=== PATIENT | female | born 1980 | race Caucasian/White ===

== ENCOUNTER 2021-08-01 12:09 | Emergency (ER) | payer BC, OTHER ==
--- OUTSIDE RECORDS SUMMARY | 2021-08-01 12:12 | XMS REPORT | Continuity of Care Document ---
:[address] [facility] t Address [address] [place] [address] Care Team Providers Name Role Phone Cipriano FOY Primary Care Physician Gerard Kaur Attending Clinician Gerard URIOSTEGUI Attending Clinician Unavailable Aline ABRAMS Attending Clinician ALINE Attending Clinician Unavailable Doctor Unassigned, Name Attending Clinician Unavailable Payers Payer Name Policy Type Policy Number Effective Date Expiration Date S ource Problems Condition Condition Condition Status Onset Resolution Last Treating Co mments Source Name Details Category Date Date Treatment Clinician Date 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 - [place] asthma [place] without 00 Medical complicati complicati Br anch on on Acute Acute Disease Active Univers seasonal seasonal - ity of allergic allergic 00:00: [place] rhinitis rhinitis 00 Medica l due to due to Branch pollen pollen Allergies, Adverse Reactions, Alerts Allergy Allergy Status Severity Reaction(s) Onset Inactive Treating Comm ents Source Name Type Date Date Clinician SUMATRIP DRUG Active Unknown-Cmnt 2014-03 Un patel WILD INGREDI 03-20 ity of SUCCINAT 00:00: [place] E 00 Medical Branch LANSOPRA DRUG Active Unknown-Cmnt 2014-03 Un patel ZOLE INGREDI 03-20 ity of 00:00: [place] 00 Medical Branch Sumatrip Propensi Active Unknown - 2014-03 Uni vers wild ty to See comments 03-20 ity of Succinat adverse 00:00: [place] e reaction 00 Medical s Branch Lansopra Propensi Active Unknown - 2014-03 Uni vers zole ty to See comments 03-20 ity of adverse 00:00: [place] reaction 00 Medical s Branch Social History Social Habit Start Date Stop Date Quantity Comments Source Exposure to 2021-06-30 2021-07-10 Not sure [facility] SARS-CoV-2 (event) 00:00:00 17:20:00 Medica l Branch Alcohol intake 2021-07-10 2021-07-10 0 /d [facility] 00:00:00 00:00:00 Medical Branch Sex [birth year] At [birth year] [facility] 00:00:00 00:00:00 Medical Branch Smoking Status Start Date Stop Date Source Never smoker [facility] Medical Branch Medications Ordered Filled Start Stop Current Ordering Indication Dosage Frequency Signature Comments Components Source Medication Medication Date Date Medication? Clinician (SIG) Name Name predniSONE Yes [id number] Take 4 Univers 10 mg 07-10 tabs by ity of tablet 00:00: mouth for [place] 00 3 days, 3 Medical tabs for 2 Branch days azelastine Yes [id number] 1{spray Use 1 Univers 137 mcg 07-10 } [place] in ity of (0.1 %) 00:00: each [place] nasal spray 00 nostril 2 Med ical (two) Branch times daily. Use in each nostril as directed amoxicillin 2021- Yes [id number] 875mg Take 1 Univers 875 mg 07-10 tablet by ity of tablet 00:00: 04:59 mouth 2 [place] 00 :00 (two) Medical times Branch daily for 7 days. levocetiriz Yes Take by Un patel ine 3-31 mouth. ity of dihydrochlo 10:31: [place] ride (XYZAL 41 Medical ORAL) Branch levocetiriz Yes Take by Un patel ine 3-31 mouth. ity of dihydrochlo 10:31: [place] ride (XYZAL 41 Medical ORAL) Branch levocetiriz Yes Take by Un patel ine 3-31 mouth. ity of dihydrochlo 10:31: [place] ride (XYZAL 41 Medical ORAL) Branch levocetiriz Yes Take by Un patel ine 3-31 mouth. ity of dihydrochlo 10:31: [place] ride (XYZAL 41 Medical ORAL) Branch norgestrel- Yes [id number] 1{tbl} Take 1 Univers ethinyl 3-31 tablet by ity of estradioL 00:00: mouth (SELLE) 00 daily. Medical 0.3-30 Branch mg-mcg per tablet norgestrel- Yes [id number] 1{tbl} Take 1 Univers ethinyl 3-31 tablet by ity of estradioL 00:00: mouth (SELL) 00 daily. Medical 0.3-30 Branch mg-mcg per tablet norgestrel- Yes [id number] 1{tbl} Take 1 Univers ethinyl 3-31 tablet by ity of estradioL 00:00: mouth (SELL) 00 daily. Medical 0.3-30 Branch mg-mcg per tablet norgestrel- Yes [id number] 1{tbl} Take 1 Univers ethinyl 3-31 tablet by ity of estradioL 00:00: mouth (SELL) 00 daily. Medical 0.3-30 Branch mg-mcg per tablet CRYSELLE 2021- No [id number] TAKE 1 U nivers 0.3-30 2-14 03-31 TABLET BY ity of mg-mcg per 00:00: 00:00 MOUTH [place] tablet 00 :00 EVERY DAY Medical Branch CRYSELLE 2021- No [id number] TAKE 1 U nivers 0.3-30 2-14 03-31 TABLET BY ity of mg-mcg per 00:00: 00:00 MOUTH [place] tablet 00 :00 EVERY DAY Medical Branch metoclopram 2020-03 Yes Univer s thalia HCl 10 0-26 ity of mg tablet 00:00: [place] 00 Medical Branch SUTAB 2020-03 Yes Univers 1.479-0.188 0-26 ity of - 0.225 00:00: [place] gram Tab 00 Medical Branch metoclopram 2020-03 Yes Univer s thalia HCl 10 0-26 ity of mg tablet 00:00: [place] 00 Medical Branch SUTAB 2020-03 Yes Univers 1.479-0.188 0-26 ity of - 0.225 00:00: [place] gram Tab 00 Medical Branch metoclopram 2020-03 Yes Univer s thalia HCl 10 0-26 ity of mg tablet 00:00: [place] Medical [facility] SUTAB 2020-03 Yes Univers 1.479-0.188 0-26 ity of - 0.225 00:00: [place] gram Tab 00 Medical Branch metoclopram 2020-03 Yes Univer s thalia HCl 10 0-26 ity of mg tablet 00:00: [place] 00 Medical Branch SUTAB 2020-03 Yes Univers 1.479-0.188 0-26 ity of - 0.225 00:00: [place] gram Tab 00 Medical Branch montelukast Yes [id number] 10mg Take 1 Univers 10 mg 8-23 tablet by ity of tablet 00:00: mouth [place] 00 daily. Medical Branch montelukast 0 Yes [id number] 10mg Take 1 Univers 10 mg 8-23 tablet by ity of tablet 00:00: mouth [place] 00 daily. Medical Branch montelukast Yes [id number] 10mg Take 1 Univers 10 mg 8-23 tablet by ity of tablet 00:00: mouth [place] 00 daily. Medical Branch montelukast Yes [id number] 10mg Take 1 Univers 10 mg 8-23 tablet by ity of tablet 00:00: mouth [place] 00 daily. Medical Branch albuterol Yes [id number] 2{puff} Inhale 2 Univers 90 5-18 Puffs ity of mcg/actuati 00:00: every 6 [place] on inhaler 00 (six) Medical hours as Branch needed for Wheezing. fluticasone Yes [id number] [place] 1 Univers propion-quinton 5-18 PUFF BY ity o f meteroL 00:00: MOUTH [place] (ADVAIR 00 EVERY 12 Medical DISKUS) HOURS Branch 250-50 mcg/dose inhalation disk albuterol Yes [id number] 2{puff} Inhale 2 Univers 90 5-18 Puffs ity of mcg/actuati 00:00: every 6 [place] as on inhaler 00 (six) Medical hours as Branch needed for Wheezing. fluticasone Yes [id number] [place] 1 Univers propion-[place] 5-18 PUFF BY ity o f meteroL 00:00: MOUTH [place] (ADVAIR 00 EVERY 12 Medical DISKUS) HOURS Branch 250-50 mcg/dose inhalation disk albuterol Yes [id number] 2{puff} Inhale 2 Univers 90 5-18 Puffs ity of mcg/actuati 00:00: every 6 [place] as on inhaler 00 (six) Medical hours as Branch needed for Wheezing. fluticasone Yes [id number] [place] 1 Univers propion-[place] 5-18 PUFF BY ity o f meteroL 00:00: MOUTH [place] (ADVAIR 00 EVERY 12 Medical DISKUS) HOURS Branch 250-50 mcg/dose inhalation disk albuterol Yes [id number] 2{puff} Inhale 2 Univers 90 5-18 Puffs ity of mcg/actuati 00:00: every 6 [place] as on inhaler 00 (six) Medical hours as Branch needed for Wheezing. fluticasone Yes [id number] [place] 1 Univers propion-[place] 5-18 PUFF BY ity o f meteroL 00:00: MOUTH [place] (ADVAIR 00 EVERY 12 Medical DISKUS) HOURS Branch 250-50 mcg/dose inhalation disk Immunizations Ordered Filled Immunization Date Status Comments [facility] e Immunization Name Name [facility] 2021-06-09 Completed University of 00:00:00 [facility] TDAP 2021-06-09 Completed University of 00:00:00 [facility] TDAP 2021-06-09 Completed University of 00:00:00 [facility] TDAP 2021-06-09 Completed University of 00:00:00 [facility] Influenza Virus 2020-12-09 Completed Universit y of Vaccine 00:00:00 [facility] Influenza Virus 2020-12-09 Completed Universit y of Vaccine 00:00:00 [facility] Influenza Virus 2020-12-09 Completed Universit y of Vaccine 00:00:00 [facility] Influenza Virus 2020-12-09 Completed Universit y of Vaccine 00:00:00 [facility] SARS-COV-2 COVID-19 2020-05-22 Completed Unive rsity of MODERNA VACCINE 00:00:00 [facility] SARS-COV-2 COVID-19 2020-05-22 Completed Unive rsity of MODERNA VACCINE 00:00:00 [facility] SARS-COV-2 COVID-19 2020-05-22 Completed Unive rsity of MODERNA VACCINE 00:00:00 [facility] SARS-COV-2 COVID-19 2020-05-22 Completed Unive rsity of MODERNA VACCINE 00:00:00 [facility] SARS-COV-2 COVID-19 2020-04-10 Completed Unive rsity of MODERNA VACCINE 00:00:00 [facility] SARS-COV-2 COVID-19 2020-04-10 Completed Unive rsity of MODERNA VACCINE 00:00:00 [facility] SARS-COV-2 COVID-19 2020-04-10 Completed Unive rsity of MODERNA VACCINE 00:00:00 [facility] SARS-COV-2 COVID-19 2020-04-10 Completed Unive rsity of MODERNA VACCINE 00:00:00 [facility] Influenza Virus 2019-11-27 Completed Universit y of Vaccine Quad .5 mL 00:00:00 [facility] 6+ MO Branch Influenza Virus 2019-11-27 Completed Universit y of Vaccine Quad .5 mL 00:00:00 [facility] 6+ MO Branch Influenza Virus 2019-11-27 Completed Universit y of Vaccine Quad .5 mL 00:00:00 [facility] 6+ MO Branch Influenza Virus 2019-11-27 Completed Universit y of Vaccine Quad .5 mL 00:00:00 [facility] IM 6+ MO Branch Influenza Virus 2019-01-07 Completed Universit y of Vaccine Quad .5 mL 00:00:00 [facility] 6+ MO Branch Pneumococcal 2019-01-07 Completed University o f Polysaccharide, 00:00:00 [facility] PPSV23 (PNEUMOVAX) Branch Influenza Virus 2019-01-07 Completed Universit y of Vaccine Quad .5 mL 00:00:00 [facility] 6+ MO Branch Pneumococcal 2019-01-07 Completed University o f Polysaccharide, 00:00:00 [facility] PPSV23 (PNEUMOVAX) Branch Influenza Virus 2019-01-07 Completed Universit y of Vaccine Quad .5 mL 00:00:00 [facility] IM 6+ MO Branch Pneumococcal 2019-01-07 Completed University o f Polysaccharide, 00:00:00 [facility] ical PPSV23 (PNEUMOVAX) Branch Influenza Virus 2019-01-07 Completed Universit y of Vaccine Quad .5 mL 00:00:00 [facility] 6+ MO Branch Pneumococcal 2019-01-07 Completed University o f Polysaccharide, 00:00:00 [place] Med ical PPSV23 (PNEUMOVAX) Branch Influenza Virus 2017-11-21 Completed Universit y of Vaccine 00:00:00 [facility] Influenza Virus 2017-11-21 Completed Universit y of Vaccine 00:00:00 [facility] Influenza Virus 2017-11-21 Completed Universit y of Vaccine 00:00:00 [facility] Influenza Virus 2017-11-21 Completed Universit y of Vaccine 00:00:00 [facility] TDAP 2011-01-02 Completed University of 00:00:00 [facility] TDAP 2011-01-02 Completed University of 00:00:00 [facility] TDAP 2011-01-02 Completed University of 00:00:00 [facility] TDAP 2011-01-02 Completed University of 00:00:00 [facility] Vital Signs Vital Name Observation Time Observation Value Comments Source Systolic blood 2021-07-10 22:27:00 137 mm[Hg] Univer sity of pressure [facility] Diastolic blood 2021-07-10 22:27:00 82 mm[Hg] Unive rsity of pressure [facility] Heart rate 2021-07-10 22:25:00 91 /min [facility] Body temperature 2021-07-10 22:25:00 36.89 Lakshmi [facility] Respiratory rate 2021-07-10 22:25:00 16 /min [facility] Body height 2021-07-10 22:25:00 170.2 cm [facility] Body weight 2021-07-10 22:25:00 106.323 kg [facility] BMI 2021-07-10 22:25:00 36.71 kg/m2 [facility] Oxygen saturation in 2021-07-10 22:25:00 98 /min [facility] Arterial blood by [facility] Pulse oximetry Branch Systolic blood 2021-06-09 15:34:00 133 mm[Hg] Univer sity of pressure [facility] Diastolic blood 2021-06-09 15:34:00 82 [facility]Hg[facility] 2021-06-09 15:34:00 84 /min [facility] Body temperature 2021-06-09 15:34:00 37 Lakshmi [facility] Respiratory rate 2021-06-09 15:34:00 20 /min [facility] Body height 2021-06-09 15:34:00 170.2 cm [facility] Body weight 2021-06-09 15:34:00 106.777 kg [facility] BMI 2021-06-09 15:34:00 36.87 kg/m2 [facility] Oxygen saturation in 2021-06-09 15:34:00 96 /min [facility] Arterial blood by [facility] Pulse oximetry Branch Procedures Procedure Date / Time Performing Clinician Source Performed TDAP VACCINE, >11 YRS, 2021-06-09 15:56:45 Nathaly Zarate [facility] CONSENT FOR 2021-06-09 05:01:00 Doctor Unassigned, No [facility] Encounters Start End Encounter Admission Attending Care Care Encounter Source Date/Time Date/Time Type Type Clinicians Facility Department ID 2021-07-10 2021-07-10 Urgent [facility] [id number] Univers 17:20:00 [facility]:40:[id number] [id number] Álvar[place] as LUCAS?BLEA [phone] [address] MEDICAL OFFICE BUILDING 2021-07-10 2021-07-10 Outpatient R [facility] [id number] Univers 17:20:00 17:20:00 [id number] ity [facility] 2021-07-10 2021-07-10 [facility] [id number] Univers 17:20:00 17:20:00 ENRRIQUE wyatt o f [facility] 2021-06-09 2021-06-09 Office Aline WIKALEB [id number] Univers 10:00:00 11:00:06 Visit Nathaly ESPINAL [id number] i [facility] [id number] [place] PROFESS[place] [id number] Nm dical [address] 2021-06-09 2021-06-09 Outpatient R ALINE [facility] [id number] [facility] 10:00:00 11:00:06 NATHALY wyatt of [facility] 2021-06-09 2021-06-09 Orders Doctor JARET [id number] Univers 00:00:00 00:00:00 Only Unassigned, NICOLA [id number] ity of [place] [facility] [id number] Á[place] as [phone] [place] [address] Branch Results This patient has no known results.
[2021-08-01 14:13] LABS: Urine Blood Negative (Negative); Urine Glucose Negative (Negative); Urine Protein 1+ (Negative); Urine Specific Gravity >=1.030 (1.005-1.030)
[2021-08-01 14:19] LABS: Absolute Lymphocytes (CBC) 1.4 K/uL (0.7-4.9); Hematocrit 45.8 % (36.0-45.0); Lymphocytes % 20.6 % (15.3-44.8); MPV 7.7 fL (7.6-11.3)
[2021-08-01 14:31] LABS: Urine Bacteria 20-50 /HPF (<20); Urine Mucus HEAVY /HPF (NONE SEEN); Urine RBC NONE SEEN /HPF (NONE SEEN)
[2021-08-01] MEDS ORDERED: ONDANSETRON 4 MG/2 ML VIAL ONE (15:03)
[2021-08-01 15:53] LABS: Albumin 3.6 g/dL (3.4-5.0); Bilirubin Total 0.3 mg/dL (0.2-1.0); Potassium 3.4 mmol/L (3.5-5.1); Protein, Total 7.5 g/dL (6.4-8.2)
--- NOTE | 2021-08-01 16:47 | RAD REPORT ---
EXAM DESCRIPTION: CT - Abdomen Pelvis W Contrast - 08/01/2021 4:13 pm CLINICAL HISTORY: Abdominal pain, acute, nonlocalized COMPARISON: CT study 04/26/2016 TECHNIQUE: Biphasic, helical CT imaging of the abdomen and pelvis was performed following 100 ml non -ionic IV contrast. No oral contrast administered. All CT scans are performed using dose optimization technique as appropriate and may include automated exposure control or mA/KV adjustment according to patient size. FINDINGS: No suspicious findings in the lung bases. The liver, spleen, and pancreas show no suspicious findings. No portal vein thrombus. Gallbladder is absent. Biliary tree within normal limits. Symmetric renal function is seen with no hydronephrosis or suspicious renal mass. No pyelonephritis o r acute parenchymal process. No bladder abnormalities. No adrenal abnormalities. Uterus and ovaries s how no suspicious findings. No dilated bowel loops or bowel wall thickening. No appendicitis findings. Fluid filled large and sma ll bowel loops are seen, are nonspecific but could reflect enteritis. No free air, free fluid or infl ammatory stranding. No hernia, mass or bulky lymphadenopathy. No suspicious bony findings. IMPRESSION: Contrast enhanced CT abdomen and pelvis showing no emergent finding. Fluid filled large and small bowel loops are nonspecific but could indicate enteritis.
--- NOTE | 2021-08-01 16:56 | EDPHYS ---
Physician Documentation [facility] Name: Elke Benton Age: 40 yrs Sex: Female : 1980 Arrival Date: 08/01/2021 Time: 12:16 Bed 9 Private MD: Marv Cota S ED Physician Jayden Quintana HPI: 08/01 16:29 This 40 yrs old Female presents to ER via Ambulatory with complaints of Abdominal Pain, ms3 GI flare up. 16:29 The patient presents with abdominal pain that is diffuse. Onset: The symptoms/episode ms3 began/occurred last night. The symptoms do not radiate. Associated signs and symptoms: Pertinent positives: nausea, vomiting, and diarrhea. The symptoms are described as crampy. Modifying factors: The symptoms are alleviated by heating pad. the symptoms are aggravated by drinking, food. Severity of pain: At its worst the pain was severe a 10 / 10. 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 - Social history:: Smoking status: Patient denies any tobacco usage or history of. ROS: 16:29 Constitutional: Negative for fever, and chills. Neck: Negative for injury, pain, and ms3 swelling, Cardiovascular: Negative for chest pain, and palpitations. Respiratory: Negative for shortness of breath, cough, wheezing, and pleuritic chest pain. 16:29 MS/Extremity: Negative for injury and deformity, Skin: Negative for injury, rash, and discoloration. 16:29 Abdomen/GI: Positive for abdominal pain, nausea, vomiting, and diarrhea. 16:29 All other systems are negative. Exam: 16:29 Constitutional: This is a well developed, well nourished patient who is awake, alert, ms3 and in no acute distress. Neck: Trachea midline, no cervical lymphadenopathy. Supple, full range of motion without nuchal rigidity, or vertebral point tenderness. No Meningismus. Chest/axilla: Normal chest wall appearance and motion. Nontender with no deformity. Cardiovascular: Regular rate and rhythm with a normal S1 and S2. No gallops, murmurs, or rubs. Normal PMI, no JVD. No pulse deficits. Respiratory: Lungs have equal breath sounds bilaterally, clear to auscultation and percussion. No rales, rhonchi or wheezes noted. No increased work of breathing, no retractions or nasal flaring. Back: No spinal tenderness. No costovertebral tenderness. Full range of motion. Skin: Warm, dry with normal turgor. Normal color with no rashes, no lesions, and no evidence of cellulitis. MS/ Extremity: Pulses equal, no cyanosis. Neurovascular intact. Full, normal range of motion. Psych: Awake, alert, with orientation to person, place and time. Behavior, mood, and affect are within normal limits. 16:29 Abdomen/GI: Inspection: abdomen appears normal, Bowel sounds: normal, Palpation: moderate abdominal tenderness, in all quadrants. Vital Signs: 12:38 BP 135 / 89; Pulse 105; Resp 18; Temp 98.1; Pulse Ox 99% ; Weight 104.33 kg; Height 5 jd3 ft. 7 in. (170.18 cm); Pain 8/10; 12:38 Body Mass Index 36.02 (104.33 kg, 170.18 cm) jd3 MDM: 13:52 Patient medically screened. ms3 16:29 Differential diagnosis: bowel obstruction, diverticulitis, gastritis, non-specific abd ms3 pain. 22:06 Data reviewed: vital signs, nurses notes, lab test result(s), radiologic studies. ED ms3 course: Discussed labs, CT results, and PE findings with patient. Patient to follow up with her PMD in 2-3 days. Patient understands/ agrees with plan. All questions answered. Return precautions given to include worsening symptoms, or any other concerns. Patient is improved, in NAD, non-toxic appearing, ambulatory in ED, speaking full sentences.. 08/01 12:39 Order name: CBC with Diff; Complete Time: 16:27 ms3 08/01 12:39 Order name: CMP; Complete Time: 16:27 ms3 08/01 12:39 Order name: Lipase; Complete Time: 16:27 ms3 05/23 12:39 Order name: Urine Microscopic Only; Complete Time: 16:27 ms3 08/01 14:13 Order name: Urine Dipstick-Ancillary; Complete Time: 16:27 EDMS 08/01 12:39 Order name: CT Abd/Pelvis - IV Contrast Only; Complete Time: 16:52 ms3 08/01 12:39 Order name: IV Saline Lock; Complete Time: 14:13 ms3 08/01 12:39 Order name: Labs collected and sent; Complete Time: 14:13 ms3 08/01 12:39 Order name: Urine Dipstick-Ancillary (obtain specimen); Complete Time: 14:13 ms3 08/01 12:39 Order name: Urine Test (obtain specimen); Complete Time: 14:13 ms3 08/01 14:34 Order name: Urine Culture EDWY 08/01 14:20 Order name: Labs - recollect needed: recollect green top; Complete Time: 15:06 bd 08/01 15:18 Order name: Labs - recollect needed: recollect green top again, lab will come collect.; bd Complete Time: 16:00 Administered Medications: 15:18 Drug: Zofran (Ondansetron) 4 mg Route: IVP; Site: left antecubital; ww Disposition Summary: 08/01/21 16:56 Discharge Ordered Location: Home ms3 Problem: new ms3 Symptoms: are unchanged ms3 Condition: Stable ms3 Diagnosis - UTI/ Urinary tract infection, site not specified ms3 - Abdominal pain, Generalized ms3 Followup: ms3 - With: Marv Cota MD - When: 2 - 3 days - Reason: Recheck today's complaints Discharge Instructions: - Discharge Summary Sheet ms3 - Urinary Tract Infection, Adult ms3 Forms: - Medication Reconciliation Form ms3 - Thank You Letter ms3 - Antibiotic Education ms3 - Prescription Opioid Use ms3 - Work release form ww Prescriptions: - cefpodoxime 200 mg Oral Tablet - take 2 tablets by ORAL route every 12 hours with food; 14 tablet; Refills: 0, ms3 Product Selection Permitted - dicyclomine 10 mg Oral Capsule - take 1 capsule by ORAL route 3 times per day; 15 capsule; Refills: 0, Product ms3 Selection Permitted Signatures: Dispatcher [employer] Trini Loza Jonathon, RN RN jd3 Jayden Quintana, DO ms3 Bharti Banuelos, RN RN ww
--- NOTE | 2021-08-01 16:56 | ER ---
Nurse's Notes [facility] Name: Elke Benton Age: 40 yrs Sex: Female : 1980 Arrival Date: 08/01/2021 Time: 12:16 Bed 9 Private MD: Marv Cota S Diagnosis: UTI/ Urinary tract infection, site not specified;Abdominal pain, Generalized Presentation: 08/01 12:38 Chief complaint: Patient states: Abdominal pain that started yesterday with nausea and jd3 diarrhea. Has a history of diverticulitis and colitis. Started yesterday with a mirgraine. Coronavirus screen: Vaccine status: Patient reports receiving the 2nd dose of the covid vaccine. Client denies travel out of the [place] in the last 14 days. Ebola Screen: Patient denies travel to an Ebola-affected area in the 21 days before illness onset. Initial Sepsis Screen: Does the patient meet any 2 criteria? No. Patient's initial sepsis screen is negative. Does the patient have a suspected source of infection? No. Patient's initial sepsis screen is negative. Risk Assessment: Do you want to hurt yourself or someone else? Patient reports no desire to harm self or others. Onset of symptoms was July 31, 2021. 12:38 Method Of Arrival: Ambulatory jd3 12:38 Acuity: MARK 3 jd3 Triage Assessment: 12:41 General: Appears uncomfortable, Behavior is calm, cooperative. Pain: Complains of pain jd3 in diaphragm. Neuro: Level of Consciousness is awake, alert, obeys commands, Oriented to person, place, time, situation, Moves all extremities. Speech is normal. Cardiovascular: Patient's skin is warm and dry. Respiratory: Airway is patent Respiratory effort is even, unlabored, Respiratory pattern is regular, symmetrical. 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 - Social history:: Smoking status: Patient denies any tobacco usage or history of. Screenin:43 Abuse screen: Denies threats or abuse. Denies injuries from another. Nutritional jd3 screening: No deficits noted. Tuberculosis screening: No symptoms or risk factors identified. 17:22 Fall Risk None identified. ww Assessment: 17:22 General: Appears in no apparent distress. Behavior is calm, cooperative. Pain: ww Complains of pain in abdomen. Neuro: Level of Consciousness is awake, alert, obeys commands, Oriented to person, place, time, situation, Moves all extremities. Gait is steady, Speech is normal. Cardiovascular: Patient's skin is warm and dry. Respiratory: Airway is patent Respiratory effort is even, unlabored, Respiratory pattern is regular, symmetrical. GI: Abdomen is non-distended, Abd is soft and non tender. Derm: Skin is intact, is healthy with good turgor. Vital Signs: 12:38 BP 135 / 89; Pulse 105; Resp 18; Temp 98.1; Pulse Ox 99% ; Weight 104.33 kg; Height 5 jd3 ft. 7 in. (170.18 cm); Pain 8/10; 12:38 Body Mass Index 36.02 (104.33 kg, 170.18 cm) jd3 ED Course: 12:16 Patient arrived in ED. am2 12:16 Marv Cota MD is Private Physician. am2 12:32 Jayden Quintana DO is Attending Physician. ms3 12:41 Triage completed. jd3 12:41 Arm band placed on right wrist. jd3 14:13 Patient has correct armband on for positive identification. Placed in gown. Bed in low mh5 position. Call light in reach. Side rails up X 1. Warm blanket given. Pulse ox on. NIBP on. 14:13 CBC with Diff Sent. mh5 14:13 CMP Sent. mh5 14:13 Lipase Sent. mh5 14:13 Urine Microscopic Only Sent. mh5 14:14 Initial lab(s) drawn, by de, sent to lab. Urine collected: clean catch specimen, mh5 cloudy. Inserted saline lock: 20 gauge in right antecubital area, using aseptic technique. Blood collected. 14:15 Lipase Sent. 5 14:15 CMP Sent. 5 14:15 CBC with Diff Sent. mh5 14:41 Cayla Fraire, RN is Primary Nurse. 16:17 CT Abd/Pelvis - IV Contrast Only In Process Unspecified. EDMS 16:54 Marv Cota MD is Referral Physician. ms3 17:22 No provider procedures requiring assistance completed. IV discontinued, intact, ww bleeding controlled, No redness/swelling at site. Pressure dressing applied. Administered Medications: 15:18 Drug: Zofran (Ondansetron) 4 mg Route: IVP; Site: left antecubital; ww Medication: 17:22 VIS not applicable for this client. ww Outcome: 16:56 Discharge ordered by . ms3 17:22 Discharged to home ambulatory, with family. ww 17:22 Condition: stable 17:22 Discharge instructions given to patient, Instructed on discharge instructions, follow up and referral plans. medication usage, safety practices, Demonstrated understanding of instructions, follow-up care, medications, Prescriptions given X 1. 17:24 Patient left the ED. ww Signatures: Dispatcher [employer] EDNC Cayla Fraire, RN RN Lucina Roebrt 5 Jennifer Redd amСергей Bridges RN RN jd3 Jayden Quintana DO DO ms3 Bharti Banuelos, DANYEL RN ww Corrections: (The following items were deleted from the chart) 17:24 17:22 Discharge instructions given to patient, Instructed on discharge instructions, ww follow up and referral plans. medication usage, safety practices, Demonstrated understanding of instructions, follow-up care, medications, Prescriptions given X 3, ww
[2021-08-01 17:36] VITALS: BP 135/89; TEMP 98.1; O2SAT 99
== END 2021-08-01 17:24 | disposition home or self-care (01) ==
LOC: ER 12:09
DX: N39.0 Urinary tract infection, site not specified (principal); R11.2 Nausea with vomiting, unspecified; Z88.8 Allergy status to other drugs, medicaments and biological substances
CPT/HCPCS: 87088; 85025; 87086; 36415; 83690; 80053; 74177; 96374; 99284; Q9967; J2405; 81003; 81015

== ENCOUNTER 2022-09-17 01:18 | Emergency (ER) | payer BC ==
--- OUTSIDE RECORDS SUMMARY | 2022-09-17 01:23 | XMS REPORT | Continuity of Care Document ---
:1980 Author Organization [facility] t Address [address] [facility] [address] [place] [id number] Care Team Providers Name Role Phone MARV SCHWARZ Primary Care Physician Unavailable KLARISSA LAKE Attending Clinician Unavailable KLARISSA LAKE Attending Clinician Unavailable Malika Kaur Attending Clinician Unknown, Attending Attending Clinician Unavailable UNKNOWN, ATTENDING Attending Clinician Unavailable MALIKA GAY Attending Clinician Unavailable Doctor Unassigned, [place] Attending Clinician Unavailable ANJUM MIRELES Attending Clinician Unavailable Dominique Moe Attending Clinician DOMINIQUE TRIMBLE Attending Clinician Unavailable JUAN DE LEON Attending Clinician Unavailable Juan Sarmiento Attending Clinician Richard Soto Attending Clinician RICHARD MALDONADO Attending Clinician Unavailable Marv Schwarz MD Attending Clinician Anjum Mireles PA-C Attending Clinician TAMARA YIN III Attending Clinician Unavailable ROSE MARY PICKERING Attending Clinician Unavailable RAJNI RIOS Attending Clinician Unavailable RAJNI RIOS Attending Clinician Unavailable Rose Mary Pickering MD Attending Clinician Merissa Reich RN Attending Clinician Unavailable JENNIFER DUARTE Attending Clinician Unavailable Only, Ang Db Test Attending Clinician Unavailable Jennifer Duarte MD Attending Clinician [place] [employer]CENT [employer] MIXERJoo Attending Clinician JOO PAULINO Attending Clinician Unavailable MARV SCHWARZ Attending Clinician Unavailable Lab, Adc Fam Pob I Attending Clinician Unavailable Charles MONTAÑO, Myah Nolan Attending Clinician Unavailable Miguel Gallagher DO Attending Clinician Pito FOY, Tamara Ware Attending Clinician TAMARA SHELDON Attending Clinician Unavailable ANUJA ADAN Attending Clinician Unavailable [facility] Attending Clinician Unavailable JOO PAULINO Admitting Clinician Unavailable Payers Payer Name Policy Type Policy Number Effective Date Expiration Date Marissa WORLEY II [id number] 2017 00:00:00 Problems Condition Condition Condition Status Onset Resolution Last Treating Co mments Source Name Details Category Date Date Treatment Clinician Date Subacute Subacute Disease Active 2021-03 Unive rs cough cough 1- ity of 00:00: [place] 00 Medical Branch 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 3- [place] of nt asthma [place] asthma [place] without 00 Medical complicati complicati Br anch on on Acute Acute Disease Active Univers seasonal seasonal 3- ity of allergic allergic 00:00: [place] rhinitis rhinitis 00 Medica l due to due to Branch pollen pollen Allergies, Adverse Reactions, Alerts Allergy Allergy Status Severity Reaction(s) Onset Inactive Treating Comm ents Source Name Type Date Date Clinician Sumatrip Propensi Active Unknown - 2014-03 Uni vers wild ty to See comments 03-20 ity of Succinat adverse 00:00: [place] e reaction 00 Medical s Branch Lansopra Propensi Active Unknown - 2014-03 Uni vers zole ty to See comments 03-20 ity of adverse 00:00: [place] reaction 00 Medical s Branch SUMATRIP DRUG Active Unknown-Cmnt 2014-03 Un patel WILD INGREDI 03-20 ity of SUCCINAT 00:00: [place] E 00 Medical Branch LANSOPRA DRUG Active Unknown-Cmnt 2014-03 Un patel ZOLE INGREDI 03-20 ity of 00:00: [place] 00 Medical Branch Social History Social Habit Start Date Stop Date Quantity Comments Source Exposure to 2022-07-12 2022-07-22 Not sure [facility] SARS-CoV-2 00:00:00 20:43:00 [facility] [place] (event) [place] Alcohol intake 2022-07-22 2022-07-22 0 /d [facility] 00:00:00 00:00:00 [facility] Tobacco use and 2022-06-16 2022-06-16 Smokeless tobacco Un iversity of exposure 00:00:00 00:00:00 non-user [facility] Sex [birth year] At [birth year] Universit y of 00:00:00 00:00:00 [facility] Smoking Status Start Date Stop Date Source Never smoked tobacco [facility] Medications Ordered Filled Start Stop Current Ordering Indication Dosage Frequency Signature Comments Components Source Medication Medication Date Date Medication? Clinician (SIG) Name Name azelastine Yes [id number] 1{spray Use 1 Univers 137 mcg 5-13 } [place] in ity of (0.1 %) 00:00: each [place] nasal spray 00 nostril in Wy dicnm the [place] morning and 1 [place] in the evening. Use in each nostril as directed methylPREDN Yes [id number] Take by Univers ISolone 5-13 mouth ity of (MEDROL, 00:00: SEE-INSTRU [place] RON,) 4 mg 00 CTIONS. Medica l tablets follow [place] package directions amoxicillin 2022- Yes [id number] 1{tbl} Take 1 Univers -clavulanat 5-13 05-21 tablet by it y of e 00:00: 04:59 mouth in [place] (AUGMENTIN) 00 :00 the Medical 875-125 mg morning Branch per tablet and 1 tablet in the evening. Do all this for 7 days. levocetiriz Yes Take by Uni vers ine 4-07 mouth. ity of dihydrochlo 10:24: [place] ride (XYZAL 16 Medical ORAL) Branch levocetiriz 0 Yes Take by Uni vers ine 4-07 mouth. ity of dihydrochlo 10:24: [place] ride (XYZAL 16 Medical ORAL) Branch levocetiriz 0 Yes Take by Uni vers ine 4-07 mouth. ity of dihydrochlo 10:24: [place] ride (XYZAL 16 Medical ORAL) Branch norgestrel- Yes [id number] 1{tbl} Take 1 Univers ethinyl 4-07 tablet by ity of estradioL 00:00: mouth in [facility] ([facility]) 00 the Medical 0.3-30 morning. Branch mg-mcg per tablet norgestrel- Yes [id number] 1{tbl} Take 1 Univers ethinyl 4-07 tablet by ity of estradioL 00:00: mouth in [facility] ([facility]) 00 the Medical 0.3-30 morning. Branch mg-mcg per tablet norgestrel- Yes [id number] 1{tbl} Take 1 Univers ethinyl 4-07 tablet by ity of estradioL 00:00: mouth in [facility] ([facility]) the Medical 0.3-30 morning. Branch mg-mcg per tablet albuterol 2021-03 Yes [id number] 2{puff} Inhale 2 Univers 90 1-21 Puffs ity of mcg/actuati 00:00: every 6 Á[place] as on inhaler 00 (six) Medical hours as Branch needed for Wheezing. predniSONE 2021-03 Yes [id number] 20mg Take 1 Univers 20 mg 1-21 tablet by ity of tablet 00:00: mouth in [place] the Medical morning. Branch albuterol 2021-03 Yes [id number] 2{puff} Inhale 2 Univers 90 1-21 Puffs ity of mcg/actuati 00:00: every 6 [place] as on inhaler 00 (six) Medical hours as Branch needed for Wheezing. predniSONE 2021-03 Yes [id number] 20mg Take 1 Univers 20 mg 1-21 tablet by ity of tablet 00:00: mouth in [place] 00 the Medical morning. Branch albuterol 2021-03 Yes [id number] 2{puff} Inhale 2 Univers 90 1-21 Puffs ity of mcg/actuati 00:00: every 6 [place] as on inhaler 00 (six) Medical hours as Branch needed for Wheezing. predniSONE 2021-03 Yes [id number] 20mg Take 1 Univers 20 mg 1-21 tablet by ity of tablet 00:00: mouth in [place] 00 the Medical morning. Branch albuterol 2021-03 Yes [id number] 2{puff} Inhale 2 Univers 90 1-21 Puffs ity of mcg/actuati 00:00: every 6 Á[place] as on inhaler 00 (six) Medical hours as Branch needed for Wheezing. predniSONE 2021-03 Yes [id number] 20mg Take 1 Univers 20 mg 1-21 tablet by ity of tablet 00:00: mouth in [place] 00 the Medical morning. Branch albuterol 2021-03 Yes [id number] 2{puff} Inhale 2 Univers 90 1-21 Puffs ity of mcg/actuati 00:00: every 6 [place] as on inhaler 00 (six) Medical hours as Branch needed for Wheezing. predniSONE 2021-03 Yes [id number] 20mg Take 1 Univers 20 mg 1-21 tablet by ity of tablet 00:00: mouth in [place] 00 the Medical morning. Branch albuterol 2021-03 Yes [id number] 2{puff} Inhale 2 Univers 90 1-21 Puffs ity of mcg/actuati 00:00: every 6 Á[place] as on inhaler 00 (six) Medical hours as Branch needed for Wheezing. predniSONE 2021-03- No [id number] 20mg Take 1 Univers 20 mg 1-21 05-13 tablet by ity of tablet 00:00: 00:00 mouth in [place] 00 :00 the Medical morning. Branch benzonatate 2021-03- No [id number] 200mg Take 1 Univers 200 mg 1-21 11-29 capsule by ity of capsule 00:00: 05:59 mouth 3 [place] 00 :00 (three) Medical times Branch daily as needed for Cough for up to 7 days. benzonatate 2021-03- No [id number] 200mg Take 1 Univers 200 mg 1-21 11-29 capsule by ity of capsule 00:00: 05:59 mouth 3 [place] 00 :00 (three) Medical times Branch daily as needed for Cough for up to 7 days. methylPREDN 2021-03 Yes [id number] Take by Univers ISolone 0-26 mouth ity of (MEDROL, 00:00: SEE-INSTRU [place] RON,) 4 mg 00 CTIONS. Medica l tablets follow Branch package directions methylPREDN 2021-03- No [id number] Take by Univers ISolone 0-26 11-21 mouth ity of (MEDROL, 00:00: 00:00 [place]INSTRU [place] RON,) 4 mg 00 :00 CTIONS. Medica l tablets follow Branch package directions methylPREDN 2021-03- No [id number] Take by [facility] ISolone 01-30 mouth ity of (MEDROL, 00:00: 00:00 [place]INSTRU [place] RON,) 4 mg 00 :00 CTIONS. Medica l tablets follow Branch package directions amoxicillin 2021-03- No [id number] 1{tbl} Take 1 Univers -clavulanat 01-15 tablet by it y of e 00:00: 04:59 mouth in [place] (AUGMENTIN) 00 :00 the Medical 875-125 mg morning Branch per tablet and 1 tablet in the evening. Do all this for 10 days. methylPREDN Yes [id number] Take by [facility] ISolone 12-03 mouth ity of (MEDROL, 00:00: SEE-INSTRU [place] RON,) 4 mg 00 CTIONS. Medica l tablets follow Branch package directions methylPREDN Yes [id number] Take by [facility] ISolone 12-03 mouth ity of (MEDROL, 00:00: SEE-INSTRU [place] RON,) 4 mg 00 CTIONS. Medica l tablets follow Branch package directions methylPREDN 2021- No [id number] Take by [facility] ISolone 12-03 mouth ity of (MEDROL, 00:00: 00:00 [place]IN[place] RON,) 4 mg 00 :00 CTIONS. Medica l tablets follow Branch package directions methylPREDN 2021- No [id number] Take by [facility] ISolone 12-03 mouth ity of (MEDROL, 00:00: 00:00 [place]INSTRU [place] RON,) 4 mg 00 :00 CTIONS. Medica l tablets follow Branch package directions fluticasone Yes [id number] UNHALE 1 Univers propion-[place] 11-18 PUFF BY ity o f meteroL 00:00: MOUTH [place] (ADVAIR 00 EVERY 12 Medical DISKUS) HOURS Branch 250-50 mcg/dose inhalation disk fluticasone Yes [id number] UN[place]ALE 1 Univers propion-[place] 9-09 PUFF BY ity o f meteroL 00:00: MOUTH [place] (ADVAIR 00 EVERY 12 Medical DISKUS) HOURS Branch 250-50 mcg/dose inhalation disk fluticasone 2-0 Yes [id number] UN[place]ALE 1 Univers propion-[place] 9-09 PUFF BY ity o f meteroL 00:00: MOUTH [place] (ADVAIR 00 EVERY 12 Medical DISKUS) HOURS Branch 250-50 mcg/dose inhalation disk fluticasone 2021-0 Yes [id number] UN[place]ALE 1 Univers propion-[place] 9-09 PUFF BY ity o f meteroL 00:00: MOUTH [place] (ADVAIR 00 EVERY 12 Medical DISKUS) HOURS Branch 250-50 mcg/dose inhalation disk fluticasone 2021-0 Yes [id number] UN[place]ALE 1 Univers propion-[place] 9-09 PUFF BY ity o f meteroL 00:00: MOUTH [place] (ADVAIR 00 EVERY 12 Medical DISKUS) HOURS Branch 250-50 mcg/dose inhalation disk fluticasone 2021-0 Yes [id number] UN[place]ALE 1 Univers propion-[place] 9-09 PUFF BY ity o f meteroL 00:00: MOUTH [place] (ADVAIR 00 EVERY 12 Medical DISKUS) HOURS Branch 250-50 mcg/dose inhalation disk fluticasone 2021-0 Yes [id number] UN[place]ALE 1 Univers propion-[place] 9-09 PUFF BY ity o f meteroL 00:00: MOUTH [place] (ADVAIR 00 EVERY 12 Medical DISKUS) HOURS Branch 250-50 mcg/dose inhalation disk fluticasone 2021-0 Yes [id number] UN[place]ALE 1 Univers propion-[place] 9-09 PUFF BY ity o f meteroL 00:00: MOUTH [place] (ADVAIR 00 EVERY 12 Medical DISKUS) HOURS Branch 250-50 mcg/dose inhalation disk fluticasone 2-0 Yes [id number] UN[place]ALE 1 Univers propion-[place] 9-09 PUFF BY ity o f meteroL 00:00: MOUTH [place] (ADVAIR 00 EVERY 12 Medical DISKUS) HOURS Branch 250-50 mcg/dose inhalation disk MONTELUKAST 2021-0 Yes [id number] TAKE ONE Univers 10 mg 8-29 (1) ity of tablet 00:00: TABLET(S) [place] 00 BY MOUTH Medical DAILY. Branch MONTELUKAST 0 Yes [id number] TAKE ONE Univers 10 mg 8-29 (1) ity of tablet 00:00: TABLET(S) [place] 00 BY MOUTH Medical DAILY. [place] MONTELUKAST Yes [id number] TAKE ONE Univers 10 mg 8-29 (1) ity of tablet 00:00: TABLET(S) [place] 00 BY MOUTH Medical DAILY. [place] MONTELUKAST 0 Yes [id number] TAKE ONE Univers 10 mg 8-29 (1) ity of tablet 00:00: TABLET(S) [place] 00 BY MOUTH Medical DAILY. [place] MONTELUKAST Yes [id number] TAKE ONE Univers 10 mg 8-29 (1) ity of tablet 00:00: TABLET(S) [place] 00 BY MOUTH Medical DAILY. [place] MONTELUKAST Yes [id number] TAKE ONE Univers 10 mg 8-29 (1) ity of tablet 00:00: TABLET(S) [place] 00 BY MOUTH Medical DAILY. [place] MONTELUKAST Yes [id number] TAKE ONE Univers 10 mg 8-29 (1) ity of tablet 00:00: TABLET(S) [place] 00 BY MOUTH Medical DAILY. [place] MONTELUKAST Yes [id number] TAKE ONE Univers 10 mg 8-29 (1) ity of tablet 00:00: TABLET(S) [place] 00 BY MOUTH Medical DAILY. [place] MONTELUKAST Yes [id number] TAKE ONE Univers 10 mg 8-29 (1) ity of tablet 00:00: TABLET(S) [place] 00 BY MOUTH Medical DAILY. [place] MONTELUKAST Yes [id number] TAKE ONE Univers 10 mg 8-29 (1) ity of tablet 00:00: TABLET(S) [place] 00 BY MOUTH Medical DAILY. [place] predniSONE 0 Yes [id number] Take 4 Univers 10 mg 07-10 tabs by ity of tablet 00:00: mouth for 00 3 days, 3 Medical tabs for 2 Branch days azelastine 0 Yes [id number] 1{spray Use 1 Univers 137 mcg 07-10 } [place] in ity of (0.1 %) 00:00: each [place] nasal spray 00 nostril 2 Med ical (two) Branch times daily. Use in each nostril as directed predniSONE 2022-0 Yes [id number] Take 4 Univers 10 mg 5-00 tabs by ity of tablet 00:00: mouth for 3 days, 3 Medical tabs for 2 Branch days azelastine 2021-0 Yes [id number] 1{spray Use 1 Univers 137 mcg 5- } [place] in ity of (0.1 %) 00:00: each [place] nasal spray 00 nostril 2 Med ical (two) Branch times daily. Use in each nostril as directed predniSONE 2021-0 Yes [id number] Take 4 Univers 10 mg 5- tabs by ity of tablet 00:00: mouth for 3 days, 3 Medical tabs for 2 Branch days azelastine 0 Yes [id number] 1{spray Use 1 Univers 137 mcg 5- } [place] in ity of (0.1 %) 00:00: each nasal spray 00 nostril 2 Med ical (two) Branch times daily. Use in each nostril as directed predniSONE 2021-0 Yes [id number] Take 4 Univers 10 mg 5- tabs by ity of tablet 00:00: mouth for 3 days, 3 Medical tabs for 2 Branch days azelastine 2021-0 Yes [id number] 1{spray Use 1 Univers 137 mcg 5- } [place] in ity of (0.1 %) 00:00: each nasal spray 00 nostril 2 Med ical (two) Branch times daily. Use in each nostril as directed predniSONE 2021-0 Yes [id number] Take 4 Univers 10 mg 5- tabs by ity of tablet 00:00: mouth for 3 days, 3 Medical tabs for 2 Branch days azelastine 2021-0 Yes [id number] 1{spray Use 1 Univers 137 mcg 5- } [place] in ity of (0.1 %) 00:00: each [place] nasal spray 00 nostril 2 Med ical (two) Branch times daily. Use in each nostril as directed predniSONE 2021-0 Yes [id number] Take 4 Univers 10 mg 5- tabs by ity of tablet 00:00: mouth for 3 days, 3 Medical tabs for 2 Branch days azelastine 2021-0 Yes [id number] 1{spray Use 1 Univers 137 mcg 5-00 } [place] in ity of (0.1 %) 00:00: each [place] nasal spray 00 nostril 2 Med ical (two) Branch times daily. Use in each nostril as directed predniSONE 2021-0 Yes [id number] Take 4 Univers 10 mg 07-10 tabs by ity of tablet 00:00: mouth for 00 3 days, 3 Medical tabs for 2 Branch days azelastine 2021-0 Yes [id number] 1{spray Use 1 Univers 137 mcg 5- } [place] in ity of (0.1 %) 00:00: each [place] nasal spray 00 nostril 2 Med ical (two) Branch times daily. Use in each nostril as directed azelastine 2021-0 Yes [id number] 1{spray Use 1 Univers 137 mcg 5-00 } [place] in ity of (0.1 %) 00:00: each [place] nasal spray 00 nostril 2 Med ical (two) Branch times daily. Use in each nostril as directed azelastine 2021-0 Yes [id number] 1{spray Use 1 Univers 137 mcg 5-00 } [place] in ity of (0.1 %) 00:00: each [place] nasal spray 00 nostril 2 Med ical (two) Branch times daily. Use in each nostril as directed azelastine 2021-0 Yes [id number] 1{spray Use 1 Univers 137 mcg 5-00 } [place] in ity of (0.1 %) 00:00: each [place] nasal spray 00 nostril 2 Med ical (two) Branch times daily. Use in each nostril as directed azelastine 2021-0 Yes [id number] 1{spray Use 1 Univers 137 mcg 5-00 } [place] in ity of (0.1 %) 00:00: each [place] nasal spray 00 nostril 2 Med ical (two) Branch times daily. Use in each nostril as directed azelastine 2021-0 Yes [id number] 1{spray Use 1 Univers 137 mcg 07-10 } [place] in ity of (0.1 %) 00:00: each [place] nasal spray 00 nostril 2 Med ical (two) Branch times daily. Use in each nostril as directed azelastine 0 3- No [id number] 1{spray Use 1 Univers 137 mcg 5-03 16- } [place] in ity of (0.1 %) 00:00: 00:00 each [place] nasal spray 00 :00 nostril 2 Med ical (two) Branch times daily. Use in each nostril as directed predniSONE 2021-0 2021- No [id number] Take 4 Univers 10 mg 07-10 tabs by ity of tablet 00:00: 00:00 mouth for [place] 00 :00 3 days, 3 Medical tabs for 2 Branch days predniSONE 2021-0 2021- No [id number] Take 4 Univers 10 mg 07-10 tabs by ity of tablet 00:00: 00:00 mouth for [place] 00 :00 3 days, 3 Medical tabs for 2 Branch days amoxicillin 2021-0 2021- No [id number] 875mg Take 1 Univers 875 mg 07-10 tablet by ity of tablet 00:00: 04:59 mouth 2 [place] 00 :00 (two) Medical times Branch daily for 7 days. levocetiriz Yes Take by Uni vers ine 3-31 mouth. ity of dihydrochlo 10:31: [place] ride (XYZAL 41 Medical ORAL) Branch levocetiriz 2021-0 Yes Take by Uni vers ine 3-31 mouth. ity of dihydrochlo 10:31: [place] ride (XYZAL 41 Medical ORAL) Branch levocetiriz 2021-0 Yes Take by Uni vers ine 3-31 mouth. ity of dihydrochlo 10:31: [place] ride (XYZAL 41 Medical ORAL) Branch levocetiriz 2021-0 Yes Take by Uni vers ine 3-31 mouth. ity of dihydrochlo 10:31: [place] ride (XYZAL 41 Medical ORAL) Branch levocetiriz 2021-0 Yes Take by Uni vers ine 3-31 mouth. ity of dihydrochlo 10:31: [place] ride (XYZAL 41 Medical ORAL) Branch levocetiriz 2021-0 Yes Take by Uni vers ine 3-31 mouth. ity of dihydrochlo 10:31: [place] ride (XYZAL 41 Medical ORAL) Branch levocetiriz 2021-0 Yes Take by Uni vers ine 3-31 mouth. ity of dihydrochlo 10:31: [place] ride (XYZAL 41 Medical ORAL) Branch levocetiriz 0 Yes Take by Uni vers ine 3-31 mouth. ity of dihydrochlo 10:31: [place] ride (XYZAL 41 Medical ORAL) Branch levocetiriz 0 Yes Take by Uni vers ine 3-31 mouth. ity of dihydrochlo 10:31: [place] ride (XYZAL 41 Medical ORAL) Branch levocetiriz 0 Yes Take by Uni vers ine 3-31 mouth. ity of dihydrochlo 10:31: [place] ride (XYZAL 41 Medical ORAL) Branch levocetiriz Yes Take by Uni vers ine 3-31 mouth. ity of dihydrochlo 10:31: [place] ride (XYZAL 41 Medical ORAL) Branch levocetiriz Yes Take by Uni vers ine 3-31 mouth. ity of dihydrochlo 10:31: [place] ride (XYZAL 41 Medical ORAL) Branch levocetiriz 0 Yes Take by Uni vers ine 3-31 mouth. ity of dihydrochlo 10:31: [place] ride (XYZAL 41 Medical ORAL) Branch norgestrel- 2021-0 Yes [id number] 1{tbl} Take 1 Univers ethinyl 3-31 tablet by ity of estradioL 00:00: mouth [place] [facility] daily. Medical 0.3-30 Branch mg-mcg per tablet norgestrel- 2021-0 Yes [id number] 1{tbl} Take 1 Univers ethinyl 3-31 tablet by ity of estradioL 00:00: mouth [place] ([place]) 00 daily. Medical 0.3-30 Branch mg-mcg per tablet norgestrel- 2021-0 Yes [id number] 1{tbl} Take 1 Univers ethinyl 3-31 tablet by ity of estradioL 00:00: mouth [place] ([facility] daily. Medical 0.3-30 Branch mg-mcg per tablet norgestrel- 2022-0 Yes [id number] 1{tbl} Take 1 Univers ethinyl 3-31 tablet by ity of estradioL 00:00: mouth [place] ([facility] 00 daily. Medical 0.3-30 Branch mg-mcg per tablet norgestrel- 2022-0 Yes [id number] 1{tbl} Take 1 Univers ethinyl 3-31 tablet by ity of estradioL 00:00: mouth [place] (SELL) 00 daily. Medical 0.3-30 Branch mg-mcg per tablet norgestrel- 2022-0 Yes [id number] 1{tbl} Take 1 Univers ethinyl 3-31 tablet by ity of estradioL 00:00: mouth [place] ([facility]) 00 daily. Medical 0.3-30 Branch mg-mcg per tablet norgestrel- 2022-0 Yes [id number] 1{tbl} Take 1 Univers ethinyl 3-31 tablet by ity of estradioL 00:00: mouth [place] ([facility]) 00 daily. Medical 0.3-30 Branch mg-mcg per tablet norgestrel- 2022-0 Yes [id number] 1{tbl} Take 1 Univers ethinyl 3-31 tablet by ity of estradioL 00:00: mouth [place] [facility] 00 daily. Medical 0.3-30 Branch mg-mcg per tablet norgestrel- 2022-0 Yes [id number] 1{tbl} Take 1 Univers ethinyl 3-31 tablet by ity of estradioL 00:00: mouth [place] ([facility]) 00 daily. Medical 0.3-30 Branch mg-mcg per tablet norgestrel- 2022-0 Yes [id number] 1{tbl} Take 1 Univers ethinyl 3-31 tablet by ity of estradioL 00:00: mouth [place] ([facility] 00 daily. Medical 0.3-30 Branch mg-mcg per tablet norgestrel- 2022-0 Yes [id number] 1{tbl} Take 1 Univers ethinyl 3-31 tablet by ity of estradioL 00:00: mouth [place] (SELL) 00 daily. Medical 0.3-30 Branch mg-mcg per tablet norgestrel- 2022-0 Yes [id number] 1{tbl} Take 1 Univers ethinyl 3-31 tablet by ity of estradioL 00:00: mouth [place] ([facility] 00 daily. Medical 0.3-30 Branch mg-mcg per tablet norgestrel- Yes [id number] 1{tbl} Take 1 Univers ethinyl 3-31 tablet by ity of estradioL 00:00: mouth [place] ([facility]) 00 daily. Medical 0.3-30 Branch mg-mcg per tablet norgestrel- 2022- No [id number] 1{tbl} Take 1 Univers ethinyl 3-31 04-07 tablet by ity of estradioL 00:00: 00:00 mouth [place] ([facility]) 00 :00 daily. Medical 0.3-30 Branch mg-mcg per tablet norgestrel- 2022- No [id number] 1{tbl} Take 1 Univers ethinyl 3-31 04-07 tablet by ity of estradioL 00:00: 00:00 mouth [place] ([facility]) 00 :00 daily. Medical 0.3-30 Branch mg-mcg per tablet CRYSELLE 2021- No [id number] TAKE 1 U nivers 0.3-30 2-14 03-31 TABLET BY ity of mg-mcg per 00:00: 00:00 MOUTH [place] tablet 00 :00 EVERY DAY Medical Branch CRYSELLE 2021- No [id number] TAKE 1 U nivers 0.3-30 2-14 03-31 [...] of - 0.225 00:00: [place] gram Tab Medical Branch metoclopram 2020-03 Yes Univer s thalia HCl 10 0-26 ity of mg tablet 00:00: Medical Branch SUTAB 2020-03 Yes Univers 1.479-0.188 0-26 ity of - 0.225 00:00: [place] gram Tab Medical Branch metoclopram 2020-03 Yes Univer s thalia HCl 10 0-26 ity of mg tablet 00:00: Medical Branch SUTAB 2020-03 Yes Univers 1.479-0.188 0-26 ity of - 0.225 00:00: [place] gram Tab Medical Branch metoclopram 2020-03 Yes Univer s thalia HCl 10 0-26 ity of mg tablet 00:00: Medical Branch SUTAB 2020-03 Yes Univers 1.479-0.188 0-26 ity of - 0.225 00:00: [place] gram Tab Medical Branch metoclopram 2020-03 Yes Univer s thalia HCl 10 0-26 ity of mg tablet 00:00: Medical Branch SUTAB 2020-03 Yes Univers 1.479-0.188 0-26 ity of - 0.225 00:00: [place] gram Tab Medical Branch metoclopram 2020-03 Yes Univer s thalia HCl 10 0-26 ity of mg tablet 00:00: Medical Branch SUTAB 2020-03 Yes Univers 1.479-0.188 0-26 ity of - 0.225 00:00: [place] gram Tab Medical Branch metoclopram 2020-03 Yes Univer s thalia HCl 10 0-26 ity of mg tablet 00:00: Medical Branch SUTAB 2020-03 Yes Univers 1.479-0.188 0-26 ity of - 0.225 00:00: [place] gram Tab Medical Branch metoclopram 2020-03 Yes Univer s thalia HCl 10 0-26 ity of mg tablet 00:00: Medical Branch SUTAB 2020-03 Yes Univers 1.479-0.188 0-26 ity of - 0.225 00:00: [place] gram Tab Medical Branch metoclopram 2020-03 Yes Univer s thalia HCl 10 0-26 ity of mg tablet 00:00: Medical Branch SUTAB 2020-03 Yes Univers 1.479-0.188 0-26 ity of - 0.225 00:00: [place] gram Tab Medical Branch metoclopram 2020-03 Yes Univer s thalia HCl 10 0-26 ity of mg tablet 00:00: Medical Branch SUTAB 2020-03 Yes Univers 1.479-0.188 0-26 ity of - 0.225 00:00: [place] gram Tab Medical Branch metoclopram 2020-03 Yes Univer s thalia HCl 10 0-26 ity of mg tablet 00:00: [place] Medical Branch SUTAB 2020-03 Yes Univers 1.479-0.188 0-26 ity of - 0.225 00:00: [place] gram Tab Medical Branch metoclopram 2020-03 Yes Univer s thalia HCl 10 0-26 ity of mg tablet 00:00: Medical Branch SUTAB 2020-03 Yes Univers 1.479-0.188 0-26 ity of - 0.225 00:00: [place] [facility] metoclopram 2020-03 Yes Univer s thalia HCl 10 0-26 ity of mg tablet 00:00: [place] [facility] SUTAB 2020-03 Yes Univers 1.479-0.188 0-26 ity of - 0.225 00:00: [place] [facility] metoclopram 2020-03 Yes Univer s thalia HCl 10 0-26 ity of mg tablet 00:00: Medical Branch SUTAB 2020-03 Yes Univers 1.479-0.188 0-26 ity of - 0.225 00:00: [place] [facility] Tab [facility] metoclopram 2020-03 Yes Univer s thalia HCl 10 0-26 ity of mg tablet 00:00: Medical Branch SUTAB 2020-03 Yes Univers 1.479-0.188 0-26 ity of - 0.225 00:00: [place] gram Tab 00 Medical Branch montelukast Yes [id number] 10mg Take 1 Univers 10 mg 8-23 tablet by ity of tablet 00:00: mouth [place] 00 daily. Medical Branch montelukast 0 Yes [id number] 10mg Take 1 Univers 10 mg 8-23 tablet by ity of tablet 00:00: mouth [place] 00 daily. [facility] montelukast 0 Yes [id number] 10mg Take 1 Univers 10 mg 8-23 tablet by ity of tablet 00:00: mouth [place] 00 daily. [facility] montelukast 0 Yes [id number] 10mg Take 1 Univers 10 mg 8-23 tablet by ity of tablet 00:00: mouth [place] 00 daily. [facility] montelukast 2020-0 Yes [id number] 10mg Take 1 Univers 10 mg 8-23 tablet by ity of tablet 00:00: mouth [place] 00 daily. Medical [facility] montelukast 0 Yes [id number] 10mg Take 1 Univers 10 mg 8-23 tablet by ity of tablet 00:00: mouth [place] 00 daily. Medical [facility] montelukast 0 2021- No [id number] 10mg Take 1 Univers 10 mg 8-23 08-29 tablet by ity of tablet 00:00: 00:00 mouth [place] 00 :00 daily. Medical Branch albuterol Yes [id number] 2{puff} Inhale 2 Univers 90 5-18 Puffs ity of mcg/actuati 00:00: every 6 [place] on inhaler 00 (six) Medical hours as Branch needed for Wheezing. fluticasone Yes [id number] UNHALE 1 Univers propion-[place] 5-18 PUFF BY ity o f meteroL 00:00: MOUTH [place] (ADVAIR 00 EVERY 12 Medical DISKUS) HOURS Branch 250-50 mcg/dose inhalation disk albuterol Yes [id number] 2{puff} Inhale 2 Univers 90 5-18 Puffs ity of mcg/actuati 00:00: every 6 [place] on inhaler 00 (six) Medical hours as Branch needed for Wheezing. fluticasone Yes [id number] UNHALE 1 [facility] [place] 5-18 PUFF BY ity o f meteroL 00:00: MOUTH [place] (ADVAIR 00 EVERY 12 Medical DISKUS) HOURS Branch 250-50 mcg/dose inhalation disk albuterol 0 Yes [id number] 2{puff} Inhale 2 Univers 90 5-18 Puffs ity of mcg/actuati 00:00: every 6 [place] on inhaler 00 (six) Medical hours as Branch needed for Wheezing. fluticasone Yes [id number] UNHALE 1 [facility] [place] 5-18 PUFF BY ity o f meteroL 00:00: MOUTH [place] (ADVAIR 00 EVERY 12 Medical DISKUS) HOURS Branch 250-50 mcg/dose inhalation disk albuterol Yes [id number] 2{puff} Inhale 2 Univers 90 5-18 Puffs ity of mcg/actuati 00:00: every 6 [place] on inhaler 00 (six) Medical hours as Branch needed for Wheezing. fluticasone Yes [id number] UNHALE 1 [facility] [place] 5-18 PUFF BY ity o f meteroL 00:00: MOUTH [place] (ADVAIR 00 EVERY 12 Medical DISKUS) HOURS Branch 250-50 mcg/dose inhalation disk albuterol Yes [id number] 2{puff} Inhale 2 Univers 90 5-18 Puffs ity of mcg/actuati 00:00: every 6 [place] on inhaler 00 (six) Medical hours as Branch needed for Wheezing. fluticasone Yes [id number] UNHALE 1 [facility] [place] 5-18 PUFF BY ity o f meteroL 00:00: MOUTH [place] (ADVAIR 00 EVERY 12 Medical DISKUS) HOURS Branch 250-50 mcg/dose inhalation disk albuterol Yes [id number] 2{puff} Inhale 2 Univers 90 5-18 Puffs ity of mcg/actuati 00:00: every 6 [place] on inhaler 00 (six) Medical hours as Branch needed for Wheezing. albuterol Yes [id number] 2{puff} Inhale 2 Univers 90 5-18 Puffs ity of mcg/actuati 00:00: every 6 [place] on inhaler 00 (six) Medical hours as Branch needed for Wheezing. albuterol Yes [id number] 2{puff} Inhale 2 Univers 90 5-18 Puffs ity of mcg/actuati 00:00: every 6 [place] on inhaler 00 (six) Medical hours as Branch needed for Wheezing. albuterol Yes [id number] 2{puff} Inhale 2 Univers 90 5-18 Puffs ity of mcg/actuati 00:00: every 6 [place] on inhaler 00 (six) Medical hours as Branch needed for Wheezing. fluticasone Yes [id number] UN[place]ALE 1 [facility] [place] 5-18 PUFF BY ity o f meteroL 00:00: MOUTH [place] (ADVAIR 00 EVERY 12 Medical DISKUS) HOURS Branch 250-50 mcg/dose inhalation disk albuterol Yes [id number] 2{puff} Inhale 2 Univers 90 5-18 Puffs ity of mcg/actuati 00:00: every 6 [place] on inhaler 00 (six) Medical hours as Branch needed for Wheezing. fluticasone Yes [id number] UNHALE 1 [facility] [place] 5-18 PUFF BY ity o f meteroL 00:00: MOUTH [place] (ADVAIR 00 EVERY 12 Medical DISKUS) HOURS Branch 250-50 mcg/dose inhalation disk albuterol 2021- No [id number] 2{puff} Inhale 2 Univers 90 5-18 11-21 Puffs ity of mcg/actuati 00:00: 00:00 [place] 6 [place] inhaler 00 :00 (six) Medical hours as Branch needed for Wheezing. albuterol 2021- No [id number] 2{puff} Inhale 2 Univers 90 5-18 11-21 Puffs ity of mcg/actuati 00:00: 00:00 [place] 6 [place] inhaler 00 :00 (six) Medical hours as Branch needed for Wheezing. fluticasone 2021- No [id number] UNHALE 1 [facility] 5-18 09-09 PUFF BY ity of meteroL 00:00: 00:00 MOUTH [place] (ADVAIR 00 :00 EVERY 12 Medical DISKUS) HOURS Branch 250-50 mcg/dose inhalation disk Immunizations Ordered Filled Immunization Date Status Comments [facility] e Immunization Name Name Influenza Virus 2021-12-27 Completed Universit y of Vaccine [facility], 00:00:00 [place] Me dical Preserv and ABX Branch Free 6 MO-64 YRS Influenza Virus 2021-12-27 Completed Universit y of Vaccine [facility], 00:00:00 [place] [facility] Preserv and ABX Branch Free 6 MO-64 YRS Influenza Virus 2021-12-27 Completed Universit y of Vaccine [facility], 00:00:00 [place] Me dical Preserv and ABX Branch Free 6 MO-64 YRS Influenza Virus 2021-12-27 Completed Universit y of Vaccine [facility], 00:00:00 [place] Me dical Preserv and ABX Branch Free 6 MO-64 YRS Influenza Virus 2021-12-27 Completed Universit y of Vaccine [facility], 00:00:00 [place] [facility]ical Preserv and ABX Branch Free 6 MO-64 YRS Influenza Virus 2021-12-27 Completed Universit y of Vaccine [facility] IM, 00:00:00 [place] [facility] Preserv and ABX Branch Free 6 MO-64 YRS TDAP 2021-06-09 Completed University of 00:00:00 [facility] TDAP 2021-06-09 Completed University of 00:00:00 [facility] TDAP 2021-06-09 Completed University of 00:00:00 [facility] TDAP 2021-06-09 Completed University of 00:00:00 [facility] TDAP 2021-06-09 Completed University of 00:00:00 [facility] TDAP 2021-06-09 Completed University of 00:00:00 [facility] TDAP 2021-06-09 Completed University of 00:00:00 [facility] TDAP 2021-06-09 Completed University of 00:00:00 [facility] TDAP 2021-06-09 Completed University of 00:00:00 [facility] TDAP 2021-06-09 Completed University of 00:00:00 [facility] TDAP 2021-06-09 Completed University of 00:00:00 [facility] TDAP 2021-06-09 Completed University of 00:00:00 [facility] TDAP 2021-06-09 Completed University of 00:00:00 [facility] TDAP 2021-06-09 Completed University of 00:00:00 [facility] TDAP 2021-06-09 Completed University of 00:00:00 [facility] TDAP 2021-06-09 Completed University of 00:00:00 [facility] Influenza Virus 2020-12-09 Completed Universit y of Vaccine 00:00:00 [facility] Influenza Virus 2020-12-09 Completed Universit y of Vaccine 00:00:00 [facility] Influenza Virus 2020-12-09 Completed Universit y of Vaccine 00:00:00 [facility] Influenza Virus 2020-12-09 Completed Universit y of Vaccine 00:00:00 [facility] Influenza Virus 2020-12-09 Completed Universit y of Vaccine 00:00:00 [facility] Influenza Virus 2020-12-09 Completed Universit y of Vaccine 00:00:00 [facility] Influenza Virus 2020-12-09 Completed Universit y of Vaccine 00:00:00 [facility] Influenza Virus 2020-12-09 Completed Universit y of Vaccine 00:00:00 [facility] Influenza Virus 2020-12-09 Completed Universit y of Vaccine 00:00:00 [facility] Influenza Virus 2020-12-09 Completed Universit y of Vaccine 00:00:00 [facility] Influenza Virus 2020-12-09 Completed Universit y of Vaccine 00:00:00 [facility] Influenza Virus 2020-12-09 Completed Universit y of Vaccine 00:00:00 [facility] Influenza Virus 2020-12-09 Completed Universit y of Vaccine 00:00:00 [facility] Influenza Virus 2020-12-09 Completed Universit y of Vaccine 00:00:00 [facility] Influenza Virus 2020-12-09 Completed Universit y of Vaccine 00:00:00 [facility] Influenza Virus 2020-12-09 Completed Universit y of Vaccine 00:00:00 [facility] SARS-COV-2 COVID-19 2020-05-22 Completed Unive rsity of MODERNA VACCINE 00:00:00 [facility] SARS-COV-2 COVID-19 2020-05-22 Completed Unive rsity of MODERNA VACCINE 00:00:00 [facility] SARS-COV-2 COVID-19 2020-05-22 Completed Unive rsity of MODERNA VACCINE 00:00:00 [facility] SARS-COV-2 COVID-19 2020-05-22 Completed Unive rsity of MODERNA VACCINE 00:00:00 [facility] SARS-COV-2 COVID-19 2020-05-22 Completed Unive rsity of MODERNA VACCINE 00:00:00 [facility] SARS-COV-2 COVID-19 2020-05-22 Completed Unive rsity of MODERNA 12+ YRS 00:00:00 [place] [facility] ical VACCINE Branch SARS-COV-2 COVID-19 2020-05-22 Completed Unive rsity of MODERNA 12+ YRS 00:00:00 [place] [facility] ical VACCINE Branch SARS-COV-2 COVID-19 2020-05-22 Completed Unive rsity of MODERNA 12+ YRS 00:00:00 [place] [facility] ical VACCINE Branch SARS-COV-2 COVID-19 2020-05-22 Completed Unive rsity of MODERNA 12+ YRS 00:00:00 [place] [facility] ical VACCINE Branch SARS-COV-2 COVID-19 2020-05-22 Completed Unive rsity of MODERNA 12+ YRS 00:00:00 [place] [facility] ical VACCINE Branch SARS-COV-2 COVID-19 2020-05-22 Completed Unive rsity of MODERNA 12+ YRS 00:00:00 [place] [facility] ical VACCINE Branch SARS-COV-2 COVID-19 2020-05-22 Completed Unive rsity of MODERNA 12+ YRS 00:00:00 [place] [facility] ical VACCINE Branch SARS-COV-2 COVID-19 2020-05-22 Completed Unive rsity of MODERNA 12+ YRS 00:00:00 [place] [facility] ical VACCINE Branch SARS-COV-2 COVID-19 2020-05-22 Completed Unive rsity of MODERNA 12+ YRS 00:00:00 [place] [facility] ical VACCINE Branch SARS-COV-2 COVID-19 2020-05-22 Completed Unive rsity of MODERNA VACCINE 00:00:00 [place] [facility] ical Branch SARS-COV-2 COVID-19 2020-05-22 Completed Unive rsity of MODERNA VACCINE 00:00:00 [place] [facility] ical Branch SARS-COV-2 COVID-19 2020-04-10 Completed Unive rsity of MODERNA VACCINE 00:00:00 [place] [facility] ical Branch SARS-COV-2 COVID-19 2020-04-10 Completed Unive rsity of MODERNA VACCINE 00:00:00 [place] [facility] ical Branch SARS-COV-2 COVID-19 2020-04-10 Completed Unive rsity of MODERNA VACCINE 00:00:00 [place] [facility] ical Branch SARS-COV-2 COVID-19 2020-04-10 Completed Unive rsity of MODERNA VACCINE 00:00:00 [place] [facility] ical Branch SARS-COV-2 COVID-19 2020-04-10 Completed Unive rsity of MODERNA VACCINE 00:00:00 [place] [facility] ical Branch SARS-COV-2 COVID-19 2020-04-10 Completed Unive rsity of MODERNA 12+ YRS 00:00:00 [place] [facility] ical VACCINE Branch SARS-COV-2 COVID-19 2020-04-10 Completed Unive rsity of MODERNA 12+ YRS 00:00:00 [place] [facility] ical VACCINE Branch SARS-COV-2 COVID-19 2020-04-10 Completed Unive rsity of MODERNA 12+ YRS 00:00:00 [place] [facility] ical VACCINE Branch SARS-COV-2 COVID-19 2020-04-10 Completed Unive rsity of MODERNA 12+ YRS 00:00:00 [place] [facility] ical VACCINE Branch SARS-COV-2 COVID-19 2020-04-10 Completed Unive rsity of MODERNA 12+ YRS 00:00:00 [place] [facility] ical VACCINE Branch SARS-COV-2 COVID-19 2020-04-10 Completed Unive rsity of MODERNA 12+ YRS 00:00:00 [place] [facility] ical VACCINE Branch SARS-COV-2 COVID-19 2020-04-10 Completed Unive rsity of MODERNA 12+ YRS 00:00:00 [place] [facility] ical VACCINE Branch SARS-COV-2 COVID-19 2020-04-10 Completed Unive rsity of MODERNA 12+ YRS 00:00:00 [place] [facility] ical VACCINE Branch SARS-COV-2 COVID-19 2020-04-10 Completed Unive rsity of MODERNA 12+ YRS 00:00:00 [place] [facility] ical VACCINE Branch SARS-COV-2 COVID-19 2020-04-10 Completed Unive rsity of MODERNA VACCINE 00:00:00 [facility] ical Branch SARS-COV-2 COVID-19 2020-04-10 Completed Unive rsity of MODERNA VACCINE 00:00:00 [facility] ical Branch Influenza Virus 2019-11-27 Completed Universit y of Vaccine Quad .5 mL 00:00:00 [facility] [place] IM 6+ MO Branch Influenza Virus 2019-11-27 Completed Universit y of Vaccine [facility] .5 mL 00:00:00 [place] [facility] IM 6+ MO Branch Influenza Virus 2019-11-27 Completed Universit y of Vaccine Quad .5 mL 00:00:00 [place] [facility] IM 6+ MO Branch Influenza Virus 2019-11-27 Completed Universit y of Vaccine Quad .5 mL 00:00:00 [place] [facility] IM 6+ MO Branch Influenza Virus 2019-11-27 Completed Universit y of Vaccine Quad .5 mL 00:00:00 [place] [facility] IM 6+ MO Branch Influenza Virus 2019-11-27 Completed Universit y of Vaccine Quad .5 mL 00:00:00 [place] [facility] IM 6+ MO Branch Influenza Virus 2019-11-27 Completed Universit y of Vaccine Quad .5 mL 00:00:00 [place] [facility] IM 6+ MO Branch Influenza Virus 2019-11-27 Completed Universit y of Vaccine Quad .5 mL 00:00:00 [place] [facility] IM 6+ MO Branch Influenza Virus 2019-11-27 Completed Universit y of Vaccine Quad .5 mL 00:00:00 [place] [facility] IM 6+ MO Branch Influenza Virus 2019-11-27 Completed Universit y of Vaccine [facility] .5 mL 00:00:00 [place] [facility] IM 6+ MO Branch Influenza Virus 2019-11-27 Completed Universit y of Vaccine Quad .5 mL 00:00:00 [place] [facility] IM 6+ MO Branch Influenza Virus 2019-11-27 Completed Universit y of Vaccine Quad .5 mL 00:00:00 [facility] [place] IM 6+ MO Branch Influenza Virus 2019-11-27 Completed Universit y of Vaccine Quad .5 mL 00:00:00 [facility] [place] IM 6+ MO Branch Influenza Virus 2019-11-27 Completed Universit y of Vaccine Quad .5 mL 00:00:00 [place] [facility] IM 6+ MO Branch Influenza Virus 2019-11-27 Completed Universit y of Vaccine Quad .5 mL 00:00:00 [place] [facility] IM 6+ MO Branch Influenza Virus 2019-11-27 Completed Universit y of Vaccine Quad .5 mL 00:00:00 [place] [facility] IM 6+ MO Branch Influenza Virus 2019-01-07 Completed Universit y of Vaccine Quad .5 mL 00:00:00 [facility] [place] IM 6+ MO Branch Pneumococcal 2019-01-07 Completed University o f Polysaccharide, 00:00:00 [facility] ica PPSV23 (PNEUMOVAX) Branch Influenza Virus 2019-01-07 Completed Universit y of Vaccine Quad .5 mL 00:00:00 [place] [facility] IM 6+ MO Branch Pneumococcal 2019-01-07 Completed University o f Polysaccharide, 00:00:00 [place] [facility] ical PPSV23 (PNEUMOVAX) Branch Influenza Virus 2019-01-07 Completed Universit y of Vaccine Quad .5 mL 00:00:00 [place] [facility] IM 6+ MO Branch Pneumococcal 2019-01-07 Completed University o f Polysaccharide, 00:00:00 [place] [facility] ical PPSV23 (PNEUMOVAX) Branch Influenza Virus 2019-01-07 Completed Universit y of Vaccine Quad .5 mL 00:00:00 [place] [facility] IM 6+ MO Branch Pneumococcal 2019-01-07 Completed University o f Polysaccharide, 00:00:00 [place] [facility] ical PPSV23 (PNEUMOVAX) Branch Influenza Virus 2019-01-07 Completed Universit y of Vaccine Quad .5 mL 00:00:00 [place] [facility] IM 6+ MO Branch Pneumococcal 2019-01-07 Completed University o f Polysaccharide, 00:00:00 [place] [facility] ical PPSV23 (PNEUMOVAX) Branch Influenza Virus 2019-01-07 Completed Universit y of Vaccine Quad .5 mL 00:00:00 [place] [facility] IM 6+ MO Branch Pneumococcal 2019-01-07 Completed University o f Polysaccharide, 00:00:00 [place] [facility] ical PPSV23 (PNEUMOVAX) Branch Influenza Virus 2019-01-07 Completed Universit y of Vaccine Quad .5 mL 00:00:00 [place] [facility] IM 6+ MO Branch Pneumococcal 2019-01-07 Completed University o f Polysaccharide, 00:00:00 [place] [facility] ical PPSV23 (PNEUMOVAX) Branch Influenza Virus 2019-01-07 Completed Universit y of Vaccine Quad .5 mL 00:00:00 [place] [facility] IM 6+ MO Branch Pneumococcal 2019-01-07 Completed University o f Polysaccharide, 00:00:00 [place] [facility] ical PPSV23 (PNEUMOVAX) Branch Influenza Virus 2019-01-07 Completed Universit y of Vaccine Quad .5 mL 00:00:00 [place] [facility] IM 6+ MO Branch Pneumococcal 2019-01-07 Completed University o f Polysaccharide, 00:00:00 [place] [facility] ical PPSV23 (PNEUMOVAX) Branch Influenza Virus 2019-01-07 Completed Universit y of Vaccine Quad .5 mL 00:00:00 [place] [facility] IM 6+ MO Branch Pneumococcal 2019-01-07 Completed University o f Polysaccharide, 00:00:00 [place] [facility] ical PPSV23 (PNEUMOVAX) Branch Influenza Virus 2019-01-07 Completed Universit y of Vaccine Quad .5 mL 00:00:00 [place] [facility] IM 6+ MO Branch Pneumococcal 2019-01-07 Completed University o f Polysaccharide, 00:00:00 [place] [facility] ical PPSV23 (PNEUMOVAX) Branch Influenza Virus 2019-01-07 Completed Universit y of Vaccine [facility] .5 mL 00:00:00 [place] [facility] IM 6+ MO Branch Pneumococcal 2019-01-07 Completed University o f Polysaccharide, 00:00:00 [place] [facility] ical PPSV23 (PNEUMOVAX) Branch Influenza Virus 2019-01-07 Completed Universit y of Vaccine Quad .5 mL 00:00:00 [place] [facility] IM 6+ MO Branch Pneumococcal 2019-01-07 Completed University o f Polysaccharide, 00:00:00 [place] [facility] ical PPSV23 (PNEUMOVAX) Branch Influenza Virus 2019-01-07 Completed Universit y of Vaccine Quad .5 mL 00:00:00 [place] [facility] IM 6+ MO Branch Pneumococcal 2019-01-07 Completed University o f Polysaccharide, 00:00:00 [facility] ical PPSV23 (PNEUMOVAX) Branch Influenza Virus 2019-01-07 Completed Universit y of Vaccine Quad .5 mL 00:00:00 [place] [facility] IM 6+ MO Branch Pneumococcal 2019-01-07 Completed University o f Polysaccharide, 00:00:00 [place] [facility] ical PPSV23 (PNEUMOVAX) Branch Influenza Virus 2019-01-07 Completed Universit y of Vaccine Quad .5 mL 00:00:00 [place] [facility] IM 6+ MO Branch Pneumococcal 2019-01-07 Completed University o f Polysaccharide, 00:00:00 [facility] ical PPSV23 (PNEUMOVAX) Branch Influenza Virus 2017-11-21 Completed Universit y of Vaccine 00:00:00 [facility] Influenza Virus 2017-11-21 Completed Universit y of Vaccine 00:00:00 [facility] Influenza Virus 2017-11-21 Completed Universit y of Vaccine 00:00:00 [facility] Influenza Virus 2017-11-21 Completed Universit y of Vaccine 00:00:00 [facility] Influenza Virus 2017-11-21 Completed Universit y of Vaccine 00:00:00 [facility] Influenza Virus 2017-11-21 Completed Universit y of Vaccine 00:00:00 [facility] Influenza Virus 2017-11-21 Completed Universit y of Vaccine 00:00:00 [facility] Influenza Virus 2017-11-21 Completed Universit y of Vaccine 00:00:00 [facility] Influenza Virus 2017-11-21 Completed Universit y of Vaccine 00:00:00 [facility] Influenza Virus 2017-11-21 Completed Universit y of Vaccine 00:00:00 [facility] Influenza Virus 2017-11-21 Completed Universit y of Vaccine 00:00:00 [facility] Influenza Virus 2017-11-21 Completed Universit y of Vaccine 00:00:00 [facility] Influenza Virus 2017-11-21 Completed Universit y of Vaccine 00:00:00 [facility] Influenza Virus 2017-11-21 Completed Universit y of Vaccine 00:00:00 [facility] Influenza Virus 2017-11-21 Completed Universit y of Vaccine 00:00:00 [facility] Influenza Virus 2017-11-21 Completed Universit y of Vaccine 00:00:00 [facility] TDAP 2011-01-02 Completed University of 00:00:00 [facility] TDAP 2011-01-02 Completed University of 00:00:00 [facility] TDAP 2011-01-02 Completed University of 00:00:00 [facility] TDAP 2011-01-02 Completed University of 00:00:00 [facility] TDAP 2011-01-02 Completed University of 00:00:00 [facility] TDAP 2011-01-02 Completed University of 00:00:00 [facility] TDAP 2011-01-02 Completed University of 00:00:00 [facility] TDAP 2011-01-02 Completed University of 00:00:00 [facility] TDAP 2011-01-02 Completed University of 00:00:00 [facility] TDAP 2011-01-02 Completed University of 00:00:00 [facility] TDAP 2011-01-02 Completed University of 00:00:00 [facility] TDAP 2011-01-02 Completed University of 00:00:00 [facility] TDAP 2011-01-02 Completed University of 00:00:00 [facility] TDAP 2011-01-02 Completed University of 00:00:00 [facility] TDAP 2011-01-02 Completed University of 00:00:00 [facility] TDAP 2011-01-02 Completed University of 00:00:00 [facility] Vital Signs Vital Name Observation Time Observation Value Comments Source Systolic blood 2022-07-23 01:52:00 147 mm[Hg] Univer sity of pressure [place] [facility] Diastolic blood 2022-07-23 01:52:00 94 mm[Hg] Unive rsity of pressure [place] [facility] Heart rate 2022-07-23 01:52:00 74 /min [facility] [place] [facility] Body temperature 2022-07-23 01:52:00 36.72 Lakshmi [facility] ers[facility] [place] [facility] Respiratory rate 2022-07-23 01:52:00 20 /min Univ ers[facility] [place] [facility] Body height 2022-07-23 01:52:00 170.2 cm [facility] [place] [facility] Body weight 2022-07-23 01:52:00 104.327 kg [facility] [place] [facility] BMI 2022-07-23 01:52:00 36.02 kg/m2 [facility] [place] [facility] Oxygen saturation in 2022-07-23 01:52:00 96 /min University of Arterial blood by [place] [employer] kei Pulse oximetry Branch Systolic blood 2022-06-16 15:22:00 118 mm[Hg] Univer sity of pressure [place] [facility] Diastolic blood 2022-06-16 15:22:00 73 mm[Hg] Unive rsity of pressure [place] [facility] Heart rate 2022-06-16 15:22:00 97 /min [facility] [place] [facility] Respiratory rate 2022-06-16 15:22:00 16 /min Univ ers[facility] [place] [facility] Body height 2022-06-16 15:22:00 170.2 cm [facility] [place] [facility] Body weight 2022-06-16 15:22:00 103.375 kg [facility] [place] [facility] BMI 2022-06-16 15:22:00 35.69 kg/m2 [facility] [place] [facility] Oxygen saturation in 2022-06-16 15:22:00 97 /min University of Arterial blood by [employer] kei Pulse oximetry Branch Systolic blood 2022-01-30 16:35:00 135 mm[Hg] Univer sity of pressure [place] [facility] Diastolic blood 2022-01-30 16:35:00 82 mm[Hg] [facility] Heart rate 2022-01-30 16:34:00 80 /min [facility] Body temperature 2022-01-30 16:34:00 37.28 Lakshmi [facility] Body height 2022-01-30 16:34:00 170.2 cm [facility] Body weight 2022-01-30 16:34:00 103.42 kg [facility] BMI 2022-01-30 16:34:00 35.71 kg/m2 [facility] Oxygen saturation in 2022-01-30 16:34:00 98 /min University of Arterial blood by [facility] Pulse oximetry Branch Systolic blood 2022-01-04 22:43:00 136 mm[Hg] [facility] Diastolic blood 2022-01-04 22:43:00 89 mm[Hg] [facility] Heart rate 2022-01-04 22:43:00 73 /min [facility] Body temperature 2022-01-04 22:43:00 36.56 Lakshmi [facility] Respiratory rate 2022-01-04 22:43:00 16 /min [facility] Body height 2022-01-04 22:43:00 170.2 cm [facility] Body weight 2022-01-04 22:43:00 102.513 kg [facility] BMI 2022-01-04 22:43:00 35.40 kg/m2 [facility] Oxygen saturation in 2022-01-04 22:43:00 98 /min University of Arterial blood by [facility] Pulse oximetry Branch Systolic blood 2021-12-03 21:10:00 128 mm[Hg] [facility] Diastolic blood 2021-12-03 21:10:00 77 mm[Hg] [facility] Heart rate 2021-12-03 21:00:00 84 /min [facility] Body temperature 2021-12-03 21:00:00 36.78 Lakshmi [facility] Respiratory rate 2021-12-03 21:00:00 18 /min [facility] Body height 2021-12-03 21:00:00 170.2 cm [facility] Body weight 2021-12-03 21:00:00 102.967 kg [facility] BMI 2021-12-03 21:00:00 35.55 kg/m2 [facility] Oxygen saturation in 2021-12-03 21:00:00 97 /min University of Arterial blood by [facility] Pulse oximetry Branch Systolic blood 2021-07-10 22:27:00 137 mm[Hg] [facility] Diastolic blood 2021-07-10 22:27:00 82 mm[Hg] [facility] Heart rate 2021-07-10 22:25:00 91 /min [facility] Body temperature 2021-07-10 22:25:00 36.89 Lakhsmi [facility] Respiratory rate 2021-07-10 22:25:00 16 /min [facility] Body height 2021-07-10 22:25:00 170.2 cm [facility] Body weight 2021-07-10 22:25:00 106.323 kg [facility] BMI 2021-07-10 22:25:00 36.71 kg/m2 [facility] Oxygen saturation in 2021-07-10 22:25:00 98 /min University of Arterial blood by [facility] Pulse oximetry Branch Systolic blood 2021-06-09 15:34:00 133 mm[Hg] [facility] Diastolic blood 2021-06-09 15:34:00 82 mm[Hg] [facility] Heart rate 2021-06-09 15:34:00 84 /min [facility] Body temperature 2021-06-09 15:34:00 37 Lakshmi [facility] Respiratory rate 2021-06-09 15:34:00 20 /min [facility] Body height 2021-06-09 15:34:00 170.2 cm [facility] Body weight 2021-06-09 15:34:00 106.777 kg [facility] BMI 2021-06-09 15:34:00 36.87 kg/m2 [facility] Oxygen saturation in 2021-06-09 15:34:00 96 /min University Arterial blood by [facility] Pulse oximetry Branch Procedures Procedure Date / Time Performing Clinician Source Performed ASSIGNMENT OF BENEFITS 2022-06-16 14:55:50 Doctor Unassigned, No [facility] [place] EXTERNAL PROVIDER 2021-08-15 05:01:00 Doctor Unassigned, No Univ [facility] RECORDS [facility] TDAP VACCINE, >11 YRS, 2021-06-09 15:56:45 Anjum Mireles [facility] CONSENT FOR 2021-06-09 05:01:00 Doctor Unassigned, No [facility] CONTRACEPTION [facility] Encounters Start End Encounter Admission Attending Care Care Encounter Source Date/Time Date/Time Type Type Clinicians Facility Department ID 2022-07-22 2022-07-22 Urgent Malika Gay [facility] 1.2.840 .114 [id number] Univers 20:40:00 21:00:00 Care Unknown, Attending HEALTH 350.1.13.10 ity of [place] 4.2.7.2.686 Álvaro as JOHN?BLEA [phone] [address] MEDICAL OFFICE BUILDING 2022-07-22 2022-07-22 Outpatient R GILA [facility] [id number] Univers 20:40:00 20:40:00 MALIKA wyatt o f [facility] 2022-06-16 2022-06-16 Outpatient R KLARISSA LAKE [facility] U [facility] [id number] Univers 10:00:00 10:47:00 KLARISSA LAKE ity of [facility] 2022-06-16 2022-06-16 Office Aziza [facility] 1.2.840.114 [id number] Univers 10:00:00 10:47:00 Visit Klarissa nolan 350.1.13.[address] [facility] 4.2.7.2.686 [facility] [id number] [facility] 134 Branch 2022-06-16 2022-06-16 Orders Doctor RAYGOZA 1.2.840.114 [id number] Univers 00:00:00 00:00:00 Only Unassigned, NICOLA 350.1.13.10 ity of [place] [facility] 4.2.7.2.686 Álvaro as [phone] [address] 2022-06-12 2022-06-12 Outpatient R CARTERFUNMINATHALIA [facility] [id number] Univers 08:30:00 08:30:00 ANJUM tri [facility] 2022-06-12 2022-06-12 Out[facility] [id number] Univers 08:30:00 08:30:00 ANJUM [facility] 2022-01-30 2022-01-30 [facility] 1.2.840.114 [id number] Univers 10:30:00 11:00:00 Visit Dominique [facility] 350.1.13.10 it y of [place] 4.2.7.2.686 Álvaro as JOHN?BLEA [phone] [facility] 044 [facility] OFFICE [facility] 2022-01-30 2022-01-30 Outpatient R ANNA [facility] [id number] Univers 10:30:00 10:30:00 DOMINIQUE tri [facility] 2022-01-04 2022-01-04 Outpatient R MOISES [facility] [id number] Univers 17:40:00 18:09:43 CHRISTY [facility] 2022-01-04 2022-01-04 Urgent Avril De Leonken [facility] 1.2.840. 114 [id number] Univers 17:40:00 18:09:43 Care Unknown, Attending HEALTH 350.1.13.10 ity of [place] 4.2.7.2.686 Álvaro as JOHN?BLEA [phone] Wy dicberonica JOSEPH 370 [facility] OFFICE [facility] 2021-12-03 2021-12-03 Urgent Richard Maldonado [facility] 1.2.840.114 [id number] Univers 16:20:00 16:40:00 Care Unknown, Attending HEALTH 350.1.13.10 [facility] 4.2.7.2.686 Álvaro as JOHN?BLEA [phone] Wy dical [address] OFFICE [facility] 2021-12-03 2021-12-03 Outpatient R ERICA [facility] [id number] Univers 16:20:00 16:20:00 RICHARD ity of [facility] 2021-11-17 2021-11-17 Refady [facility] 1.2.840.114 [id number] Univers 00:00:00 00:00:00 [place] HEALTH 350.1.13.10 it y of [place] 4.2.7.2.686 Álvaro as JOHN?BLEA [id number] [address] OFFICE [facility] 2021-11-04 2021-11-04 [facility] 1.2.840.114 [id number] Univers 00:00:00 00:00:00 Marv HEALTH 350.1.13.10 it y [facility] 4.2.7.2.686 Álvaro as JOHN?BLEA [phone] [address] OFFICE [facility] 2021-08-15 2021-08-15 Orders Doctor JARET 1.2.840.114 [id number] Univers 00:00:00 00:00:00 Only Unassigned, NICOLA 350.1.13.10 ity of [place] [facility] 4.2.7.2.686 Álvaro as [phone] [address] 2021-08-02 2021-08-02 Telephone [facility] 1.2.956.453 [id number] Univers 00:00:00 00:00:00 Marv HEALTH 350.1.13.10 it y of [place] 4.2.7.2.686 Álvaro as JOHN?BLEA [phone] [address] OFFICE [facility] 2021-07-10 2021-07-10 Urgent [facility] 1.2.840.114 [id number] Univers 17:20:00 17:40:00 Care [facility] 350.1.13.10 ity [facility] 4.2.7.2.686 Álvaro as JOHN?BLEA [phone] [address] OFFICE [facility] 2021-07-10 2021-07-10 Outpatient [facility] [id number] Univers 17:20:00 17:20:00 MALIKA wyatt o f [facility] 2021-06-09 2021-06-09 Office [facility] 1.2.508.291 [id number] Univers 10:00:00 11:00:06 Visit Anjum LAWANNA 350.1.13.10 i ty of [place] [phone] Wy dical [address] 2021-06-09 2021-06-09 Outpatient R ALINE [facility] [id number] Univers 10:00:00 11:00:06 ANJUM tri [facility] 2021-06-09 2021-06-09 Outpatient R ALINE [facility] [id number] Univers 10:00:00 10:00:00 ANJUM tri [facility] 2021-06-09 2021-06-09 Orders Doctor RAYGOZA 1.2.840.114 [id number] Univers 00:00:00 00:00:00 Only UnassignedNICOLA 350.1.13.10 ity [place] [facility] 4.2.7.2.686 Álvaro as [phone] [address] 2021-05-19 2021-05-19 Outpatient R ANNAMARIA III, [facility] [id number] Univers 11:00:00 11:38:14 TAMARA [facility] 2021-05-19 2021-05-19 Orders Doctor RAYGOZA 1.2.840.114 [id number] Univers 00:00:00 00:00:00 Only UnassignedNICOLA 350.1.13.10 ity [place] [facility] 4.2.7.2.686 Álvaro as [id number] [address] 2021-05-17 2021-05-17 Outpatient R ROSE MARY PICKERING [facility] [id number] Univers 14:00:00 14:00:00 ity [facility] 2021-05-17 2021-05-17 Outpatient R ROSE MARY PICKERING [facility] [id number] Univers 14:00:00 14:00:00 [facility] 2021-05-17 2021-05-17 Outpatient R TRIRAJNI KUMAR [facility] B [id number] Univers 10:00:00 10:00:00 RAJNI RIOS [facility] 2021-04-22 2021-04-22 Rose Mary Garcia [facility] ALFREDO 1.2.840.114 [id number] Univers 00:00:00 00:00:00 LIZZ 350.1.13.10 it y of [place] [id number] [facility] 134 Branch 2021-04-02 2021-04-02 Telephone JARET Reich 1.2.090.543 [id number] Univers 00:00:00 00:00:00 Merissa PETERSEN 350.1.13.10 it y of HOSPITAL 4.2.7.2.686 Álvaro as [phone] [facility] 019 [place] 2021-04-01 2021-04-01 Outpatient R GERALD [facility] [id number] Univers 12:15:00 12:37:51 JENNIFER [facility] 2021-04-01 2021-04-01 Laboratory Only, Ang Db Test [facility] 1.2.8 40.114 [id number] Univers 12:15:00 12:30:00 Only Gerald Jennifer [facility] 350.1.13.10 ity of [place] 4.2.7.2.686 Álvaro as JOHN?BLEA [phone] [facility] 370 [place] MEDICAL OFFICE BUILDING 2021-02-08 2021-02-08 Orders Doctor RAYGOZA 1.2.840.114 [id number] Univers 00:00:00 00:00:00 Only Unassigned, NICOLA 350.1.13.10 ity of [place] [facility] 4.2.7.2.686 Álvaro as [phone] [facility] 009 [place] 2021-01-31 2021-01-31 Office Jefferson [facility] 1.2.840.114 [id number] Univers 14:24:05 15:00:34 Visit Joo HEALTH 350.1.13.10 it y of [place] 4.2.7.2.686 Álvaro as JOHN?BLEA [phone] Me [address] OFFICE [facility] 2021-01-31 2021-01-31 Outpatient R JEFFERSON [facility] [id number] Univers 14:00:00 15:00:34 JOO wyatt [facility] 2021-01-31 2021-01-31 Outpatient R CIPRIANO [facility] [id number] Univers 12:45:00 12:45:00 MARV wyatt [facility] 2021-01-31 2021-01-31 Telephone [facility] 1.2.830.571 [id number] Univers 00:00:00 00:00:00 Joo HEALTH 350.1.13.10 it y of [place] 4.2.7.2.686 Álvaro as JOHN?BLEA [phone] [address] 2021-01-20 2021-01-20 Telephone Cipriano [facility] 1.2.780.624 [id number] Univers 00:00:00 00:00:00 Marv HEALTH 350.1.13.10 it y of [place] 4.2.7.2.686 Álvaro as JOHN?BLEA [phone] [address] 2020-11-03 2020-11-03 Refill Schwarz [facility] 1.2.840.114 [id number] Univers 00:00:00 00:00:00 Marv Health 350.1.13.10 it y of [place] 4.2.7.2.686 Álvaro as John?Blea [phone] [address] 2020-10-30 2020-10-30 Refill Doctor [facility] 1.2.840.114 [id number] Univers 00:00:00 00:00:00 Unassigned, Health 350.1.13.10 ity of [place] 4.2.7.2.686 Álvaro as Professio [phone] [address] One 2020-08-11 2020-08-11 Dynamite Reclaimer Lab, Adc Fam Pob I [facility] 1.2. 840.114 [id number] Univers 13:53:21 15:26:35 Visit [facility] 350.1.13.10 ity of [place] 4.2.7.2.686 Álvaro as Professio [phone] Wy dical nal [address] [place] [address] Office Building One 2020-08-11 2020-08-11 Office Cipriano [facility] 1.2.840.114 [id number] Univers 13:30:30 13:52:02 Visit [facility] 350.1.13.10 it y of [place] 4.2.7.2.686 Álvaro as Professio [phone] Wy dical nal [address] [place] [address] Office Building One 2020-08-11 2020-08-11 Outpatient R SCHWARZ [facility] [id number] Univers 13:30:00 13:30:00 [facility] 2020-07-27 2020-07-27 [facility] Rose Mary Pickering [facility] 1.2.840.114 [id number] Univers 08:00:00 23:59:00 Encounter [place] 350.1.13.10 ity of [place] 4.2.7.2.686 [place] [facility] [phone] [address] 2020-07-27 2020-07-27 Dynamite Reclaimer Lab, Adc Fam Pob I [facility] 1.2. 840.114 [id number] Univers 09:23:09 09:43:09 Visit Rose Mary [facility] 350.1.13.10 ity of Marv Schwarz 4.2.7.2.686 [place] Professio [phone] Wy dical nal [address] [place] [address] Office [facility] One 2020-07-27 2020-07-27 Office Cipriano [facility] 1.2.840.114 [id number] Univers 08:38:32 08:53:32 Visit [facility] 350.1.13.10 it y of [place] 4.2.7.2.686 Álvaro as Professio [phone] Wy dical nal [address] [place] [address] Office [facility] One 2020-07-27 2020-07-27 Outpatient R ROSE MARY PICKERING [facility] [id number] Univers 00:00:00 00:00:00 ity of [facility] 2020-07-17 2020-07-17 Refill Schwarz, [facility] 1.2.840.114 [id number] Univers 00:00:00 00:00:00 Marv Health 350.1.13.10 it y of [place] 4.2.7.2.686 Álvaro as Professio [phone] Wy dical nal [address] [place] [address] One 2020-07-04 2020-07-04 Refill [facility] 1.2.840.114 [id number] Univers 00:00:00 00:00:00 Marv Health 350.1.13.10 it y of [place] 4.2.7.2.686 Álvaro as Professio [phone] [facility] nal [address] [place] [address] One 2020-07-02 2020-07-02 Urgent Malika Gay [facility] 1.2.840 .114 [id number] Univers 16:05:59 16:25:59 Care [facility] 350.1.13.10 ity of [place] 4.2.7.2.686 Álvaro as Professio [phone] [address] One 2020-07-02 2020-07-02 Outpatient R [facility] [id number] Univers 16:00:00 16:00:00 ity of [facility] 2020-06-25 2020-06-25 Telephone [facility] 1.2.982.902 [id number] Univers 00:00:00 00:00:00 [facility] 350.1.13.10 it y of [place] 4.2.7.2.686 Álvaro as Professio [phone] [address] 2020-06-25 2020-06-25 Nurse JARET Soto 1.2.840.114 [id number] Univers 00:00:00 00:00:00 Triage Myah Nolan NICOLA 350.1.13.10 ity of [facility] 4.2.7.2.686 Álvaro as [phone] [address] 2020-06-25 2020-06-25 [facility] 1.2.840.114 [id number] Univers 00:00:00 00:00:00 Marv Health 350.1.13.10 it y of [place] 4.2.7.2.686 Álvaro as Professio [phone] Wy dicnm nal 0[address] [place] Office Building One 2020-06-25 2020-06-25 Telephone Cipriano [facility] 1.2.334.412 [id number] Univers 00:00:00 00:00:00 Marv Health 350.1.13.10 it y of [place] 4.2.7.2.686 Álvaro as Professio [phone] [address] Office Building One 2020-06-25 2020-06-25 Refill Doctor [facility] 1.2.840.114 [id number] Univers 00:00:00 00:00:00 Unassigned, Health 350.1.13.10 ity of [place] 4.2.7.2.686 Álvaro as Professio [phone] [address] Office [facility] One 2020-05-27 2020-05-27 Patient Elliott [facility] 1.2.840.114 [id number] Univers 00:00:00 00:00:00 [facility] 350.1.13.10 i ty of [facility] 4.2.7.2.686 [place] [facility] [phone] [address] 2020-05-17 2020-05-17 Outpatient R ROSE MARY PICKERING [facility] [id number] Univers 14:30:00 14:30:00 ity of [facility] 2020-05-05 2020-05-05 Refday [facility] 1.2.840.114 [id number] Univers 00:00:00 00:00:00 Marv Bishop 350.1.13.10 i ty of [place] 4.2.7.2.686 [place] [phone] Wy dical nal [address] [place] [address] 2020-04-12 2020-04-12 Refill [facility] 1.2.840.114 [id number] Univers 00:00:00 00:00:00 Marv Bishop 350.1.13.10 i ty of [place] 4.2.7.2.686 [place] [phone] Wy dic[address] 2020-04-02 2020-04-02 Refill [facility] 1.2.840.114 [id number] Univers 00:00:00 00:00:00 Marv Health 350.1.13.10 it y of [place] 4.2.7.2.686 Álvaro as Professio [phone] [address] One 2020-01-16 2020-01-16 Office [facility] 1.2.840.114 [id number] Univers 16:34:55 16:49:55 Visit [facility] 350.1.13.10 it y of [place] 4.2.7.2.686 Álvaro as Professio [phone] [address] One 2020-01-16 2020-01-16 Outpatient R PITO [facility] [id number] Univers 16:30:00 16:30:00 TAMARA ity [facility] 2020-01-07 2020-01-07 Refill [facility] 1.2.840.114 [id number] Univers 00:00:00 00:00:00 Marv Health 350.1.13.10 it y of [place] 4.2.7.2.686 Álvaro as Professio [phone] [address] One 2020-01-07 2020-01-07 Telephone [facility] 1.2.316.050 [id number] Univers 00:00:00 00:00:00 Marv Health 350.1.13.10 it y of [place] 4.2.7.2.686 Álvaro as Professio [phone] [address] One 2019-12-04 2019-12-04 Laboratory Lab, Adc Fam Pob I [facility] 1.2. 840.114 [id number] Univers 17:06:19 17:26:19 Only Marv [facility] 350.1.13.10 ity of [place] 4.2.7.2.686 Álvaro as Professio [phone] [address] One 2019-12-04 2019-12-04 [facility] [id number] Univers 17:00:00 17:00:00 MARV ittri [facility] 2019-12-04 2019-12-04 Outpatient R ANAHIKORY, [facility] [id number] Univers 10:45:00 10:45:00 ANUJA ity [facility] 2019-11-26 2019-11-26 Refday [facility] 1.2.840.114 [id number] Univers 00:00:00 00:00:00 Marv Bishop 350.1.13.10 i ty of [place] 4.2.7.2.686 [place] [phone] [address] 2019-10-20 2019-10-20 Patient Cipriano [facility] 1.2.840.114 [id number] Univers 00:00:00 00:00:00 Secure Msg Marv Bishop 350.1.13.10 ity of [place] 4.2.7.2.686 [place] [phone] [address] 2019-10-17 2019-10-17 Urgent Pob1, Acute Care Clinic [facility] 1. 2.840.114 [id number] Univers 08:55:43 09:15:43 Care Joo Pal[facility] 350.1.13.10 ity of [place] 4.2.7.2.686 Álvaro as Professio [phone] [address] Office [facility] One 2019-10-17 2019-10-17 Outpatient R [facility] [id number] Univers 09:00:00 09:00:00 ity of [facility] 2019-07-04 2019-07-04 Refday [facility] 1.2.840.114 [id number] Univers 00:00:00 00:00:00 Marv Health 350.1.13.10 it y of [place] 4.2.7.2.686 Álvaro as Professio [phone] [address] Office Building One 2019-05-22 2019-05-22 Refday [facility] 1.2.840.114 [id number] Univers 00:00:00 00:00:00 Marv Health 350.1.13.10 it y of [place] 4.2.7.2.686 Álvaro as Professio [phone] Wy dic[address] Office [facility] 2019-04-30 2019-04-30 Office [facility] 1.2.840.114 [id number] Univers 08:21:44 08:36:44 Visit Marv Health 350.1.13.10 it y of [place] 4.2.7.2.686 Álvaro as Professio [phone] [address] One 2019-04-21 2019-04-21 Telephone [facility] 1.2.151.783 [id number] Univers 00:00:00 00:00:00 Marv Health 350.1.13.10 it y of [place] 4.2.7.2.686 Álvaro as Professio [phone] [address] Office [facility] 2019-04-18 2019-04-18 Outpatient [facility] [id number] Univers 09:28:47 23:59:00 JOO ity of [facility] 2019-04-18 2019-04-18 [facility] 1.2.840.114 [id number] Univers 09:28:00 23:59:00 Encounter Joo Bishop 350.1.13.10 ity of [place] 4.2.7.2.686 [place] [phone] [facility] [address] [place] [address] 2019-04-18 2019-04-18 Office [facility] 1.2.840.114 [id number] Univers 08:17:07 12:02:19 Visit Joo Health 350.1.13.10 it y of [place] 4.2.7.2.686 Álvaro as Professio [phone] [address] Office [facility] 2019-04-18 2019-04-18 Telephone [facility] 1.2.211.888 [id number] Univers 00:00:00 00:00:00 Joo Health 350.1.13.10 it y of [place] 4.2.7.2.686 Ál[place]o as Professio [phone] [address] Office [facility] One 2019-04-18 2019-04-18 Orders Doctor JARET 1.2.840.114 [id number] Univers 00:00:00 00:00:00 Only Unassigned, NICOLA 350.1.13.10 ity of [place] [facility] 4.2.7.2.686 Álvaro as [phone] [place] [address] Branch 2018-10-28 2018-10-28 Orders Doctor JARET 1.2.840.114 [id number] Univers 00:00:00 00:00:00 Only Unassigned, NICOLA 350.1.13.10 ity of [place] [facility] 4.2.7.2.686 Álvaro as [phone] [place] [address] Branch Results This patient has no known results.
[2022-09-17] MEDS ORDERED: MORPHINE 4 MG/ML SYR ONE ×2 (01:56→05:37)
[2022-09-17] MEDS ORDERED: NA CHLORIDE 0.9% 1,000 ML ONE (01:57)
[2022-09-17] MEDS ORDERED: ONDANSETRON 4 MG/2 ML VIAL ONE ×2 (01:57→05:37)
[2022-09-17] MEDS ORDERED: FAMOTIDINE 20 MG/2 ML VIAL IV ONE (01:57)
[2022-09-17 02:01] LABS: Absolute Lymphocytes (CBC) 2.9 K/uL (0.7-4.9); Hematocrit 38.8 % (36.0-45.0); Lymphocytes % 22.9 % (15.3-44.8); MCV 88.2 fL (80-100); MPV 7.5 fL (7.6-11.3)
[2022-09-17 02:16] LABS: Albumin 3.5 g/dL (3.4-5.0); Bilirubin Total 0.2 mg/dL (0.2-1.0); Potassium 4.1 mEq/L (3.5-5.1); Protein, Total 7.6 g/dL (6.4-8.2)
--- NOTE | 2022-09-17 05:28 | EDPHYS ---
Physician Documentation [facility] Name: Elke Benton Age: 41 yrs Sex: Female : 1980 Arrival Date: 09/17/2022 Time: 01:18 Bed 16 Private MD: ED Physician Adriano Tao HPI: 09/17 02:32 This 41 yrs old Female presents to ER via Ambulatory with complaints of kdr Nausea/Vomiting, Abdominal Pain. 02:32 The patient presents to the emergency department with nausea, vomiting, that is kdr intermittent, abdominal pain, of the right upper quadrant and left upper quadrant. Onset: The symptoms/episode began/occurred suddenly, 3 hour(s) ago. Possible causes: unknown. 02:35 Patient presents to the ED complain planing of abdominal pain and nausea with kdr occasional vomiting. Started about 3 hours prior to arrival. Patient took 1 dicyclomine at midnight but has had no relief. Patient has not had symptoms like this before. She has had her gallbladder out previously. She still has her appendix. Patient appears to be nontoxic at this time vital signs are stable and she does not require emergent intervention at the time of presentation. 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 - Social history:: Smoking status: Patient denies any tobacco usage or history of. Patient uses alcohol, occasionally. ROS: 02:35 Constitutional: Negative for fever, chills, and weight loss, Eyes: Negative for injury, kdr pain, redness, and discharge, ENT: Negative for injury, pain, and discharge, Neck: Negative for injury, pain, and swelling, Cardiovascular: Negative for chest pain, palpitations, and edema, Respiratory: Negative for shortness of breath, cough, wheezing, and pleuritic chest pain, Back: Negative for injury and pain, : Negative for injury, bleeding, discharge, and swelling, MS/Extremity: Negative for injury and deformity, Skin: Negative for injury, rash, and discoloration, Neuro: Negative for headache, weakness, numbness, tingling, and seizure activity. Psych: Negative for depression, anxiety, suicide ideation, homicidal ideation, and hallucinations, Allergy/Immunology: Negative for hives, rash, and allergies, Endocrine: Negative for neck swelling, polydipsia, polyuria, polyphagia, and marked weight changes, Hematologic/Lymphatic: Negative for swollen nodes, abnormal bleeding, and unusual bruising. 02:35 Abdomen/GI: Positive for abdominal pain, nausea and vomiting, constipation, Negative for diarrhea, abdominal cramps, abdominal distension. Exam: 02:35 Constitutional: This is a well developed, well nourished patient who is awake, alert, kdr and in no acute distress. Head/Face: Normocephalic, atraumatic. Eyes: Pupils equal round and reactive to light, extra-ocular motions intact. Lids and lashes normal. Conjunctiva and sclera are non-icteric and not injected. Cornea within normal limits. Periorbital areas with no swelling, redness, or edema. Neck: Trachea midline, no thyromegaly or masses palpated, and no cervical lymphadenopathy. Supple, full range of motion without nuchal rigidity, or vertebral point tenderness. No Meningismus. Chest/axilla: Normal chest wall appearance and motion. Nontender with no deformity. No lesions are appreciated. Cardiovascular: Regular rate and rhythm with a normal S1 and S2. No gallops, murmurs, or rubs. Normal PMI, no JVD. No pulse deficits. Respiratory: Lungs have equal breath sounds bilaterally, clear to auscultation and percussion. No rales, rhonchi or wheezes noted. No increased work of breathing, no retractions or nasal flaring. Back: No spinal tenderness. No costovertebral tenderness. Full range of motion. Skin: Warm, dry with normal turgor. Normal color with no rashes, no lesions, and no evidence of cellulitis. MS/ Extremity: Pulses equal, no cyanosis. Neurovascular intact. Full, normal range of motion. Neuro: Awake and alert, GCS 15, oriented to person, place, time, and situation. Cranial nerves II-XII grossly intact. Motor strength 5/5 in all extremities. Sensory grossly intact. Cerebellar exam normal. Normal gait. Psych: Awake, alert, with orientation to person, place and time. Behavior, mood, and affect are within normal limits. 02:35 Abdomen/GI: Inspection: abdomen appears normal, Bowel sounds: active, Palpation: soft, mild abdominal tenderness, in the right upper quadrant and left upper quadrant, Indicators: McBurney's point is not tender, Madrigal's sign is negative. Vital Signs: 01:36 BP 154 / 94; Pulse 83; Resp 17 S; Temp 99(O); Pulse Ox 100% on R/A; Weight 104.33 kg lg3 (R); Height 5 ft. 7 in. (R); Pain 6/10; 02:39 BP 136 / 86; Pulse 84; Resp 16 S; Pulse Ox 98% on R/A; lg3 03:57 BP 126 / 79; Pulse 87; Resp 16 S; Pulse Ox 98% on R/A; lg3 05:39 BP 132 / 86; Pulse 90; Resp 18 S; Pulse Ox 99% on R/A; lg3 01:36 Body Mass Index 36.02 (104.33 kg, 170.18 cm) lg3 01:36 Pain Scale: Adult lg3 MDM: 02:35 Data reviewed: vital signs, nurses notes, lab test result(s), radiologic studies. kdr 05:28 Patient medically screened. kdr 09/17 01:36 Order name: CBC with Diff; Complete Time: 02:31 kdr 09/17 01:36 Order name: CMP; Complete Time: 02:31 kdr 09/17 01:36 Order name: Lipase; Complete Time: 02:31 kdr 09/17 02:02 Order name: CT Abd/Pelvis - IV Contrast Only kdr 09/17 01:37 Order name: IV Saline Lock; Complete Time: 01:46 kdr 09/17 01:37 Order name: Labs collected and sent; Complete Time: 01:46 kdr Administered Medications: 01:56 Drug: Famotidine IVP 20 mg Route: IVP; Site: right antecubital; lg3 05:32 Follow up: Response: No adverse reaction lg3 01:56 Drug: Ondansetron IVP 4 mg Route: IVP; Site: right antecubital; lg3 05:32 Follow up: Response: No adverse reaction lg3 01:56 Drug: morphine IVP or IV 4 mg Route: IVP; Infused Over: 4 mins; Site: right antecubital;lg3 05:32 Follow up: Response: No adverse reaction lg3 01:56 Drug: NS 0.9% IV 1000 ml Route: IV; Rate: 1 bolus; Site: right antecubital; lg3 06:07 Follow up: IV Status: Completed infusion; IV Intake: 1000ml lg3 05:26 Drug: Ciprofloxacin PO 500 mg Route: PO; lg3 05:32 Follow up: Response: No adverse reaction lg3 05:26 Drug: metroNIDAZOLE PO 500 mg Route: PO; lg3 05:32 Follow up: Response: No adverse reaction lg3 05:32 Drug: morphine IVP or IV 4 mg Route: IVP; Infused Over: 4 mins; Site: right antecubital;lg3 06:03 Follow up: Response: No adverse reaction; Marked relief of symptoms lg3 05:32 Drug: Ondansetron IVP 4 mg Route: IVP; Site: right antecubital; lg3 06:03 Follow up: Response: No adverse reaction; Marked relief of symptoms lg3 Disposition Summary: 09/17/22 05:28 Discharge Ordered Location: Home kdr Problem: new kdr Symptoms: have improved kdr Condition: Stable kdr Diagnosis - Abdominal pain, Generalized kdr - Upper abdominal pain, unspecified kdr - Ileitis kdr Followup: kdr - With: Private Physician - When: 2 - 3 days - Reason: If symptoms return, Further diagnostic work-up, Recheck today's complaints, Continuance of care, Re-evaluation by your physician Discharge Instructions: - Discharge Summary Sheet kdr - Abdominal Pain, Adult, [id number] kdr - Probiotics kdr Forms: - Medication Reconciliation Form kdr - Thank You Letter kdr - Antibiotic Education kdr - Prescription Opioid Use kdr - [email or web address] kdr Prescriptions: - Flagyl 500 mg Oral Tablet - take 1 tablet by ORAL route every 6 hours for 10 days; 40 tablet; Refills: 0, kdr Product Selection Permitted - Zofran 4 mg Oral Tablet - take 1 tablet by ORAL route every 4-6 hours As needed; 12 tablet; Refills: 0, kdr Product Selection Permitted - Cipro 500 mg Oral Tablet - take 1 tablet by ORAL route every 12 hours for 10 days; 20 tablet; Refills: 0, kdr Product Selection Permitted - Tramadol 50 mg Oral Tablet - take 1 tablet by ORAL route every 8 hours as needed; 12 tablet; Refills: 0, kdr Product Selection Permitted - Pepcid 20 mg Oral Tablet - take 1 tablet by ORAL route once daily; 20 tablet; Refills: 0, Product kdr Selection Permitted Signatures: Dispatcher [employer] EDAdriano Ortiz MD MD kdr Gibson, Lacie RN RN lg3 Corrections: (The following items were deleted from the chart) 02:35 02:32 Onset: The symptoms/episode began/occurred suddenly, 2 hour(s) ago, kdr kdr
--- NOTE | 2022-09-17 05:28 | ER ---
Nurse's Notes [facility] Name: Elke Benton Age: 41 yrs Sex: Female : 1980 Arrival Date: 09/17/2022 Time: 01:18 Bed 16 Private MD: Diagnosis: Abdominal pain, Generalized;Upper abdominal pain, unspecified;Ileitis Presentation: 09/17 01:36 Chief complaint: Patient states: abdominal pain, nausea and vomiting X3 hours. took a lg3 dicyclomine at 0000 with no relief. Coronavirus screen: Client denies travel out of the [place] in the last 14 days. At this time, the client does not indicate any symptoms associated with coronavirus-19. Ebola Screen: No symptoms or risks identified at this time. Initial Sepsis Screen: Does the patient meet any 2 criteria? No. Patient's initial sepsis screen is negative. Does the patient have a suspected source of infection? No. Patient's initial sepsis screen is negative. Risk Assessment: Do you want to hurt yourself or someone else? Patient reports no desire to harm self or others. Onset of symptoms was September 16, 2022. 01:36 Method Of Arrival: Ambulatory lg3 01:36 Acuity: MARK 3 lg3 Triage Assessment: 01:39 General: Appears in no apparent distress. uncomfortable, Behavior is calm, cooperative. lg3 Pain: Complains of pain in right upper quadrant and left upper quadrant Noted to be grimacing, guarding, moaning, resistant to movement, Also complains of nausea. EENT: No deficits noted. No signs and/or symptoms were reported regarding the EENT system. Neuro: No deficits noted. Aguilar Agitation-Sedation Scale (RASS): 0 - Alert and Calm Level of Consciousness is awake, alert, obeys commands, Oriented to person, place, time, situation. Cardiovascular: No deficits noted. Denies chest pain, shortness of breath, Capillary refill < 3 seconds Clubbing of nail beds is absent JVD is absent Patient's skin is warm and dry. Respiratory: No deficits noted. Airway is patent Respiratory effort is even, unlabored, Respiratory pattern is regular, symmetrical. GI: Abdomen is round non-distended, obese, Bowel sounds present X 4 quads. Abd is soft X 4 quads Abdomen is tender to palpation in right upper quadrant and left upper quadrant Reports upper abdominal pain, cramping, epigastric pain, intolerance of fluids, intolerance of food, nausea, vomiting. : No deficits noted. No signs and/or symptoms were reported regarding the genitourinary system. Derm: No deficits noted. No signs and/or symptoms reported regarding the dermatologic system. Skin is intact, is healthy with good turgor, Skin is dry, Skin is normal, Skin temperature is warm. Musculoskeletal: No deficits noted. No signs and/or symptoms reported regarding the musculoskeletal system. Circulation, motion, and sensation intact. Range of motion: intact in all extremities. 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 - Social history:: Smoking status: Patient denies any tobacco usage or history of. Patient uses alcohol, occasionally. Screenin:43 [facility] ED Fall Risk Assessment (Adult) History of falling in the last 3 months, lg3 including since admission No falls in past 3 months (0 pts). Abuse screen: Denies threats or abuse. Denies injuries from another. Nutritional screening: No deficits noted. Tuberculosis screening: No symptoms or risk factors identified. Assessment: 01:43 General: see triage assessment . lg3 01:43 GI: Abdomen is round non-distended, Bowel sounds present X 4 quads. Abd is soft X 4 lg3 quads Abdomen is tender to palpation in right upper quadrant and left upper quadrant Guarding noted Reports upper abdominal pain, cramping, epigastric pain, intolerance of fluids, intolerance of food, nausea, vomiting. 02:39 Reassessment: Patient appears in no apparent distress at this time. No changes from lg3 previously documented assessment. Patient and/or family updated on plan of care and expected duration. Pain level reassessed. Patient is alert, oriented x 3, equal unlabored respirations, skin warm/dry/pink. Patient states symptoms have improved. 05:31 Pain: Complains of pain in abdomen Pain currently is 8 out of 10 on a pain scale. Noted lg3 to be confused, grimacing, guarding, Also complains of nausea. 06:03 Reassessment: Patient appears in no apparent distress at this time. Patient and/or lg3 family updated on plan of care and expected duration. Pain level reassessed. Patient is alert, oriented x 3, equal unlabored respirations, skin warm/dry/pink. Patient states feeling better. Patient states symptoms have improved. Vital Signs: 01:36 BP 154 / 94; Pulse 83; Resp 17 S; Temp 99(O); Pulse Ox 100% on R/A; Weight 104.33 kg lg3 (R); Height 5 ft. 7 in. (R); Pain 6/10; 02:39 BP 136 / 86; Pulse 84; Resp 16 S; Pulse Ox 98% on R/A; lg3 03:57 BP 126 / 79; Pulse 87; Resp 16 S; Pulse Ox 98% on R/A; lg3 05:39 BP 132 / 86; Pulse 90; Resp 18 S; Pulse Ox 99% on R/A; lg3 01:36 Body Mass Index 36.02 (104.33 kg, 170.18 cm) lg3 01:36 Pain Scale: Adult lg3 ED Course: 01:22 Patient arrived in ED. [id number] 01:36 Elvira Bajwa, DANYEL is Primary Nurse. lg3 01:36 Adriano Tao MD is Attending Physician. kdr 01:39 Triage completed. lg3 01:39 Arm band placed on right wrist. lg3 01:43 Patient has correct armband on for positive identification. Placed in gown. Bed in low lg3 position. Call light in reach. Side rails up X 1. Client placed on continuous cardiac and pulse oximetry monitoring. NIBP monitoring applied. Door closed. Noise minimized. Warm blanket given. 01:43 Inserted saline lock: 20 gauge in right antecubital area, using aseptic technique. lg3 Blood collected. 01:46 CBC with Diff Sent. lg3 01:46 CMP Sent. lg3 01:46 Lipase Sent. lg3 03:29 CT Abd/Pelvis - IV Contrast Only In Process Unspecified. EDMS 06:03 No provider procedures requiring assistance completed. IV discontinued, intact, lg3 bleeding controlled, No redness/swelling at site. Pressure dressing applied. 06:10 Primary Nurse role handed off by Elvira Bajwa, RN [id number] Administered Medications: 01:56 Drug: Famotidine IVP 20 mg Route: IVP; Site: right antecubital; lg3 05:32 Follow up: Response: No adverse reaction lg3 01:56 Drug: Ondansetron IVP 4 mg Route: IVP; Site: right antecubital; lg3 05:32 Follow up: Response: No adverse reaction lg3 01:56 Drug: morphine IVP or IV 4 mg Route: IVP; Infused Over: 4 mins; Site: right antecubital;lg3 05:32 Follow up: Response: No adverse reaction lg3 01:56 Drug: NS 0.9% IV 1000 ml Route: IV; Rate: 1 bolus; Site: right antecubital; lg3 06:07 Follow up: IV Status: Completed infusion; IV Intake: 1000ml lg3 05:26 Drug: Ciprofloxacin PO 500 mg Route: PO; lg3 05:32 Follow up: Response: No adverse reaction lg3 05:26 Drug: metroNIDAZOLE PO 500 mg Route: PO; lg3 05:32 Follow up: Response: No adverse reaction lg3 05:32 Drug: morphine IVP or IV 4 mg Route: IVP; Infused Over: 4 mins; Site: right antecubital;lg3 06:03 Follow up: Response: No adverse reaction; Marked relief of symptoms lg3 05:32 Drug: Ondansetron IVP 4 mg Route: IVP; Site: right antecubital; lg3 06:03 Follow up: Response: No adverse reaction; Marked relief of symptoms lg3 Medication: 06:03 VIS not applicable for this client. lg3 Intake: 06:07 IV: 1000ml; Total: 1000ml. lg3 Outcome: 05:28 Discharge ordered by . kdr 06:03 Discharged to home ambulatory. lg3 06:03 Condition: stable 06:03 Discharge instructions given to patient, Instructed on discharge instructions, follow up and referral plans. medication usage, Demonstrated understanding of instructions, follow-up care, medications, Prescriptions given X 4. 06:07 Patient left the ED. lg3 06:12 Patient left the ED. lg3 Signatures: Dispatcher [employer] EDMS Adriano Tao MD MD kdr Gibson, Lacie, RN RN lg3 Amanda Vazquez [facility]
[2022-09-17] MEDS ORDERED: metroNIDAZOLE 500 MG TABLET ONE (05:33)
[2022-09-17] MEDS ORDERED: CIPROFLOXACIN HCL 500 MG TAB ONE (05:33)
[2022-09-17 06:13] VITALS: TEMP 99
[2022-09-17 06:43] VITALS: BP 132/86; O2SAT 99
--- NOTE | 2022-09-19 10:26 | RAD REPORT ---
EXAM DESCRIPTION: CT - Abdomen Pelvis W Contrast - 09/17/2022 6:28 am CLINICAL HISTORY: ABD PAIN TECHNIQUE: Contiguous axial images obtained through the abdomen and pelvis following the uneventful administration of IV contrast. Coronal and sagittal reformatted images were provided. This exam was performed according to our departmental dose-optimization program, which includes autom ated exposure control, adjustment of the mA and/or kV according to patient size and/or use of iterati ve reconstruction technique. COMPARISON: July 2021 FINDINGS: Lung bases: Clear Liver: Unremarkable Gallbladder and biliary system: Status post cholecystectomy. Pancreas: Unremarkable Spleen: Unremarkable Adrenals: Unremarkable Kidneys: Normal renal cortical enhancement. No calculi. No hydronephrosis. GI: Mucosal thickening involving the ileum and terminal ileum, consistent with ileitis. Mild adjacent mesenteric edema, and interloop fluid, likely reactive No bowel obstruction. No colitis or diverticulitis. Appendix: No findings to suggest acute appendicitis. Urinary bladder: Unremarkable Reproductive: Unremarkable as visualized Lymph nodes: No pathologically enlarged lymph nodes. Peritoneum: Trace nonspecific fluid in the pelvis. No free air. Vessels: No abdominal aortic aneurysm. Abdominal wall: Unremarkable Bones: Unremarkable IMPRESSION: Mucosal thickening involving the ileum and terminal ileum, consistent with ileitis. Mild adjacent mesenteric edema, and interloop fluid, likely reactive. Trace nonspecific fluid in the pelv is. Electronically signed by: Florentino Erickson MD 09/17/2022 4:29 AM CDT Due to temporary technical issues with the PACS/Fluency reporting system, reports are being signed by the in house radiologists without review as a courtesy to insure prompt reporting. The interpreting radiologist is fully responsible for the content of the report.
== END 2022-09-17 06:12 | disposition home or self-care (01) ==
LOC: ER 01:18
DX: K52.9 Noninfective gastroenteritis and colitis, unspecified (principal); R10.10 Upper abdominal pain, unspecified; R11.2 Nausea with vomiting, unspecified; Z88.8 Allergy status to other drugs, medicaments and biological substances
CPT/HCPCS: 96361; 85025; 36415; 83690; 80053; 74177; 96375; 96374; 99285; Q9967; J2405 ×2; J7030

== ENCOUNTER → 2023-05-24 | Emergency (ER) | payer BC ==
[~2023-05-24] MED LIST: DICYCLOMINE HCL 20 MG/2 ML AMP IM ONE; FAMOTIDINE 20 MG/2 ML VIAL IV ONE; KETOROLAC 30 MG/ML INJ ONE; MORPHINE 4 MG/ML SYR ONE; NA CHLORIDE 0.9% 2,000 ML ONE; ONDANSETRON 4 MG/2 ML VIAL ONE; PANTOPRAZOLE 40 MG INJ ONE
--- OUTSIDE RECORDS SUMMARY | 2023-05-24 06:05 | XMS REPORT | Continuity of Care Document ---
Author Name Unknown Address [address] [facility] [address] [place] [address] [facility] [address] [facility] [place] [address] Care Team Providers Care Document Control Coordinator Name Role Phone Shanna Schwarz MD Primary Care Physician [phone] D[place] Attending Clinician DEEPA Lew Attending Clinician Shanna Cooper MD Attending Clinician [phone] NATHALY MIRELES Attending Clinician Unavailable Nathaly Mireles PA-C Attending Clinician [phone] Unknown, Attending Attending Clinician Unavailab SHANNA Villegas Attending Clinician Unavailable Doctor Unassigned, [place] Attending Clinician Enrrique Vázquez Attending Clinician [phone] UNKNOWN, ATTENDING Attending Clinician Unavailab ENRRIQUE Sabillon Attending Clinician UnavailDominique Gleason Attending Clinician [phone] DOMINIQUE TRIMBLE Attending Clinician Unavailable JUAN DE LEON Attending Clinician UnavailJuan Mosqueda Attending Clinician [phone] Lisa Soto Attending Clinician [phone] LISA MALDONADO Attending Clinician Unavailable TAMARA YIN III Attending Clinician UnavailROSE MARY Yu Attending Clinician Unavailable RAJNI RIOS Attending Clinician UnavailRAJNI Weinberg Attending Clinician Unavailshy Pickering MD, Rose Mary Attending Clinician [phone] Rachana MONTAÑO, Merissa Attending Clinician Unavailable DELORES DUARTE Attending Clinician Unavailable Only, Ang Db Test Attending Clinician John Duarte MD, Delores Attending Clinician [phone] Vianey Raymundo Attending Clinician [phone] VIANEY PAULINO Attending Clinician Unavailable Lab, Adc Fam Pob I Attending Clinician Unavailab elizabeth Soto RN, Myah Ann Attending Clinician Unavailshy Gallagher DO, Miguel Steiner Attending Clinician [phone] Tameka FOY, Tamara Ware Attending Clinician + [phone] TAMARA SHELDON Attending Clinician ANUJA Singleton Attending Clinician Unavailbernardo Castrob1, [facility] Attending Clinician Unajulieta ailable VIANEY PAULINO Admitting Clinician Unavailable Payers Payer Name Policy Type Policy Number Effective Date Expirati on Date Source [facility] OUT [facility] STATE [id number] 2021 00:00:00 [employer] II [id number] 2017 00:00:00 Problems Condition Name Condition Details Condition Category Status Onset Date Resolution Date Last Treatment Date Treating Clinician Comments Source Subacute cough Subacute cough Disease Active 2021-03 00:00: 00 [facility] Mild intermitte nt asthma without complicati on Mild intermitte nt asthma without complicati on Disease Active 06-04 00:00: 00 [facility] Acute seasonal allergic rhinitis due to pollen Acute seasonal allergic rhinitis due to pollen Disease Active 06-04 00:00: 00 [facility] Allergies, Adverse Reactions, Alerts Allergy Name Allergy Type Status Severity Reaction(s) Onset Date Inactive Date Treating Clinician Comments Source Sumatrip wild Succinat e Propensi ty to adverse reaction s Active Unknown - See comments 2014-03 00:00: 00 [facility] Lansopra zole Propensi ty to adverse reaction s Active Unknown - See comments 2014-03 00:00: 00 [facility] SUMATRIP WILD SUCCINAT E DRUG INGREDI Active Unknown-Cmnt 2014-03 00:00: 00 [facility] LANSOPRA ZOLE DRUG INGREDI Active Unknown-Cmnt 2014-03 00:00: 00 [facility] Social History Social Habit Start Date Stop Date Quantity Comments Source Gender identity [facility] function 2023-01-03 00:00:00 2023-01-03 00:00:00 [facility] Alcohol intake 2023-01-03 00:00:00 2023-01-03 00:00:00 0 /d [facility] Exposure to SARS-CoV-2 (event) 2022-07-12 00:00:00 2022-07-22 20:43:00 Not sure [facility] Tobacco use and exposure 2022-06-16 00:00:00 2022-06-16 00:00:00 Smokeless tobacco non-user [facility] Sex Assigned At 1980 00:00:00 1980 00:00:00 [facility] Smoking Status Start Date Stop Date Source Never smoked tobacco [facility] Medications Ordered Medication Name Filled Medication Name Start Date Stop Date Current Medication? Ordering Clinician Indication Dosage Frequency Signature (SIG) Comments Components Source MONTELUKAST 10 mg tablet 04-09 00:00: 00 Yes [id number] TAKE ONE (1) TABLET(S) BY MOUTH DAILY. [facility] dexamethaso ne sod phos PF injection 10 mg 03-29 01:45: 00 03-29 01:04 :00 No [id number] 10mg [facility] dexamethaso ne sod phos PF injection 10 mg 03-29 01:45: 00 03-29 01:04 :00 No [id number] 10mg 10 mg, Intramuscu lar, ONCE, 1 dose, On Sun03/28/23 at 1945, 1 mL [facility] fluticasone propionate 50 mcg/actuati on nasal spray 03-28 00:00: 00 Yes [id number] 2{spray } Use 2 Sprays in each nostril in the morning. [facility] azelastine 137 mcg (0.1 %) nasal spray 03-28 00:00: 00 Yes [id number] 1{spray } Use 1 [place] in each nostril in the morning and 1 [place] in the evening. Use in each nostril as directed [facility] benzonatate (TESSALON PERLES) 100 mg capsule 03-28 00:00: 00 Yes [id number] 100mg Take 1 capsule by mouth every 8 (eight) hours as needed for Cough. [facility] fluticasone propionate 50 mcg/actuati on nasal spray 03-28 00:00: 00 Yes [id number] 2{spray } Use 2 Sprays in each nostril in the morning. [facility] azelastine 137 mcg (0.1 %) nasal spray 03-28 00:00: 00 Yes [id number] 1{spray } Use 1 [place] in each nostril in the morning and 1 [place] in the evening. Use in each nostril as directed [facility] benzonatate (TESSALON PERLES) 100 mg capsule 03-28 00:00: 00 Yes [id number] 100mg Take 1 capsule by mouth every 8 (eight) hours as needed for Cough. [facility] predniSONE 10 mg tablet 03-28 00:00: 00 04-03 05:59 :00 Yes [id number] 10mg Take 1 tablet by mouth in the morning and 1 tablet in the evening. Do all this for 5 days. [facility] ADVAIR DISKUS 250-50 mcg/dose inhalation disk 2022-03 00:00: 00 Yes [id number] UNHALE 1 PUFF BY MOUTH EVERY 12 HOURS [facility] albuterol 90 mcg/actuati on inhaler 2022-03 00:00: 00 Yes [id number] 2{puff} Inhale 2 Puffs every 6 (six) hours as needed for Wheezing. [facility] predniSONE 10 mg tablet 2022-03 00:00: 00 Yes [id number] 10mg Take 1 tablet by mouth in the morning and 1 tablet in the evening. [facility] benzonatate (TESSALON PERLES) 100 mg capsule 2022-03 0-25 00:00: 00 Yes [id number] 100mg Take 1 capsule by mouth every 8 (eight) hours as needed for Cough. [facility] ADVAIR DISKUS 250-50 mcg/dose inhalation disk 2022-03 0- 00:00: 00 Yes [id number] UNHALE 1 PUFF BY MOUTH EVERY 12 HOURS [facility] albuterol 90 mcg/actuati on inhaler 2022-03 0 00:00: 00 Yes [id number] 2{puff} Inhale 2 Puffs every 6 (six) hours as needed for Wheezing. [facility] predniSONE 10 mg tablet 2022-03 0 00:00: 00 Yes [id number] 10mg Take 1 tablet by mouth in the morning and 1 tablet in the evening. [facility] benzonatate (TESSALON PERLES) 100 mg capsule 2022-03 0 00:00: 00 Yes [id number] 100mg Take 1 capsule by mouth every 8 (eight) hours as needed for Cough. [facility] ADVAIR DISKUS 250-50 mcg/dose inhalation disk 2022-03 025 00:00: 00 Yes [id number] UNHALE 1 PUFF BY MOUTH EVERY 12 HOURS [facility] albuterol 90 mcg/actuati on inhaler 2022-03 0 00:00: 00 Yes [id number] 2{puff} Inhale 2 Puffs every 6 (six) hours as needed for Wheezing. [facility] predniSONE 10 mg tablet 2022-03 0-25 00:00: 00 Yes [id number] 10mg Take 1 tablet by mouth in the morning and 1 tablet in the evening. [facility] benzonatate (TESSALON PERLES) 100 mg capsule 2022-03 0-25 00:00: 00 Yes [id number] 100mg Take 1 capsule by mouth every 8 (eight) hours as needed for Cough. [facility] ADVAIR DISKUS 250-50 mcg/dose inhalation disk 2022-03 0 00:00: 00 Yes [id number] UNHALE 1 PUFF BY MOUTH EVERY 12 HOURS [facility] albuterol 90 mcg/actuati on inhaler 2022-03 0 00:00: 00 Yes [id number] 2{puff} Inhale 2 Puffs every 6 (six) hours as needed for Wheezing. [facility] predniSONE 10 mg tablet 2022-03 0 00:00: 00 Yes [id number] 10mg Take 1 tablet by mouth in the morning and 1 tablet in the evening. [facility] benzonatate (TESSALON PERLES) 100 mg capsule 2022-03 0 00:00: 00 Yes [id number] 100mg Take 1 capsule by mouth every 8 (eight) hours as needed for Cough. [facility] ADVAIR DISKUS 250-50 mcg/dose inhalation disk 2022-03 0 00:00: 00 Yes [id number] UNHALE 1 PUFF BY MOUTH EVERY 12 HOURS [facility] albuterol 90 mcg/actuati on inhaler 2022-03 0 00:00: 00 Yes [id number] 2{puff} Inhale 2 Puffs every 6 (six) hours as needed for Wheezing. [facility] predniSONE 10 mg tablet 2022-03 0 00:00: 00 Yes [id number] 10mg Take 1 tablet by mouth in the morning and 1 tablet in the evening. [facility] benzonatate (TESSALON PERLES) 100 mg capsule 2022-03 0 00:00: 00 Yes [id number] 100mg Take 1 capsule by mouth every 8 (eight) hours as needed for Cough. [facility] MONTELUKAST 10 mg tablet 2022-03 0-24 00:00: 00 Yes [id number] TAKE ONE (1) TABLET(S) BY MOUTH DAILY. [facility] MONTELUKAST 10 mg tablet 2022-03 0-24 00:00: 00 Yes [id number] TAKE ONE (1) TABLET(S) BY MOUTH DAILY. [facility] MONTELUKAST 10 mg tablet 2023-1 0-24 00:00: 00 Yes [id number] TAKE ONE (1) TABLET(S) BY MOUTH DAILY. [facility] MONTELUKAST 10 mg tablet 2022-1 0-24 00:00: 00 Yes [id number] TAKE ONE (1) TABLET(S) BY MOUTH DAILY. [facility] MONTELUKAST 10 mg tablet 2022-1 0-24 00:00: 00 Yes [id number] TAKE ONE (1) TABLET(S) BY MOUTH DAILY. [facility] MONTELUKAST 10 mg tablet 2022-1 0-24 00:00: 00 04-09 00:00 :00 No [id number] TAKE ONE (1) TABLET(S) BY MOUTH DAILY. [facility] montelukast 10 mg tablet 2022-0 9 00:00: 00 Yes [id number] TAKE ONE (1) TABLET(S) BY MOUTH DAILY. [facility] montelukast 10 mg tablet 2022-0 9 00:00: 00 01-02 00:00 :00 No [id number] TAKE ONE (1) TABLET(S) BY MOUTH DAILY. [facility] azelastine 137 mcg (0.1 %) nasal spray 2022-07-22 00:00: 00 Yes [id number] 1{spray } Use 1 [place] in each nostril in the morning and 1 [place] in the evening. Use in each nostril as directed [facility] methylPREDN ISolone (MEDROL, RON,) 4 mg tablets 2022-0 07-22 00:00: 00 Yes [id number] Take by mouth SEE-INSTRU CTIONS. follow package directions [facility] azelastine 137 mcg (0.1 %) nasal spray 2022-0 13 00:00: 00 Yes [id number] 1{spray } Use 1 [place] in each nostril in the morning and 1 [place] in the evening. Use in each nostril as directed [facility] methylPREDN ISolone (MEDROL, RON,) 4 mg tablets 2022-0 -13 00:00: 00 Yes [id number] Take by mouth SEE-INSTRU CTIONS. follow package directions [facility] azelastine 137 mcg (0.1 %) nasal spray 07-22 00:00: 00 Yes [id number] 1{spray } Use 1 [place] in each nostril in the morning and 1 [place] in the evening. Use in each nostril as directed [facility] methylPREDN ISolone (MEDROL, RON,) 4 mg tablets 07-22 00:00: 00 Yes [id number] Take by mouth SEE-INSTRU CTIONS. follow package directions [facility] azelastine 137 mcg (0.1 %) nasal spray 07-22 00:00: 00 Yes [id number] 1{spray } Use 1 [place] in each nostril in the morning and 1 [place] in the evening. Use in each nostril as directed [facility] methylPREDN ISolone (MEDROL, RON,) 4 mg tablets 07-22 00:00: 00 Yes [id number] Take by mouth SEE-INSTRU CTIONS. follow package directions [facility] azelastine 137 mcg (0.1 %) nasal spray 07-22 00:00: 00 Yes [id number] 1{spray } Use 1 [place] in each nostril in the morning and 1 [place] in the evening. Use in each nostril as directed [facility] methylPREDN ISolone (MEDROL, RON,) 4 mg tablets 07-22 00:00: 00 Yes [id number] Take by mouth SEE-INSTRU CTIONS. follow package directions [facility] azelastine 137 mcg (0.1 %) nasal spray 07-22 00:00: 00 Yes [id number] 1{spray } Use 1 [place] in each nostril in the morning and 1 [place] in the evening. Use in each nostril as directed [facility] azelastine 137 mcg (0.1 %) nasal spray 07-22 00:00: 00 Yes [id number] 1{spray } Use 1 [place] in each nostril in the morning and 1 [place] in the evening. Use in each nostril as directed [facility] azelastine 137 mcg (0.1 %) nasal spray 07-22 00:00: 00 Yes [id number] 1{spray } Use 1 [place] in each nostril in the morning and 1 [place] in the evening. Use in each nostril as directed [facility] azelastine 137 mcg (0.1 %) nasal spray 07-22 00:00: 00 Yes [id number] 1{spray } Use 1 [place] in each nostril in the morning and 1 [place] in the evening. Use in each nostril as directed [facility] azelastine 137 mcg (0.1 %) nasal spray 07-22 00:00: 00 Yes [id number] 1{spray } Use 1 [place] in each nostril in the morning and 1 [place] in the evening. Use in each nostril as directed [facility] methylPREDN ISolone (MEDROL, RON,) 4 mg tablets 07-22 00:00: 00 01-03 00:00 :00 No [id number] Take by mouth SEE-INSTRU CTIONS. follow package directions [facility] methylPREDN ISolone (MEDROL, RON,) 4 mg tablets 07-22 00:00: 00 01-03 00:00 :00 No [id number] Take by mouth SEE-INSTRU CTIONS. follow package directions [facility] methylPREDN ISolone (MEDROL, RON,) 4 mg tablets 07-22 00:00: 00 01-03 00:00 :00 No [id number] Take by mouth SEE-INSTRU CTIONS. follow package directions [facility] amoxicillin -clavulanat e (AUGMENTIN) 875-125 mg per tablet 07-22 00:00: 00 07-30 04:59 :00 No [id number] 1{tbl} Take 1 tablet by mouth in the morning and 1 tablet in the evening. Do all this for 7 days. [facility] levocetiriz ine dihydrochlo ride (XYZAL ORAL) 06-16 10:24: 16 Yes Take by mouth. [facility] levocetiriz ine dihydrochlo ride (XYZAL ORAL) 06-16 10:24: 16 Yes Take by mouth. [facility] levocetiriz ine dihydrochlo ride (XYZAL ORAL) 06-16 10:24: 16 Yes Take by mouth. [facility] levocetiriz ine dihydrochlo ride (XYZAL ORAL) 06-16 10:24: 16 Yes Take by mouth. [facility] levocetiriz ine dihydrochlo ride (XYZAL ORAL) 06-16 10:24: 16 Yes Take by mouth. [facility] levocetiriz ine dihydrochlo ride (XYZAL ORAL) 06-16 10:24: 16 Yes Take by mouth. [facility] levocetiriz ine dihydrochlo ride (XYZAL ORAL) 06-16 10:24: 16 Yes Take by mouth. [facility] levocetiriz ine dihydrochlo ride (XYZAL ORAL) 06-16 10:24: 16 Yes Take by mouth. [facility] levocetiriz ine dihydrochlo ride (XYZAL ORAL) 06-16 10:24: 16 Yes Take by mouth. [facility] levocetiriz ine dihydrochlo ride (XYZAL ORAL) 06-16 10:24: 16 Yes Take by mouth. [facility] levocetiriz ine dihydrochlo ride (XYZAL ORAL) 06-16 10:24: 16 Yes Take by mouth. [facility] levocetiriz ine dihydrochlo ride (XYZAL ORAL) 06-16 10:24: 16 Yes Take by mouth. [facility] norgestrel- ethinyl estradioL (CRYSELLE) 0.3-30 mg-mcg per tablet 06-16 00:00: 00 Yes [id number] 1{tbl} Take 1 tablet by mouth in the morning. [facility] norgestrel- ethinyl estradioL (CRYSELLE) 0.3-30 mg-mcg per tablet 06-16 00:00: 00 Yes [id number] 1{tbl} Take 1 tablet by mouth in the morning. [facility] norgestrel- ethinyl estradioL (CRYSELLE) 0.3-30 mg-mcg per tablet 06-16 00:00: 00 Yes [id number] 1{tbl} Take 1 tablet by mouth in the morning. [facility] norgestrel- ethinyl estradioL (CRYSELLE) 0.3-30 mg-mcg per tablet 06-16 00:00: 00 Yes [id number] 1{tbl} Take 1 tablet by mouth in the morning. [facility] norgestrel- ethinyl estradioL (CRYSELLE) 0.3-30 mg-mcg per tablet 06-16 00:00: 00 Yes [id number] 1{tbl} Take 1 tablet by mouth in the morning. [facility] norgestrel- ethinyl estradioL (CRYSELLE) 0.3-30 mg-mcg per tablet 06-16 00:00: 00 Yes [id number] 1{tbl} Take 1 tablet by mouth in the morning. [facility] norgestrel- ethinyl estradioL (CRYSELLE) 0.3-30 mg-mcg per tablet 06-16 00:00: 00 Yes [id number] 1{tbl} Take 1 tablet by mouth in the morning. [facility] norgestrel- ethinyl estradioL (CRYSELLE) 0.3-30 mg-mcg per tablet 06-16 00:00: 00 Yes [id number] 1{tbl} Take 1 tablet by mouth in the morning. [facility] norgestrel- ethinyl estradioL (CRYSELLE) 0.3-30 mg-mcg per tablet 06-16 00:00: 00 Yes [id number] 1{tbl} Take 1 tablet by mouth in the morning. [facility] norgestrel- ethinyl estradioL (CRYSELLE) 0.3-30 mg-mcg per tablet 06-16 00:00: 00 Yes [id number] 1{tbl} Take 1 tablet by mouth in the morning. [facility] norgestrel- ethinyl estradioL (CRYSELLE) 0.3-30 mg-mcg per tablet 06-16 00:00: 00 Yes [id number] 1{tbl} Take 1 tablet by mouth in the morning. [facility] norgestrel- ethinyl estradioL (CRYSELLE) 0.3-30 mg-mcg per tablet 06-16 00:00: 00 Yes [id number] 1{tbl} Take 1 tablet by mouth in the morning. [facility] albuterol 90 mcg/actuati on inhaler 2021-03 00:00: 00 Yes [id number] 2{puff} Inhale 2 Puffs every 6 (six) hours as needed for Wheezing. [facility] predniSONE 20 mg tablet 2021-03 00:00: 00 Yes [id number] 20mg Take 1 tablet by mouth in the morning. [facility] albuterol 90 mcg/actuati on inhaler 2021-03 00:00: 00 Yes [id number] 2{puff} Inhale 2 Puffs every 6 (six) hours as needed for Wheezing. [facility] predniSONE 20 mg tablet 2021-03 00:00: 00 Yes [id number] 20mg Take 1 tablet by mouth in the morning. [facility] albuterol 90 mcg/actuati on inhaler 2021-03 00:00: 00 Yes [id number] 2{puff} Inhale 2 Puffs every 6 (six) hours as needed for Wheezing. [facility] predniSONE 20 mg tablet 2021-03 00:00: 00 Yes [id number] 20mg Take 1 tablet by mouth in the morning. [facility] albuterol 90 mcg/actuati on inhaler 2021-03 00:00: 00 Yes [id number] 2{puff} Inhale 2 Puffs every 6 (six) hours as needed for Wheezing. [facility] predniSONE 20 mg tablet 2021-03 00:00: 00 Yes [id number] 20mg Take 1 tablet by mouth in the morning. [facility] albuterol 90 mcg/actuati on inhaler 2021-03 00:00: 00 Yes [id number] 2{puff} Inhale 2 Puffs every 6 (six) hours as needed for Wheezing. [facility] predniSONE 20 mg tablet 2021-03 00:00: 00 Yes [id number] 20mg Take 1 tablet by mouth in the morning. [facility] albuterol 90 mcg/actuati on inhaler 2021-03 00:00: 00 Yes [id number] 2{puff} Inhale 2 Puffs every 6 (six) hours as needed for Wheezing. [facility] albuterol 90 mcg/actuati on inhaler 2021-03 00:00: 00 Yes [id number] 2{puff} Inhale 2 Puffs every 6 (six) hours as needed for Wheezing. [facility] albuterol 90 mcg/actuati on inhaler 2021-03 00:00: 00 Yes [id number] 2{puff} Inhale 2 Puffs every 6 (six) hours as needed for Wheezing. [facility] albuterol 90 mcg/actuati on inhaler 2021-03 00:00: 00 Yes [id number] 2{puff} Inhale 2 Puffs every 6 (six) hours as needed for Wheezing. [facility] albuterol 90 mcg/actuati on inhaler 2021-03 00:00: 00 Yes [id number] 2{puff} Inhale 2 Puffs every 6 (six) hours as needed for Wheezing. [facility] albuterol 90 mcg/actuati on inhaler 2021-03 00:00: 00 01-03 00:00 :00 No [id number] 2{puff} Inhale 2 Puffs every 6 (six) hours as needed for Wheezing. [facility] albuterol 90 mcg/actuati on inhaler 2021-03 00:00: 00 01-03 00:00 :00 No [id number] 2{puff} Inhale 2 Puffs every 6 (six) hours as needed for Wheezing. [facility] albuterol 90 mcg/actuati on inhaler 2021-03 00:00: 00 01-03 00:00 :00 No [id number] 2{puff} Inhale 2 Puffs every 6 (six) hours as needed for Wheezing. [facility] predniSONE 20 mg tablet 2021-03 00:00: 00 07-22 00:00 :00 No [id number] 20mg Take 1 tablet by mouth in the morning. [facility] benzonatate 200 mg capsule 2021-03 00:00: 00 02-07 05:59 :00 No [id number] 200mg Take 1 capsule by mouth 3 (three) times daily as needed for Cough for up to 7 days. [facility] benzonatate 200 mg capsule 2021-03 00:00: 00 02-07 05:59 :00 No [id number] 200mg Take 1 capsule by mouth 3 (three) times daily as needed for Cough for up to 7 days. [facility] methylPREDN ISolone (MEDROL, RON,) 4 mg tablets 2021-03 00:00: 00 Yes [id number] Take by mouth SEE-INSTRU CTIONS. follow package directions [facility] methylPREDN ISolone (MEDROL, RON,) 4 mg tablets 2021-03 00:00: 00 01-30 00:00 :00 No [id number] Take by mouth SEE-INSTRU CTIONS. follow package directions [facility] methylPREDN ISolone (MEDROL, RON,) 4 mg tablets 2021-03 0 00:00: 00 01-30 00:00 :00 No [id number] Take by mouth SEE-INSTRU CTIONS. follow package directions [facility] amoxicillin -clavulanat e (AUGMENTIN) 875-125 mg per tablet 2021-03 0- 00:00: 00 01-15 04:59 :00 No [id number] 1{tbl} Take 1 tablet by mouth in the morning and 1 tablet in the evening. Do all this for 10 days. [facility] methylPREDN ISolone (MEDROL, RON,) 4 mg tablets 12-03 00:00: 00 Yes [id number] Take by mouth SEE-INSTRU CTIONS. follow package directions [facility] methylPREDN ISolone (MEDROL, RON,) 4 mg tablets 12-03 00:00: 00 Yes [id number] Take by mouth SEE-INSTRU CTIONS. follow package directions [facility] methylPREDN ISolone (MEDROL, RON,) 4 mg tablets 12-03 00:00: 00 01-30 00:00 :00 No [id number] Take by mouth SEE-INSTRU CTIONS. follow package directions [facility] methylPREDN ISolone (MEDROL, RON,) 4 mg tablets 12-03 00:00: 00 01-30 00:00 :00 No [id number] Take by mouth SEE-INSTRU CTIONS. follow package directions [facility] fluticasone propion-quinton meteroL (ADVAIR DISKUS) 250-50 mcg/dose inhalation disk 11-18 00:00: 00 Yes [id number] [place] 1 PUFF BY MOUTH EVERY 12 HOURS [facility] fluticasone propion-[place] meteroL (ADVAIR DISKUS) 250-50 mcg/dose inhalation disk 11-18 00:00: 00 Yes [id number] [place] 1 PUFF BY MOUTH EVERY 12 HOURS [facility] fluticasone propion-quinton meteroL (ADVAIR DISKUS) 250-50 mcg/dose inhalation disk 11-18 00:00: 00 Yes [id number] [place] 1 PUFF BY MOUTH EVERY 12 HOURS [facility] fluticasone propion-quinton meteroL (ADVAIR DISKUS) 250-50 mcg/dose inhalation disk 2-0 11-18 00:00: 00 Yes [id number] UNHALE 1 PUFF BY MOUTH EVERY 12 HOURS [facility] fluticasone propion-[place] meteroL (ADVAIR DISKUS) 250-50 mcg/dose inhalation disk 2-0 11-18 00:00: 00 Yes [id number] [place] 1 PUFF BY MOUTH EVERY 12 HOURS [facility] fluticasone propion-[place] meteroL (ADVAIR DISKUS) 250-50 mcg/dose inhalation disk 0 11-18 00:00: 00 Yes [id number] [place]ALE 1 PUFF BY MOUTH EVERY 12 HOURS [facility] fluticasone propion-[place] meteroL (ADVAIR DISKUS) 250-50 mcg/dose inhalation disk 0 11-18 00:00: 00 Yes [id number] [place] 1 PUFF BY MOUTH EVERY 12 HOURS [facility] fluticasone propion-[place] meteroL (ADVAIR DISKUS) 250-50 mcg/dose inhalation disk 0 11-18 00:00: 00 Yes [id number] [place] 1 PUFF BY MOUTH EVERY 12 HOURS [facility] fluticasone propion-[place] meteroL (ADVAIR DISKUS) 250-50 mcg/dose inhalation disk 0 11-18 00:00: 00 Yes [id number] [place] 1 PUFF BY MOUTH EVERY 12 HOURS [facility] fluticasone propion-[place] meteroL (ADVAIR DISKUS) 250-50 mcg/dose inhalation disk 0 11-18 00:00: 00 Yes [id number] [place] 1 PUFF BY MOUTH EVERY 12 HOURS [facility] fluticasone propion-qu[place] meteroL (ADVAIR DISKUS) 250-50 mcg/dose inhalation disk 0 11-18 00:00: 00 Yes [id number] [place] 1 PUFF BY MOUTH EVERY 12 HOURS [facility] fluticasone propion-[place] meteroL (ADVAIR DISKUS) 250-50 mcg/dose inhalation disk 2-0 11-18 00:00: 00 Yes [id number] [place] 1 PUFF BY MOUTH EVERY 12 HOURS [facility] fluticasone propion-[place] meteroL (ADVAIR DISKUS) 250-50 mcg/dose inhalation disk 2021-0 11-18 00:00: 00 Yes [id number] [place] 1 PUFF BY MOUTH EVERY 12 HOURS [facility] fluticasone propion-[place] meteroL (ADVAIR DISKUS) 250-50 mcg/dose inhalation disk 2021-0 11-18 00:00: 00 01-03 00:00 :00 No [id number] [place] 1 PUFF BY MOUTH EVERY 12 HOURS [facility] fluticasone propion-quinton meteroL (ADVAIR DISKUS) 250-50 mcg/dose inhalation disk 2021-0 11-18 00:00: 00 01-03 00:00 :00 No [id number] [place] 1 PUFF BY MOUTH EVERY 12 HOURS [facility] [facility] fluticasone propion-quinton meteroL (ADVAIR DISKUS) 250-50 mcg/dose inhalation disk 0 11-18 00:00: 00 01-03 00:00 :00 No [id number] [place] 1 PUFF BY MOUTH EVERY 12 HOURS [facility] MONTELUKAST 10 mg tablet 2021-0 8 00:00: 00 Yes [id number] TAKE ONE (1) TABLET(S) BY MOUTH DAILY. [facility] MONTELUKAST 10 mg tablet 2021-0 8- 00:00: 00 Yes [id number] TAKE ONE (1) TABLET(S) BY MOUTH DAILY. [facility] MONTELUKAST 10 mg tablet 2-0 8-29 00:00: 00 Yes [id number] TAKE ONE (1) TABLET(S) BY MOUTH DAILY. [facility] MONTELUKAST 10 mg tablet 2021-0 8-29 00:00: 00 Yes [id number] TAKE ONE (1) TABLET(S) BY MOUTH DAILY. [facility] MONTELUKAST 10 mg tablet 2-0 8-29 00:00: 00 Yes [id number] TAKE ONE (1) TABLET(S) BY MOUTH DAILY. [facility] MONTELUKAST 10 mg tablet 2021-0 8 00:00: 00 Yes [id number] TAKE ONE (1) TABLET(S) BY MOUTH DAILY. [facility] MONTELUKAST 10 mg tablet 2021-0 8 00:00: 00 Yes [id number] TAKE ONE (1) TABLET(S) BY MOUTH DAILY. [facility] MONTELUKAST 10 mg tablet 2021-0 8 00:00: 00 Yes [id number] TAKE ONE (1) TABLET(S) BY MOUTH DAILY. [facility] MONTELUKAST 10 mg tablet 2021-0 8 00:00: 00 Yes [id number] TAKE ONE (1) TABLET(S) BY MOUTH DAILY. [facility] MONTELUKAST 10 mg tablet 2021-0 8 00:00: 00 Yes [id number] TAKE ONE (1) TABLET(S) BY MOUTH DAILY. [facility] MONTELUKAST 10 mg tablet 2021-0 8 00:00: 00 Yes [id number] TAKE ONE (1) TABLET(S) BY MOUTH DAILY. [facility] MONTELUKAST 10 mg tablet 2021-0 8 00:00: 00 Yes [id number] TAKE ONE (1) TABLET(S) BY MOUTH DAILY. [facility] MONTELUKAST 10 mg tablet 2021-0 11-07 00:00: 00 12-01 00:00 :00 No [id number] TAKE ONE (1) TABLET(S) BY MOUTH DAILY. [facility] predniSONE 10 mg tablet 2021-0 07-10 00:00: 00 Yes [id number] Take 4 tabs by mouth for 3 days, 3 tabs for 2 days [facility] azelastine 137 mcg (0.1 %) nasal spray 07-10 00:00: 00 Yes [id number] 1{spray } Use 1 [place] in each nostril 2 (two) times daily. Use in each nostril as directed [facility] predniSONE 10 mg tablet 2021-0 07-10 00:00: 00 Yes [id number] Take 4 tabs by mouth for 3 days, 3 tabs for 2 days [facility] azelastine 137 mcg (0.1 %) nasal spray 07-10 00:00: 00 Yes [id number] 1{spray } Use 1 [place] in each nostril 2 (two) times daily. Use in each nostril as directed [facility] predniSONE 10 mg tablet 07-10 00:00: 00 Yes [id number] Take 4 tabs by mouth for 3 days, 3 tabs for 2 days [facility] azelastine 137 mcg (0.1 %) nasal spray 07-10 00:00: 00 Yes [id number] 1{spray } Use 1 [place] in each nostril 2 (two) times daily. Use in each nostril as directed [facility] predniSONE 10 mg tablet 07-10 00:00: 00 Yes [id number] Take 4 tabs by mouth for 3 days, 3 tabs for 2 days [facility] azelastine 137 mcg (0.1 %) nasal spray 07-10 00:00: 00 Yes [id number] 1{spray } Use 1 [place] in each nostril 2 (two) times daily. Use in each nostril as directed [facility] predniSONE 10 mg tablet 07-10 00:00: 00 Yes [id number] Take 4 tabs by mouth for 3 days, 3 tabs for 2 days [facility] azelastine 137 mcg (0.1 %) nasal spray 07-10 00:00: 00 Yes [id number] 1{spray } Use 1 [place] in each nostril 2 (two) times daily. Use in each nostril as directed [facility] predniSONE 10 mg tablet 07-10 00:00: 00 Yes [id number] Take 4 tabs by mouth for 3 days, 3 tabs for 2 days [facility] azelastine 137 mcg (0.1 %) nasal spray 07-10 00:00: 00 Yes [id number] 1{spray } Use 1 [place] in each nostril 2 (two) times daily. Use in each nostril as directed [facility] predniSONE 10 mg tablet 07-10 00:00: 00 Yes [id number] Take 4 tabs by mouth for 3 days, 3 tabs for 2 days [facility] azelastine 137 mcg (0.1 %) nasal spray 07-10 00:00: 00 Yes [id number] 1{spray } Use 1 [place] in each nostril 2 (two) times daily. Use in each nostril as directed [facility] azelastine 137 mcg (0.1 %) nasal spray 07-10 00:00: 00 Yes [id number] 1{spray } Use 1 [place] in each nostril 2 (two) times daily. Use in each nostril as directed [facility] azelastine 137 mcg (0.1 %) nasal spray 07-10 00:00: 00 Yes [id number] 1{spray } Use 1 [place] in each nostril 2 (two) times daily. Use in each nostril as directed [facility] azelastine 137 mcg (0.1 %) nasal spray 07-10 00:00: 00 Yes [id number] 1{spray } Use 1 [place] in each nostril 2 (two) times daily. Use in each nostril as directed [facility] azelastine 137 mcg (0.1 %) nasal spray 07-10 00:00: 00 Yes [id number] 1{spray } Use 1 [place] in each nostril 2 (two) times daily. Use in each nostril as directed [facility] azelastine 137 mcg (0.1 %) nasal spray 07-10 00:00: 00 Yes [id number] 1{spray } Use 1 [place] in each nostril 2 (two) times daily. Use in each nostril as directed [facility] azelastine 137 mcg (0.1 %) nasal spray 07-10 00:00: 00 07-22 00:00 :00 No [id number] 1{spray } Use 1 [place] in each nostril 2 (two) times daily. Use in each nostril as directed [facility] predniSONE 10 mg tablet 07-10 00:00: 00 01-30 00:00 :00 No [id number] Take 4 tabs by mouth for 3 days, 3 tabs for 2 days [facility] predniSONE 10 mg tablet 07-10 00:00: 00 01-30 00:00 :00 No [id number] Take 4 tabs by mouth for 3 days, 3 tabs for 2 days [facility] amoxicillin 875 mg tablet 07-10 00:00: 00 07-18 04:59 :00 No [id number] 875mg Take 1 tablet by mouth 2 (two) times daily for 7 days. [facility] levocetiriz ine dihydrochlo ride (XYZAL ORAL) 06-09 10:31: 41 Yes Take by mouth. [facility] levocetiriz ine dihydrochlo ride (XYZAL ORAL) 06-09 10:31: 41 Yes Take by mouth. [facility] levocetiriz ine dihydrochlo ride (XYZAL ORAL) 06-09 10:31: 41 Yes Take by mouth. [facility] levocetiriz ine dihydrochlo ride (XYZAL ORAL) 06-09 10:31: 41 Yes Take by mouth. [facility] levocetiriz ine dihydrochlo ride (XYZAL ORAL) 06-09 10:31: 41 Yes Take by mouth. [facility] levocetiriz ine dihydrochlo ride (XYZAL ORAL) 06-09 10:31: 41 Yes Take by mouth. [facility] levocetiriz ine dihydrochlo ride (XYZAL ORAL) 06-09 10:31: 41 Yes Take by mouth. [facility] levocetiriz ine dihydrochlo ride (XYZAL ORAL) 06-09 10:31: 41 Yes Take by mouth. [facility] levocetiriz ine dihydrochlo ride (XYZAL ORAL) 06-09 10:31: 41 Yes Take by mouth. [facility] levocetiriz ine dihydrochlo ride (XYZAL ORAL) 06-09 10:31: 41 Yes Take by mouth. [facility] levocetiriz ine dihydrochlo ride (XYZAL ORAL) 06-09 10:31: 41 Yes Take by mouth. [facility] levocetiriz ine dihydrochlo ride (XYZAL ORAL) 06-09 10:31: 41 Yes Take by mouth. [facility] levocetiriz ine dihydrochlo ride (XYZAL ORAL) 06-09 10:31: 41 Yes Take by mouth. [facility] norgestrel- ethinyl estradioL (CRYSELLE) 0.3-30 mg-mcg per tablet 06-09 00:00: 00 Yes [id number] 1{tbl} Take 1 tablet by mouth daily. [facility] norgestrel- ethinyl estradioL (CRYSELLE) 0.3-30 mg-mcg per tablet 06-09 00:00: 00 Yes [id number] 1{tbl} Take 1 tablet by mouth daily. [facility] norgestrel- ethinyl estradioL (CRYSELLE) 0.3-30 mg-mcg per tablet 06-09 00:00: 00 Yes [id number] 1{tbl} Take 1 tablet by mouth daily. [facility] norgestrel- ethinyl estradioL (CRYSELLE) 0.3-30 mg-mcg per tablet 06-09 00:00: 00 Yes [id number] 1{tbl} Take 1 tablet by mouth daily. [facility] norgestrel- ethinyl estradioL (CRYSELLE) 0.3-30 mg-mcg per tablet 06-09 00:00: 00 Yes [id number] 1{tbl} Take 1 tablet by mouth daily. [facility] norgestrel- ethinyl estradioL (CRYSELLE) 0.3-30 mg-mcg per tablet 06-09 00:00: 00 Yes [id number] 1{tbl} Take 1 tablet by mouth daily. [facility] norgestrel- ethinyl estradioL (CRYSELLE) 0.3-30 mg-mcg per tablet 06-09 00:00: 00 Yes [id number] 1{tbl} Take 1 tablet by mouth daily. [facility] norgestrel- ethinyl estradioL (CRYSELLE) 0.3-30 mg-mcg per tablet 06-09 00:00: 00 Yes [id number] 1{tbl} Take 1 tablet by mouth daily. [facility] norgestrel- ethinyl estradioL (CRYSELLE) 0.3-30 mg-mcg per tablet 06-09 00:00: 00 Yes [id number] 1{tbl} Take 1 tablet by mouth daily. [facility] norgestrel- ethinyl estradioL (CRYSELLE) 0.3-30 mg-mcg per tablet 06-09 00:00: 00 Yes [id number] 1{tbl} Take 1 tablet by mouth daily. [facility] norgestrel- ethinyl estradioL (CRYSELLE) 0.3-30 mg-mcg per tablet 06-09 00:00: 00 Yes [id number] 1{tbl} Take 1 tablet by mouth daily. [facility] norgestrel- ethinyl estradioL (CRYSELLE) 0.3-30 mg-mcg per tablet 06-09 00:00: 00 Yes [id number] 1{tbl} Take 1 tablet by mouth daily. [facility] norgestrel- ethinyl estradioL (CRYSELLE) 0.3-30 mg-mcg per tablet 06-09 00:00: 00 Yes [id number] 1{tbl} Take 1 tablet by mouth daily. [facility] norgestrel- ethinyl estradioL (CRYSELLE) 0.3-30 mg-mcg per tablet 3 00:00: 00 06-16 00:00 :00 No [id number] 1{tbl} Take 1 tablet by mouth daily. [facility] norgestrel- ethinyl estradioL (CRYSELLE) 0.3-30 mg-mcg per tablet 06-09 00:00: 00 06-16 00:00 :00 No [id number] 1{tbl} Take 1 tablet by mouth daily. [facility] CRYSELLE 0.3-30 mg-mcg per tablet 2-14 00:00: 00 06-09 00:00 :00 No [id number] TAKE 1 TABLET BY MOUTH EVERY DAY [facility] CRYSELLE 0.3-30 mg-mcg per tablet 2-14 00:00: 00 06-09 00:00 :00 No [id number] TAKE 1 TABLET BY MOUTH EVERY DAY [facility] metoclopram thalia HCl 10 mg tablet 2020-03 00:00: 00 Yes [facility] ity [facility] SUTAB 1.479-0.188 - 0.225 gram Tab 2020-03 0 00:00: 00 Yes [facility] metoclopram thalia HCl 10 mg tablet 2020-03 0 00:00: 00 Yes [facility] SUTAB 1.479-0.188 - 0.225 gram Tab 2020-03 0 00:00: 00 Yes [facility] metoclopram thalia HCl 10 mg tablet 2020-03 0 00:00: 00 Yes [facility] SUTAB 1.479-0.188 - 0.225 gram Tab 2020-03 0 00:00: 00 Yes [facility] metoclopram thalia HCl 10 mg tablet 2020-03 00:00: 00 Yes [facility] SUTAB 1.479-0.188 - 0.225 gram Tab 2020-03 00:00: 00 Yes [facility] metoclopram thalia HCl 10 mg tablet 2020-03 00:00: 00 Yes [facility] SUTAB 1.479-0.188 - 0.225 gram Tab 2020-03 00:00: 00 Yes [facility] ity of [facility] metoclopram thalia HCl 10 mg tablet 2020-03 00:00: 00 Yes [facility] SUTAB 1.479-0.188 - 0.225 gram Tab 2020-03 00:00: 00 Yes [facility] metoclopram thalia HCl 10 mg tablet 2020-03 00:00: 00 Yes [facility] SUTAB 1.479-0.188 - 0.225 gram Tab 2020-03 00:00: 00 Yes [facility] metoclopram thalia HCl 10 mg tablet 2020-03 00:00: 00 Yes [facility] SUTAB 1.479-0.188 - 0.225 gram Tab 2020-03 00:00: 00 Yes [facility] metoclopram thalia HCl 10 mg tablet 2020-03 00:00: 00 Yes [facility] SUTAB 1.479-0.188 - 0.225 gram Tab 2020-03 00:00: 00 Yes [facility] metoclopram thalia HCl 10 mg tablet 2020-03 00:00: 00 Yes [facility] SUTAB 1.479-0.188 - 0.225 gram Tab 2020-03 00:00: 00 Yes [facility] metoclopram thalia HCl 10 mg tablet 2020-03 00:00: 00 Yes [facility] SUTAB 1.479-0.188 - 0.225 gram Tab 2020-03 00:00: 00 Yes [facility] metoclopram thalia HCl 10 mg tablet 2020-03 00:00: 00 Yes [facility] SUTAB 1.479-0.188 - 0.225 gram Tab 2020-03 00:00: 00 Yes [facility] metoclopram thalia HCl 10 mg tablet 2020-03 00:00: 00 Yes [facility] SUTAB 1.479-0.188 - 0.225 gram Tab 2020-03 00:00: 00 Yes [facility] metoclopram thalia HCl 10 mg tablet 2020-03 00:00: 00 Yes [facility] SUTAB 1.479-0.188 - 0.225 gram Tab 2020-03 00:00: 00 Yes [facility] metoclopram thalia HCl 10 mg tablet 2020-03 00:00: 00 Yes [facility] SUTAB 1.479-0.188 - 0.225 gram Tab 2020-03 00:00: 00 Yes [facility] metoclopram thalia HCl 10 mg tablet 2020-03 00:00: 00 Yes [facility] SUTAB 1.479-0.188 - 0.225 gram Tab 2020-03 00:00: 00 Yes [facility] metoclopram thalia HCl 10 mg tablet 2020-03 00:00: 00 Yes [facility] SUTAB 1.479-0.188 - 0.225 gram Tab 2020-03 00:00: 00 Yes [facility] metoclopram thalia HCl 10 mg tablet 2020-03 00:00: 00 Yes [facility] SUTAB 1.479-0.188 - 0.225 gram Tab 2020-03 00:00: 00 Yes [facility] metoclopram thalia HCl 10 mg tablet 2020-03 00:00: 00 Yes [facility] SUTAB 1.479-0.188 - 0.225 gram Tab 2020-03 00:00: 00 Yes [facility] metoclopram thalia HCl 10 mg tablet 2020-03 00:00: 00 Yes [facility] SUTAB 1.479-0.188 - 0.225 gram Tab 2020-03 00:00: 00 Yes [facility] metoclopram thalia HCl 10 mg tablet 2020-03 00:00: 00 Yes [facility] SUTAB 1.479-0.188 - 0.225 gram Tab 2020-03 00:00: 00 Yes [facility] metoclopram thalia HCl 10 mg tablet 2020-03 00:00: 00 Yes [facility] SUTAB 1.479-0.188 - 0.225 gram Tab 2020-03 00:00: 00 Yes [facility] metoclopram thalia HCl 10 mg tablet 2020-03 00:00: 00 Yes [facility] SUTAB 1.479-0.188 - 0.225 gram Tab 2020-03 00:00: 00 Yes [facility] metoclopram thalia HCl 10 mg tablet 2020-03 00:00: 00 Yes [facility] SUTAB 1.479-0.188 - 0.225 gram Tab 2020-03 00:00: 00 Yes [facility] metoclopram thalia HCl 10 mg tablet 2020-03 00:00: 00 Yes [facility] SUTAB 1.479-0.188 - 0.225 gram Tab 2020-03 00:00: 00 Yes [facility] metoclopram thalia HCl 10 mg tablet 2020-03 00:00: 00 Yes [facility] SUTAB 1.479-0.188 - 0.225 gram Tab 2020-03 00:00: 00 Yes [facility] montelukast 10 mg tablet 11-01 00:00: 00 Yes [id number] 10mg Take 1 tablet by mouth daily. [facility] montelukast 10 mg tablet 0 8 00:00: 00 Yes [id number] 10mg Take 1 tablet by mouth daily. [facility] montelukast 10 mg tablet 0 11-01 00:00: 00 Yes [id number] 10mg Take 1 tablet by mouth daily. [facility] montelukast 10 mg tablet 0 11-01 00:00: 00 Yes [id number] 10mg Take 1 tablet by mouth daily. [facility] montelukast 10 mg tablet 2020-0 11-01 00:00: 00 Yes [id number] 10mg Take 1 tablet by mouth daily. [facility] montelukast 10 mg tablet 0 11-01 00:00: 00 Yes [id number] 10mg Take 1 tablet by mouth daily. [facility] montelukast 10 mg tablet 0 11-01 00:00: 00 11-07 00:00 :00 No [id number] 10mg Take 1 tablet by mouth daily. [facility] albuterol 90 mcg/actuati on inhaler 0 18 00:00: 00 Yes [id number] 2{puff} Inhale 2 Puffs every 6 (six) hours as needed for Wheezing. [facility] fluticasone propion-[place] meteroL (ADVAIR DISKUS) 250-50 mcg/dose inhalation disk 2020-0 18 00:00: 00 Yes [id number] [place] 1 PUFF BY MOUTH EVERY 12 HOURS [facility] albuterol 90 mcg/actuati on inhaler 0 18 00:00: 00 Yes [id number] 2{puff} Inhale 2 Puffs every 6 (six) hours as needed for Wheezing. [facility] fluticasone propion-[place] meteroL (ADVAIR DISKUS) 250-50 mcg/dose inhalation disk 2020-0 18 00:00: 00 Yes [id number] [place] 1 PUFF BY MOUTH EVERY 12 HOURS [facility] albuterol 90 mcg/actuati on inhaler 18 00:00: 00 Yes [id number] 2{puff} Inhale 2 Puffs every 6 (six) hours as needed for Wheezing. [facility] fluticasone propion-[place] meteroL (ADVAIR DISKUS) 250-50 mcg/dose inhalation disk 18 00:00: 00 Yes [id number] [place] 1 PUFF BY MOUTH EVERY 12 HOURS [facility] albuterol 90 mcg/actuati on inhaler 07-27 00:00: 00 Yes [id number] 2{puff} Inhale 2 Puffs every 6 (six) hours as needed for Wheezing. [facility] fluticasone propion-[place] meteroL (ADVAIR DISKUS) 250-50 mcg/dose inhalation disk 07-27 00:00: 00 Yes [id number] [place] 1 PUFF BY MOUTH EVERY 12 HOURS [facility] albuterol 90 mcg/actuati on inhaler 07-27 00:00: 00 Yes [id number] 2{puff} Inhale 2 Puffs every 6 (six) hours as needed for Wheezing. [facility] fluticasone propion-[place] meteroL (ADVAIR DISKUS) 250-50 mcg/dose inhalation disk 07-27 00:00: 00 Yes [id number] [place] 1 PUFF BY MOUTH EVERY 12 HOURS [facility] albuterol 90 mcg/actuati on inhaler 07-27 00:00: 00 Yes [id number] 2{puff} Inhale 2 Puffs every 6 (six) hours as needed for Wheezing. [facility] albuterol 90 mcg/actuati on inhaler 18 00:00: 00 Yes [id number] 2{puff} Inhale 2 Puffs every 6 (six) hours as needed for Wheezing. [facility] albuterol 90 mcg/actuati on inhaler 18 00:00: 00 Yes [id number] 2{puff} Inhale 2 Puffs every 6 (six) hours as needed for Wheezing. [facility] albuterol 90 mcg/actuati on inhaler 07-27 00:00: 00 Yes [id number] 2{puff} Inhale 2 Puffs every 6 (six) hours as needed for Wheezing. [facility] fluticasone propion-[place] meteroL (ADVAIR DISKUS) 250-50 mcg/dose inhalation disk 07-27 00:00: 00 Yes [id number] [place] 1 PUFF BY MOUTH EVERY 12 HOURS [facility] albuterol 90 mcg/actuati on inhaler 07-27 00:00: 00 Yes [id number] 2{puff} Inhale 2 Puffs every 6 (six) hours as needed for Wheezing. [facility] fluticasone propion-[place] meteroL (ADVAIR DISKUS) 250-50 mcg/dose inhalation disk 07-27 00:00: 00 Yes [id number] [place] 1 PUFF BY MOUTH EVERY 12 HOURS [facility] albuterol 90 mcg/actuati on inhaler 07-27 00:00: 00 01-30 00:00 :00 No [id number] 2{puff} Inhale 2 Puffs every 6 (six) hours as needed for Wheezing. [facility] albuterol 90 mcg/actuati on inhaler 07-27 00:00: 00 01-30 00:00 :00 No [id number] 2{puff} Inhale 2 Puffs every 6 (six) hours as needed for Wheezing. [facility] fluticasone propion-[place] meteroL (ADVAIR DISKUS) 250-50 mcg/dose inhalation disk 07-27 00:00: 00 11-18 00:00 :00 No [id number] [place] 1 PUFF BY MOUTH EVERY 12 HOURS [facility] Immunizations Ordered Immunization Name Filled Immunization Name Date Status Comments Source Influenza Virus Vaccine Quad IM, Preserv and ABX Free 6 MO-64 YRS 2021-12-27 00:00:00 Completed [facility] Influenza Virus Vaccine Quad IM, Preserv and ABX Free 6 MO-64 YRS 2021-12-27 00:00:00 Completed [facility] Influenza Virus Vaccine Quad IM, Preserv and ABX Free 6 MO-64 YRS 2021-12-27 00:00:00 Completed [facility] Influenza Virus Vaccine Quad IM, Preserv and ABX Free 6 MO-64 YRS 2021-12-27 00:00:00 Completed [facility] Influenza Virus Vaccine Quad IM, Preserv and ABX Free 6 MO-64 YRS 2021-12-27 00:00:00 Completed [facility] Influenza Virus Vaccine Quad IM, Preserv and ABX Free 6 MO-64 YRS 2021-12-27 00:00:00 Completed [facility] Influenza Virus Vaccine Quad IM, Preserv and ABX Free 6 MO-64 YRS 2021-12-27 00:00:00 Completed [facility] Influenza Virus Vaccine Quad IM, Preserv and ABX Free 6 MO-64 YRS 2021-12-27 00:00:00 Completed [facility] TDAP 2021-06-09 00:00:00 Completed [facility] TDAP 2021-06-09 00:00:00 Completed [facility] TDAP 2021-06-09 00:00:00 Completed [facility] TDAP 2021-06-09 00:00:00 Completed [facility] TDAP 2021-06-09 00:00:00 Completed [facility] TDAP 2021-06-09 00:00:00 Completed [facility] TDAP 2021-06-09 00:00:00 Completed [facility] TDAP 2021-06-09 00:00:00 Completed [facility] TDAP 2021-06-09 00:00:00 Completed [facility] TDAP 2021-06-09 00:00:00 Completed [facility] TDAP 2021-06-09 00:00:00 Completed [facility] TDAP 2021-06-09 00:00:00 Completed [facility] TDAP 2021-06-09 00:00:00 Completed [facility] TDAP 2021-06-09 00:00:00 Completed [facility] TDAP 2021-06-09 00:00:00 Completed [facility] TDAP 2021-06-09 00:00:00 Completed [facility] TDAP 2021-06-09 00:00:00 Completed [facility] TDAP 2021-06-09 00:00:00 Completed [facility] Influenza Virus Vaccine 2020-12-09 00:00:00 Completed [facility] Influenza Virus Vaccine 2020-12-09 00:00:00 Completed [facility] Influenza Virus Vaccine 2020-12-09 00:00:00 Completed [facility] Influenza Virus Vaccine 2020-12-09 00:00:00 Completed [facility] Influenza Virus Vaccine 2020-12-09 00:00:00 Completed [facility] Influenza Virus Vaccine 2020-12-09 00:00:00 Completed [facility] Influenza Virus Vaccine 2020-12-09 00:00:00 Completed [facility] Influenza Virus Vaccine 2020-12-09 00:00:00 Completed [facility] Influenza Virus Vaccine 2020-12-09 00:00:00 Completed [facility] Influenza Virus Vaccine 2020-12-09 00:00:00 Completed [facility] Influenza Virus Vaccine 2020-12-09 00:00:00 Completed [facility] Influenza Virus Vaccine 2020-12-09 00:00:00 Completed [facility] Influenza Virus Vaccine 2020-12-09 00:00:00 Completed [facility] Influenza Virus Vaccine 2020-12-09 00:00:00 Completed [facility] Influenza Virus Vaccine 2020-12-09 00:00:00 Completed [facility] Influenza Virus Vaccine 2020-12-09 00:00:00 Completed [facility] Influenza Virus Vaccine 2020-12-09 00:00:00 Completed [facility] Influenza Virus Vaccine 2020-12-09 00:00:00 Completed [facility] SARS-COV-2 COVID-19 MODERNA VACCINE 2020-05-22 00:00:00 Completed [facility] SARS-COV-2 COVID-19 MODERNA VACCINE 2020-05-22 00:00:00 Completed [facility] SARS-COV-2 COVID-19 MODERNA VACCINE 2020-05-22 00:00:00 Completed [facility] SARS-COV-2 COVID-19 MODERNA VACCINE 2020-05-22 00:00:00 Completed [facility] SARS-COV-2 COVID-19 MODERNA VACCINE 2020-05-22 00:00:00 Completed [facility] SARS-COV-2 COVID-19 MODERNA 12+ YRS VACCINE 2020-05-22 00:00:00 Completed [facility] SARS-COV-2 COVID-19 MODERNA 12+ YRS VACCINE 2020-05-22 00:00:00 Completed [facility] SARS-COV-2 COVID-19 MODERNA 12+ YRS VACCINE 2020-05-22 00:00:00 Completed [facility] SARS-COV-2 COVID-19 MODERNA 12+ YRS VACCINE 2020-05-22 00:00:00 Completed [facility] SARS-COV-2 COVID-19 MODERNA 12+ YRS VACCINE 2020-05-22 00:00:00 Completed [facility] SARS-COV-2 COVID-19 MODERNA 12+ YRS VACCINE 2020-05-22 00:00:00 Completed [facility] SARS-COV-2 COVID-19 MODERNA 12+ YRS VACCINE 2020-05-22 00:00:00 Completed [facility] SARS-COV-2 COVID-19 MODERNA 12+ YRS VACCINE 2020-05-22 00:00:00 Completed [facility] SARS-COV-2 COVID-19 MODERNA 12+ YRS VACCINE 2020-05-22 00:00:00 Completed [facility] SARS-COV-2 COVID-19 MODERNA 12+ YRS VACCINE 2020-05-22 00:00:00 Completed [facility] SARS-COV-2 COVID-19 MODERNA 12+ YRS VACCINE 2020-05-22 00:00:00 Completed [facility] SARS-COV-2 COVID-19 MODERNA VACCINE 2020-05-22 00:00:00 Completed [facility] SARS-COV-2 COVID-19 MODERNA VACCINE 2020-05-22 00:00:00 Completed [facility] SARS-COV-2 COVID-19 MODERNA VACCINE 2020-04-10 00:00:00 Completed [facility] SARS-COV-2 COVID-19 MODERNA VACCINE 2020-04-10 00:00:00 Completed [facility] SARS-COV-2 COVID-19 MODERNA VACCINE 2020-04-10 00:00:00 Completed [facility] SARS-COV-2 COVID-19 MODERNA VACCINE 2020-04-10 00:00:00 Completed [facility] SARS-COV-2 COVID-19 MODERNA VACCINE 2020-04-10 00:00:00 Completed [facility] SARS-COV-2 COVID-19 MODERNA 12+ YRS VACCINE 2020-04-10 00:00:00 Completed [facility] SARS-COV-2 COVID-19 MODERNA 12+ YRS VACCINE 2020-04-10 00:00:00 Completed [facility] SARS-COV-2 COVID-19 MODERNA 12+ YRS VACCINE 2020-04-10 00:00:00 Completed [facility] SARS-COV-2 COVID-19 MODERNA 12+ YRS VACCINE 2020-04-10 00:00:00 Completed [facility] SARS-COV-2 COVID-19 MODERNA 12+ YRS VACCINE 2020-04-10 00:00:00 Completed [facility] SARS-COV-2 COVID-19 MODERNA 12+ YRS VACCINE 2020-04-10 00:00:00 Completed [facility] SARS-COV-2 COVID-19 MODERNA 12+ YRS VACCINE 2020-04-10 00:00:00 Completed [facility] SARS-COV-2 COVID-19 MODERNA 12+ YRS VACCINE 2020-04-10 00:00:00 Completed [facility] SARS-COV-2 COVID-19 MODERNA 12+ YRS VACCINE 2020-04-10 00:00:00 Completed [facility] SARS-COV-2 COVID-19 MODERNA 12+ YRS VACCINE 2020-04-10 00:00:00 Completed [facility] SARS-COV-2 COVID-19 MODERNA 12+ YRS VACCINE 2020-04-10 00:00:00 Completed [facility] SARS-COV-2 COVID-19 MODERNA VACCINE 2020-04-10 00:00:00 Completed [facility] SARS-COV-2 COVID-19 MODERNA VACCINE 2020-04-10 00:00:00 Completed [facility] Influenza Virus Vaccine Quad .5 mL IM 6+ MO 2019-11-27 00:00:00 Completed [facility] Influenza Virus Vaccine Quad .5 mL IM 6+ MO 2019-11-27 00:00:00 Completed [facility] Influenza Virus Vaccine Quad .5 mL IM 6+ MO 2019-11-27 00:00:00 Completed [facility] Influenza Virus Vaccine Quad .5 mL IM 6+ MO 2019-11-27 00:00:00 Completed [facility] Influenza Virus Vaccine Quad .5 mL IM 6+ MO 2019-11-27 00:00:00 Completed [facility] Influenza Virus Vaccine Quad .5 mL IM 6+ MO 2019-11-27 00:00:00 Completed [facility] Influenza Virus Vaccine Quad .5 mL IM 6+ MO 2019-11-27 00:00:00 Completed [facility] Influenza Virus Vaccine Quad .5 mL IM 6+ MO 2019-11-27 00:00:00 Completed [facility] Influenza Virus Vaccine Quad .5 mL IM 6+ MO 2019-11-27 00:00:00 Completed [facility] Influenza Virus Vaccine Quad .5 mL IM 6+ MO 2019-11-27 00:00:00 Completed [facility] Influenza Virus Vaccine Quad .5 mL IM 6+ MO 2019-11-27 00:00:00 Completed [facility] Influenza Virus Vaccine Quad .5 mL IM 6+ MO 2019-11-27 00:00:00 Completed [facility] Influenza Virus Vaccine Quad .5 mL IM 6+ MO 2019-11-27 00:00:00 Completed [facility] Influenza Virus Vaccine Quad .5 mL IM 6+ MO 2019-11-27 00:00:00 Completed [facility] Influenza Virus Vaccine Quad .5 mL IM 6+ MO 2019-11-27 00:00:00 Completed [facility] Influenza Virus Vaccine Quad .5 mL IM 6+ MO 2019-11-27 00:00:00 Completed [facility] Influenza Virus Vaccine Quad .5 mL IM 6+ MO 2019-11-27 00:00:00 Completed [facility] Influenza Virus Vaccine Quad .5 mL IM 6+ MO 2019-11-27 00:00:00 Completed [facility] Influenza Virus Vaccine Quad .5 mL IM 6+ MO 2019-01-07 00:00:00 Completed [facility] Pneumococcal Polysaccharide, PPSV23 (PNEUMOVAX) 2019-01-07 00:00:00 Completed [facility] Influenza Virus Vaccine Quad .5 mL IM 6+ MO 2019-01-07 00:00:00 Completed [facility] Pneumococcal Polysaccharide, PPSV23 (PNEUMOVAX) 2019-01-07 00:00:00 Completed [facility] Influenza Virus Vaccine Quad .5 mL IM 6+ MO 2019-01-07 00:00:00 Completed [facility] Pneumococcal Polysaccharide, PPSV23 (PNEUMOVAX) 2019-01-07 00:00:00 Completed [facility] Influenza Virus Vaccine Quad .5 mL IM 6+ MO 2019-01-07 00:00:00 Completed [facility] Pneumococcal Polysaccharide, PPSV23 (PNEUMOVAX) 2019-01-07 00:00:00 Completed [facility] Influenza Virus Vaccine Quad .5 mL IM 6+ MO 2019-01-07 00:00:00 Completed [facility] Pneumococcal Polysaccharide, PPSV23 (PNEUMOVAX) 2019-01-07 00:00:00 Completed [facility] Influenza Virus Vaccine Quad .5 mL IM 6+ MO 2019-01-07 00:00:00 Completed [facility] Pneumococcal Polysaccharide, PPSV23 (PNEUMOVAX) 2019-01-07 00:00:00 Completed [facility] Influenza Virus Vaccine Quad .5 mL IM 6+ MO 2019-01-07 00:00:00 Completed [facility] Pneumococcal Polysaccharide, PPSV23 (PNEUMOVAX) 2019-01-07 00:00:00 Completed [facility] Influenza Virus Vaccine Quad .5 mL IM 6+ MO 2019-01-07 00:00:00 Completed [facility] Pneumococcal Polysaccharide, PPSV23 (PNEUMOVAX) 2019-01-07 00:00:00 Completed [facility] Influenza Virus Vaccine Quad .5 mL IM 6+ MO 2019-01-07 00:00:00 Completed [facility] Pneumococcal Polysaccharide, PPSV23 (PNEUMOVAX) 2019-01-07 00:00:00 Completed [facility] Influenza Virus Vaccine Quad .5 mL IM 6+ MO 2019-01-07 00:00:00 Completed [facility] Pneumococcal Polysaccharide, PPSV23 (PNEUMOVAX) 2019-01-07 00:00:00 Completed [facility] Influenza Virus Vaccine Quad .5 mL IM 6+ MO 2019-01-07 00:00:00 Completed [facility] Pneumococcal Polysaccharide, PPSV23 (PNEUMOVAX) 2019-01-07 00:00:00 Completed [facility] Influenza Virus Vaccine Quad .5 mL IM 6+ MO 2019-01-07 00:00:00 Completed [facility] Pneumococcal Polysaccharide, PPSV23 (PNEUMOVAX) 2019-01-07 00:00:00 Completed [facility] Influenza Virus Vaccine Quad .5 mL IM 6+ MO 2019-01-07 00:00:00 Completed [facility] Pneumococcal Polysaccharide, PPSV23 (PNEUMOVAX) 2019-01-07 00:00:00 Completed [facility] Influenza Virus Vaccine Quad .5 mL IM 6+ MO 2019-01-07 00:00:00 Completed [facility] Pneumococcal Polysaccharide, PPSV23 (PNEUMOVAX) 2019-01-07 00:00:00 Completed [facility] Influenza Virus Vaccine Quad .5 mL IM 6+ MO 2019-01-07 00:00:00 Completed [facility] Pneumococcal Polysaccharide, PPSV23 (PNEUMOVAX) 2019-01-07 00:00:00 Completed [facility] Influenza Virus Vaccine Quad .5 mL IM 6+ MO 2019-01-07 00:00:00 Completed [facility] Pneumococcal Polysaccharide, PPSV23 (PNEUMOVAX) 2019-01-07 00:00:00 Completed [facility] Influenza Virus Vaccine Quad .5 mL IM 6+ MO 2019-01-07 00:00:00 Completed [facility] Pneumococcal Polysaccharide, PPSV23 (PNEUMOVAX) 2019-01-07 00:00:00 Completed [facility] Influenza Virus Vaccine Quad .5 mL IM 6+ MO 2019-01-07 00:00:00 Completed [facility] Pneumococcal Polysaccharide, PPSV23 (PNEUMOVAX) 2019-01-07 00:00:00 Completed [facility] Influenza Virus Vaccine 2017-11-21 00:00:00 Completed [facility] Influenza Virus Vaccine 2017-11-21 00:00:00 Completed [facility] Influenza Virus Vaccine 2017-11-21 00:00:00 Completed [facility] Influenza Virus Vaccine 2017-11-21 00:00:00 Completed [facility] Influenza Virus Vaccine 2017-11-21 00:00:00 Completed [facility] Influenza Virus Vaccine 2017-11-21 00:00:00 Completed [facility] Influenza Virus Vaccine 2017-11-21 00:00:00 Completed [facility] Influenza Virus Vaccine 2017-11-21 00:00:00 Completed [facility] Influenza Virus Vaccine 2017-11-21 00:00:00 Completed [facility] Influenza Virus Vaccine 2017-11-21 00:00:00 Completed [facility] Influenza Virus Vaccine 2017-11-21 00:00:00 Completed [facility] Influenza Virus Vaccine 2017-11-21 00:00:00 Completed [facility] Influenza Virus Vaccine 2017-11-21 00:00:00 Completed [facility] Influenza Virus Vaccine 2017-11-21 00:00:00 Completed [facility] Influenza Virus Vaccine 2017-11-21 00:00:00 Completed [facility] Influenza Virus Vaccine 2017-11-21 00:00:00 Completed [facility] Influenza Virus Vaccine 2017-11-21 00:00:00 Completed [facility] Influenza Virus Vaccine 2017-11-21 00:00:00 Completed [facility] TDAP 2011-01-02 00:00:00 Completed [facility] TDAP 2011-01-02 00:00:00 Completed [facility] TDAP 2011-01-02 00:00:00 Completed [facility] TDAP 2011-01-02 00:00:00 Completed [facility] TDAP 2011-01-02 00:00:00 Completed [facility] TDAP 2011-01-02 00:00:00 Completed [facility] TDAP 2011-01-02 00:00:00 Completed [facility] TDAP 2011-01-02 00:00:00 Completed [facility] TDAP 2011-01-02 00:00:00 Completed [facility] TDAP 2011-01-02 00:00:00 Completed [facility] TDAP 2011-01-02 00:00:00 Completed [facility] TDAP 2011-01-02 00:00:00 Completed [facility] TDAP 2011-01-02 00:00:00 Completed [facility] TDAP 2011-01-02 00:00:00 Completed [facility] TDAP 2011-01-02 00:00:00 Completed [facility] TDAP 2011-01-02 00:00:00 Completed [facility] TDAP 2011-01-02 00:00:00 Completed [facility] TDAP 2011-01-02 00:00:00 Completed [facility] Influenza Virus Vaccine Unknown Completed [facility] TDAP Unknown Completed [facility] Influenza Virus Vaccine Quad .5 mL IM 6+ MO (FLUZONE/FLULAVAL/F LUARIX) Unknown Completed [facility] Pneumococcal Polysaccharide, PPSV23 (PNEUMOVAX) Unknown Completed [facility] Influenza Virus Vaccine Quad .5 mL IM 6+ MO (FLUZONE/FLULAVAL/F LUARIX) Unknown Completed [facility] Influenza Virus Vaccine Unknown Completed [facility] SARS-COV-2 COVID-19 MODERNA 12+ YRS VACCINE Unknown Completed [facility] SARS-COV-2 COVID-19 MODERNA 12+ YRS VACCINE Unknown Completed [facility] TDAP Unknown Completed [facility] Influenza Virus Vaccine Quad IM, Preserv and ABX Free 6 MO-64 YRS (FLUCELVAX) Unknown Completed [facility] Influenza Virus Vaccine Unknown Completed [facility] TDAP Unknown Completed [facility] Influenza Virus Vaccine Quad .5 mL IM 6+ MO (FLUZONE/FLULAVAL/F LUARIX) Unknown Completed [facility] Pneumococcal Polysaccharide, PPSV23 (PNEUMOVAX) Unknown Completed [facility] Influenza Virus Vaccine Quad .5 mL IM 6+ MO (FLUZONE/FLULAVAL/F LUARIX) Unknown Completed [facility] Influenza Virus Vaccine Unknown Completed [facility] SARS-COV-2 COVID-19 MODERNA 12+ YRS VACCINE Unknown Completed [facility] SARS-COV-2 COVID-19 MODERNA 12+ YRS VACCINE Unknown Completed [facility] Influenza Virus Vaccine Unknown Completed [facility] TDAP Unknown Completed [facility] Influenza Virus Vaccine Quad .5 mL IM 6+ MO (FLUZONE/FLULAVAL/F LUARIX) Unknown Completed [facility] Pneumococcal Polysaccharide, PPSV23 (PNEUMOVAX) Unknown Completed [facility] Influenza Virus Vaccine Quad .5 mL IM 6+ MO (FLUZONE/FLULAVAL/F LUARIX) Unknown Completed [facility] SARS-COV-2 COVID-19 MODERNA 12+ YRS VACCINE Unknown Completed [facility] SARS-COV-2 COVID-19 MODERNA 12+ YRS VACCINE Unknown Completed [facility] Influenza Virus Vaccine Unknown Completed [facility] TDAP Unknown Completed [facility] Influenza Virus Vaccine Quad .5 mL IM 6+ MO (FLUZONE/FLULAVAL/F LUARIX) Unknown Completed [facility] Pneumococcal Polysaccharide, PPSV23 (PNEUMOVAX) Unknown Completed [facility] Influenza Virus Vaccine Quad .5 mL IM 6+ MO (FLUZONE/FLULAVAL/F LUARIX) Unknown Completed [facility] Influenza Virus Vaccine Unknown Completed [facility] SARS-COV-2 COVID-19 MODERNA 12+ YRS VACCINE Unknown Completed [facility] SARS-COV-2 COVID-19 MODERNA 12+ YRS VACCINE Unknown Completed [facility] TDAP Unknown Completed [facility] Influenza Virus Vaccine Quad IM, Preserv and ABX Free 6 MO-64 YRS (FLUCELVAX) Unknown Completed [facility] Influenza Virus Vaccine Unknown Completed [facility] TDAP Unknown Completed [facility] Influenza Virus Vaccine Quad .5 mL IM 6+ MO (FLUZONE/FLULAVAL/F LUARIX) Unknown Completed [facility] Pneumococcal Polysaccharide, PPSV23 (PNEUMOVAX) Unknown Completed [facility] Influenza Virus Vaccine Quad .5 mL IM 6+ MO (FLUZONE/FLULAVAL/F LUARIX) Unknown Completed [facility] Influenza Virus Vaccine Unknown Completed [facility] SARS-COV-2 COVID-19 MODERNA 12+ YRS VACCINE Unknown Completed [facility] SARS-COV-2 COVID-19 MODERNA 12+ YRS VACCINE Unknown Completed [facility] TDAP Unknown Completed [facility] Influenza Virus Vaccine Quad IM, Preserv and ABX Free 6 MO-64 YRS (FLUCELVAX) Unknown Completed [facility] Influenza Virus Vaccine Unknown Completed [facility] TDAP Unknown Completed [facility] Influenza Virus Vaccine Quad .5 mL IM 6+ MO (FLUZONE/FLULAVAL/F LUARIX) Unknown Completed [facility] Pneumococcal Polysaccharide, PPSV23 (PNEUMOVAX) Unknown Completed [facility] Influenza Virus Vaccine Quad .5 mL IM 6+ MO (FLUZONE/FLULAVAL/F LUARIX) Unknown Completed [facility] Influenza Virus Vaccine Unknown Completed [facility] SARS-COV-2 COVID-19 MODERNA 12+ YRS VACCINE Unknown Completed [facility] SARS-COV-2 COVID-19 MODERNA 12+ YRS VACCINE Unknown Completed [facility] TDAP Unknown Completed [facility] Influenza Virus Vaccine Quad IM, Preserv and ABX Free 6 MO-64 YRS (FLUCELVAX) Unknown Completed [facility] Influenza Virus Vaccine Unknown Completed [facility] TDAP Unknown Completed [facility] Influenza Virus Vaccine Quad .5 mL IM 6+ MO (FLUZONE/FLULAVAL/F LUARIX) Unknown Completed [facility] Pneumococcal Polysaccharide, PPSV23 (PNEUMOVAX) Unknown Completed [facility] Influenza Virus Vaccine Quad .5 mL IM 6+ MO (FLUZONE/FLULAVAL/F LUARIX) Unknown Completed [facility] Influenza Virus Vaccine Unknown Completed [facility] SARS-COV-2 COVID-19 MODERNA 12+ YRS VACCINE Unknown Completed [facility] SARS-COV-2 COVID-19 MODERNA 12+ YRS VACCINE Unknown Completed [facility] TDAP Unknown Completed [facility] Influenza Virus Vaccine Quad IM, Preserv and ABX Free 6 MO-64 YRS (FLUCELVAX) Unknown Completed [facility] Influenza Virus Vaccine Unknown Completed [facility] TDAP Unknown Completed [facility] Influenza Virus Vaccine Quad .5 mL IM 6+ MO (FLUZONE/FLULAVAL/F LUARIX) Unknown Completed [facility] Pneumococcal Polysaccharide, PPSV23 (PNEUMOVAX) Unknown Completed [facility] Influenza Virus Vaccine Quad .5 mL IM 6+ MO (FLUZONE/FLULAVAL/F LUARIX) Unknown Completed [facility] Influenza Virus Vaccine Unknown Completed [facility] SARS-COV-2 COVID-19 MODERNA 12+ YRS VACCINE Unknown Completed [facility] SARS-COV-2 COVID-19 MODERNA 12+ YRS VACCINE Unknown Completed [facility] TDAP Unknown Completed [facility] Influenza Virus Vaccine Quad IM, Preserv and ABX Free 6 MO-64 YRS (FLUCELVAX) Unknown Completed [facility] Influenza Virus Vaccine Unknown Completed [facility] TDAP Unknown Completed [facility] Influenza Virus Vaccine Quad .5 mL IM 6+ MO (FLUZONE/FLULAVAL/F LUARIX) Unknown Completed [facility] Pneumococcal Polysaccharide, PPSV23 (PNEUMOVAX) Unknown Completed [facility] Influenza Virus Vaccine Quad .5 mL IM 6+ MO (FLUZONE/FLULAVAL/F LUARIX) Unknown Completed [facility] Influenza Virus Vaccine Unknown Completed [facility] SARS-COV-2 COVID-19 MODERNA 12+ YRS VACCINE Unknown Completed [facility] SARS-COV-2 COVID-19 MODERNA 12+ YRS VACCINE Unknown Completed [facility] TDAP Unknown Completed [facility] Influenza Virus Vaccine Quad IM, Preserv and ABX Free 6 MO-64 YRS (FLUCELVAX) Unknown Completed [facility] Vital Signs Vital Name Observation Time Observation Value Comments S ource Systolic blood pressure 2023-03-29 00:51:00 148 mm[Hg] [facility] Diastolic blood pressure 2023-03-29 00:51:00 84 mm[Hg] [facility] Heart rate 2023-03-29 00:51:00 96 /min [facility] Respiratory rate 2023-03-29 00:51:00 18 /min [facility] Body height 2023-03-29 00:51:00 170.2 cm [facility] Body weight 2023-03-29 00:51:00 108.682 kg [facility] BMI 2023-03-29 00:51:00 37.53 kg/m2 [facility] Oxygen saturation in Arterial blood by Pulse oximetry 2023-03-29 00:51:00 96 /min [facility] Systolic blood pressure 2023-01-03 17:37:00 138 mm[Hg] [facility] Diastolic blood pressure 2023-01-03 17:37:00 82 mm[Hg] [facility] Heart rate 2023-01-03 17:37:00 89 /min [facility] Body height 2023-01-03 17:37:00 170.2 cm [facility] Body weight 2023-01-03 17:37:00 108.138 kg [facility] BMI 2023-01-03 17:37:00 37.34 kg/m2 [facility] Oxygen saturation in Arterial blood by Pulse oximetry 2023-01-03 17:37:00 97 /min [facility] Systolic blood pressure 2022-07-23 01:52:00 147 mm[Hg] [facility] Diastolic blood pressure 2022-07-23 01:52:00 94 mm[Hg] [facility] Heart rate 2022-07-23 01:52:00 74 /min [facility] Body temperature 2022-07-23 01:52:00 36.72 Lakshmi [facility] Respiratory rate 2022-07-23 01:52:00 20 /min [facility] Body height 2022-07-23 01:52:00 170.2 cm [facility] Body weight 2022-07-23 01:52:00 104.327 kg [facility] BMI 2022-07-23 01:52:00 36.02 kg/m2 [facility] Oxygen saturation in Arterial blood by Pulse oximetry 2022-07-23 01:52:00 96 /min [facility] Systolic blood pressure 2022-06-16 15:22:00 118 mm[Hg] [facility] Diastolic blood pressure 2022-06-16 15:22:00 73 mm[Hg] [facility] Heart rate 2022-06-16 15:22:00 97 /min [facility] Respiratory rate 2022-06-16 15:22:00 16 /min [facility] Body height 2022-06-16 15:22:00 170.2 cm [facility] Body weight 2022-06-16 15:22:00 103.375 kg [facility] BMI 2022-06-16 15:22:00 35.69 kg/m2 [facility] Oxygen saturation in Arterial blood by Pulse oximetry 2022-06-16 15:22:00 97 /min [facility] Systolic blood pressure 2022-01-30 16:35:00 135 mm[Hg] [facility] Diastolic blood pressure 2022-01-30 16:35:00 82 mm[Hg] [facility] Heart rate 2022-01-30 16:34:00 80 /min [facility] Body temperature 2022-01-30 16:34:00 37.28 Lakshmi [facility] Body height 2022-01-30 16:34:00 170.2 cm [facility] Body weight 2022-01-30 16:34:00 103.42 kg [facility] BMI 2022-01-30 16:34:00 35.71 kg/m2 [facility] Oxygen saturation in Arterial blood by Pulse oximetry 2022-01-30 16:34:00 98 /min [facility] Systolic blood pressure 2022-01-04 22:43:00 136 mm[Hg] [facility] Diastolic blood pressure 2022-01-04 22:43:00 89 mm[Hg] [facility] Heart rate 2022-01-04 22:43:00 73 /min [facility] Body temperature 2022-01-04 22:43:00 36.56 Lakshmi [facility] Respiratory rate 2022-01-04 22:43:00 16 /min [facility] Body height 2022-01-04 22:43:00 170.2 cm [facility] Body weight 2022-01-04 22:43:00 102.513 kg [facility] BMI 2022-01-04 22:43:00 35.40 kg/m2 [facility] Oxygen saturation in Arterial blood by Pulse oximetry 2022-01-04 22:43:00 98 /min [facility] Systolic blood pressure 2021-12-03 21:10:00 128 mm[Hg] [facility] Diastolic blood pressure 2021-12-03 21:10:00 77 mm[Hg] [facility] Heart rate 2021-12-03 21:00:00 84 /min [facility] Body temperature 2021-12-03 21:00:00 36.78 Lakshmi [facility] Respiratory rate 2021-12-03 21:00:00 18 /min [facility] Body height 2021-12-03 21:00:00 170.2 cm [facility] Body weight 2021-12-03 21:00:00 102.967 kg [facility] BMI 2021-12-03 21:00:00 35.55 kg/m2 [facility] Oxygen saturation in Arterial blood by Pulse oximetry 2021-12-03 21:00:00 97 /min [facility] Systolic blood pressure 2021-07-10 22:27:00 137 mm[Hg] [facility] Diastolic blood pressure 2021-07-10 22:27:00 82 mm[Hg] [facility] Heart rate 2021-07-10 22:25:00 91 /min [facility] Body temperature 2021-07-10 22:25:00 36.89 Lakshmi [facility] Respiratory rate 2021-07-10 22:25:00 16 /min [facility] Body height 2021-07-10 22:25:00 170.2 cm [facility] Body weight 2021-07-10 22:25:00 106.323 kg [facility] BMI 2021-07-10 22:25:00 36.71 kg/m2 [facility] Oxygen saturation in Arterial blood by Pulse oximetry 2021-07-10 22:25:00 98 /min [facility] Systolic blood pressure 2021-06-09 15:34:00 133 mm[Hg] [facility] Diastolic blood pressure 2021-06-09 15:34:00 82 mm[Hg] [facility] Heart rate 2021-06-09 15:34:00 84 /min [facility] Body temperature 2021-06-09 15:34:00 37 Lakshmi [facility] Respiratory rate 2021-06-09 15:34:00 20 /min [facility] Body height 2021-06-09 15:34:00 170.2 cm [facility] Body weight 2021-06-09 15:34:00 106.777 kg [facility] BMI 2021-06-09 15:34:00 36.87 kg/m2 [facility] Oxygen saturation in Arterial blood by Pulse oximetry 2021-06-09 15:34:00 96 /min [facility] Procedures Procedure Date / Time Performed Performing Clinician Source EXTERNAL PROVIDER RECORDS 2022-10-09 05:01:00 Doctor Unassigned, Ballinger [facility] ASSIGNMENT OF BENEFITS 2022-06-16 14:55:50 Docto r Unassigned, Ballinger [facility] EXTERNAL PROVIDER RECORDS 2021-08-15 05:01:00 Doctor Unassigned, Ballinger [facility] TDAP VACCINE, >11 YRS, IM 2021-06-09 15:56:45 Nathaly Mireles [facility] CONSENT FOR CONTRACEPTION 2021-06-09 05:01:00 Doctor Unassigned, Ballinger [facility] Encounters Start Date/Time End Date/Time Encounter Type Admission Type Attending Clinicians Care Facility Care Department Encounter ID Source 2023-08-10 09:30:00 2023-08-10 09:30:00 Outpatient R DEEPA LEONARD MARISOL [facility] [id number] [facility] 2023-04-08 00:00:00 2023-04-08 00:00:00 Shanna Lucas [facility] KYLIE [facility]AV[facility] 1.2.840.114 350.1.13.10 4.2.7.2.686 [id number] [facility] 2023-03-28 19:00:00 2023-03-28 19:07:29 Outpatient R NATHALY MIRELES [facility] [id number] [facility] 2023-03-28 19:00:00 2023-03-28 19:07:29 Urgent Care Nathaly Mireles Unknown, Attending ON LICENSE OF [facility] 1.840.114 350.1.13.10 4.2.7.2.686 [id number] [facility] 2023-01-03 12:45:00 2023-01-03 12:51:19 Office Visit Schwarz [facility] JOHN?[facility] 1.840.114 350.1.13.10 4.2.7.2.686 [id number] [facility] 2023-01-03 12:45:00 2023-01-03 12:51:19 Outpatient R KARISHMA SHANNA [facility] [id number] [facility] 2023-01-02 00:00:00 2023-01-02 00:00:00 Refill Karishma [facility] 1..840.114 350.1.13.10 4.2.7.2.686 [id number] [facility] 2022-12-01 00:00:00 2022-12-01 00:00:00 Refill Karishma [facility] JOHN?[facility] 1..840.114 350.1.13.10 4.2.7.2.686 [id number] [facility] 2022-10-17 00:00:00 2022-10-17 00:00:00 Outpatient R DEEPA LEONARD MAR[facility] [id number] [facility] 2022-10-09 00:00:00 2022-10-09 00:00:00 Orders Only Doctor Unassigned, Ballinger [facility] 1.20.114 350.1.13.10 4.2.7.2.686 [id number] [facility] 2022-09-25 00:00:00 2022-09-25 00:00:00 Telephone Shanna Schwarz ON LICENSE OF [facility] 1.114 350.1.13.10 4.2.7.2.686 [id number] [facility] 2022-07-22 20:40:00 2022-07-22 21:00:00 Urgent Care Enrrique Gay, Attending ON LICENSE OF [facility] 1.114 350.1.13.10 4.2.7.2.686 [id number] [facility] 2022-07-22 20:40:00 2022-07-22 20:40:00 Outpatient R ENRRIQUE GAY [facility] [id number] [facility] 2022-06-16 10:00:00 2022-06-16 10:47:00 Outpatient R DEEPA LEONARD [facility] [id number] [facility] 2022-06-16 10:00:00 2022-06-16 10:47:00 Office Visit Deepa Leonard [facility] 1.114 350.1.13.10 4.2.7.2.686 [id number] [facility] 2022-06-16 00:00:00 2022-06-16 00:00:00 Orders Only Doctor Unassigned, Ballinger [facility] 1.2.114 350.1.13.10 4.2.7.2.686 [id number] [facility] 2022-06-12 08:30:00 2022-06-12 08:30:00 Outpatient R CARTERNATHALY NUNEZ [facility] [id number] [facility] 2022-06-12 08:30:00 2022-06-12 08:30:00 Outpatient R ALINE [facility] [id number] [facility] 2022-01-30 10:30:00 2022-01-30 11:00:00 [facility] 1..840.114 350.1.13.10 4.2.7.2.686 [id number] [facility] 2022-01-30 10:30:00 2022-01-30 10:30:00 Outpatient R NEDShy DOMINIQUE [facility] [id number] [facility] 2022-01-04 17:40:00 2022-01-04 18:09:43 Outpatient R JUAN DE LEON [facility] [id number] [facility] 2022-01-04 17:40:00 2022-01-04 18:09:43 Urgent Care Juan De Leon Unknown, Attending ON LICENSE OF [facility] 1..840.114 350.1.13.10 4.2.7.2.686 [id number] [facility] 2021-12-03 16:20:00 2021-12-03 16:40:00 Urgent Care Lisa Maldonado Unknown, [facility] 1.2.840.114 350.1.13.10 4.2.7.2.686 [id number] [facility] 2021-12-03 16:20:00 2021-12-03 16:20:00 Outpatient R LISA MALDONADO [facility] [id number] [facility] 2021-11-17 00:00:00 2021-11-17 00:00:00 Refill Karishma [facility] JOHN[facility] 1.2.840.114 350.1.13.10 4.2.7.2.686 [id number] [facility] 2021-11-04 00:00:00 2021-11-04 00:00:00 Refill Karishma [facility] JOHN?RALPH [facility] 1..840.114 350.1.13.10 4.2.7.2.686 [id number] [facility] 2021-08-15 00:00:00 2021-08-15 00:00:00 Orders Only Doctor Unassigned, Ballinger [facility] 1.2840.114 350.1.13.10 4.2.7.2.686 [id number] [facility] 2021-08-02 00:00:00 2021-08-02 00:00:00 Telephone Shanna Schwarz [facility] JOHN?RALPH [facility] 1.2.840.114 350.1.13.10 4.2.7.2.686 [id number] [facility] 2021-07-10 17:20:00 2021-07-10 17:40:00 Urgent Care Enrrique Gay ON LICENSE OF [facility] 1.2.840.114 350.1.13.10 4.2.7.2.686 [id number] [facility] 2021-07-10 17:20:00 2021-07-10 17:20:00 Outpatient R ENRRIQUE GAY [facility] [id number] [facility] 2021-06-09 10:00:00 2021-06-09 11:00:06 Office Visit Aline Nathaly [facility] 1..840.114 350.1.13.10 4.2.7.2.686 [id number] [facility] 2021-06-09 10:00:00 2021-06-09 11:00:06 Outpatient R NATHALY MIRELES [facility] [id number] [facility] 2021-06-09 10:00:00 2021-06-09 10:00:00 Outpatient R ALINE [facility] [id number] [facility] 2021-06-09 00:00:00 2021-06-09 00:00:00 Orders Only Doctor Unassigned, Ballinger [facility] 1..840.114 350.1.13.10 4.2.7.2.686 [id number] [facility] 2021-05-19 11:00:00 2021-05-19 11:38:14 Outpatient R TAMARA YIN III [facility] [id number] [facility] 2021-05-19 00:00:00 2021-05-19 00:00:00 Orders Only Doctor Unassigned, Ballinger [facility] 1..840.114 350.1.13.10 4.2.7.2.686 [id number] [facility] 2021-05-17 14:00:00 2021-05-17 14:00:00 Outpatient R ROSE MARY PICKERING [facility] [id number] [facility] 2021-05-17 14:00:00 2021-05-17 14:00:00 Outpatient R ROSE MARY PICKERING [facility] [id number] [facility] 2021-05-17 10:00:00 2021-05-17 10:00:00 Outpatient R RAJNI RIOS CHERYAL [facility] [id number] [facility] 2021-05-10 00:00:00 2021-05-10 00:00:00 Patient Secure Msg Doctor Unassigned, Ballinger [facility] 1.20.114 350.1.13.10 4.2.7.2.686 [id number] [facility] 2021-04-22 00:00:00 2021-04-22 00:00:00 Refill Rose Mary Pickering [facility] 1.2840.114 350.1.13.10 4.2.7.2.686 [id number] [facility] 2021-04-02 00:00:00 2021-04-02 00:00:00 Telephone Merissa Reich [facility] 1..114 350.1.13.10 4.2.7.2.686 [id number] [facility] 2021-04-01 12:15:00 2021-04-01 12:37:51 Outpatient R GERALD [facility] [id number] [facility] 2021-04-01 12:15:00 2021-04-01 12:30:00 Laboratory Only Only, Ang Db Test Gerald [facility] 1.114 350.1.13.10 4.2.7.2.686 [id number] [facility] 2021-02-08 00:00:00 2021-02-08 00:00:00 Orders Only Doctor Unassigned, Ballinger [facility] 1..114 350.1.13.10 4.2.7.2.686 [id number] [facility] 2021-01-31 14:24:05 2021-01-31 15:00:34 Office Visit Vianey Paulino ON LICENSE OF [facility] 1..114 350.1.13.10 4.2.7.2.686 [id number] [facility] 2021-01-31 14:00:00 2021-01-31 15:00:34 Outpatient R AMERICA PAULINOTHIA [facility] [id number] [facility] 2021-01-31 12:45:00 2021-01-31 12:45:00 Outpatient SHANNA ROA [facility] [id number] [facility] 2021-01-31 00:00:00 2021-01-31 00:00:00 Telephone Vianey Paulino [facility] JOHN?RALPH [facility] 1.840.114 350.1.13.10 4.2.7.2.686 [id number] [facility] 2021-01-20 00:00:00 2021-01-20 00:00:00 Telephone Shanna Schwarz [facility] JOHN?RALPH [facility] 1.840.114 350.1.13.10 4.2.7.2.686 [id number] [facility] 2020-11-03 00:00:00 2020-11-03 00:00:00 Refill Karishma Shanna [facility] John?Ralph preciado [facility] Office Building 1.840.114 350.1.13.10 4.2.7.2.686 [id number] [facility] 2020-10-30 00:00:00 2020-10-30 00:00:00 Refill Doctor Unassigned, Ballinger [facility] Office Building One .84.114 350.1.13.10 4.2.7.2.686 [id number] [id number] [facility] 2020-08-11 13:53:21 2020-08-11 15:26:35 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 Lab, Adc Fam Pob I Karishma [facility] Office Building One 1.0.114 350.1.13.10 4.2.7.2.686 [id number] [facility] 2020-08-11 13:30:30 2020-08-11 13:52:02 Office Visit Shanna Schwarz [facility] Office Building One 1.840.114 350.1.13.10 4.2.7.2.686 [id number] [facility] 2020-08-11 13:30:00 2020-08-11 13:30:00 Outpatient R SHANNA SCHWARZ [facility] [id number] [facility] 2020-07-27 08:00:00 2020-07-27 23:59:00 Hospital Encounter Raheel Rose [facility] 1.840.114 350.1.13.10 4.2.7.2.686 [id number] [facility] 2020-07-27 09:23:09 2020-07-27 09:43:09 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 Lab, Adc Fam Pob I Rose Mary Pickering [facility] Office [facility] One 1..114 350.1.13.10 4.2.7.2.686 [id number] [facility] 2020-07-27 08:38:32 2020-07-27 08:53:32 Office Visit Shanna Schwarz [facility] Office Building One 1.0.114 350.1.13.10 4.2.7.2.686 [id number] [facility] 2020-07-27 00:00:00 2020-07-27 00:00:00 Outpatient Evaristo ROSE MARY PICKERING [facility] [id number] [facility] 2020-07-17 00:00:00 2020-07-17 00:00:00 Refill Schwarz, [facility] Office [facility] One 1..114 350.1.13.10 4.2.7.2.686 [id number] [facility] 2020-07-04 00:00:00 2020-07-04 00:00:00 Refill Karishma [facility] One 1..114 350.1.13.10 4.2.7.2.686 [id number] [id number] [facility] 2020-07-02 16:05:59 2020-07-02 16:25:59 Urgent Care Enrrique Gay Cynthia [facility] Office Building One 1..114 350.1.13.10 4.2.7.2.686 [id number] [facility] 2020-07-02 16:00:00 2020-07-02 16:00:00 Outpatient R [facility] [id number] [facility] 2020-06-25 00:00:00 2020-06-25 00:00:00 Patient Secure Msg Doctor Unassigned, Ballinger [facility] 1.114 350.1.13.10 4.2.7.2.686 [id number] [facility] 2020-06-25 00:00:00 2020-06-25 00:00:00 Telephone Karishma [facility] Office [facility] One 1..114 350.1.13.10 4.2.7.2.686 [id number] [facility] 2020-06-25 00:00:00 2020-06-25 00:00:00 Nurse Myah Burnett [facility] 1.114 350.1.13.10 4.2.7.2.686 [id number] [facility] 2020-06-25 00:00:00 2020-06-25 00:00:00 Refill Karishma Shanna [facility] Office Building One 1.84.114 350.1.13.10 4.2.7.2.686 [id number] [facility] 2020-06-25 00:00:00 2020-06-25 00:00:00 Telephone Schwarz, Shanna [facility] Office Building One 1..114 350.1.13.10 4.2.7.2.686 [id number] [facility] 2020-06-25 00:00:00 2020-06-25 00:00:00 Refill Doctor Unassigned, Ballinger [facility] Building One 1..114 350.1.13.10 4.2.7.2.686 [id number] [facility] 2020-05-27 00:00:00 2020-05-27 00:00:00 Patient Outreach Miguel Gallagher [facility] 1..114 350.1.13.10 4.2.7.2.686 [id number] [facility] 2020-05-17 14:30:00 2020-05-17 14:30:00 Outpatient ROSE MARY NOVA [facility] [id number] [facility] 2020-05-05 00:00:00 2020-05-05 00:00:00 Refill Shanna Schwarz [facility] Building 1.84.114 350.1.13.10 4.2.7.2.686 [id number] [facility] 2020-04-12 00:00:00 2020-04-12 00:00:00 Refill Shanna Schwarz [facility] Building 1.2.840.114 350.1.13.10 4.2.7.2.686 [id number] [facility] 2020-04-02 00:00:00 2020-04-02 00:00:00 Refill Shanna Schwarz [facility] Office Building One 1.840.114 350.1.13.10 4.2.7.2.686 [id number] [facility] 2020-01-16 16:34:55 2020-01-16 16:49:55 Office Visit Tamara Sheldon [facility] Building One 1..114 350.1.13.10 4.2.7.2.686 [id number] [facility] 2020-01-16 16:30:00 2020-01-16 16:30:00 Outpatient R TAMARA SHELDON [facility] [id number] [facility] 2020-01-07 00:00:00 2020-01-07 00:00:00 Refill Karishma [facility] Office Building One 1..114 350.1.13.10 4.2.7.2.686 [id number] [facility] 2020-01-07 00:00:00 2020-01-07 00:00:00 Hoa Karishma [facility] Office Building One 1.0.114 350.1.13.10 4.2.7.2.686 [id number] [facility] 2019-12-04 17:06:19 2019-12-04 17:26:19 Laboratory Only Lab, Adc Fam Pob I Karishma [facility] Building One 1.840.114 350.1.13.10 4.2.7.2.686 [id number] [facility] 2019-12-04 17:00:00 2019-12-04 17:00:00 Outpatient R SHANNA SCHWARZ [facility] [id number] [facility] 2019-12-04 10:45:00 2019-12-04 10:45:00 Outpatient R ANUJA ADAN [facility] [id number] [facility] 2019-11-26 00:00:00 2019-11-26 00:00:00 Refill Shanna Schwarz [facility] nal Building 1.114 350.1.13.10 4.2.7.2.686 [id number] [facility] 2019-10-20 00:00:00 2019-10-20 00:00:00 Patient Secure Msg Schwarz [facility] nal Building 1.114 350.1.13.10 4.2.7.2.686 [id number] [facility] 2019-10-17 08:55:43 2019-10-17 09:15:43 Urgent Care Pob1, Acute Care Clinic Vianey Paulino [facility] Office Building One 1.114 350.1.13.10 4.2.7.2.686 [id number] [facility] 2019-10-17 09:00:00 2019-10-17 09:00:00 Outpatient R [facility] [id number] [facility] 2019-07-04 00:00:00 2019-07-04 00:00:00 Luciano Schwarz [facility] Office Building One 1.114 350.1.13.10 4.2.7.2.686 [id number] [facility] 2019-05-22 00:00:00 2019-05-22 00:00:00 Refill Karishma Shanna [facility] Office Building One 1.2.840.114 350.1.13.10 4.2.7.2.686 [id number] [facility] 2019-04-30 08:21:44 2019-04-30 08:36:44 Office Visit Shanna Schwarz [facility] Office Building One 1.2.840.114 350.1.13.10 4.2.7.2.686 [id number] [facility] 2019-04-21 00:00:00 2019-04-21 00:00:00 Telephone Shanna Schwarz [facility] Building One 1.2840.114 350.1.13.10 4.2.7.2.686 [id number] [facility] 2019-04-18 09:28:47 2019-04-18 23:59:00 Outpatient R VIANEY PAULINO [facility] [id number] [facility] 2019-04-18 09:28:00 2019-04-18 23:59:00 Hospital Encounter Vianey Paulino [facility] 1.2.840.114 350.1.13.10 4.2.7.2.686 [id number] [facility] 2019-04-18 08:17:07 2019-04-18 12:02:19 Office Visit Vianey Paulino [facility] Office Building One 1.2.840.114 350.1.13.10 4.2.7.2.686 [id number] [facility] 2019-04-18 00:00:00 2019-04-18 00:00:00 [facility] 1.2840.114 350.1.13.10 4.2.7.2.686 [id number] [facility] 2019-04-18 00:00:00 2019-04-18 00:00:00 Orders Only Doctor Unassigned, Ballinger [facility] 1.2.840.114 350.1.13.10 4.2.7.2.686 [id number] [facility] 2018-10-28 00:00:00 2018-10-28 00:00:00 Orders Only Doctor Unassigned, Ballinger [facility] 1.2.840.114 350.1.13.10 4.2.7.2.686 [id number] [facility]
[2023-05-24 06:47] LABS: Specific Gravity 1.022 (1.005-1.030)
[2023-05-24 06:53] LABS: Absolute Basophils 0.1 K/uL (0-0.5); Absolute Eosinophils 0.6 K/uL (0-0.5); Absolute Lymphocytes (CBC) 2.6 K/uL (0.7-4.9); Absolute Monocytes 0.7 K/uL (0.1-1.3); Absolute Neutrophil 7.6 K/uL (1.8-8.0); Basophils % 0.8 % (0-1.3); Eosinophils % 4.8 % (0-4.4); Hematocrit 40.5 % (36.0-45.0); Hemoglobin 13.6 g/dL (12.0-15.0); Lymphocytes % 22.2 % (15.3-44.8); MCH 29.5 pg (27.0-35.0); MCHC 33.7 g/dL (32.0-36.0); MCV 87.6 fL (80-100); MPV 7.5 fL (7.6-11.3); Monocytes % 6.3 % (3.3-12.3); Neutrophils % 65.9 % (41.7-73.7); Nucleated Red Blood Cells % 0.1 % (0-0); Platelets 403 thou/uL (152-406); RBC Red Blood Cell Count 4.62 M/uL (3.86-4.86); Red Cell Distribution Width 13.2 % (12.1-15.2)
[2023-05-24 07:00] LABS: Specific Gravity 1.022 (1.005-1.030); Urine Bacteria 20-50 /HPF (<20); Urine Bilirubin NEGATIVE (Negative); Urine Blood Trace (Negative); Urine Clarity Extremely Turbid (Clear); Urine Color Yellow (Yellow); Urine Culture Reflex Order NOT NEEDED; Urine Glucose NEGATIVE (Negative); Urine Ketones NEGATIVE (Negative); Urine Microscopic Reflex YN ORDER UMIC; Urine Mucus 1+ /HPF (None Seen); Urine Nitrite NEGATIVE (Negative); Urine Protein TRACE (Negative); Urine RBC <5 /HPF (None Seen); Urine Urobilinogen Normal (Normal); Urine pH 5.5 (5.0-7.0)
[2023-05-24 07:07] LABS: Albumin 3.5 g/dL (3.4-5.0); Albumin/Globulin Ratio 0.8 (1.1-1.8); Anion Gap 10.9 mEq/L (5.0-15.0); Bilirubin Total 0.3 mg/dL (0.2-1.0); Globulin 4.2 g/dL (2.3-3.5); Potassium 3.9 mEq/L (3.5-5.1); Protein, Total 7.7 g/dL (6.4-8.2)
--- NOTE | 2023-05-24 08:14 | RAD REPORT ---
EXAM DESCRIPTION: CT - Abdomen Pelvis W Contrast - 05/24/2023 7:35 am CLINICAL HISTORY: ABD PAIN COMPARISON: Abdomen Pelvis W Contrast dated 09/17/2022; Abdomen Pelvis W Contrast dated 08/01/2021; Abdomen Pelvis W Contrast dated 04/26/2016 TECHNIQUE: Thin cut axial CT imaging of the abdomen and pelvis was performed following intravenous a dministration of 100 mL Isovue 300. Multiplanar reformats were generated and reviewed. All CT scans are performed using dose optimization technique as appropriate and may include automated exposure control or mA/KV adjustment according to patient size. FINDINGS: No suspicious findings in the lung bases. Stable rounded central right lower lobe 7 mm nod ule, partially included. The liver demonstrates diffuse parenchymal hypoattenuation suggesting steatosis. Adrenal glands, sple en, and pancreas show no suspicious findings. Gallbladder and biliary tree are also without suspiciou s finding. Symmetric renal function is seen with no hydronephrosis or suspicious renal mass. No dilated bowel loops. Segmental mucosal hyperenhancement and mild wall thickening involving the dis ama ileum, relatively sparing the terminal ileum. Findings are less pronounced than on the preceding CT. No free air, free fluid or inflammatory stranding. No hernia, mass or bulky lymphadenopathy. The urinary bladder is without significant finding. No suspicious bony findings. IMPRESSION: Segmental distal ileal wall thickening and mucosal hyperenhancement, could be of infecti ous etiology or related to inflammatory bowel disease. Findings are less pronounced than on the prior exam, with sparing of the terminal ileum.
--- NOTE | 2023-05-24 08:29 | EDPHYS ---
Physician Documentation [facility] Name: Elke Benton Age: 42 yrs Sex: Female : 1980 Arrival Date: 05/24/2023 Time: 06:00 Bed 8 Private MD: ED Physician Vladislav Rizvi HPI: 05/23 06:04 This 42 yrs old Female presents to ER via Unassigned with complaints of sp4 Abdominal Pain. 06:18 Allergies: Imitrex; Prevacid; Home Meds: Advair Diskus Inhl; Singulair Oral; sp4 control; Dicyclomine Oral; PMHx: Asthma; Migraine; spastic colon; gastroenteritis PSHx: 01:39 section; Cholecystectomy; cyst of lip;. 06:24 42-year-old female presents with acute onsets periumbilical abdominal pain associated sp4 with nausea starting 3 hours prior to arrival. Denied vomiting or diarrhea. Historical: - Allergies: 06:19 Imitrex; jb4 06:19 Prevacid; jb4 - PMHx: 06:19 Asthma; Gastroenteritis; Migraine; spastic colon; jb4 - PSHx: 06:19 Cholecystectomy; cyst of lip; section; jb4 - Immunization history:: Adult Immunizations up to date. - Social history:: Smoking status: Patient denies any tobacco usage or history of. - Family history:: not pertinent. ROS: 06:29 Constitutional: Negative for fever, chills, and weight loss, positive periumbilical sp4 abdominal pain, positive nausea 06:29 All other systems are negative, Exam: 06:57 Constitutional: This is a well developed, well nourished patient who is awake, alert, sp4 and in no acute distress. Head/Face: Normocephalic, atraumatic. Eyes: Pupils equal round and reactive to light, extra-ocular motions intact. Lids and lashes normal. Conjunctiva and sclera are not injected. Cornea within normal limits. Periorbital areas with no swelling, redness, or edema. ENT: Nares patent. No nasal discharge, no septal abnormalities noted. Tympanic membranes are normal and external auditory canals are clear. Oropharynx with no redness, swelling, or masses, exudates, or evidence of obstruction, uvula midline. Mucous membranes moist. Neck: Trachea midline, no thyromegaly or masses palpated, and no cervical lymphadenopathy. Supple, full range of motion without nuchal rigidity, or vertebral point tenderness. Chest/axilla: Normal chest wall appearance and motion. Nontender with no deformity. No lesions are appreciated. Cardiovascular: Regular rate and rhythm with a normal S1 and S2. No gallops, murmurs, or rubs. Normal PMI, no JVD. No pulse deficits. Respiratory: Lungs have equal breath sounds bilaterally, clear to auscultation and percussion. No rales, rhonchi or wheezes noted. No increased work of breathing, no retractions or nasal flaring. Abdomen/GI: Soft, with normal bowel sounds. No distension or tympany. No guarding or rebound. Positive periumbilical and central abdominal tenderness Back: No spinal tenderness. No costovertebral tenderness. Skin: Warm, dry with normal turgor. Normal color with no rashes, no lesions, and no evidence of cellulitis. MS/ Extremity: Pulses equal, no cyanosis. Neurovascular intact. Full, normal range of motion. Neuro: Awake and alert, GCS 15, oriented to person, place, time, and situation. Cranial nerves II-XII grossly intact. Motor strength 5/5 in all extremities. Sensory grossly intact. Psych: Awake, alert, with orientation to person, place and time. Behavior, mood, and affect are within normal limits Vital Signs: 06:14 BP 163 / 99; Pulse 79; Resp 18; Temp 98.5(O); Pulse Ox 95% on R/A; Weight 106.59 kg jb4 (R); Height 5 ft. 7 in. ; Pain 6/10; 07:43 BP 139 / 82; Pulse 74; Resp 16 S; Pulse Ox 99% on R/A; kc6 08:43 BP 137 / 84; Pulse 63; Resp 15 S; Pulse Ox 98% on R/A; kc6 06:14 Body Mass Index 36.81 (106.59 kg, 170.18 cm) jb4 06:14 Pain Scale: Adult jb4 MDM: 06:08 Patient medically screened. sp4 06:57 Differential Diagnosis altered mental status, sepsis, flu. Data reviewed: vital signs, sp4 nurses notes, old medical records, lab test result(s), radiologic studies, CT scan. 07:01 Transition of care: After a detail discussion of the patient's case, care is sp4 transferred to Vladislav Rizvi MD. 07:04 Transition of care: Care assumed from Feroz Crow MD. ED course: Patient is out of ec2 ER. Physician, in brief patient arrives today for evaluation of abdominal pain, plan is to follow-up lab work and CT imaging.. 07:37 ED course: Metabolic profile with appropriate electrolytes and renal function. Lipase ec2 within normal ranges, CBC nonconcerning, urine is questionably infectious, will defer to culture. Urine negative. . 08:20 ED course: CT abdomen pelvis shows ileal thickening which is improved from previous ec2 examination. On reassessment patient is hemodynamically stable, has reassuring labs. Will discharge home. Return precautions given. . 05/23 06:06 Order name: CBC with Diff; Complete Time: 06:58 sp4 05/23 06:06 Order name: CMP; Complete Time: 07:37 sp4 05/23 06:06 Order name: Lipase; Complete Time: 07:37 sp4 05/23 06:06 Order name: Urinalysis w/ reflexes; Complete Time: 07:01 sp4 05/23 06:07 Order name: Test, Urine; Complete Time: 06:58 sp4 05/23 06:24 Order name: CT Abd/Pelvis - IV Contrast Only; Complete Time: 08:19 sp4 05/23 06:06 Order name: IV Saline Lock; Complete Time: 06:55 sp4 05/23 06:06 Order name: Labs collected and sent; Complete Time: 06:55 sp4 Administered Medications: 06:28 Not Given (Physician Discretion): [id number] mg PO once sp4 06:50 Drug: NS 0.9% IV 1000 ml IV at 1 bolus Per protocol; 1000 mL bolus Route: IV; Rate: 1 vc1 bolus; Site: right antecubital; 07:43 Follow up: Response: No adverse reaction; IV Status: Completed infusion; IV Intake: kc6 1000ml 06:50 Drug: Dicyclomine IM 20 mg IM once Route: IM; Site: right ventrogluteal; vc1 07:44 Follow up: Response: No adverse reaction; Pain is decreased kc6 06:50 Drug: morphine IVP or IV 4 mg IVP once over 4 mins Route: IVP; Infused Over: 4 mins; vc1 Site: right antecubital; 07:44 Follow up: Response: No adverse reaction; Pain is decreased; RASS: Alert and Calm (0) kc6 06:51 Drug: Ketorolac IVP 30 mg IVP once Route: IVP; Site: right antecubital; vc1 07:43 Follow up: Response: No adverse reaction; Pain is decreased kc6 06:51 Drug: Ondansetron IVP 4 mg IVP once; over 2 minutes Route: IVP; Site: right antecubital;vc1 07:43 Follow up: Response: No adverse reaction kc6 06:51 Drug: Famotidine IVP 20 mg IVP once; dilute with 10 mL 0.9% NaCl; give over 2 minutes vc1 Route: IVP; Site: right antecubital; 07:44 Follow up: Response: No adverse reaction kc6 06:53 Drug: Pantoprazole IVP 40 mg IVP once Route: IVP; Site: right antecubital; vc1 07:44 Follow up: Response: No adverse reaction kc6 07:42 Drug: NS 0.9% IV 1000 ml IV at 250 ml/hr continuous Route: IV; Rate: 250 ml/hr; Site: kc6 right antecubital; 08:43 Follow up: Response: No adverse reaction; IV Status: Completed infusion; IV Intake: kc6 500ml Disposition Summary: 05/24/23 08:29 Discharge Ordered Notes: Location: Home ec2 Condition: Stable ec2 Diagnosis - Abdominal pain, Generalized ec2 Followup: ec2 - With: Private Physician - When: - Reason: Re-evaluation by your physician Discharge Instructions: - Discharge Summary Sheet ec2 - Abdominal Pain, Adult ec2 Forms: - Medication Reconciliation Form ec2 - Thank You Letter ec2 - Antibiotic Education ec2 - Prescription Opioid Use ec2 - Patient Portal Instructions ec2 - Leadership Thank You Letter ec2 Prescriptions: - dicyclomine 20 mg Oral tablet - take 1 tablet ORAL route 4 times per day; 30 tablet; Refills: 0, Product ec2 Selection Permitted - Pepcid 20 mg Oral Tablet - take 1 tablet ORAL route once daily; 20 tablet; Refills: 0, Product Selection ec2 Permitted Signatures: Dispatcher [employer] Robson Boyd RN RN jb4 Beena Lomas RN RN vc1 Dawna Cabezas, RN RN kc6 Feroz Crow MD MD sp4 Vladislav Rizvi MD MD ec2
--- NOTE | 2023-05-24 08:29 | ER ---
Nurse's Notes [facility] Name: Elke Benton Age: 42 yrs Sex: Female : 1980 Arrival Date: 05/24/2023 Time: 06:00 Bed 8 Private MD: Diagnosis: Abdominal pain, Generalized Presentation: 05/23 06:14 Chief complaint: Patient states: I am having upper abdominal pain with nausea. Its a jb4 burning pain that radiates into my chest. Coronavirus screen: At this time, the client does not indicate any symptoms associated with coronavirus-19. Ebola Screen: No symptoms or risks identified at this time. Initial Sepsis Screen: Does the patient meet any 2 criteria? No. Patient's initial sepsis screen is negative. Does the patient have a suspected source of infection? No. Patient's initial sepsis screen is negative. Risk Assessment: Do you want to hurt yourself or someone else? Patient reports no desire to harm self or others. Onset of symptoms was May 24, 2023. Transition of care: patient was not received from another setting of care. 06:14 Method Of Arrival: Ambulatory jb4 06:14 Acuity: MARK 3 jb4 Triage Assessment: 06:19 General: Appears in no apparent distress. uncomfortable, Behavior is calm, cooperative, jb4 appropriate for age. Pain: Complains of pain in right upper quadrant and left upper quadrant Pain does not radiate. GI: Abdomen is non-distended, obese, Reports upper abdominal pain, nausea. Historical: - Allergies: 06:19 Imitrex; jb4 06:19 Prevacid; jb4 - PMHx: 06:19 Asthma; Gastroenteritis; Migraine; spastic colon; jb4 - PSHx: 06:19 Cholecystectomy; cyst of lip; section; jb4 - Immunization history:: Adult Immunizations up to date. - Social history:: Smoking status: Patient denies any tobacco usage or history of. - Family history:: not pertinent. Screenin:45 [facility] ED Fall Risk Assessment (Adult) History of falling in the last 3 months, vc1 including since admission No falls in past 3 months (0 pts) Confusion or Disorientation No (0 pts) Intoxicated or Sedated No (0 pts) Impaired Gait No (0 pts) Mobility Assist Device Used No (0 pt) Altered Elimination No (0 pt) Score/Fall Risk Level 0 - 2 = Low Risk Oriented to surroundings, Maintained a safe environment, Educated pt \T\ family on fall prevention, incl call for assistance when getting out of bed. Abuse screen: Denies threats or abuse. Nutritional screening: No deficits noted. Tuberculosis screening: No symptoms or risk factors identified. Assessment: 06:46 General: Appears in no apparent distress. uncomfortable, Behavior is cooperative, vc1 crying, restless. Pain: Complains of pain in epigastric area and umbilical area Pain currently is 10 out of 10 on a pain scale. Quality of pain is described as sharp, squeezing, piercing, Pain began suddenly, 3 hours ago. Is continuous, Aggravated by eating, drinking, increased activity, Noted to be crying, grimacing, guarding, restless, Also complains of nausea. Neuro: Level of Consciousness is awake, alert, obeys commands, Oriented to person, place, time, situation, Appropriate for age. Cardiovascular: Heart tones S1 S2 Capillary refill < 3 seconds Patient's skin is warm and dry. Respiratory: Airway is patent Respiratory effort is even, unlabored, Respiratory pattern is regular, symmetrical, Breath sounds are clear bilaterally. GI: Bowel sounds present X 4 quads. Abd is soft Abdomen is tender to palpation in umbilical area Reports epigastric pain, nausea, normal bowel habits. : No deficits noted. No signs and/or symptoms were reported regarding the genitourinary system. EENT: No deficits noted. No signs and/or symptoms were reported regarding the EENT system. Derm: No deficits noted. No signs and/or symptoms reported regarding the dermatologic system. Musculoskeletal: No deficits noted. No signs and/or symptoms reported regarding the musculoskeletal system. 07:43 Reassessment: Patient appears in no apparent distress at this time. No changes from kc6 previously documented assessment. Patient and/or family updated on plan of care and expected duration. Pain level reassessed. Patient is alert, oriented x 3, equal unlabored respirations, skin warm/dry/pink. Patient states feeling better. Patient states symptoms have improved. 08:43 Reassessment: Patient appears in no apparent distress at this time. No changes from kc6 previously documented assessment. Patient and/or family updated on plan of care and expected duration. Pain level reassessed. Patient is alert, oriented x 3, equal unlabored respirations, skin warm/dry/pink. Vital Signs: 06:14 BP 163 / 99; Pulse 79; Resp 18; Temp 98.5(O); Pulse Ox 95% on R/A; Weight 106.59 kg jb4 (R); Height 5 ft. 7 in. ; Pain 6/10; 07:43 BP 139 / 82; Pulse 74; Resp 16 S; Pulse Ox 99% on R/A; kc6 08:43 BP 137 / 84; Pulse 63; Resp 15 S; Pulse Ox 98% on R/A; kc6 06:14 Body Mass Index 36.81 (106.59 kg, 170.18 cm) jb4 06:14 Pain Scale: Adult jb4 ED Course: 06:02 Patient arrived in ED. jj6 06:03 Feroz Crow MD is Attending Physician. sp4 06:19 Triage completed. jb4 06:19 Arm band placed on right wrist. jb4 06:45 Beena Lomas RN is Primary Nurse. vc1 06:46 No provider procedures requiring assistance completed. Inserted saline lock: 20 gauge vc1 in right antecubital area, using aseptic technique. Blood collected. 06:46 Initial lab(s) drawn, by ga, sent to lab. vc1 06:49 Patient has correct armband on for positive identification. Bed in low position. Call vc1 light in reach. Pulse ox on. NIBP on. 07:00 Report received from DANYEL Hargrove. kc6 07:02 Attending Physician role handed off by Feroz Crow MD ec2 07:02 Vladislav Rizvi MD is Attending Physician. ec2 07:37 CT Abd/Pelvis - IV Contrast Only In Process Unspecified. EDMS 08:44 IV discontinued, intact, bleeding controlled, No redness/swelling at site. Pressure kc6 dressing applied. Administered Medications: 06:28 Not Given (Physician Discretion): [id number] mg PO once sp4 06:50 Drug: NS 0.9% IV 1000 ml IV at 1 bolus Per protocol; 1000 mL bolus Route: IV; Rate: 1 vc1 bolus; Site: right antecubital; 07:43 Follow up: Response: No adverse reaction; IV Status: Completed infusion; IV Intake: kc6 1000ml 06:50 Drug: Dicyclomine IM 20 mg IM once Route: IM; Site: right ventrogluteal; vc1 07:44 Follow up: Response: No adverse reaction; Pain is decreased kc6 06:50 Drug: morphine IVP or IV 4 mg IVP once over 4 mins Route: IVP; Infused Over: 4 mins; vc1 Site: right antecubital; 07:44 Follow up: Response: No adverse reaction; Pain is decreased; RASS: Alert and Calm (0) kc6 06:51 Drug: Ketorolac IVP 30 mg IVP once Route: IVP; Site: right antecubital; vc1 07:43 Follow up: Response: No adverse reaction; Pain is decreased kc6 06:51 Drug: Ondansetron IVP 4 mg IVP once; over 2 minutes Route: IVP; Site: right antecubital;vc1 07:43 Follow up: Response: No adverse reaction kc6 06:51 Drug: Famotidine IVP 20 mg IVP once; dilute with 10 mL 0.9% NaCl; give over 2 minutes vc1 Route: IVP; Site: right antecubital; 07:44 Follow up: Response: No adverse reaction kc6 06:53 Drug: Pantoprazole IVP 40 mg IVP once Route: IVP; Site: right antecubital; vc1 07:44 Follow up: Response: No adverse reaction kc6 07:42 Drug: NS 0.9% IV 1000 ml IV at 250 ml/hr continuous Route: IV; Rate: 250 ml/hr; Site: 6 right antecubital; 08:43 Follow up: Response: No adverse reaction; IV Status: Completed infusion; IV Intake: kc6 500ml Medication: 06:46 VIS not applicable for this client. vc1 Intake: 07:43 IV: 1000ml; Total: 1000ml. kc6 08:43 IV: 500ml; Total: 1500ml. kc6 Outcome: 08:29 Discharge ordered by . ec2 08:44 Discharged to home ambulatory, kc6 08:44 Condition: good 08:44 Discharge instructions given to patient, Instructed on discharge instructions, follow up and referral plans. medication usage, Demonstrated understanding of instructions, follow-up care, medications, Prescriptions given X 2, 08:44 Patient left the ED. kc6 Signatures: [facility] Robson Victoria RN RN jb4 Amanda Vazquez jj6 Beena Lomas, RN RN vc1 Dawna Cabezas, RN RN kc6 Feroz Crow MD MD sp4 Vladislav Rizvi MD MD ec2
[2023-05-24 08:50] VITALS: TEMP 98.5
[2023-05-24 09:15] VITALS: BP 137/84; O2SAT 98
== END ==
LOC: ER 06:00
DX: R10.84 Generalized abdominal pain (principal); R11.0 Nausea; Z88.8 Allergy status to other drugs, medicaments and biological substances
CPT/HCPCS: 96361; 85025; 81001; 36415; 81025; 83690; 80053; 74177; 96375; 96372; 96374; 99284; Q9967; J0500; C9113; J2405; J7030

== ENCOUNTER 2024-07-27 20:46 | Emergency (ER) | payer BC ==
--- OUTSIDE RECORDS SUMMARY | 2024-07-27 20:52 | XMS REPORT | Continuity of Care Document ---
Author Name Unknown Address [address] [place] [address] [facility] [address] [place] [address] Care Team Providers Care Child Care Development Specialist Name Role Phone Marv Cota MD Primary Care Physician [phone] KLARISSA WHITT Attending Clinician KLARISSA Lew Attending Clinician Marv Cooper MD Attending Clinician [phone] ANJUM MIRELES Attending Clinician Unavailable Shilpi Quiroga MA Attending Clinician UnavailScotty Jones MD Attending Clinician [phone] SCOTTY CAMPOS Attending Clinician Unavailable SCOTTY CAMPOS Attending Clinician Unavailable Lab, Ang - Db Attending Clinician Unavailable Tamara Sheldon MD Attending Clinician [phone] TAMARA SHELDON Attending Clinician CHEY Penn Attending Clinician Unavailable CHEY SNYDER Attending Clinician Unavailable Chey Snyder NP Attending Clinician [phone] Unknown, Attending Attending Clinician UnavailMelly Lee Attending Clinician [phone] MELLY CRAWFORD Attending Clinician Unavailable Doctor Unassigned, [place] Attending Clinician U Marv Melvin MD Attending Clinician [phone] Aline ABRAMS, Anjum Attending Clinician [phone] Unknown, Attending Attending Clinician UnavailMARV Flor Attending Clinician Unavailable Deidra ORGANIC CHEMIST, Malika Gee Attending Clinician [phone] UNKNOWN, ATTENDING Attending Clinician UnavailMALIKA Carcamo Attending Clinician Unavailab elizabeth MURILLO, Dominique Attending Clinician [phone] DOMINIQUE TRIMBLE Attending Clinician Unavailable JUAN DE LEON Attending Clinician Unavailbernardo ureña Omaglloyd ORGANIC CHEMIST, Juan Attending Clinician [phone] Richard Soto Attending Clinician [phone] RICHARD YA Attending Clinician Unavailable TAMARA YIN III Attending Clinician UnavailROSE MARY Yu Attending Clinician Unavailable RAJNI RIOS Attending Clinician UnavailRAJNI Weinberg Attending Clinician UnavailRose Mary Braun MD Attending Clinician [phone] Merissa Reich RN Attending Clinician Unavailable JENNIFER DUARTE Attending Clinician Unavailable Only, Ang Db Test Attending Clinician Unavailbernardo Duarte MD, Jennifer Attending Clinician [phone] Joo Raymundo Attending Clinician [phone] JOO PAULINO Attending Clinician Unavailable Lab, Adc Fam Pob I Attending Clinician Unavailab Carlton MONTAÑO, Myah Nolan Attending Clinician UnavailMiguel Jarrett DO Attending Clinician [phone] Tamara Sheldon MD Attending Clinician [phone] ANUJA ADAN Attending Clinician Unavailbernardo Castrob1, [facility] Attending Clinician KLARISSA Luz Admitting Clinician JOO Lou Admitting Clinician Unavailable Payers Payer Name Policy Type Policy Number Effective Date Expirati on Date Source Problems Condition Name Condition Details Condition Category Status Onset Date Resolution Date Last Treatment Date Treating Clinician Comments Source Obesity (BMI 30-39.9) Obesity (BMI 30-39.9) Disease Active 03-26 00:00: 00 [facility] Prediabete s Prediabete s Disease Active 03-26 00:00: 00 [facility] Elevated BP without diagnosis of hypertensi on Elevated BP without diagnosis of hypertensi on Disease Active 03-26 00:00: 00 [facility] Subacute cough Subacute cough Disease Active 2021-03 00:00: 00 [facility] Subacute cough Subacute cough Disease Active 2021-03 00:00: 00 [facility] Mild intermitte nt asthma without complicati on Mild intermitte nt asthma without complicati on Disease Active 06-04 00:00: 00 [facility] Acute seasonal allergic rhinitis due to pollen Acute seasonal allergic rhinitis due to pollen Disease Active 06-04 00:00: 00 [facility] Allergies, Adverse Reactions, Alerts Allergy Name Allergy Type Status Severity Reaction(s) Onset Date Inactive Date Treating Clinician Comments Source Sumatrip wild Succinat e Propensi ty to adverse reaction s Active Unknown - See comments 2014-03 00:00: 00 [facility] Lansopra zole Propensi ty to adverse reaction s Active Unknown - See comments 2014-03 00:00: 00 [facility] SUMATRIP WILD SUCCINAT E DRUG INGREDI Active Unknown-Cmnt 2014-03 00:00: 00 [facility] LANSOPRA ZOLE DRUG INGREDI Active Unknown-Cmnt 2014-03 00:00: 00 [facility] Social History Social Habit Start Date Stop Date Quantity Comments Source [facility] Not [facility] Alcoholic beverage intake 2024-03-26 00:00:00 2024-03-26 00:00:00 0 /d [facility] History of Social function 2024-03-20 00:00:00 2024-03-20 00:00:00 [facility] Alcohol intake 2023-01-03 00:00:00 2023-01-03 00:00:00 0 /d [facility] Exposure to SARS-CoV-2 (event) 2022-07-12 00:00:00 2022-07-22 20:43:[address] [facility] Tobacco use and exposure 2022-06-16 00:00:00 2022-06-16 00:00:00 Smokeless tobacco non-user [facility] Sex assigned at 1980 00:00:00 1980 00:00:00 [facility] Smoking Status Start Date Stop Date Source Never smoked tobacco [facility] Medications Ordered Medication Name Filled Medication Name Start Date Stop Date Current Medication? Ordering Clinician Indication Dosage Frequency Signature (SIG) Comments Components Source MONTELUKAST 10 mg tablet 07-14 00:00: 00 Yes [id number] 10mg TAKE ONE (1) TABLET(S) BY MOUTH ONCE A DAY. [facility] MONTELUKAST 10 mg tablet 06-16 00:00: 00 07-14 00:00 :00 No [id number] 10mg TAKE ONE (1) TABLET(S) BY MOUTH ONCE A DAY. [facility] amoxicillin -pot clavulanate 875-125 mg per tablet 05-28 00:00: 00 Yes [id number] 1{tbl} Take 1 tablet by mouth in the morning and 1 tablet in the evening. [facility] proMETHazin e 25 mg tablet 05-28 00:00: 00 Yes [id number] 25mg Take 1 tablet by mouth every 4 (four) hours as needed for Nausea and Vomiting (N/V). [facility] MONTELUKAST 10 mg tablet 04-22 00:00: 00 06-16 00:00 :00 No [id number] 10mg TAKE ONE (1) TABLET(S) BY MOUTH ONCE A DAY. [facility] semaglutide 0.25 mg or 0.5 mg (2 mg/3 mL) PnIj 04-09 00:00: 00 Yes [id number] .25mg inject 0.25 mg under the skin weekly. [facility] MONTELUKAST 10 mg tablet - 00:00: 00 04-22 00:00 :00 No [id number] 10mg TAKE ONE (1) TABLET(S) BY MOUTH ONCE A DAY. [facility] ADVAIR DISKUS 250-50 mcg/dose inhalation disk 03-20 00:00: 00 Yes [id number] UNHALE 1 PUFF BY MOUTH EVERY 12 HOURS [facility] montelukast 10 mg tablet 2023-03 2-10 00:00: 00 03-21 00:00 :00 No [id number] 10mg TAKE ONE (1) TABLET(S) BY MOUTH ONCE A DAY. [facility] albuterol 90 mcg/actuati on inhaler 2023-03 00:00: 00 Yes [id number] 2{puff} Inhale 2 Puffs every 6 (six) hours as needed for Wheezing, Shortness of Breath or Bronchospa sm. [facility] benzonatate (TESSALON PERLES) 100 mg capsule 2023-03 00:00: 00 02-16 05:59 :00 No [id number] 100mg Take 1 capsule by mouth every 8 (eight) hours as needed for Cough for up to 10 days. [facility] doxycycline hyclate 100 mg tablet 2023-03 00:00: 00 02-13 05:59 :00 No [id number] 100mg Take 1 tablet by mouth in the morning and 1 tablet in the evening. Do all this for 7 days. [facility] predniSONE 20 mg tablet 2023-03 00:00: 00 02-11 05:59 :00 No [id number] 40mg Take 2 tablets by mouth in the morning for 5 days. [facility] montelukast 10 mg tablet 2023-03 0 00:00: 00 02-18 00:00 :00 No [id number] 10mg TAKE ONE (1) TABLET(S) BY MOUTH ONCE A DAY. [facility] dexamethaso ne (DECADRON) injection 4 mg 8-20 00:21: 00 10-29 00:35 :00 No [id number] 4mg 4 mg, Intramuscu lar, ONCE, 1 dose, On Sun10/29/23 at 1930, Routine [facility] amoxicillin -clavulanat e (AUGMENTIN) 875-125 mg per tablet 10-28 00:00: 00 11-08 04:59 :00 No [id number] 1{tbl} Take 1 tablet by mouth in the morning and 1 tablet in the evening. Do all this for 10 days. [facility] predniSONE 20 mg tablet 10-28 00:00: 00 11-03 04:59 :00 No [id number] 20mg Take 1 tablet by mouth in the morning for 5 days. [facility] norgestrel- ethinyl estradioL (ELINEST) 0.3-30 mg-mcg per tablet 6-20 00:00: 00 Yes [id number] TAKE ONE (1) TABLET BY MOUTH IN THE MORNING. [facility] levocetiriz ine dihydrochlo ride (XYZAL ORAL) 30 14:33: 26 Yes Take by mouth. [facility] MONTELUKAST 10 mg tablet -17 00:00: 00 12-11 00:00 :00 No [id number] TAKE ONE (1) TABLET(S) BY MOUTH DAILY. [facility] norgestrel- ethinyl estradioL (ELINEST) 0.3-30 mg-mcg per tablet 5-15 00:00: 00 Yes [id number] TAKE ONE (1) TABLET BY MOUTH IN THE MORNING. [facility] norgestrel- ethinyl estradioL (ELINEST) 0.3-30 mg-mcg per tablet 0 4-10 00:00: 00 07-24 00:00 :00 No [id number] TAKE ONE (1) TABLET BY MOUTH IN THE MORNING. [facility] dicyclomine 20 mg tablet 0 3-14 00:00: 00 03-20 00:00 :00 No 20mg Take 1 tablet by mouth 4 (four) times daily. [facility] famotidine 20 mg tablet 3-14 00:00: 00 03-20 00:00 :00 No 20mg Take 1 tablet by mouth in the morning. [facility] MONTELUKAST 10 mg tablet 04-09 00:00: 00 Yes [id number] TAKE ONE (1) TABLET(S) BY MOUTH DAILY. [facility] dexamethaso ne sod phos PF injection 10 mg 03-29 01:45: 00 03-29 01:04 :00 No [id number] 10mg [facility] fluticasone propionate 50 mcg/actuati on nasal spray 03-28 00:00: 00 03-20 00:00 :00 No [id number] 2{spray } Use 2 Sprays in each nostril in the morning. [facility] azelastine 137 mcg (0.1 %) nasal spray 03-28 00:00: 00 03-20 00:00 :00 No [id number] 1{spray } Use 1 [place] in each nostril in the morning and 1 [place] in the evening. Use in each nostril as directed [facility] benzonatate (TESSALON PERLES) 100 mg capsule 03-28 00:00: 00 02-05 00:00 :00 No [id number] 100mg Take 1 capsule by mouth every 8 (eight) hours as needed for Cough. [facility] predniSONE 10 mg tablet 03-28 00:00: 00 04-03 05:59 :00 No [id number] 10mg Take 1 tablet by mouth in the morning and 1 tablet in the evening. Do all this for 5 days. [facility] ADVAIR DISKUS 250-50 mcg/dose inhalation disk 2022-03 0 00:00: 00 03-20 00:00 :00 No [id number] UNHALE 1 PUFF BY MOUTH EVERY 12 HOURS [facility] albuterol 90 mcg/actuati on inhaler 2022-03 0 00:00: 00 02-05 00:00 :00 No [id number] 2{puff} Inhale 2 Puffs every 6 (six) hours as needed for Wheezing. [facility] predniSONE 10 mg tablet 2022-03 0- 00:00: 00 02-05 00:00 :00 No [id number] 10mg Take 1 tablet by mouth in the morning and 1 tablet in the evening. [facility] benzonatate (TESSALON PERLES) 100 mg capsule 2022-03 0 00:00: 00 02-05 00:00 :00 No [id number] 100mg Take 1 capsule by mouth every 8 (eight) hours as needed for Cough. [facility] MONTELUKAST 10 mg tablet 2022-03 0 00:00: 00 04-09 00:00 :00 No [id number] TAKE ONE (1) TABLET(S) BY MOUTH DAILY. [facility] montelukast 10 mg tablet 12-01 00:00: 00 Yes [id number] TAKE ONE (1) TABLET(S) BY MOUTH DAILY. [facility] azelastine 137 mcg (0.1 %) nasal spray 07-22 00:00: 00 03-20 00:00 :00 No [id number] 1{spray } Use 1 [place] in each nostril in the morning and 1 [place] in the evening. Use in each nostril as directed [facility] methylPREDN ISolone (MEDROL, RON,) 4 mg tablets 07-22 00:00: 00 01-03 00:00 :00 No [id number] Take by mouth SEE-INSTRU CTIONS. follow package directions [facility] amoxicillin -clavulanat e (AUGMENTIN) 875-125 mg per tablet 5-13 00:00: 00 07-30 04:59 :00 No [id number] 1{tbl} Take 1 tablet by mouth in the morning and 1 tablet in the evening. Do all this for 7 days. [facility] levocetiriz ine dihydrochlo ride (XYZAL ORAL) 4-07 10:24: 16 Yes Take by mouth. [facility] norgestrel- ethinyl estradioL (CRYSELLE) 0.3-30 mg-mcg per tablet 4-07 00:00: 00 06-19 00:00 :00 No [id number] 1{tbl} Take 1 tablet by mouth in the morning. [facility] albuterol 90 mcg/actuati on inhaler 2021-03 00:00: 00 01-03 00:00 :00 No [id number] 2{puff} Inhale 2 Puffs every 6 (six) hours as needed for Wheezing. [facility] predniSONE 20 mg tablet 2021-03 00:00: 00 07-22 00:00 :00 No [id number] 20mg Take 1 tablet by mouth in the morning. [facility] benzonatate 200 mg capsule 2021-03 00:00: 00 02-07 05:59 :00 No [id number] 200mg Take 1 capsule by mouth 3 (three) times daily as needed for Cough for up to 7 days. [facility] methylPREDN ISolone (MEDROL, RON,) 4 mg tablets 2021-03 00:00: 00 01-30 00:00 :00 No [id number] Take by mouth SEE-INSTRU CTIONS. follow package directions [facility] amoxicillin -clavulanat e (AUGMENTIN) 875-125 mg per tablet 2021-03 0- 00:00: 00 01-15 04:59 :00 No [id number] 1{tbl} Take 1 tablet by mouth in the morning and 1 tablet in the evening. Do all this for 10 days. [facility] methylPREDN ISolone (MEDROL, RON,) 4 mg tablets - 00:00: 00 01-30 00:00 :00 No [id number] Take by mouth SEE-INSTRU CTIONS. follow package directions [facility] fluticasone propion-[place] meteroL (ADVAIR DISKUS) 250-50 mcg/dose inhalation disk 9-09 00:00: 00 01-03 00:00 :00 No [id number] UNHALE 1 PUFF BY MOUTH EVERY 12 HOURS [facility] MONTELUKAST 10 mg tablet 8- 00:00: 00 12-01 00:00 :00 No [id number] TAKE ONE (1) TABLET(S) BY MOUTH DAILY. [facility] azelastine 137 mcg (0.1 %) nasal spray 07-10 00:00: 00 07-22 00:00 :00 No [id number] 1{spray } Use 1 [place] in each nostril 2 (two) times daily. Use in each nostril as directed [facility] predniSONE 10 mg tablet 07-10 00:00: 00 01-30 00:00 :00 No [id number] Take 4 tabs by mouth for 3 days, 3 tabs for 2 days [facility] amoxicillin 875 mg tablet 07-10 00:00: 00 07-18 04:59 :00 No [id number] 875mg Take 1 tablet by mouth 2 (two) times daily for 7 days. [facility] levocetiriz ine dihydrochlo ride (XYZAL ORAL) 06-09 10:31: 41 Yes Take by mouth. [facility] norgestrel- ethinyl estradioL (CRYSELLE) 0.3-30 mg-mcg per tablet -31 00:00: 00 06-16 00:00 :00 No [id number] 1{tbl} Take 1 tablet by mouth daily. [facility] CRYSELLE 0.3-30 mg-mcg per tablet 2-14 00:00: 00 06-09 00:00 :00 No [id number] TAKE 1 TABLET BY MOUTH EVERY DAY [facility] metoclopram thalia HCl 10 mg tablet 2020-03 0-26 00:00: 00 03-20 00:00 :00 No [facility] SUTAB 1.479-0.188 - 0.225 gram Tab 2020-03 0-26 00:00: 00 03-20 00:00 :00 No [facility] montelukast 10 mg tablet 8-23 00:00: 00 11-07 00:00 :00 No [id number] 10mg Take 1 tablet by mouth daily. [facility] fluticasone propion-[place] meteroL (ADVAIR DISKUS) 250-50 mcg/dose inhalation disk 5-18 00:00: 00 Yes [id number] UN[place]ALE 1 PUFF BY MOUTH EVERY 12 HOURS [facility] albuterol 90 mcg/actuati on inhaler -18 00:00: 00 01-30 00:00 :00 No [id number] 2{puff} Inhale 2 Puffs every 6 (six) hours as needed for Wheezing. [facility] fluticasone propion-[place] meteroL (ADVAIR DISKUS) 250-50 mcg/dose inhalation disk -18 00:00: 00 11-18 00:00 :00 No [id number] [place] 1 PUFF BY MOUTH EVERY 12 HOURS [facility] norgestrel- ethinyl estradioL (CRYSELLE) 0.3-30 mg-mcg per tablet 3-08 00:00: 00 04-25 00:00 :00 No [id number] 1{tbl} Take 1 tablet by mouth daily. [facility] Immunizations Ordered Immunization Name Filled Immunization Name Date Status Comments Source Flu Injectable MDCK Pres-Free (FLUCELVAX) 2024-03-20 00:00:00 Completed Influenza Virus Vaccine 2023-10-29 18:20:[address] [facility] TDAP 2023-10-29 18:20:[address] [facility] Influenza Virus Vaccine Quad .5 mL IM 6+ MO (FLUZONE/FLULAVAL/F LUARIX) 2023-10-29 18:20:[address] [facility] Pneumococcal Polysaccharide, PPSV23 (PNEUMOVAX) 2023-10-29 18:20:[address] [facility] SARS-COV-2 COVID-19 MODERNA 12+ YRS VACCINE 2023-10-29 18:20:[address] [facility] Influenza Virus Vaccine Quad IM, Preserv and ABX Free 6 MO-64 YRS (FLUCELVAX) 2023-10-29 18:20:[address] [facility] Influenza Virus Vaccine 2023-08-27 11:00:[address] [facility] TDAP 2023-08-27 11:00:[address] [facility] Influenza Virus Vaccine Quad .5 mL IM 6+ MO (FLUZONE/FLULAVAL/F LUARIX) 2023-08-27 11:00:[address] [facility] Pneumococcal Polysaccharide, PPSV23 (PNEUMOVAX) 2023-08-27 11:00:[address] [facility] SARS-COV-2 COVID-19 MODERNA 12+ YRS VACCINE 2023-08-27 11:00:[address] [facility] Influenza Virus Vaccine Quad IM, Preserv and ABX Free 6 MO-64 YRS (FLUCELVAX) 2023-08-27 11:00:[address] [facility] Influenza Virus Vaccine 2023-08-20 14:20:[address] [facility] TDAP 2023-08-20 14:20:[address] [facility] Influenza Virus Vaccine Quad .5 mL IM 6+ MO (FLUZONE/FLULAVAL/F LUARIX) 2023-08-20 14:20:[address] [facility] Pneumococcal Polysaccharide, PPSV23 (PNEUMOVAX) 2023-08-20 14:20:[address] [facility] SARS-COV-2 COVID-19 MODERNA 12+ YRS VACCINE 2023-08-20 14:20:[address] [facility] Influenza Virus Vaccine Quad IM, Preserv and ABX Free 6 MO-64 YRS (FLUCELVAX) 2023-08-20 14:20:[address] [facility] Pneumococcal Polysaccharide, PPSV23 (PNEUMOVAX) 2023-08-09 14:30:[address] [facility] Influenza Virus Vaccine Quad IM, Preserv and ABX Free 6 MO-64 YRS (FLUCELVAX) 2023-08-09 14:30:[address] [facility] Influenza Virus Vaccine 2023-08-09 14:30:[address] [facility] TDAP 2023-08-09 14:30:[address] [facility] Influenza Virus Vaccine Quad .5 mL IM 6+ MO (FLUZONE/FLULAVAL/F LUARIX) 2023-08-09 14:30:[address] [facility] SARS-COV-2 COVID-19 MODERNA 12+ YRS VACCINE 2023-08-09 14:30:[address] [facility] Influenza Virus Vaccine 2023-07-25 00:00:[address] [facility] TDAP 2023-07-25 00:00:[address] [facility] Influenza Virus Vaccine Quad .5 mL IM 6+ MO (FLUZONE/FLULAVAL/F LUARIX) 2023-07-25 00:00:[address] [facility] Pneumococcal Polysaccharide, PPSV23 (PNEUMOVAX) 2023-07-25 00:00:[address] [facility] SARS-COV-2 COVID-19 MODERNA 12+ YRS VACCINE 2023-07-25 00:00:[address] [facility] Influenza Virus Vaccine Quad IM, Preserv and ABX Free 6 MO-64 YRS (FLUCELVAX) 2023-07-25 00:00:[address] [facility] Influenza Virus Vaccine 2023-07-25 00:00:[address] [facility] TDAP 2023-07-25 00:00:[address] [facility] Influenza Virus Vaccine Quad .5 mL IM 6+ MO (FLUZONE/FLULAVAL/F LUARIX) 2023-07-25 00:00:[address] [facility] Pneumococcal Polysaccharide, PPSV23 (PNEUMOVAX) 2023-07-25 00:00:[address] [facility] SARS-COV-2 COVID-19 MODERNA 12+ YRS VACCINE 2023-07-25 00:00:[address] [facility] Influenza Virus Vaccine Quad IM, Preserv and ABX Free 6 MO-64 YRS (FLUCELVAX) 2023-07-25 00:00:[address] [facility] Influenza Virus Vaccine 2023-06-20 00:00:[address] [facility] TDAP 2023-06-20 00:00:[address] [facility] Influenza Virus Vaccine Quad .5 mL IM 6+ MO (FLUZONE/FLULAVAL/F LUARIX) 2023-06-20 00:00:[address] [facility] Pneumococcal Polysaccharide, PPSV23 (PNEUMOVAX) 2023-06-20 00:00:[address] [facility] SARS-COV-2 COVID-19 MODERNA 12+ YRS VACCINE 2023-06-20 00:00:[address] [facility] Influenza Virus Vaccine Quad IM, Preserv and ABX Free 6 MO-64 YRS (FLUCELVAX) 2023-06-20 00:00:[address] [facility] Influenza Virus Vaccine 2023-04-08 00:00:[address] [facility] TDAP 2023-04-08 00:00:[address] [facility] Influenza Virus Vaccine Quad .5 mL IM 6+ MO (FLUZONE/FLULAVAL/F LUARIX) 2023-04-08 00:00:[address] [facility] Pneumococcal Polysaccharide, PPSV23 (PNEUMOVAX) 2023-04-08 00:00:[address] [facility] SARS-COV-2 COVID-19 MODERNA 12+ YRS VACCINE 2023-04-08 00:00:[address] [facility] Influenza Virus Vaccine Quad IM, Preserv and ABX Free 6 MO-64 YRS (FLUCELVAX) 2023-04-08 00:00:[address] [facility] Influenza Virus Vaccine 2023-03-28 19:00:[address] [facility] TDAP 2023-03-28 19:00:[address] [facility] Influenza Virus Vaccine Quad .5 mL IM 6+ MO (FLUZONE/FLULAVAL/F LUARIX) 2023-03-28 19:00:[address] [facility] Pneumococcal Polysaccharide, PPSV23 (PNEUMOVAX) 2023-03-28 19:00:[address] [facility] SARS-COV-2 COVID-19 MODERNA 12+ YRS VACCINE 2023-03-28 19:00:[address] [facility] Influenza Virus Vaccine Quad IM, Preserv and ABX Free 6 MO-64 YRS (FLUCELVAX) 2023-03-28 19:00:[address] [facility] Influenza Virus Vaccine 2023-01-03 12:45:[address] [facility] TDAP 2023-01-03 12:45:[address] [facility] Influenza Virus Vaccine Quad .5 mL IM 6+ MO (FLUZONE/FLULAVAL/F LUARIX) 2023-01-03 12:45:[address] [facility] Pneumococcal Polysaccharide, PPSV23 (PNEUMOVAX) 2023-01-03 12:45:[address] [facility] SARS-COV-2 COVID-19 MODERNA 12+ YRS VACCINE 2023-01-03 12:45:[address] [facility] Influenza Virus Vaccine Quad IM, Preserv and ABX Free 6 MO-64 YRS (FLUCELVAX) 2023-01-03 12:45:[address] [facility] Influenza Virus Vaccine 2023-01-02 00:00:[address] [facility] TDAP 2023-01-02 00:00:[address] [facility] Influenza Virus Vaccine Quad .5 mL IM 6+ MO (FLUZONE/FLULAVAL/F LUARIX) 2023-01-02 00:00:[address] [facility] Pneumococcal Polysaccharide, PPSV23 (PNEUMOVAX) 2023-01-02 00:00:[address] [facility] SARS-COV-2 COVID-19 MODERNA 12+ YRS VACCINE 2023-01-02 00:00:[address] [facility] Influenza Virus Vaccine Quad IM, Preserv and ABX Free 6 MO-64 YRS (FLUCELVAX) 2023-01-02 00:00:[address] [facility] Influenza Virus Vaccine 2022-12-01 00:00:[address] [facility] TDAP 2022-12-01 00:00:[address] [facility] Influenza Virus Vaccine Quad .5 mL IM 6+ MO (FLUZONE/FLULAVAL/F LUARIX) 2022-12-01 00:00:[address] [facility] Pneumococcal Polysaccharide, PPSV23 (PNEUMOVAX) 2022-12-01 00:00:[address] [facility] SARS-COV-2 COVID-19 MODERNA 12+ YRS VACCINE 2022-12-01 00:00:[address] [facility] Influenza Virus Vaccine Quad IM, Preserv and ABX Free 6 MO-64 YRS (FLUCELVAX) 2022-12-01 00:00:[address] [facility] Influenza Virus Vaccine Quad IM, Preserv and ABX Free 6 MO-64 YRS 2021-12-27 00:00:[address] [facility] Influenza Virus Vaccine Quad IM, Preserv and ABX Free 6 MO-64 YRS 2021-12-27 00:00:[address] [facility] Influenza Virus Vaccine Quad IM, Preserv and ABX Free 6 MO-64 YRS 2021-12-27 00:00:[address] [facility] Influenza Virus Vaccine Quad IM, Preserv and ABX Free 6 MO-64 YRS 2021-12-27 00:00:[address] [facility] Influenza Virus Vaccine Quad IM, Preserv and ABX Free 6 MO-64 YRS 2021-12-27 00:00:[address] [facility] Influenza Virus Vaccine Quad IM, Preserv and ABX Free 6 MO-64 YRS 2021-12-27 00:00:[address] [facility] TDAP 2021-06-09 00:00:[address] [facility] TDAP 2021-06-09 00:00:[address] [facility] TDAP 2021-06-09 00:00:[address] [facility] TDAP 2021-06-09 00:00:[address] [facility] TDAP 2021-06-09 00:00:[address] [facility] TDAP 2021-06-09 00:00:[address] [facility] TDAP 2021-06-09 00:00:[address] [facility] TDAP 2021-06-09 00:00:[address] [facility] TDAP 2021-06-09 00:00:[address] [facility] TDAP 2021-06-09 00:00:[address] [facility] TDAP 2021-06-09 00:00:[address] [facility] TDAP 2021-06-09 00:00:[address] [facility] TDAP 2021-06-09 00:00:[address] [facility] TDAP 2021-06-09 00:00:[address] [facility] TDAP 2021-06-09 00:00:00 Completed TDAP 2021-06-09 00:00:[address] [facility] Influenza Virus Vaccine 2021-05-10 00:00:[address] [facility] TDAP 2021-05-10 00:00:[address] [facility] Influenza Virus Vaccine Quad .5 mL IM 6+ MO (FLUZONE/FLULAVAL/F LUARIX) 2021-05-10 00:00:[address] [facility] Pneumococcal Polysaccharide, PPSV23 (PNEUMOVAX) 2021-05-10 00:00:[address] [facility] SARS-COV-2 COVID-19 MODERNA 12+ YRS VACCINE 2021-05-10 00:00:[address] [facility] Influenza Virus Vaccine 2020-12-09 00:00:[address] [facility] Influenza Virus Vaccine 2020-12-09 00:00:[address] [facility] Influenza Virus Vaccine 2020-12-09 00:00:[address] [facility] Influenza Virus Vaccine 2020-12-09 00:00:[address] [facility] Influenza Virus Vaccine 2020-12-09 00:00:[address] [facility] Influenza Virus Vaccine 2020-12-09 00:00:[address] [facility] Influenza Virus Vaccine 2020-12-09 00:00:[address] [facility] Influenza Virus Vaccine 2020-12-09 00:00:[address] [facility] Influenza Virus Vaccine 2020-12-09 00:00:[address] [facility] Influenza Virus Vaccine 2020-12-09 00:00:[address] [facility] Influenza Virus Vaccine 2020-12-09 00:00:[address] [facility] Influenza Virus Vaccine 2020-12-09 00:00:[address] [facility] Influenza Virus Vaccine 2020-12-09 00:00:[address] [facility] Influenza Virus Vaccine 2020-12-09 00:00:[address] [facility] Influenza Virus Vaccine 2020-12-09 00:00:[address] [facility] Influenza Virus Vaccine 2020-12-09 00:00:[address] [facility] Influenza Virus Vaccine 2020-06-25 00:00:[address] [facility] TDAP 2020-06-25 00:00:[address] [facility] Influenza Virus Vaccine Quad .5 mL IM 6+ MO (FLUZONE/FLULAVAL/F LUARIX) 2020-06-25 00:00:[address] [facility] Pneumococcal Polysaccharide, PPSV23 (PNEUMOVAX) 2020-06-25 00:00:[address] [facility] SARS-COV-2 COVID-19 MODERNA 12+ YRS VACCINE 2020-06-25 00:00:[address] [facility] SARS-COV-2 COVID-19 MODERNA VACCINE 2020-05-22 00:00:[address] [facility] SARS-COV-2 COVID-19 MODERNA VACCINE 2020-05-22 00:00:[address] [facility] SARS-COV-2 COVID-19 MODERNA VACCINE 2020-05-22 00:00:[address] [facility] SARS-COV-2 COVID-19 MODERNA VACCINE 2020-05-22 00:00:[address] [facility] SARS-COV-2 COVID-19 MODERNA VACCINE 2020-05-22 00:00:[address] [facility] SARS-COV-2 COVID-19 MODERNA 12+ YRS VACCINE 2020-05-22 00:00:[address] [facility] SARS-COV-2 COVID-19 MODERNA 12+ YRS VACCINE 2020-05-22 00:00:[address] [facility] SARS-COV-2 COVID-19 MODERNA 12+ YRS VACCINE 2020-05-22 00:00:[address] [facility] SARS-COV-2 COVID-19 MODERNA 12+ YRS VACCINE 2020-05-22 00:00:[address] [facility] SARS-COV-2 COVID-19 MODERNA 12+ YRS VACCINE 2020-05-22 00:00:[address] [facility] SARS-COV-2 COVID-19 MODERNA 12+ YRS VACCINE 2020-05-22 00:00:[address] [facility] SARS-COV-2 COVID-19 MODERNA 12+ YRS VACCINE 2020-05-22 00:00:[address] [facility] SARS-COV-2 COVID-19 MODERNA 12+ YRS VACCINE 2020-05-22 00:00:[address] [facility] SARS-COV-2 COVID-19 MODERNA 12+ YRS VACCINE 2020-05-22 00:00:[address] [facility] SARS-COV-2 COVID-19 MODERNA 12+ YRS VACCINE 2020-05-22 00:00:00 Completed SARS-COV-2 COVID-19 MODERNA VACCINE 2020-05-22 00:00:[address] [facility] SARS-COV-2 COVID-19 MODERNA VACCINE 2020-04-10 00:00:[address] [facility] SARS-COV-2 COVID-19 MODERNA VACCINE 2020-04-10 00:00:[address] [facility] SARS-COV-2 COVID-19 MODERNA VACCINE 2020-04-10 00:00:[address] [facility] SARS-COV-2 COVID-19 MODERNA VACCINE 2020-04-10 00:00:[address] [facility] SARS-COV-2 COVID-19 MODERNA VACCINE 2020-04-10 00:00:[address] [facility] SARS-COV-2 COVID-19 MODERNA 12+ YRS VACCINE 2020-04-10 00:00:[address] [facility] SARS-COV-2 COVID-19 MODERNA 12+ YRS VACCINE 2020-04-10 00:00:[address] [facility] SARS-COV-2 COVID-19 MODERNA 12+ YRS VACCINE 2020-04-10 00:00:[address] [facility] SARS-COV-2 COVID-19 MODERNA 12+ YRS VACCINE 2020-04-10 00:00:[address] [facility] SARS-COV-2 COVID-19 MODERNA 12+ YRS VACCINE 2020-04-10 00:00:[address] [facility] SARS-COV-2 COVID-19 MODERNA 12+ YRS VACCINE 2020-04-10 00:00:[address] [facility] SARS-COV-2 COVID-19 MODERNA 12+ YRS VACCINE 2020-04-10 00:00:[address] [facility] SARS-COV-2 COVID-19 MODERNA 12+ YRS VACCINE 2020-04-10 00:00:[address] [facility] SARS-COV-2 COVID-19 MODERNA 12+ YRS VACCINE 2020-04-10 00:00:[address] [facility] SARS-COV-2 COVID-19 MODERNA VACCINE 2020-04-10 00:00:[address] [facility] Influenza Virus Vaccine Quad .5 mL IM 6+ MO 2019-11-27 00:00:[address] [facility] Influenza Virus Vaccine Quad .5 mL IM 6+ MO 2019-11-27 00:00:[address] [facility] Influenza Virus Vaccine Quad .5 mL IM 6+ MO 2019-11-27 00:00:[address] [facility] Influenza Virus Vaccine Quad .5 mL IM 6+ MO 2019-11-27 00:00:[address] [facility] Influenza Virus Vaccine Quad .5 mL IM 6+ MO 2019-11-27 00:00:[address] [facility] Influenza Virus Vaccine Quad .5 mL IM 6+ MO 2019-11-27 00:00:[address] [facility] Influenza Virus Vaccine Quad .5 mL IM 6+ MO 2019-11-27 00:00:[address] [facility] Influenza Virus Vaccine Quad .5 mL IM 6+ MO 2019-11-27 00:00:[address] [facility] Influenza Virus Vaccine Quad .5 mL IM 6+ MO 2019-11-27 00:00:[address] [facility] Influenza Virus Vaccine Quad .5 mL IM 6+ MO 2019-11-27 00:00:[address] [facility] Influenza Virus Vaccine Quad .5 mL IM 6+ MO 2019-11-27 00:00:[address] [facility] Influenza Virus Vaccine Quad .5 mL IM 6+ MO 2019-11-27 00:00:[address] [facility] Influenza Virus Vaccine Quad .5 mL IM 6+ MO 2019-11-27 00:00:[address] [facility] Influenza Virus Vaccine Quad .5 mL IM 6+ MO 2019-11-27 00:00:[address] [facility] Influenza Virus Vaccine Quad .5 mL IM 6+ MO (FLUZONE/FLULAVAL/F LUARIX) 2019-11-27 00:00:[address] [facility] Influenza Virus Vaccine Quad .5 mL IM 6+ MO 2019-11-27 00:00:[address] [facility] Influenza Virus Vaccine Quad .5 mL IM 6+ MO 2019-01-07 00:00:[address] [facility] Pneumococcal Polysaccharide, PPSV23 (PNEUMOVAX) 2019-01-07 00:00:[address] [facility] Influenza Virus Vaccine Quad .5 mL IM 6+ MO 2019-01-07 00:00:[address] [facility] Pneumococcal Polysaccharide, PPSV23 (PNEUMOVAX) 2019-01-07 00:00:[address] [facility] Influenza Virus Vaccine Quad .5 mL IM 6+ MO 2019-01-07 00:00:[address] [facility] Pneumococcal Polysaccharide, PPSV23 (PNEUMOVAX) 2019-01-07 00:00:[address] [facility] Influenza Virus Vaccine Quad .5 mL IM 6+ MO 2019-01-07 00:00:[address] [facility] Pneumococcal Polysaccharide, PPSV23 (PNEUMOVAX) 2019-01-07 00:00:[address] [facility] Influenza Virus Vaccine Quad .5 mL IM 6+ MO 2019-01-07 00:00:[address] [facility] Pneumococcal Polysaccharide, PPSV23 (PNEUMOVAX) 2019-01-07 00:00:[address] [facility] Influenza Virus Vaccine Quad .5 mL IM 6+ MO 2019-01-07 00:00:[address] [facility] Pneumococcal Polysaccharide, PPSV23 (PNEUMOVAX) 2019-01-07 00:00:[address] [facility] Influenza Virus Vaccine Quad .5 mL IM 6+ MO 2019-01-07 00:00:[address] [facility] Pneumococcal Polysaccharide, PPSV23 (PNEUMOVAX) 2019-01-07 00:00:[address] [facility] Influenza Virus Vaccine Quad .5 mL IM 6+ MO 2019-01-07 00:00:[address] [facility] Pneumococcal Polysaccharide, PPSV23 (PNEUMOVAX) 2019-01-07 00:00:[address] [facility] Influenza Virus Vaccine Quad .5 mL IM 6+ MO 2019-01-07 00:00:[address] [facility] Pneumococcal Polysaccharide, PPSV23 (PNEUMOVAX) 2019-01-07 00:00:[address] [facility] Influenza Virus Vaccine Quad .5 mL IM 6+ MO 2019-01-07 00:00:[address] [facility] Pneumococcal Polysaccharide, PPSV23 (PNEUMOVAX) 2019-01-07 00:00:[address] [facility] Influenza Virus Vaccine Quad .5 mL IM 6+ MO 2019-01-07 00:00:[address] [facility] Pneumococcal Polysaccharide, PPSV23 (PNEUMOVAX) 2019-01-07 00:00:[address] [facility] Influenza Virus Vaccine Quad .5 mL IM 6+ MO 2019-01-07 00:00:[address] [facility] Pneumococcal Polysaccharide, PPSV23 (PNEUMOVAX) 2019-01-07 00:00:[address] [facility] Influenza Virus Vaccine Quad .5 mL IM 6+ MO 2019-01-07 00:00:[address] [facility] Pneumococcal Polysaccharide, PPSV23 (PNEUMOVAX) 2019-01-07 00:00:[address] [facility] Influenza Virus Vaccine Quad .5 mL IM 6+ MO 2019-01-07 00:00:[address] [facility] Pneumococcal Polysaccharide, PPSV23 (PNEUMOVAX) 2019-01-07 00:00:[address] [facility] Influenza Virus Vaccine Quad .5 mL IM 6+ MO 2019-01-07 00:00:[address] [facility] Pneumococcal Polysaccharide, PPSV23 (PNEUMOVAX) 2019-01-07 00:00:[address] [facility] Influenza Virus Vaccine 2017-11-21 00:00:[address] [facility] Influenza Virus Vaccine 2017-11-21 00:00:[address] [facility] Influenza Virus Vaccine 2017-11-21 00:00:[address] [facility] Influenza Virus Vaccine 2017-11-21 00:00:[address] [facility] Influenza Virus Vaccine 2017-11-21 00:00:[address] [facility] Influenza Virus Vaccine 2017-11-21 00:00:[address] [facility] Influenza Virus Vaccine 2017-11-21 00:00:[address] [facility] Influenza Virus Vaccine 2017-11-21 00:00:[address] [facility] Influenza Virus Vaccine 2017-11-21 00:00:[address] [facility] Influenza Virus Vaccine 2017-11-21 00:00:[address] [facility] Influenza Virus Vaccine 2017-11-21 00:00:[address] [facility] Influenza Virus Vaccine 2017-11-21 00:00:[address] [facility] Influenza Virus Vaccine 2017-11-21 00:00:[address] [facility] Influenza Virus Vaccine 2017-11-21 00:00:[address] [facility] Influenza Virus Vaccine 2017-11-21 00:00:[address] [facility] TDAP 2011-01-02 00:00:[address] [facility] TDAP 2011-01-02 00:00:[address] [facility] TDAP 2011-01-02 00:00:[address] [facility] TDAP 2011-01-02 00:00:[address] [facility] TDAP 2011-01-02 00:00:[address] [facility] TDAP 2011-01-02 00:00:[address] [facility] TDAP 2011-01-02 00:00:[address] [facility] TDAP 2011-01-02 00:00:[address] [facility] TDAP 2011-01-02 00:00:[address] [facility] TDAP 2011-01-02 00:00:[address] [facility] TDAP 2011-01-02 00:00:[address] [facility] TDAP 2011-01-02 00:00:[address] [facility] TDAP 2011-01-02 00:00:[address] [facility] TDAP 2011-01-02 00:00:[address] [facility] TDAP 2011-01-02 00:00:[address] [facility] Vital Signs Vital Name Observation Time Observation Value Comments S ource Systolic blood pressure 2024-03-26 22:15:00 132 mm[Hg] General acute hospital Diastolic blood pressure 2024-03-26 22:15:00 75 mm[Hg] General acute hospital Heart rate 2024-03-26 22:09:00 68 /min [facility] Body height 2024-03-26 22:09:00 170.2 cm [facility] Body weight 2024-03-26 22:09:00 110.859 kg [facility] BMI 2024-03-26 22:09:00 38.28 kg/m2 [facility] Oxygen saturation in Arterial blood by Pulse oximetry 2024-03-26 22:09:00 99 /min General acute hospital Systolic blood pressure 2024-03-20 22:20:00 157 mm[Hg] General acute hospital Diastolic blood pressure 2024-03-20 22:20:00 76 mm[Hg] General acute hospital Heart rate 2024-03-20 22:20:00 83 /min [facility] Body height 2024-03-20 22:20:00 170.2 cm [facility] Body weight 2024-03-20 22:20:00 110.224 kg [facility] BMI 2024-03-20 22:20:00 38.06 kg/m2 [facility] Systolic blood pressure 2024-02-06 20:08:00 134 mm[Hg] General acute hospital Diastolic blood pressure 2024-02-06 20:08:00 82 mm[Hg] General acute hospital Heart rate 2024-02-06 20:08:00 90 /min Unive [facility] Body temperature 2024-02-06 20:08:[address] [facility] Respiratory rate 2024-02-06 20:08:00 15 /min [facility] Body height 2024-02-06 20:08:00 170.2 cm [facility] Body weight 2024-02-06 20:08:00 108.909 kg [facility] BMI 2024-02-06 20:08:00 37.60 kg/m2 [facility] Oxygen saturation in Arterial blood by Pulse oximetry 2024-02-06 20:08:00 96 /min General acute hospital Systolic blood pressure 2023-10-29 23:36:00 152 mm[Hg] General acute hospital Diastolic blood pressure 2023-10-29 23:36:00 99 mm[Hg] General acute hospital Heart rate 2023-10-29 23:35:00 98 /min [facility] Body temperature 2023-10-29 23:35:[address] [facility] Respiratory rate 2023-10-29 23:35:00 22 /min [facility] Body weight 2023-10-29 23:35:00 110.678 kg [facility] BMI 2023-10-29 23:35:00 38.22 kg/m2 [facility] Oxygen saturation in Arterial blood by Pulse oximetry 2023-10-29 23:35:00 99 /min General acute hospital Systolic blood pressure 2023-08-09 19:22:00 132 mm[Hg] General acute hospital Diastolic blood pressure 2023-08-09 19:22:00 85 mm[Hg] General acute hospital Heart rate 2023-08-09 19:22:00 98 /min [facility] Respiratory rate 2023-08-09 19:22:00 18 /min [facility] Body height 2023-08-09 19:22:00 170.2 cm [facility] Body weight 2023-08-09 19:22:00 108.863 kg [facility] BMI 2023-08-09 19:22:00 37.59 kg/m2 [facility] Systolic blood pressure 2023-03-29 00:51:00 148 mm[Hg] General acute hospital Diastolic blood pressure 2023-03-29 00:51:00 84 mm[Hg] General acute hospital Heart rate 2023-03-29 00:51:00 96 /min [facility] Respiratory rate 2023-03-29 00:51:00 18 /min [facility] Body height 2023-03-29 00:51:00 170.2 cm [facility] Body weight 2023-03-29 00:51:00 108.682 kg [facility] BMI 2023-03-29 00:51:00 37.53 kg/m2 [facility] Oxygen saturation in Arterial blood by Pulse oximetry 2023-03-29 00:51:00 96 /min General acute hospital Systolic blood pressure 2023-01-03 17:37:00 138 mm[Hg] General acute hospital Diastolic blood pressure 2023-01-03 17:37:00 82 mm[Hg] General acute hospital Heart rate 2023-01-03 17:37:00 89 /min [facility] Body height 2023-01-03 17:37:00 170.2 cm [facility] Body weight 2023-01-03 17:37:00 108.138 kg [facility] BMI 2023-01-03 17:37:00 37.34 kg/m2 [facility] Oxygen saturation in Arterial blood by Pulse oximetry 2023-01-03 17:37:00 97 /min General acute hospital Systolic blood pressure 2022-07-23 01:52:00 147 mm[Hg] General acute hospital Diastolic blood pressure 2022-07-23 01:52:00 94 mm[Hg] General acute hospital Heart rate 2022-07-23 01:52:00 74 /min [facility] Body temperature 2022-07-23 01:52:[address] [facility] Respiratory rate 2022-07-23 01:52:00 20 /min [facility] Body height 2022-07-23 01:52:00 170.2 cm [facility] Body weight 2022-07-23 01:52:00 104.327 kg [facility] BMI 2022-07-23 01:52:00 36.02 kg/m2 [facility] Oxygen saturation in Arterial blood by Pulse oximetry 2022-07-23 01:52:00 96 /min General acute hospital Systolic blood pressure 2022-06-16 15:22:00 118 mm[Hg] General acute hospital Diastolic blood pressure 2022-06-16 15:22:00 73 mm[Hg] General acute hospital Heart rate 2022-06-16 15:22:00 97 /min [facility] Respiratory rate 2022-06-16 15:22:00 16 /min [facility] Body height 2022-06-16 15:22:00 170.2 cm [facility] Body weight 2022-06-16 15:22:00 103.375 kg [facility] BMI 2022-06-16 15:22:00 35.69 kg/m2 [facility] Oxygen saturation in Arterial blood by Pulse oximetry 2022-06-16 15:22:00 97 /min General acute hospital Systolic blood pressure 2022-01-30 16:35:00 135 mm[Hg] General acute hospital Diastolic blood pressure 2022-01-30 16:35:00 82 mm[Hg] General acute hospital Heart rate 2022-01-30 16:34:00 80 /min [facility] Body temperature 2022-01-30 16:34:[address] [facility] Body height 2022-01-30 16:34:00 170.2 cm [facility] Body weight 2022-01-30 16:34:00 103.42 kg [facility] BMI 2022-01-30 16:34:00 35.71 kg/m2 [facility] Oxygen saturation in Arterial blood by Pulse oximetry 2022-01-30 16:34:00 98 /min General acute hospital Systolic blood pressure 2022-01-04 22:43:00 136 mm[Hg] General acute hospital Diastolic blood pressure 2022-01-04 22:43:00 89 mm[Hg] General acute hospital Heart rate 2022-01-04 22:43:00 73 /min [facility] Body temperature 2022-01-04 22:43:[address] [facility] Respiratory rate 2022-01-04 22:43:00 16 /min [facility] Body height 2022-01-04 22:43:00 170.2 cm [facility] Body weight 2022-01-04 22:43:00 102.513 kg [facility] BMI 2022-01-04 22:43:00 35.40 kg/m2 [facility] Oxygen saturation in Arterial blood by Pulse oximetry 2022-01-04 22:43:00 98 /min General acute hospital Systolic blood pressure 2021-12-03 21:10:00 128 mm[Hg] General acute hospital Diastolic blood pressure 2021-12-03 21:10:00 77 mm[Hg] General acute hospital Heart rate 2021-12-03 21:00:00 84 /min [facility] Body temperature 2021-12-03 21:00:[address] [facility] Respiratory rate 2021-12-03 21:00:00 18 /min [facility] Body height 2021-12-03 21:00:00 170.2 cm [facility] Body weight 2021-12-03 21:00:00 102.967 kg [facility] BMI 2021-12-03 21:00:00 35.55 kg/m2 [facility] Oxygen saturation in Arterial blood by Pulse oximetry 2021-12-03 21:00:00 97 /min General acute hospital Systolic blood pressure 2021-07-10 22:27:00 137 mm[Hg] General acute hospital Diastolic blood pressure 2021-07-10 22:27:00 82 mm[Hg] General acute hospital Heart rate 2021-07-10 22:25:00 91 /min [facility] Body temperature 2021-07-10 22:25:[address] [facility] Respiratory rate 2021-07-10 22:25:00 16 /min [facility] Body height 2021-07-10 22:25:00 170.2 cm [facility] Body weight 2021-07-10 22:25:00 106.323 kg [facility] BMI 2021-07-10 22:25:00 36.71 kg/m2 [facility] Oxygen saturation in Arterial blood by Pulse oximetry 2021-07-10 22:25:00 98 /min General acute hospital Systolic blood pressure 2021-06-09 15:34:00 133 mm[Hg] General acute hospital Diastolic blood pressure 2021-06-09 15:34:00 82 mm[Hg] General acute hospital Heart rate 2021-06-09 15:34:00 84 /min [facility] Body temperature 2021-06-09 15:34:[address] [facility] Respiratory rate 2021-06-09 15:34:00 20 /min [facility] Body height 2021-06-09 15:34:00 170.2 cm [facility] Body weight 2021-06-09 15:34:00 106.777 kg [facility] BMI 2021-06-09 15:34:00 36.87 kg/m2 [facility] Oxygen saturation in Arterial blood by Pulse oximetry 2021-06-09 15:34:00 96 /min General acute hospital Procedures Procedure Date / Time Performed Performing Clinician Source FLU VACC ([id number]), 6 MO-64 YRS, .5ML, IM, TIV (FLUCELVAX) 2024-03-20 22:49:27 Tamara Sheldon [facility] POCT SARS-COV-2 ANTIGEN (BINAX NOW) 2023-10-30 00:38:[address] [facility] BI SCREENING TOMOSYNTHESIS BILATERAL 2023-08-20 19:53:[address] [facility] EXTERNAL PROVIDER RECORDS 2022-10-09 05:01:00 Doctor Unassigned, [place] [facility] ASSIGNMENT OF BENEFITS 2022-06-16 14:55:50 Docto r Unassigned, [place] [facility] EXTERNAL PROVIDER RECORDS 2021-08-15 05:01:00 Doctor Unassigned, [place] [facility] TDAP VACCINE, >11 YRS, IM 2021-06-09 15:56:[address] [facility] CONSENT FOR CONTRACEPTION 2021-06-09 05:01:00 Doctor Unassigned, [place] [facility] EXTERNAL PROVIDER RECORDS 2021-03-30 06:01:00 Doctor Unassigned, [place] [facility] Encounters Start Date/Time End Date/Time Encounter Type Admission Type Attending Clinicians Care Facility Care Department Encounter ID Source 2024-07-12 00:00:00 2024-07-14 13:33:58 [facility] 1.2.840.114 350.1.13.10 4.2.7.2.686 [id number] [facility] 2024-06-15 00:00:00 2024-06-16 09:09:50 Luciano C[facility] JOHN?[facility] 1.284.114 350.1.13.10 4.2.7.2.686 [id number] [facility] 2024-05-28 18:40:00 2024-05-28 18:40:00 Outpatient ANJUM JUARES [facility] [id number] [facility] 2021-03-24 00:00:00 2024-04-26 02:50:59 Orders Only Shilpi Quiroga Heather [facility] 1.84.114 350.1.13.10 4.2.7.2.686 [id number] [facility] 2024-04-21 00:00:00 2024-04-22 11:43:51 Luciano Cota [facility] JOHN?[facility] OFF[facility] 1.284.114 350.1.13.10 4.2.7.2.686 [id number] [id number] [facility] 2024-04-15 00:00:00 2024-04-16 14:52:10 Telephone Scotty Campos [facility] JOHN?[facility] OFF[facility] BU[facility] 1.2.84.114 350.1.13.10 4.2.7.2.686 [id number] [facility] 2024-04-15 00:00:00 2024-04-16 09:07:59 Telephone Scotty Campos [facility] JOHN?[facility] 1.2840.114 350.1.13.10 4.2.7.2.686 [id number] [facility] 2024-04-08 00:00:00 2024-04-09 16:35:15 Telephone Scotty Campos [facility] JOHN?[facility] MED[facility] OFF[facility] 1.840.114 350.1.13.10 4.2.7.2.686 [id number] [facility] 2024-03-26 00:00:00 2024-03-27 07:38:50 Telephone Marv Cota [facility] JOHN?[facility] MED[facility] OFFICE BUILD[facility] 1.840.114 350.1.13.10 4.2.7.2.686 [id number] [facility] 2024-03-26 16:20:00 2024-03-26 16:34:27 Outpatient R [facility] [id number] [facility] 2024-03-26 16:20:00 2024-03-26 16:34:27 [facility] 1.840.114 350.1.13.10 4.2.7.2.686 [id number] [facility] 2024-03-21 09:00:00 2024-03-21 09:15:00 Contract Loader Visit Lab, Tamara Edward Lab, Wyatt Winston [facility] JOHN?[facility] MED[facility] OFFICE BUILD[facility] 1.2840.114 350.1.13.10 4.2.7.2.686 [id number] [facility] 2024-03-21 09:00:00 2024-03-21 09:00:00 Outpatient R TAMARA SHELDON [facility] [id number] [facility] 2024-03-21 00:00:00 2024-03-21 07:32:01 [facility] 1.2840.114 350.1.13.10 4.2.7.2.686 [id number] [facility] 2024-03-20 16:00:00 2024-03-20 16:35:42 Outpatient R TAMARA SHELDON [facility] [id number] [facility] 2024-03-20 16:00:00 2024-03-20 16:35:42 Office Visit Tamara Sheldon [facility] JOHN?[facility] 1.2840.114 350.1.13.10 4.2.7.2.686 [id number] [facility] 2024-03-14 00:00:00 2024-03-14 15:42:05 Refday Cota [facility] JOHN?[facility] MED[facility] OFF[facility] BUILD[facility] 1.2840.114 350.1.13.10 4.2.7.2.686 [id number] [facility] 2024-03-04 00:00:00 2024-03-06 16:35:50 [facility]ill [facility]Yenny [facility] 1.20.114 350.1.13.10 4.2.7.2.686 [id number] [facility] 2024-02-18 00:00:00 2024-02-19 14:33:06 Refday [facility] 1.2840.114 350.1.13.10 4.2.7.2.686 [id number] [facility] 2024-02-06 13:40:00 2024-02-06 15:06:44 Outpatient R CHEY SNYDER SHAHNAZ [facility] [id number] [facility] 2024-02-06 13:40:00 2024-02-06 15:06:44 Urgent Care Chey Snyder Unknown, Attending [facility] MED[facility] OFF[facility] BUILD[facility] 1.840.114 350.1.13.10 4.2.7.2.686 [id number] [facility] 2023-12-12 00:00:00 2023-12-12 08:15:47 RefMarv Ceja [facility] MEDICAL OFFICE BUILDING 1.840.114 350.1.13.10 4.2.7.2.686 [id number] [facility] 2023-10-29 18:20:00 2023-10-29 18:40:00 Urgent Care Melly Crawford Unknown, Attending [facility] MED[facility] OFFICE BUILDING 1.840.114 350.1.13.10 4.2.7.2.686 [id number] [facility] 2023-10-29 18:20:00 2023-10-29 18:20:00 Outpatient R MELLY CRAWFORD [facility] [id number] [facility] 2023-08-29 00:00:00 2023-09-29 18:17:18 Patient Secure Msg Doctor Unassigned, [place] [facility] NAL BUILD[facility] 1.840.114 350.1.13.10 4.2.7.2.686 [id number] [facility] 2023-08-28 00:00:00 2023-08-30 09:37:01 Telephone Klarissa Crowell [facility] 1.2840.114 350.1.13.10 4.2.7.2.686 [id number] [facility] 2023-08-29 00:00:00 2023-08-30 09:09:25 Refill Cobian-Adams s, [facility] 1.2840.114 350.1.13.10 4.2.7.2.686 [id number] [facility] 2023-08-27 11:17:18 2023-08-27 23:59:00 Outpatient R COBIAN-ADAMS S, KLARISSA COBIAN-ADAMS S, KLARISSA [facility] [id number] [facility] 2023-08-27 11:00:00 2023-08-27 23:59:00 Hospital Encounter Cobian-Adams s, Klarissa [facility] 1.20.114 350.1.13.10 4.2.7.2.686 [id number] [facility] 2023-07-25 00:00:00 2023-08-25 18:17:25 Patient Secure Msg Doctor Unassigned, [place] [facility] 1.20.114 350.1.13.10 4.2.7.2.686 [id number] [facility] 2023-08-20 14:20:24 2023-08-20 23:59:00 Outpatient R COBIAN-ADAMS S, KLARISSA COBIAN-ADAMS S, KLARISSA [facility] [id number] [facility] 2023-08-20 14:20:00 2023-08-20 23:59:00 Hospital Encounter Cobian-Adams s, Klarissa [facility] 1.2840.114 350.1.13.10 4.2.7.2.686 [id number] [facility] 2023-08-10 09:30:00 2023-08-10 09:30:00 Outpatient R AZIZA Nolan, KLARISSA Nolan [facility] [id number] [facility] 2023-08-09 14:30:00 2023-08-09 14:47:28 Outpatient R AZIZA Nolan, KLARISSA Nolan [facility] [id number] [facility] 2023-08-09 14:30:00 2023-08-09 14:47:28 Office Visit Aziza nolan [facility] 1.2.840.114 350.1.13.10 4.2.7.2.686 [id number] 134 [id number] [facility] 2023-07-25 00:00:00 2023-07-25 08:54:21 Refill Aziza nolan [facility] 1.2.840.114 350.1.13.10 4.2.7.2.686 [id number] 134 [id number] [facility] 2023-06-20 00:00:00 2023-06-20 00:00:00 Refill Aziza nolan [facility] 1.2.840.114 350.1.13.10 4.2.7.2.686 [id number] [facility] 2023-04-08 00:00:00 2023-04-08 00:00:00 Refill Marv Cota [facility] JOHN?[facility] 1.2.840.114 350.1.13.10 4.2.7.2.686 [id number] [facility] 2023-03-28 19:00:00 2023-03-28 19:07:29 Outpatient ANJUM JUARES [facility] [id number] [facility] 2023-03-28 19:00:00 2023-03-28 19:07:29 Urgent Care Anjum Mireles Unknown, Attending [facility] MED[facility] OFFICE BUILDING 1.84.114 350.1.13.10 4.2.7.2.686 [id number] [facility] 2023-01-03 12:45:00 2023-01-03 12:51:19 Outpatient R CIPRIANO MARV [facility] [id number] [facility] 2023-01-03 12:45:00 2023-01-03 12:51:19 Office Visit Cipriano [facility] JOHN?[facility]Yenny [facility] 1.840.114 350.1.13.10 4.2.7.2.686 [id number] [facility] 2023-01-02 00:00:00 2023-01-02 00:00:00 Refill Cipriano [facility] JOHN?[facility] MED[facility] OFFICE BUILD[facility] 1.840.114 350.1.13.10 4.2.7.2.686 [id number] [facility] 2022-12-01 00:00:00 2022-12-01 00:00:00 Refill Cipriano [facility] JOHN?[facility] MED[facility] OFF[facility] BUILD[facility] 1.840.114 350.1.13.10 4.2.7.2.686 [id number] [facility] 2022-10-17 00:00:00 2022-10-17 00:00:00 Outpatient KLARISSA LAI MARISOL [facility] [id number] [facility] 2022-10-09 00:00:00 2022-10-09 00:00:00 Orders Only Doctor Unassigned, [place] [facility] 1.84.114 350.1.13.10 4.2.7.2.686 [id number] [facility] 2022-09-25 00:00:00 2022-09-25 00:00:00 Telephone [facility] 1.114 350.1.13.10 4.2.7.2.686 [id number] [facility] 2022-07-22 20:40:00 2022-07-22 21:00:00 Urgent Care Deidra Malikajovani Blackmon, Attending [facility] MED[facility] OFFICE BUILD[facility] 1.114 350.1.13.10 4.2.7.2.686 [id number] [facility] 2022-07-22 20:40:00 2022-07-22 20:40:00 Outpatient R MALIKA URIOSTEGUI [facility] [id number] [facility] 2022-06-16 10:00:00 2022-06-16 10:47:00 Outpatient KLARISSA LAI MARISOL [facility] [id number] [facility] 2022-06-16 10:00:00 2022-06-16 10:47:00 Office Visit Klarissa Crowell [facility] 1.114 350.1.13.10 4.2.7.2.686 [id number] [facility] 2022-06-16 00:00:00 2022-06-16 00:00:00 Orders Only Doctor Unassigned, [place] [facility] 1.114 350.1.13.10 4.2.7.2.686 [id number] [id number] [facility] 2022-06-12 08:30:00 2022-06-12 08:30:00 Outpatient ANJUM JUARES [facility] [id number] [facility] 2022-06-12 08:30:00 2022-06-12 08:30:00 Outpatient R ANJUM MIRELES [facility] [id number] [facility] 2022-01-30 10:30:00 2022-01-30 11:00:00 Office Visit Anna Dominique [facility] JOHN?[facility] 1.2.840.114 350.1.13.10 4.2.7.2.686 [id number] [facility] 2022-01-30 10:30:00 2022-01-30 10:30:00 Outpatient R DOMINIQUE TRIMBLE [facility] [id number] [facility] 2022-01-04 17:40:00 2022-01-04 18:09:43 Outpatient R JUAN DE LEON [facility] [id number] [facility] 2022-01-04 17:40:00 2022-01-04 18:09:43 Urgent Care Juan De Leon Unknown, Attending [facility]?FAUSTINOYenny JOSEPH MEDICAL OFF[facility] BUILDING 1.2.840.114 350.1.13.10 4.2.7.2.686 [id number] [facility] 2021-12-03 16:20:00 2021-12-03 16:40:00 Urgent Care Marce Yay Unknown, Attending [facility] JOHN?FAUSTINOYenny ALMAGUER [facility] OFF[facility] 1.2.840.114 350.1.13.10 4.2.7.2.686 [id number] [facility] 2021-12-03 16:20:00 2021-12-03 16:20:00 Outpatient R RICHARD YA [facility] [id number] [facility] 2021-11-17 00:00:00 2021-11-17 00:00:00 Marv Lucas [facility] JOHN?[facility] 1.2.840.114 350.1.13.10 4.2.7.2.686 [id number] [facility] 2021-11-04 00:00:00 2021-11-04 00:00:00 [facility] 1.840.114 350.1.13.10 4.2.7.2.686 [id number] [facility] 2021-08-15 00:00:00 2021-08-15 00:00:00 Orders Only Doctor Unassigned, [place] [facility] 1.0.114 350.1.13.10 4.2.7.2.686 [id number] [facility] 2021-08-02 00:00:00 2021-08-02 00:00:00 Telephone Cipriano [facility] 1.84.114 350.1.13.10 4.2.7.2.686 [id number] [facility] 2021-07-10 17:20:00 2021-07-10 17:40:00 Urgent Care Malika Uriostegui [facility] 1.840.114 350.1.13.10 4.2.7.2.686 [id number] [facility] 2021-07-10 17:20:00 2021-07-10 17:20:00 Outpatient R MALIKA URIOSTEGUI [facility] [id number] [facility] 2021-06-09 10:00:00 2021-06-09 11:00:06 [facility] 1.840.114 350.1.13.10 4.2.7.2.686 [id number] [facility] 2021-06-09 10:00:00 2021-06-09 11:00:06 Outpatient R ALINEANJUM [facility] [id number] [facility] 2021-06-09 10:00:00 2021-06-09 10:00:00 Outpatient R ALINEANJUM [facility] [id number] [facility] 2021-06-09 00:00:00 2021-06-09 00:00:00 Orders Only Doctor Unassigned, [place] [facility] 1.84.114 350.1.13.10 4.2.7.2.686 [id number] [facility] 2021-05-19 11:00:00 2021-05-19 11:38:14 Outpatient R TAMARA YIN III [facility] [id number] [facility] 2021-05-19 00:00:00 2021-05-19 00:00:00 Orders Only Doctor Unassigned, [place] [facility] 1.84.114 350.1.13.10 4.2.7.2.686 [id number] [facility] 2021-05-17 14:00:00 2021-05-17 14:00:00 Outpatient ROSE MARY NOVA [facility] [id number] [facility] 2021-05-17 14:00:00 2021-05-17 14:00:00 Outpatient ROSE MARY NOVA [facility] [id number] [facility] 2021-05-17 10:00:00 2021-05-17 10:00:00 Outpatient R RAJNI RIOS CHERYAL [facility] [id number] [facility] 2021-05-10 00:00:00 2021-05-10 00:00:00 Patient Secure Msg Doctor Unassigned, [place] [facility] 1.840.114 350.1.13.10 4.2.7.2.686 [id number] [facility] 2021-04-22 00:00:00 2021-04-22 00:00:00 Rose Mary Garcia [facility] 1.2840.114 350.1.13.10 4.2.7.2.686 [id number] [facility] 2021-04-02 00:00:00 2021-04-02 00:00:00 Telephone Merissa Reich [facility] 1..114 350.1.13.10 4.2.7.2.686 [id number] [facility] 2021-04-01 12:15:00 2021-04-01 12:37:51 Outpatient R JENNIFER DUARTE [facility] [id number] [facility] 2021-04-01 12:15:00 2021-04-01 12:30:00 Laboratory Only Only, Ang Db Test Gerald [facility] MED[facility] OFFICE BUILDING 1.114 350.1.13.10 4.2.7.2.686 [id number] [facility] 2021-02-08 00:00:00 2021-02-08 00:00:00 Orders Only Doctor Unassigned, [place] [facility] 1.0.114 350.1.13.10 4.2.7.2.686 [id number] [facility] 2021-01-31 14:24:05 2021-01-31 15:00:34 [facility] BUILD[facility] 1.2.114 350.1.13.10 4.2.7.2.686 [id number] [facility] 2021-01-31 14:00:00 2021-01-31 15:00:34 Outpatient R JOO PAULINO [facility] [id number] [facility] 2021-01-31 12:45:00 2021-01-31 12:45:00 Outpatient R COTAMARV SORIA [facility] [id number] [facility] 2021-01-31 00:00:00 2021-01-31 00:00:00 Telephone Joo Paulino [facility] JOHN?[facility] MEDICAL OFFICE BUILDING 1..114 350.1.13.10 4.2.7.2.686 [id number] [facility] 2021-01-20 00:00:00 2021-01-20 00:00:00 Telephone Marv Cota [facility] JOHN?[facility] MEDICAL OFFICE BUILDING 1..114 350.1.13.10 4.2.7.2.686 [id number] [facility] 2020-11-03 00:00:00 2020-11-03 00:00:00 Refill Marv Cota [facility] John[facility] Medical Office Building 1.114 350.1.13.10 4.2.7.2.686 [id number] [facility] 2020-10-30 00:00:00 2020-10-30 00:00:00 Refill Doctor Unassigned, [place] [facility] Office Building One .114 350.1.13.10 4.2.7.2.686 [id number] [facility] 2020-08-11 13:53:21 2020-08-11 15:26:35 Contract Loader Visit Lab, Adc Fam Pob Pee Marv Cota [facility] Office Building One ..114 350.1.13.10 4.2.7.2.686 [id number] [facility] 2020-08-11 13:30:30 2020-08-11 13:52:02 Office Visit Marv Cota [facility] Office Building One 1.114 350.1.13.10 4.2.7.2.686 [id number] [facility] 2020-08-11 13:30:00 2020-08-11 13:30:00 Outpatient R MARV COTA [facility] [id number] [facility] 2020-07-27 08:00:00 2020-07-27 23:59:00 Hospital Encounter Rose Mary Pickering [facility] 1..114 350.1.13.10 4.2.7.2.686 [id number] [facility] 2020-07-27 09:23:09 2020-07-27 09:43:09 Contract Loader Visit Lab, Adc [facility] Pob I Rose Mary Pickering [facility] Office Building One 1.114 350.1.13.10 4.2.7.2.686 [id number] [facility] 2020-07-27 08:38:32 2020-07-27 08:53:32 Office Visit Marv oCta [facility] Office Building One 1.114 350.1.13.10 4.2.7.2.686 [id number] [facility] 2020-07-27 00:00:00 2020-07-27 00:00:00 Outpatient ROSE MARY [facility] [id number] [facility] 2020-07-17 00:00:00 2020-07-17 00:00:00 Refill Cipriano [facility] Office Building One 1.114 350.1.13.10 4.2.7.2.686 [id number] [facility] 2020-07-04 00:00:00 2020-07-04 00:00:00 Refill Marv C[facility] [facility] Office [facility] One ..114 350.1.13.10 4.2.7.2.686 [id number] 044 [id number] [facility] 2020-07-02 16:05:59 2020-07-02 16:25:59 Urgent Care Malika Uriostegui Cynthia [facility] Office Building One 1..114 350.1.13.10 4.2.7.2.686 [id number] [facility] 2020-07-02 16:00:00 2020-07-02 16:00:00 Outpatient R [facility] [id number] [facility] 2020-06-25 00:00:00 2020-06-25 00:00:00 Patient Secure Msg Doctor Unassigned, [place] [facility] 1..114 350.1.13.10 4.2.7.2.686 [id number] [id number] [facility] 2020-06-25 00:00:00 2020-06-25 00:00:00 Telephone Marv Cota [facility] Office Building One 1..114 350.1.13.10 4.2.7.2.686 [id number] [facility] 2020-06-25 00:00:00 2020-06-25 00:00:00 Nurse Triage Myah Soto [facility] 1..114 350.1.13.10 4.2.7.2.686 [id number] [facility] 2020-06-25 00:00:00 2020-06-25 00:00:00 Refill Cipriano [facility] Office Building One 1..114 350.1.13.10 4.2.7.2.686 [id number] [facility] 2020-06-25 00:00:00 2020-06-25 00:00:00 Telephone Marv Cota [facility] Office Building One 1.84.114 350.1.13.10 4.2.7.2.686 [id number] [id number] [facility] 2020-06-25 00:00:00 2020-06-25 00:00:00 Refill Doctor Unassigned, [place] [facility] Office Building One 1.114 350.1.13.10 4.2.7.2.686 [id number] [id number] [facility] 2020-05-27 00:00:00 2020-05-27 00:00:00 Patient Outreach Miguel Gallagher [facility] 1..114 350.1.13.10 4.2.7.2.686 [id number] [facility] 2020-05-17 14:30:00 2020-05-17 14:30:00 Outpatient ROSE MARY NOVA [facility] [id number] [facility] 2020-05-05 00:00:00 2020-05-05 00:00:00 Refill Marv Cota [facility] 1.284.114 350.1.13.10 4.2.7.2.686 [id number] 044 [id number] [facility] 2020-04-12 00:00:00 2020-04-12 00:00:00 Refill Marv Cota [facility] 1.284.114 350.1.13.10 4.2.7.2.686 [id number] 044 [id number] [facility] 2020-04-02 00:00:00 2020-04-02 00:00:00 Refill Marv Cota [facility] Office Building One 1.2840.114 350.1.13.10 4.2.7.2.686 [id number] [id number] [facility] 2020-01-16 16:34:55 2020-01-16 16:49:55 Office Visit Tamara Sheldon [facility] Office Building One 1.2840.114 350.1.13.10 4.2.7.2.686 [id number] 044 [id number] [facility] 2020-01-16 16:30:00 2020-01-16 16:30:00 Outpatient R TAMARA SHELDON [facility] [id number] [facility] 2020-01-07 00:00:00 2020-01-07 00:00:00 Refill Cipriano [facility] Office Building One 1.840.114 350.1.13.10 4.2.7.2.686 [id number] [id number] [facility] 2020-01-07 00:00:00 2020-01-07 00:00:00 Telephone Marv Cota [facility] Office Building One 1.2840.114 350.1.13.10 4.2.7.2.686 [id number] [id number] [facility] 2019-12-04 17:06:19 2019-12-04 17:26:19 Laboratory Only Lab, Adc Fam Pob I Cipriano [facility] Office Building One 1.840.114 350.1.13.10 4.2.7.2.686 [id number] [facility] 2019-12-04 17:00:00 2019-12-04 17:00:00 Outpatient R MARV COTA [facility] [id number] [facility] 2019-12-04 10:45:00 2019-12-04 10:45:00 Outpatient R ANUJA ADAN [facility] [id number] [facility] 2019-11-26 00:00:00 2019-11-26 00:00:00 Refill Cipriano Marv [facility] 1.2840.114 350.1.13.10 4.2.7.2.686 [id number] 044 [id number] [facility] 2019-10-20 00:00:00 2019-10-20 00:00:00 Patient Secure Msg Cipriano Marv [facility] 1.20.114 350.1.13.10 4.2.7.2.686 [id number] 044 [id number] [facility] 2019-10-17 08:55:43 2019-10-17 09:15:43 Urgent Care Pob1, Acute Care Clinic Joo Paulino [facility] Office Building One 1.0.114 350.1.13.10 4.2.7.2.686 [id number] [facility] 2019-10-17 09:00:00 2019-10-17 09:00:00 Outpatient R [facility] [id number] [facility] 2019-07-04 00:00:00 2019-07-04 00:00:00 Refill Cipriano [facility] Office Building One 1..114 350.1.13.10 4.2.7.2.686 [id number] [id number] [facility] 2019-05-22 00:00:00 2019-05-22 00:00:00 Refill Cipriano [facility] Office Building One 1..114 350.1.13.10 4.2.7.2.686 [id number] 044 [id number] [facility] 2019-04-30 08:21:44 2019-04-30 08:36:44 Office Visit Cota, Marv [facility] Office Building One 1.2.840.114 350.1.13.10 4.2.7.2.686 [id number] [id number] [facility] 2019-04-21 00:00:00 2019-04-21 00:00:00 Telephone Marv Cota [facility] Office Building One 1.2.840.114 350.1.13.10 4.2.7.2.686 [id number] [facility] 2019-04-18 09:28:47 2019-04-18 23:59:00 Outpatient R JOO PAULINO [facility] [id number] [facility] 2019-04-18 09:28:00 2019-04-18 23:59:00 Hospital Encounter Joo Paulino [facility] 1.2.840.114 350.1.13.10 4.2.7.2.686 [id number] [facility] 2019-04-18 08:17:07 2019-04-18 12:02:19 Office Visit Joo Paulino [facility] Office Building One 1.2.840.114 350.1.13.10 4.2.7.2.686 [id number] [facility] 2019-04-18 00:00:00 2019-04-18 00:00:00 Telephone Joo Paulino [facility] Office Building One 1.2.840.114 350.1.13.10 4.2.7.2.686 [id number] 044 [id number] [facility] 2019-04-18 00:00:00 2019-04-18 00:00:00 Orders Only Doctor Unassigned, [place] [facility] 1.2.840.114 350.1.13.10 4.2.7.2.686 [id number] [facility] 2018-10-28 00:00:00 2018-10-28 00:00:00 Orders Only Doctor Unassigned, [place] [facility] 1.2.840.114 350.1.13.10 4.2.7.2.686 [id number] [id number] [facility] Results Test Description Test Time Test Comments Results Result Co mments Source [facility] Notes Date/Time Note Provider Source 2024-06-16 09:09:06 Last Refilled: MONTELUKAST 10 mg tablet 30 tablet 0 04/22/2024 -- No Sig: TAKE ONE (1) TABLET(S) BY MOUTH ONCE A DAY. Sent to pharmacy as: montelukast 10 mg tablet (SINGULAIR) Class: eRX Route: Oral Order: [id number] Date/Time Signed: 04/22/2024 11:43 E-Prescribing Status: Receipt confirmed by pharmacy (04/22/2024 11:43 AM CRANBERRY SORTER) Recent Visits Date Type Provider Dept 03/20/24 Office Visit Tamara Sheldon MD [facility] 01/03/23 Office Visit Marv Cota MD [facility] Showing recent visits within past 540 days with a meds authorizing provider and meeting all other requirements Future Appointments No visits were found meeting these conditions. Showing future appointments within next 150 days with a meds authorizing provider and meeting all other requirements Cathi Pace [facility] 2024-04-22 13:27:21 Ozempic not covered for weightloss. Please frances BERRY SORTER Vanessa Timmons MA [facility] 2024-04-22 11:43:29 Images from the original note were not included. Notes: Last Refilled: Name from pharmacy: Montelukast 10mg Tablet Will file in chart as: MONTELUKAST 10 mg tablet Sig: TAKE ONE (1) TABLET(S) BY MOUTH ONCE A DAY. Disp: 30 tablet (Pharmacy requested: 30 Each) Refills: 0 (Pharmacy requested: Not specified) Start: 04/21/2024 Class: eRX For: Acute seasonal allergic rhinitis due to pollen Last ordered: 1 month ago (03/21/2024) by Marv Cota MD Last refill: 03/21/2024 Rx #: [id number] Allergy Gbdikq8504/21/2024 06:38 AM Protocol Details Valid encounter within last 12 months To be filled at: [facility] [address] & [address] Recent Visits Date Type Provider Dept 03/20/24 Office Visit Tamara Sheldon MD [facility] 01/03/23 Office Visit Marv Cota MD [facility] Showing recent visits within past 540 days with a meds authorizing provider and meeting all other requirements Future Appointments No visits were found meeting these conditions. Showing future appointments within next 150 days with a meds authorizing provider and meeting all other requirements [facility] 2024-04-22 11:25:12 04/16/24 Your request was denied because we did not see what we need to approve the drug you asked for, (Ozempic). We may be able to approve this drug for this illness (type 2 diabetes mellitus). Patient notified via CoverMyMeds BA Saldana LVN [facility] 2024-04-16 09:05:51 PA for Ozempic initiated on 04/16/2024 (Lozano: [id number]) Rx #: [id number] Will provide updates as recd BA Saldana LVN [facility] 2024-04-15 19:24:51 PA Request for Ozempic 0.25 or 0.5 mg LOZANO [id number] Printed and placed in provider's box BERRY SORTER Alexandra French [facility] 2024-04-15 15:05:24 Pt is following up on phone encounter on 04/08/24 in regards to semaglutide 0.25 mg or 0.5 mg (2 mg/3 mL) PnIj PA. [facility] in [place] BA Webb [facility] 2024-04-09 16:38:22 Ozempic sent to pharmacy per Provider. Will wait for notification for PA if needed from pharmacy BA Saldana HEADER BOSS [facility] 2024-04-09 10:40:29 Erica Martinez is a 43 year old female states her insurance is unable to provide covered medications. she is requesting provider prescribe a medication with prior auth and her insurance will determine if covered Pledolores advise [phone] (home) [phone] (work) BA Garcia [facility] 2024-04-09 10:31:04 Please review and advise. RUTH 03/26/24 Obesity (BMI 30-39.9) (primary encounter diagnosis) Comment: Chronic, controlled Discussed lifestyle modification, DASH diet, low-salt intake, increase physical activity at least 150 minutes/week Patient is interested in trying GLP-1, she will reach out to her insurance to check if it is covered BA Saldana LVN [facility] 2024-04-08 16:01:00 Erica Martinez is a 43 year old female would like to speak with nurse in regards to GLP-1 rx that was discussed during 03/26 office visit. She states that her insurance will require prior auth for any prescribed regimen Please advise [phone] (home) [phone] (work) [facility] 2024-03-26 14:32:26 .Patient already Reviewed in My Chart Seen by patient Erica Martinez on 03/24/2024 7:37 AM [facility] 2024-03-21 09:00:00 Images from the original note were not included. Venipuncture collection performed by clean technique on the left anticubitus. Total of 1 attempts were made. Slight pressure and a bandage/dressing were applied to the site(s). The patient experienced no complications. The following specimens were processed according to instructions and sent to [facility] laboratories per lab order on 03/21/2024 : LT BLUE SST 1 RED LAV 2 PPT DK GREEN (LiHep) DK GREEN (SodH) GAMEZ DK BLUE (K2) DK BLUE (S) ACD Blood Culture NIPT/NTD [facility] 2024-03-21 07:31:20 Last Refilled: montelukast 10 mg tablet 30 tablet 0 02/19/2024 -- No Sig: TAKE ONE (1) TABLET(S) BY MOUTH ONCE A DAY. Sent to pharmacy as: montelukast 10 mg tablet (SINGULAIR) Class: eRX Notes to Pharmacy: Pt needs appt for further refills Route: Oral Order: [id number] Date/Time Signed: 02/19/2024 14:33 E-Prescribing Status: Receipt confirmed by pharmacy (02/19/2024 2:33 PM CRANBERRY SORTER) Recent Visits Date Type Provider Dept 03/20/24 Office Visit Tamara Sheldon MD [facility] 01/03/23 Office Visit Marv Cota MD [facility] Med Showing recent visits within past 540 days with a meds authorizing provider and meeting all other requirements Future Appointments No visits were found meeting these conditions. Showing future appointments within next 150 days with a meds authorizing provider and meeting all other requirements BA Pace [facility] 2024-03-20 16:00:00 Addended by: SHYAM SANDOVAL on: 03/20/2024 04:50 PM Modules accepted: Orders [facility] 2024-02-19 14:31:44 Last Refilled: Disp Refills Start End TUNDE montelukast 10 mg tablet 30 tablet 1 12/12/2023 -- No Sig: TAKE ONE (1) TABLET(S) BY MOUTH ONCE A DAY. Sent to pharmacy as: montelukast 10 mg tablet (SINGULAIR) Class: eRX Route: Oral Order: [id number] Date/Time Signed: 12/12/2023 08:15 E-Prescribing Status: Receipt confirmed by pharmacy (12/12/2023 8:15 AM CDT) Recent Visits Date Type Provider Dept 01/03/23 Office Visit Marv Cota MD [facility] Med Showing recent visits within past 540 days with a meds authorizing provider and meeting all other requirements Future Appointments No visits were found meeting these conditions. Showing future appointments within next 150 days with a meds authorizing provider and meeting all other requirements BERRY SORTER Cathi Pace [facility] 2023-12-12 08:14:46 Last Refilled: MONTELUKAST 10 mg tablet 30 tablet 2 07/27/2023 -- No Sig: TAKE ONE (1) TABLET(S) BY MOUTH DAILY. Sent to pharmacy as: montelukast 10 mg tablet (SINGULAIR) Class: eRX Order: [id number] Date/Time Signed: 07/27/2023 06:51 E-Prescribing Status: Receipt confirmed by pharmacy (07/27/2023 6:51 AM CDT Recent Visits Date Type Provider Dept 01/03/23 Office Visit Marv Cota MD [facility] Showing recent visits within past 540 days with a meds authorizing provider and meeting all other requirements Future Appointments No visits were found meeting these conditions. Showing future appointments within next 150 days with a meds authorizing provider and meeting all other requirements Cathi Pace [facility] 2023-08-30 09:36:52 Refill sent to pharm Krystle Coates MA [facility] 2023-08-28 13:12:17 Ok to refill BC for the next year. [facility] 2023-08-28 12:47:57 Pt had mammo done recently and would like to get refills for ocp. Mammo results in pt's chart. Please advise. [facility] 2023-08-28 11:30:04 Patient is requesting a refill on her control. She stated mammogram came back normal. Debra Juarez [facility] 2023-07-25 08:52:13 Pt is scheduled for a WWE with Dr. Whitt on 08/10/23. Will inform pt that only a 1 month supply will be sent in to get her by until appt. Krystle Coates MA [facility] 2023-06-20 08:07:14 WWE 08/10/23. ONADO Dugan RN [facility]
[2024-07-27] MEDS ORDERED: IPRATROPIUM BROM 0.5MG/2.5ML ONE (21:08)
[2024-07-27] MEDS ORDERED: ALBUTEROL 2.5 MG/3 ML NEB SOL ONE (21:08)
[2024-07-27] MEDS ORDERED: predniSONE 20 MG TAB ONE (21:08)
[2024-07-27] MEDS ORDERED: BENZONATATE 100 MG CAP PO ONE (21:09)
[2024-07-27 22:05] LABS: SARS-CoV-2 Antigen Rapid Res Negative (Negative)
--- NOTE | 2024-07-27 22:10 | RAD REPORT ---
EXAM: Chest Pa And Lat (2 Views) HISTORY: 43 years Female COUGH COMPARISON: 03/27/2013 FINDINGS: LUNGS/PLEURA: Mild opacities at the right lung base. Left lung is clear. No definite consolidation or edema. CARDIAC/MEDIASTINUM: The cardiac silhouette is within normal limits. UPPER ABDOMEN: No significant abnormality. BONES: No acute abnormality. LINES/TUBES/OTHER: N/A IMPRESSION: Question mild airspace disease at the right lung base which could reflect mild infection in the appro priate clinical setting. No definite acute process, however.
--- NOTE | 2024-07-27 22:27 | ER ---
Nurse's Notes [facility] Name: Elke Benton Age: 43 yrs Sex: Female : 1980 Arrival Date: 07/27/2024 Time: 20:46 Bed 4 Private MD: Diagnosis: Cough;Unspecified asthma with (acute) exacerbation Presentation: 07/27 20:54 Chief complaint: Patient states: Congestion onset Sunday, cough and fever onset Sunday. cm10 Pt's daughter recently diagnosed with the flu. Coronavirus screen: Client denies travel out of the [place] in the last 14 days. Ebola Screen: Patient denies travel to an Ebola-affected area in the 21 days before illness onset. Initial Sepsis Screen: Does the patient meet any 2 criteria? HR > 90 bpm. Does the patient have a suspected source of infection? No. Patient's initial sepsis screen is negative. Risk Assessment: Do you want to hurt yourself or someone else? Patient reports no desire to harm self or others. Onset of symptoms was July 27, 2024. 20:54 Method Of Arrival: Ambulatory cm10 20:54 Acuity: MARK 3 cm10 Triage Assessment: 20:56 General: Appears uncomfortable, Behavior is calm, cooperative. Neuro: No deficits cm10 noted. Level of Consciousness is awake, alert, obeys commands, Oriented to person, place, time, situation, Appropriate for age. Respiratory: No deficits noted. Reports cough that is persistent Airway is patent Respiratory effort is even, unlabored, Respiratory pattern is regular, symmetrical. Historical: - Allergies: 20:55 Imitrex; cm10 20:55 Prevacid; cm10 - PMHx: 20:55 Asthma; Gastroenteritis; Migraine; spastic colon; cm10 - PSHx: 20:55 section; Cholecystectomy; cyst of lip; cm10 - Immunization history:: Adult Immunizations up to date. - Infectious Disease History:: Denies. - Social history:: Smoking status: Patient denies any tobacco usage or history of. Screenin:[facility] ED Fall Risk Assessment (Adult) History of falling in the last 3 months, jb4 including since admission No falls in past 3 months (0 pts) Confusion or Disorientation No (0 pts) Intoxicated or Sedated No (0 pts) Impaired Gait No (0 pts) Mobility Assist Device Used No (0 pt) Altered Elimination No (0 pt) Score/Fall Risk Level 0 - 2 = Low Risk Oriented to surroundings, Maintained a safe environment. Abuse screen: Denies threats or abuse. Nutritional screening: No deficits noted. Tuberculosis screening: No symptoms or risk factors identified. Assessment: 21:02 General: Appears in no apparent distress. comfortable, Behavior is calm, cooperative, jb4 appropriate for age. Pain: Denies pain. Neuro: Level of Consciousness is awake, alert, obeys commands, Oriented to person, place, time, situation. Cardiovascular: Patient's skin is warm and dry. Respiratory: Airway is patent Respiratory effort is even, unlabored, Respiratory pattern is regular, symmetrical. Derm: Skin is intact, Skin is pink, warm \T\ dry. Musculoskeletal: Circulation, motion, and sensation intact. Range of motion: intact in all extremities. 21:46 Reassessment: Patient appears in no apparent distress at this time. Patient and/or jb4 family updated on plan of care and expected duration. Pain level reassessed. Patient is alert, oriented x 3, equal unlabored respirations, skin warm/dry/pink. 22:50 Reassessment: Patient appears in no apparent distress at this time. Patient and/or jb4 family updated on plan of care and expected duration. Pain level reassessed. Patient is alert, oriented x 3, equal unlabored respirations, skin warm/dry/pink. Vital Signs: 20:54 BP 179 / 94; Pulse 111; Resp 20; Temp 99.7(O); Pulse Ox 94% on R/A; Weight 108.86 kg; cm10 Height 5 ft. 7 in. ; Pain 7/10; 21:31 BP 140 / 88; Pulse 100; Resp 21; Pulse Ox 100% on R/A; hm5 22:47 BP 158 / 84; Pulse 102; Resp 16; Pulse Ox 97% on R/A; jb4 20:54 Body Mass Index 37.59 (108.86 kg, 170.18 cm) cm10 20:54 Pain Scale: Adult cm10 ED Course: 20:48 Patient arrived in ED. im 20:55 Triage completed. cm10 20:56 Dez Varghese PA is PHCP. cp 20:56 Steve Zamudio MD is Attending Physician. cp 20:56 Arm band placed on right wrist. Patient placed in an exam room, on a stretcher. cm10 21:01 Robson Victoria, RN is Primary Nurse. jb4 21:02 Patient has correct armband on for positive identification. Bed in low position. Call jb4 light in reach. Side rails up X 1. Provided Education on: plan of care. 21:17 Group A Streptococcus Rapid Sent. hm5 21:17 SARS RAPID Sent. 5 21:46 No provider procedures requiring assistance completed. Patient did not have IV access jb4 during this emergency room visit. 22:06 XRAY Chest Pa And Lat (2 Views) In Process Unspecified. EDMS Administered Medications: 21:16 Drug: DuoNeb Nebulize (2.5 mg - 0.5 mg) 3 ml Nebulizer once Route: Nebulizer; 5 22:47 Follow up: Response: No adverse reaction; Marked relief of symptoms jb4 21:16 Drug: predniSONE PO 60 mg PO once Route: PO; 5 22:46 Follow up: Response: No adverse reaction; Marked relief of symptoms jb4 21:16 Drug: Tessalon Perle PO 200 mg PO once Route: PO; 5 22:46 Follow up: Response: No adverse reaction; Marked relief of symptoms jb4 22:40 Drug: AZITHromycin PO 500 mg PO once Route: PO; jb4 22:46 Follow up: Response: Medication administered at discharge. jb4 Medication: 21:02 VIS not applicable for this client. jb4 Outcome: 22:26 Discharge ordered by . cp 22:50 Discharged to home ambulatory, jb4 22:50 Condition: stable 22:50 Discharge instructions given to patient, Instructed on discharge instructions, follow up and referral plans. medication usage, Demonstrated understanding of instructions, follow-up care, medications, Prescriptions given X 4, 22:50 Patient left the ED. jb4 Signatures: Dispatcher [employer] EDMS Dez Varghese PA PA cp Robson Victoria, RN RN jb4 Rubi Sandoval Clarissa, RN RN 10 Shilpi Torres, DANYEL RN 5
--- NOTE | 2024-07-27 22:27 | EDPHYS ---
Physician Documentation [facility] Name: Elke Benton Age: 43 yrs Sex: Female : 1980 Arrival Date: 07/27/2024 Time: 20:46 Bed 4 Private MD: ED Physician Steve Zamudio HPI: 07/27 21:10 This 43 yrs old Female presents to ER via Ambulatory with complaints of Flu Symptoms. cp 21:10 The patient or guardian reports cough, flu symptoms, fever, congestion. Onset: The cp symptoms/episode began/occurred this past Sunday with symptoms worsening Sunday. 21:10 Associated signs and symptoms: Pertinent positives: shortness of breath, Pertinent cp negatives: diarrhea, vomiting. Severity of symptoms: in the emergency department the symptoms are unchanged despite home interventions. Historical: - Allergies: 20:55 Imitrex; cm10 20:55 Prevacid; cm10 - PMHx: 20:55 Asthma; Gastroenteritis; Migraine; spastic colon; cm10 - PSHx: 20:55 section; Cholecystectomy; cyst of lip; cm10 - Immunization history:: Adult Immunizations up to date. - Infectious Disease History:: Denies. - Social history:: Smoking status: Patient denies any tobacco usage or history of. ROS: 21:15 Constitutional: Positive for body aches, fever, cp 21:15 Eyes: Negative for injury, pain, redness, and discharge, cp 21:15 Respiratory: Positive for cough, "sounds productive", shortness of breath, 21:15 Abdomen/GI: Negative for abdominal pain, vomiting, diarrhea, constipation, 21:15 Neuro: Negative for altered mental status, dizziness, headache, weakness, 21:15 All other systems are negative, Exam: 21:15 Head/Face: Normocephalic, atraumatic. cp 21:15 Constitutional: The patient appears in no acute distress, alert, awake, non-toxic, well developed, well nourished, overweight 21:15 Eyes: Periorbital structures: appear normal, Conjunctiva: normal, no exudate, no injection, Lids and lashes: appear normal, bilaterally, 21:15 ENT: External ear(s): are unremarkable, Ear canal(s): are normal, clear, TM's: dullness, bilaterally, Nose: is normal, Mouth: Lips: moist, Oral mucosa: moist, Posterior pharynx: Tonsils: no enlargement, no exudate, erythema, that is mild, exudate, is not appreciated, 21:15 Neck: Lymph nodes: no appreciated lymphadenopathy, 21:15 Chest/axilla: Inspection: normal, 21:15 Cardiovascular: Rate: tachycardic, Rhythm: regular, Edema: is not appreciated, JVD: is not appreciated, 21:15 Respiratory: the patient does not display signs of respiratory distress, Respirations: normal, no use of accessory muscles, no retractions, labored breathing, is not present, Breath sounds: bronchial sounds, that are mild, are heard diffusely, stridor, is not appreciated, + upper airway congestion. wheezing: is not appreciated, 21:15 Abdomen/GI: Inspection: abdomen appears normal, Palpation: abdomen is soft and non-tender, in all quadrants, 21:15 Back: pain, is absent, ROM is normal, 21:15 Neuro: Orientation: to person, place \\T\\ time. Mentation: is normal, Motor: moves all fours, strength is normal, Sensation: is normal, Vital Signs: 20:54 BP 179 / 94; Pulse 111; Resp 20; Temp 99.7(O); Pulse Ox 94% on R/A; Weight 108.86 kg; cm10 Height 5 ft. 7 in. ; Pain 7/10; 21:31 BP 140 / 88; Pulse 100; Resp 21; Pulse Ox 100% on R/A; hm5 22:47 BP 158 / 84; Pulse 102; Resp 16; Pulse Ox 97% on R/A; jb4 20:54 Body Mass Index 37.59 (108.86 kg, 170.18 cm) cm10 20:54 Pain Scale: Adult cm10 MDM: 22:25 Data reviewed: vital signs, nurses notes, lab test result(s), radiologic studies, plain cp films, and as a result, I will discharge patient. 22:25 Differential diagnosis: bronchitis, flu, URI, pneumonia. Antibiotic administration: The cp patient is discharged and will get outpatient antibiotics, Zithromax. I considered the following discharge prescriptions or medication management in the emergency department Medications were administered in the Emergency Department. See MAR. Counseling: I had a detailed discussion with the patient and/or guardian regarding the historical points, exam findings, and any diagnostic results supporting the discharge/admit diagnosis, lab results, radiology results, to return to the emergency department if symptoms worsen or persist or if there are any questions or concerns that arise at home. 22:26 Medical Screening Exam initiated 07/27 21:04 Order name: SARS RAPID; Complete Time: 22:23 07/27 21:04 Order name: Group A Streptococcus Rapid; Complete Time: 22:23 07/27 22:08 Order name: Throat Culture EDMS 07/27 21:04 Order name: XRAY Chest Pa And Lat (2 Views); Complete Time: 22:23 07/27 22:23 Interpretation: Report reviewed. cp Administered Medications: 21:16 Drug: DuoNeb Nebulize (2.5 mg - 0.5 mg) 3 ml Nebulizer once Route: Nebulizer; 5 22:47 Follow up: Response: No adverse reaction; Marked relief of symptoms jb4 21:16 Drug: predniSONE PO 60 mg PO once Route: PO; 5 22:46 Follow up: Response: No adverse reaction; Marked relief of symptoms jb4 21:16 Drug: Tessalon Perle PO 200 mg PO once Route: PO; 5 22:46 Follow up: Response: No adverse reaction; Marked relief of symptoms jb4 22:40 Drug: AZITHromycin PO 500 mg PO once Route: PO; 4 22:46 Follow up: Response: Medication administered at discharge. jb4 Disposition Summary: 07/27/24 22:26 Discharge Ordered Notes: Location: Home cp Problem: new cp Symptoms: have improved cp Condition: Stable cp Diagnosis - Cough cp - Unspecified asthma with (acute) exacerbation cp Followup: cp - With: Private Physician - When: 2 - 3 days - Reason: Worsening of condition Discharge Instructions: - Discharge Summary Sheet cp - Asthma, Adult cp - Cough, Adult cp - Form - Excuse from Work, School, or Physical Activity cp Forms: - Medication Reconciliation Form cp - Antibiotic Education cp - Prescription Opioid Use cp - Patient Portal Instructions cp - Leadership Thank You Letter cp - Work release form jb4 Prescriptions: - Bromfed DM 2-30-10 mg/5 mL Oral syrup - administer 10 milliliter ORAL route every 6-8 hours as needed for cold cp symptoms; 240 milliliter; Refills: 0, Product Selection Permitted - Albuterol Sulfate 2.5 mg /3 mL (0.083 %) Inhalation Solution for Nebulization - inhale 1 unit NEBULIZATION route every 8 hours As needed; 1 unit; Refills: 0, cp Product Selection Permitted - Zithromax Z-Maged 250 mg Oral Tablet - take 1 tablet ORAL route as directed for 5 days Day 1 - take two (2) tablets cp one time. Day 2, 3, 4 , 5 take one (1) tablet once daily.; 6 tablet; Refills: 0, Product Selection Permitted - Medrol (Maged) 4 mg Oral Tablets, Dose Pack - take 1 tablet ORAL route as directed - follow package instructions; 1 packet; cp Refills: 0, Product Selection Permitted Signatures: Dispatcher [employer] EDMS Dez Varghese PA PA cp Bryson, James, RN RN jb4 Tania Robert RN RN cm10 Shilpi Torres RN RN hm5
[2024-07-27] MEDS ORDERED: AZITHROMYCIN 250 MG TAB ONE (22:36)
[2024-07-28 00:33] VITALS: TEMP 99.7
[2024-07-28 00:36] VITALS: BP 158/84; O2SAT 97
== END 2024-07-27 22:50 | disposition home or self-care (01) ==
LOC: ER 20:46
DX: J45.901 Unspecified asthma with (acute) exacerbation (principal); Z11.52 Encounter for screening for COVID-19
CPT/HCPCS: 87070; 36415; 71046; 99284; 87426; J7512; J7613; J7644

== ENCOUNTER 2024-12-12 16:54 | Emergency (ER) | payer BC ==
--- OUTSIDE RECORDS SUMMARY | 2024-12-12 17:02 | XMS REPORT | Continuity of Care Document ---
Author Name Unknown Address [address] [facility], [place]. [address] [place] [address] [facility] Address [address] [facility] [address] [place] [address] Care Team Providers Care Card Cleaner Name Role Phone Pcp, Patient Does Not Have A Primary Care Physic christofer KLARISSA WHITT Attending Clinician KLARISSA Lew Attending Clinician Abdelrahman ruelas [id number] Attending Clinician Unavailable Klarissa Whitt MD Attending Clinician + [phone] MALIKA TINAJERO Attending Clinician U MIGUEL Rossi Attending Clinician Unavailable [facility] Attending Clinician Unavaila ble Doctor Unassigned, [place] Attending Clinician U Marv Melvin MD Attending Clinician [phone] CONNIE LEDBETTER Attending Clinician Unavailable Philly FOY, Scotty Attending Clinician [phone] Jorge Luis Zimmerman Attending Clinician [phone] Tamara Sheldon MD Attending Clinician + [phone] ANJUM MIRELES Attending Clinician Unavailable Shilpi Quiroga MA Attending Clinician UnavailSCOTTY Cee Attending Clinician Unavailable SCOTTY CAMPOS Attending Clinician Unavailable Lab, Ang - Db Attending Clinician Unavailable TAMARA SHELDON Attending Clinician UnaCHEY Dominguez Attending Clinician Unavailable CHEY SNYDER Attending Clinician Unavailable Chey Snyder NP Attending Clinician [phone] Unknown, Attending Attending Clinician Unavailab elizabeth MULTANIP, Melly Attending Clinician [phone] MELLY CRAWFORD Attending Clinician Unavailable Doctor Unassigned, [place] Attending Clinician U Marv Melvin MD Attending Clinician +[phone] Anjum Mireles PA-C Attending Clinician + [phone] Unknown, Attending Attending Clinician Unavailab MARV Villegas Attending Clinician Unavailable Malika Kaur Attending Clinician + [phone] UNKNOWN, ATTENDING Attending Clinician Unavailab MALIKA Sabillon Attending Clinician Unavailab Dominique Le Attending Clinician [phone] DOMINIQUE CASTILLO Attending Clinician Unavailable JUNA DE LEON Attending Clinician UnavailAshok MULTANIP, Juan Attending Clinician [phone] Richard Soto Attending Clinician [phone] RICHARD YA Attending Clinician Unavailable TAMARA YIN III Attending Clinician UnavailROSE MARY Yu Attending Clinician Unavailable RAJNI RIOS Attending Clinician UnavailRAJNI Weinberg Attending Clinician UnavailRose Mary Braun MD Attending Clinician [phone] Merissa Reich RN Attending Clinician Unavailable JENNIFER BRICENO Attending Clinician Unavailable Only, Wyatt Winston Test Attending Clinician UnavailJennifer Quinones MD Attending Clinician [phone] Joo Raymundo Attending Clinician [phone] JOO PAULINO Attending Clinician Unavailable Lab, Adc Fam Pob I Attending Clinician Unavailab Myah Vincent RN Attending Clinician Miguel Rodríguez DO Attending Clinician Tamara Sheldon MD Attending Clinician [phone] ANUJA ADAN Attending Clinician John Castrob1, [facility] Attending Clinician KLARISSA Luz Admitting Clinician JOO Lou Admitting Clinician Unavailable Payers Payer Name Policy Type Policy Number Effective Date Expirati on Date Source [facility] [id number] 2021 00:00:00 BCBS 2 [id number] 2024 00:00:00 Problems Condition Name Condition Details Condition Category Status Onset Date Resolution Date Last Treatment Date Treating Clinician Comments Source Cervical high risk human papillomav irus (HPV) DNA test positive Cervical high risk human papillomav irus (HPV) DNA test positive Disease Active 09-15 00:00: 00 [facility] Obesity (BMI 30-39.9) Obesity (BMI 30-39.9) Disease Active 03-26 00:00: 00 [facility] Prediabete s Prediabete s Disease Active 03-26 00:00: 00 [facility] Elevated BP without diagnosis of hypertensi on Elevated BP without diagnosis of hypertensi on Disease Active 03-26 00:00: 00 [facility] Subacute cough Subacute cough Disease Active 2021-03 00:00: 00 [facility] Subacute cough Subacute cough Disease Active 2021-03 00:00: 00 [facility] Mild intermitte nt asthma without complicati on Mild intermitte nt asthma without complicati on Disease Active 06-04 00:00: 00 [facility] Acute seasonal allergic rhinitis due to pollen Acute seasonal allergic rhinitis due to pollen Disease Active 06-04 00:00: 00 [facility] Hypertensi on Hypertensi on Disease Active Molly Seybold - Externa l Asthma (HHS-HCC) Asthma ([facility]-H[facility]) Disease Active Molly Seybold - Externa l Allergies, Adverse Reactions, Alerts Allergy Name Allergy Type Status Severity Reaction(s) Onset Date Inactive Date Treating Clinician Comments Source Sumatrip wild Propensi ty to adverse reaction s Active Anxiety, Combative, Other 09-18 00:00: 00 Molly Enriquea l Lansopra zole Propensi ty to adverse reaction s Active Itching 2014-03 00:00: 00 Other Reaction( s): Unknown - See comments Molly Enriquea l Sumatrip wild Succinat e Propensi ty to adverse reaction s Active 2014-03 00:00: 00 Other Reaction( s): Unknown - See comments Molly Palacio - Klausa l Sumatrip wild Succinat e Propensi ty to adverse reaction s Active Unknown - See comments 2014-03 00:00: 00 [facility] Lansopra zole Propensi ty to adverse reaction s Active Unknown - See comments 2014-03 00:00: 00 [facility] SUMATRIP WILD SUCCINAT E DRUG INGREDI Active Unknown-Cmnt 2014-03 00:00: 00 [facility] LANSOPRA ZOLE DRUG INGREDI Active Unknown-Cmnt 2014-03 00:00: 00 [facility] Social History Social Habit Start Date Stop Date Quantity Comments Source ASSERTION Not Molly Palacio - External Sexual orientation Len Palacio - External Gender identity Caroline Palacio - External History of Social function 2024-10-16 00:00:00 2024-10-16 00:00:00 Molly Palacio - External Alcoholic beverage intake 2024-10-16 00:00:00 2024-10-16 00:00:00 Current drinker of alcohol (finding) Molly Palacio - External Alcohol Comment 2024-09-18 00:00:00 2024-09-18 00:00:00 socially Molly Palacio - External Sex 2024-09-16 15:54:27 2024-09-16 15:54:27 Female (finding) Molly Palacio - External Alcohol intake 2023-01-03 00:00:00 2023-01-03 00:00:00 0 /d [facility] Exposure to SARS-CoV-2 (event) 2022-07-12 00:00:00 2022-07-22 20:43:00 Not sure [facility] Tobacco use and exposure 2022-06-16 00:00:00 2022-06-16 00:00:00 Smokeless tobacco non-user [facility] Sex assigned at 1980 00:00:00 1980 00:00:00 Molly Palacio - External Smoking Status Start Date Stop Date Source Never smoked tobacco Molly Guallpa External Medications Ordered Medication Name Filled Medication Name Start Date Stop Date Current Medication? Ordering Clinician Indication Dosage Frequency Signature (SIG) Comments Components Source Levocetiriz ine Dihydrochlo ride 5 MG oral Tablet Levocetiriz ine Dihydrochlo ride 5 MG oral Tablet 10-16 16:28: 26 Yes Take by mouth. Molly lamar Tirzepatide -Weight Management (Zepbound) 2.5 MG/0.5ML subcutaneou s Solution Tirzepatide -Weight Management (Zepbound) 2.5 MG/0.5ML subcutaneou s Solution 10-16 00:00: 00 Yes [id number] .5mL Q1W Inject 0.5 mL into the skin once a week. Molly lamar Lisinopril 10 MG oral Tablet Lisinopril 10 MG oral Tablet 10-16 00:00: 00 Yes [id number] 10mg QD Take 1 tablet (10 mg total) by mouth daily. Molly lamar Semaglutide -Weight Management (Wegovy) 0.25 MG/0.5ML subcutaneou s Solution Auto-inject or Semaglutide -Weight Management (Wegovy) 0.25 MG/0.5ML subcutaneou s Solution Auto-inject or 10-03 00:00: 00 10-16 00:00 :00 No [id number] .25mg Q1W Inject 0.25 mg into the skin once a week. Molly lamar MONTELUKAST 10 mg tablet 09-25 00:00: 00 Yes [id number] 10mg TAKE 1 TABLET BY MOUTH EVERY DAY [facility] Levocetiriz ine Dihydrochlo ride 5 MG oral Tablet 09-18 13:31: 20 Yes Take by mouth. Molly lamar Tirzepatide -Weight Management (Zepbound) 2.5 MG/0.5ML subcutaneou s Solution Auto-inject or 09-18 00:00: 00 Yes [id number] 2.5mg Q1W Inject 0.5 mL (2.5 mg total) into the skin once a week. Molly lamar Montelukast (SINGULAIR) 10 MG oral Tablet tablet Montelukast (SINGULAIR) 10 MG oral Tablet tablet 09-18 00:00: 00 Yes [id number] 10mg QD Take 1 tablet (10 mg total) by mouth daily. Molly lamar Lisinopril 10 MG oral Tablet Lisinopril 10 MG oral Tablet 09-18 00:00: 00 10-16 00:00 :00 No [id number] 10mg QD Take 1 tablet (10 mg total) by mouth daily. Molly lamar Fluticasone -Salmeterol 250-50 MCG/ACT inhalation AEROSOL POWDER, BREATH ACTIVATED Fluticasone -Salmeterol 250-50 MCG/ACT inhalation AEROSOL POWDER, BREATH ACTIVATED 09-01 00:00: 00 Yes INHALE 1 PUFF IN THE MORNING AND IN THE EVENING Molly lamar fluticasone propion-quinton meteroL (WIXELA INHUB) 250-50 mcg/dose inhalation disk 09-01 00:00: 00 Yes 1{puff} Inhale 1 Puff in the morning and 1 Puff in the evening. [facility] MONTELUKAST 10 mg tablet 08-25 00:00: 00 09-25 00:00 :00 No [id number] 10mg TAKE 1 TABLET BY MOUTH EVERY DAY [facility] Low-Ogestre l 0.3-30 MG-MCG oral Tablet Low-Ogestre l 0.3-30 MG-MCG oral Tablet 08-21 00:00: 00 Yes TAKE 1 TABLET BY MOUTH IN THE MORNING. PATIENT TAKES ACTIVE PILLS CONTINUOUS LY Molly lamar norgestrel- ethinyl estradioL (ELINEST) 0.3-30 mg-mcg per tablet 08-21 00:00: 00 Yes [id number] 1{tbl} Take 1 tablet by mouth in the morning. Patient takes active pills continuous ly [facility] dexamethaso ne sod phos PF injection 10 mg 07-30 22:30: 00 07-30 21:41 :00 No [id number] 10mg 10 mg, Intramuscu lar, ONCE, 1 dose, On Sun07/30/24 at 1730, 1 mL [facility] benzonatate 100 mg capsule 07-30 00:00: 00 Yes [id number] 100mg Take 1 capsule by mouth in the morning and 1 capsule at noon and 1 capsule before bedtime. [facility] Guaifenesin 1,200 mg tablet 07-30 00:00: 00 Yes [id number] 1200mg Take 1 tablet by mouth in the morning and 1 tablet in the evening. [facility] Albuterol (PROVENTIL) (2.5 MG/3ML) 0.083% inhalation Inhalant Solution Albuterol (PROVENTIL) (2.5 MG/3ML) 0.083% inhalation Inhalant Solution 07-28 00:00: 00 Yes INHALE ONE VIAL VIA NEBULIZER EVERY 8 HOURS NEEDED Molly lamar azithromyci n 250 mg tablet 07-28 00:00: 00 Yes [facility] methylPREDN ISolone 4 mg tablets 07-28 00:00: 00 Yes [facility] MONTELUKAST 10 mg tablet 07-14 00:00: 00 08-25 00:00 :00 No [id number] 10mg TAKE ONE (1) TABLET(S) BY MOUTH ONCE A DAY. [facility] MONTELUKAST 10 mg tablet 2025-0 4-07 00:00: 00 07-14 00:00 :00 No [id number] 10mg TAKE ONE (1) TABLET(S) BY MOUTH ONCE A DAY. [facility] amoxicillin -pot clavulanate 875-125 mg per tablet 05-28 00:00: 00 Yes [id number] 1{tbl} Take 1 tablet by mouth in the morning and 1 tablet in the evening. [facility] proMETHazin e 25 mg tablet 05-28 00:00: 00 Yes [id number] 25mg Take 1 tablet by mouth every 4 (four) hours as needed for Nausea and Vomiting (N/V). [facility] MONTELUKAST 10 mg tablet 04-22 00:00: 00 06-16 00:00 :00 No [id number] 10mg TAKE ONE (1) TABLET(S) BY MOUTH ONCE A DAY. [facility] semaglutide 0.25 mg or 0.5 mg (2 mg/3 mL) PnIj 04-09 00:00: 00 Yes [id number] .25mg inject 0.25 mg under the skin weekly. [facility] MONTELUKAST 10 mg tablet 03-21 00:00: 00 04-22 00:00 :00 No [id number] 10mg TAKE ONE (1) TABLET(S) BY MOUTH ONCE A DAY. [facility] ADVAIR DISKUS 250-50 mcg/dose inhalation disk 1-09 00:00: 00 Yes [id number] UNHALE 1 PUFF BY MOUTH EVERY 12 HOURS [facility] montelukast 10 mg tablet 2023-03 00:00: 00 03-21 00:00 :00 No [id number] 10mg TAKE ONE (1) TABLET(S) BY MOUTH ONCE A DAY. [facility] albuterol 90 mcg/actuati on inhaler 2023-03 00:00: 00 Yes [id number] 2{puff} Inhale 2 Puffs every 6 (six) hours as needed for Wheezing, Shortness of Breath or Bronchospa sm. [facility] benzonatate (TESSALON PERLES) 100 mg capsule 2023-03 00:00: 00 02-16 05:59 :00 No [id number] 100mg Take 1 capsule by mouth every 8 (eight) hours as needed for Cough for up to 10 days. [facility] doxycycline hyclate 100 mg tablet 2023-03 00:00: 00 02-13 05:59 :00 No [id number] 100mg Take 1 tablet by mouth in the morning and 1 tablet in the evening. Do all this for 7 days. [facility] predniSONE 20 mg tablet 2023-03 00:00: 00 02-11 05:59 :00 No [id number] 40mg Take 2 tablets by mouth in the morning for 5 days. [facility] montelukast 10 mg tablet 2023-03 00:00: 02-18 00:00 :00 No [id number] 10mg TAKE ONE (1) TABLET(S) BY MOUTH ONCE A DAY. [facility] dexamethaso ne (DECADRON) injection 4 mg 10-29 00:21: 00 10-29 00:35 :00 No [id number] 4mg 4 mg, Intramuscu lar, ONCE, 1 dose, On Sun10/29/23 at 1930, Routine [facility] amoxicillin -clavulanat e (AUGMENTIN) 875-125 mg per tablet 10-28 00:00: 00 11-08 04:59 :00 No [id number] 1{tbl} Take 1 tablet by mouth in the morning and 1 tablet in the evening. Do all this for 10 days. [facility] predniSONE 20 mg tablet 10-28 00:00: 00 11-03 04:59 :00 No [id number] 20mg Take 1 tablet by mouth in the morning for 5 days. [facility] norgestrel- ethinyl estradioL (ELINEST) 0.3-30 mg-mcg per tablet 08-29 00:00: 00 08-21 00:00 :00 No [id number] TAKE ONE (1) TABLET BY MOUTH IN THE MORNING. [facility] levocetiriz ine dihydrochlo ride (XYZAL ORAL) 5-30 14:33: 26 Yes Take by mouth. [facility] MONTELUKAST 10 mg tablet 5-17 00:00: 00 12-11 00:00 :00 No [id number] TAKE ONE (1) TABLET(S) BY MOUTH DAILY. [facility] norgestrel- ethinyl estradioL (ELINEST) 0.3-30 mg-mcg per tablet 5-15 00:00: 00 Yes [id number] TAKE ONE (1) TABLET BY MOUTH IN THE MORNING. [facility] norgestrel- ethinyl estradioL (ELINEST) 0.3-30 mg-mcg per tablet 4-10 00:00: 00 07-24 00:00 :00 No [id number] TAKE ONE (1) TABLET BY MOUTH IN THE MORNING. [facility] dicyclomine 20 mg tablet 3-14 00:00: 00 03-20 00:00 :00 No 20mg Take 1 tablet by mouth 4 (four) times daily. [facility] famotidine 20 mg tablet 3-14 00:00: 00 03-20 00:00 :00 No 20mg Take 1 tablet by mouth in the morning. [facility] MONTELUKAST 10 mg tablet 1-29 00:00: 00 Yes [id number] TAKE ONE (1) TABLET(S) BY MOUTH DAILY. [facility] dexamethaso ne sod phos PF injection 10 mg -18 01:45: 00 03-29 01:04 :00 No [id number] 10mg [facility] fluticasone propionate 50 mcg/actuati on nasal spray -17 00:00: 00 03-20 00:00 :00 No [id number] 2{spray } Use 2 Sprays in each nostril in the morning. [facility] azelastine 137 mcg (0.1 %) nasal spray 03-28 00:00: 03-20 00:00 :00 No [id number] 1{spray } Use 1 [place] in each nostril in the morning and 1 [place] in the evening. Use in each nostril as directed [facility] benzonatate (TESSALON PERLES) 100 mg capsule 03-28 00:00: 00 02-05 00:00 :00 No [id number] 100mg Take 1 capsule by mouth every 8 (eight) hours as needed for Cough. [facility] predniSONE 10 mg tablet 03-28 00:00: 00 04-03 05:59 :00 No [id number] 10mg Take 1 tablet by mouth in the morning and 1 tablet in the evening. Do all this for 5 days. [facility] ADVAIR DISKUS 250-50 mcg/dose inhalation disk 2022-03 00:00: 00 03-20 00:00 :00 No [id number] UNHALE 1 PUFF BY MOUTH EVERY 12 HOURS [facility] albuterol 90 mcg/actuati on inhaler 2022-03 00:00: 00 02-05 00:00 :00 No [id number] 2{puff} Inhale 2 Puffs every 6 (six) hours as needed for Wheezing. [facility] predniSONE 10 mg tablet 2022-03 0 00:00: 00 02-05 00:00 :00 No [id number] 10mg Take 1 tablet by mouth in the morning and 1 tablet in the evening. [facility] benzonatate (TESSALON PERLES) 100 mg capsule 2022-03 0 00:00: 00 02-05 00:00 :00 No [id number] 100mg Take 1 capsule by mouth every 8 (eight) hours as needed for Cough. [facility] MONTELUKAST 10 mg tablet 2022-03 0-24 00:00: 00 04-09 00:00 :00 No [id number] TAKE ONE (1) TABLET(S) BY MOUTH DAILY. [facility] montelukast 10 mg tablet 12-01 00:00: 00 Yes [id number] TAKE ONE (1) TABLET(S) BY MOUTH DAILY. [facility] azelastine 137 mcg (0.1 %) nasal spray 07-22 00:00: 00 03-20 00:00 :00 No [id number] 1{spray } Use 1 [place] in each nostril in the morning and 1 [place] in the evening. Use in each nostril as directed [facility] methylPREDN ISolone (MEDROL, RON,) 4 mg tablets 07-22 00:00: 00 01-03 00:00 :00 No [id number] Take by mouth SEE-INSTRU CTIONS. follow package directions [facility] amoxicillin -clavulanat e (AUGMENTIN) 875-125 mg per tablet 07-22 00:00: 00 07-30 04:59 :00 No [id number] 1{tbl} Take 1 tablet by mouth in the morning and 1 tablet in the evening. Do all this for 7 days. [facility] levocetiriz ine dihydrochlo ride (XYZAL ORAL) 06-16 10:24: 16 Yes Take by mouth. [facility] norgestrel- ethinyl estradioL (CRYSELLE) 0.3-30 mg-mcg per tablet 06-16 00:00: 00 06-19 00:00 :00 No [id number] 1{tbl} Take 1 tablet by mouth in the morning. [facility] albuterol 90 mcg/actuati on inhaler 2021-03 00:00: 00 01-03 00:00 :00 No [id number] 2{puff} Inhale 2 Puffs every 6 (six) hours as needed for Wheezing. [facility] predniSONE 20 mg tablet 2021-03 00:00: 00 07-22 00:00 :00 No [id number] 20mg Take 1 tablet by mouth in the morning. [facility] benzonatate 200 mg capsule 2021-03 00:00: 00 02-07 05:59 :00 No [id number] 200mg Take 1 capsule by mouth 3 (three) times daily as needed for Cough for up to 7 days. [facility] methylPREDN ISolone (MEDROL, RON,) 4 mg tablets 2021-03 00:00: 00 01-30 00:00 :00 No [id number] Take by mouth SEE-INSTRU CTIONS. follow package directions [facility] amoxicillin -clavulanat e (AUGMENTIN) 875-125 mg per tablet 2021-03 00:00: 00 01-15 04:59 :00 No [id number] 1{tbl} Take 1 tablet by mouth in the morning and 1 tablet in the evening. Do all this for 10 days. [facility] methylPREDN ISolone (MEDROL, RON,) 4 mg tablets 12-03 00:00: 00 01-30 00:00 :00 No [id number] Take by mouth SEE-INSTRU CTIONS. follow package directions [facility] fluticasone propion-quinton meteroL (ADVAIR DISKUS) 250-50 mcg/dose inhalation disk 11-18 00:00: 00 01-03 00:00 :00 No [id number] UNHALE 1 PUFF BY MOUTH EVERY 12 HOURS [facility] MONTELUKAST 10 mg tablet 11-07 00:00: 00 12-01 00:00 :00 No [id number] TAKE ONE (1) TABLET(S) BY MOUTH DAILY. [facility] azelastine 137 mcg (0.1 %) nasal spray - 00:00: 00 07-22 00:00 :00 No [id number] 1{spray } Use 1 [place] in each nostril 2 (two) times daily. Use in each nostril as directed [facility] predniSONE 10 mg tablet 07-10 00:00: 00 01-30 00:00 :00 No [id number] Take 4 tabs by mouth for 3 days, 3 tabs for 2 days [facility] amoxicillin 875 mg tablet 5- 00:00: 00 07-18 04:59 :00 No [id number] 875mg Take 1 tablet by mouth 2 (two) times daily for 7 days. [facility] levocetiriz ine dihydrochlo ride (XYZAL ORAL) 06-09 10:31: 41 Yes Take by mouth. [facility] norgestrel- ethinyl estradioL (CRYSELLE) 0.3-30 mg-mcg per tablet 06-09 00:00: 00 06-16 00:00 :00 No [id number] 1{tbl} Take 1 tablet by mouth daily. [facility] CRYSELLE 0.3-30 mg-mcg per tablet 2-14 00:00: 00 06-09 00:00 :00 No [id number] TAKE 1 TABLET BY MOUTH EVERY DAY [facility] metoclopram thalia HCl 10 mg tablet 2020-03 0- 00:00: 00 03-20 00:00 :00 No [facility] SUTAB 1.479-0.188 - 0.225 gram Tab 2020-03 0-26 00:00: 00 03-20 00:00 :00 No [facility] montelukast 10 mg tablet 8-23 00:00: 00 11-07 00:00 :00 No [id number] 10mg Take 1 tablet by mouth daily. [facility] fluticasone propion-quinton meteroL (ADVAIR DISKUS) 250-50 mcg/dose inhalation disk 07-27 00:00: 00 Yes [id number] UNHALE 1 PUFF BY MOUTH EVERY 12 HOURS [facility] albuterol 90 mcg/actuati on inhaler 07-27 00:00: 00 01-30 00:00 :00 No [id number] 2{puff} Inhale 2 Puffs every 6 (six) hours as needed for Wheezing. [facility] fluticasone propion-quinton meteroL (ADVAIR DISKUS) 250-50 mcg/dose inhalation disk 18 00:00: 00 11-18 00:00 :00 No [id number] UNHALE 1 PUFF BY MOUTH EVERY 12 HOURS [facility] norgestrel- ethinyl estradioL (CRYSELLE) 0.3-30 mg-mcg per tablet 08 00:00: 00 04-25 00:00 :00 No [id number] 1{tbl} Take 1 tablet by mouth daily. [facility] Immunizations Ordered Immunization Name Filled Immunization Name Date Status Comments Source FLUCELVAX TRIVALENT PF FLUCELVAX TRIVALENT PF 2024-03-20 00:00:00 Completed Molly Palacio - External Flu Injectable MDCK Pres-Free (FLUCELVAX) 2024-03-20 00:00:00 Completed Influenza Virus Vaccine 2023-10-29 18:20:00 Completed [facility] TDAP 2023-10-29 18:20:00 Completed [facility] Influenza Virus Vaccine Quad .5 mL IM 6+ MO (FLUZONE/FLULAVAL/FL UARIX) 2023-10-29 18:20:00 Completed [facility] Pneumococcal Polysaccharide, PPSV23 (PNEUMOVAX) 2023-10-29 18:20:00 Completed [facility] SARS-COV-2 COVID-19 MODERNA 12+ YRS VACCINE 2023-10-29 18:20:00 Completed [facility] Influenza Virus Vaccine Quad IM, Preserv and ABX Free 6 MO-64 YRS (FLUCELVAX) 2023-10-29 18:20:00 Completed [facility] Influenza Virus Vaccine 2023-08-27 11:00:00 Completed [facility] TDAP 2023-08-27 11:00:00 Completed [facility] Influenza Virus Vaccine Quad .5 mL IM 6+ MO (FLUZONE/FLULAVAL/FL UARIX) 2023-08-27 11:00:00 Completed [facility] Pneumococcal Polysaccharide, PPSV23 (PNEUMOVAX) 2023-08-27 11:00:00 Completed [facility] SARS-COV-2 COVID-19 MODERNA 12+ YRS VACCINE 2023-08-27 11:00:00 Completed [facility] Influenza Virus Vaccine Quad IM, Preserv and ABX Free 6 MO-64 YRS (FLUCELVAX) 2023-08-27 11:00:00 Completed [facility] Influenza Virus Vaccine 2023-08-20 14:20:00 Completed [facility] TDAP 2023-08-20 14:20:00 Completed [facility] Influenza Virus Vaccine Quad .5 mL IM 6+ MO (FLUZONE/FLULAVAL/FL UARIX) 2023-08-20 14:20:00 Completed [facility] Pneumococcal Polysaccharide, PPSV23 (PNEUMOVAX) 2023-08-20 14:20:00 Completed [facility] SARS-COV-2 COVID-19 MODERNA 12+ YRS VACCINE 2023-08-20 14:20:00 Completed [facility] Influenza Virus Vaccine Quad IM, Preserv and ABX Free 6 MO-64 YRS (FLUCELVAX) 2023-08-20 14:20:00 Completed [facility] Pneumococcal Polysaccharide, PPSV23 (PNEUMOVAX) 2023-08-09 14:30:00 Completed [facility] Influenza Virus Vaccine Quad IM, Preserv and ABX Free 6 MO-64 YRS (FLUCELVAX) 2023-08-09 14:30:00 Completed [facility] Influenza Virus Vaccine 2023-08-09 14:30:00 Completed [facility] TDAP 2023-08-09 14:30:00 Completed [facility] Influenza Virus Vaccine Quad .5 mL IM 6+ MO (FLUZONE/FLULAVAL/FL UARIX) 2023-08-09 14:30:00 Completed [facility] SARS-COV-2 COVID-19 MODERNA 12+ YRS VACCINE 2023-08-09 14:30:00 [facility] [facility] [place] Influenza Virus Vaccine 2023-07-25 00:00:00 Completed [facility] [place] TDAP 2023-07-25 00:00:00 Completed [facility] [place] Influenza Virus Vaccine Quad .5 mL IM 6+ MO (FLUZONE/FLULAVAL/FL UARIX) 2023-07-25 00:00:00 Completed [facility] [place] Pneumococcal Polysaccharide, PPSV23 (PNEUMOVAX) 2023-07-25 00:00:00 Completed [facility] [place] SARS-COV-2 COVID-19 MODERNA 12+ YRS VACCINE 2023-07-25 00:00:00 Completed [facility] [place] Influenza Virus Vaccine Quad IM, Preserv and ABX Free 6 MO-64 YRS (FLUCELVAX) 2023-07-25 00:00:00 Completed [facility] [place] Influenza Virus Vaccine 2023-07-25 00:00:00 Completed [facility] [place] TDAP 2023-07-25 00:00:00 Completed [facility] [place] Influenza Virus Vaccine Quad .5 mL IM 6+ MO (FLUZONE/FLULAVAL/FL UARIX) 2023-07-25 00:00:00 Completed [facility] [place] Pneumococcal Polysaccharide, PPSV23 (PNEUMOVAX) 2023-07-25 00:00:00 Completed [facility] [place] SARS-COV-2 COVID-19 MODERNA 12+ YRS VACCINE 2023-07-25 00:00:00 Completed [facility] [place] Influenza Virus Vaccine Quad IM, Preserv and ABX Free 6 MO-64 YRS (FLUCELVAX) 2023-07-25 00:00:00 Completed [facility] [place] Influenza Virus Vaccine 2023-06-20 00:00:00 Completed [facility] [place] TDAP 2023-06-20 00:00:00 Completed [facility] [place] Influenza Virus Vaccine Quad .5 mL IM 6+ MO (FLUZONE/FLULAVAL/FL UARIX) 2023-06-20 00:00:00 Completed [facility] [place] Pneumococcal Polysaccharide, PPSV23 (PNEUMOVAX) 2023-06-20 00:00:00 Completed [facility] [place] SARS-COV-2 COVID-19 MODERNA 12+ YRS VACCINE 2023-06-20 00:00:00 Completed [facility] [place] Influenza Virus Vaccine Quad IM, Preserv and ABX Free 6 MO-64 YRS (FLUCELVAX) 2023-06-20 00:00:00 Completed [facility] [place] Influenza Virus Vaccine 2023-04-08 00:00:00 Completed [facility] [place] TDAP 2023-04-08 00:00:00 Completed [facility] [place] Influenza Virus Vaccine Quad .5 mL IM 6+ MO (FLUZONE/FLULAVAL/FL UARIX) 2023-04-08 00:00:00 Completed [facility] [place] Pneumococcal Polysaccharide, PPSV23 (PNEUMOVAX) 2023-04-08 00:00:00 Completed [facility] [place] SARS-COV-2 COVID-19 MODERNA 12+ YRS VACCINE 2023-04-08 00:00:00 Completed [facility] [place] Influenza Virus Vaccine Quad IM, Preserv and ABX Free 6 MO-64 YRS (FLUCELVAX) 2023-04-08 00:00:00 Completed [facility] [place] Influenza Virus Vaccine 2023-03-28 19:00:00 Completed [facility] [place] TDAP 2023-03-28 19:00:00 Completed [facility] [place] Influenza Virus Vaccine Quad .5 mL IM 6+ MO (FLUZONE/FLULAVAL/FL UARIX) 2023-03-28 19:00:00 Completed [facility] [place] Pneumococcal Polysaccharide, PPSV23 (PNEUMOVAX) 2023-03-28 19:00:00 Completed [facility] [place] SARS-COV-2 COVID-19 MODERNA 12+ YRS VACCINE 2023-03-28 19:00:00 Completed [facility] [place] Influenza Virus Vaccine Quad IM, Preserv and ABX Free 6 MO-64 YRS (FLUCELVAX) 2023-03-28 19:00:00 Completed [facility] [place] Influenza Virus Vaccine 2023-01-03 12:45:00 Completed [facility] [place] TDAP 2023-01-03 12:45:00 Completed [facility] [place] Influenza Virus Vaccine Quad .5 mL IM 6+ MO (FLUZONE/FLULAVAL/FL UARIX) 2023-01-03 12:45:00 Completed [facility] [place] Pneumococcal Polysaccharide, PPSV23 (PNEUMOVAX) 2023-01-03 12:45:00 Completed [facility] [place] SARS-COV-2 COVID-19 MODERNA 12+ YRS VACCINE 2023-01-03 12:45:00 Completed [facility] [place] Influenza Virus Vaccine Quad IM, Preserv and ABX Free 6 MO-64 YRS (FLUCELVAX) 2023-01-03 12:45:00 Completed [facility] [place] Influenza Virus Vaccine 2023-01-02 00:00:00 Completed [facility] [place] TDAP 2023-01-02 00:00:00 Completed [facility] [place] Influenza Virus Vaccine Quad .5 mL IM 6+ MO (FLUZONE/FLULAVAL/FL UARIX) 2023-01-02 00:00:00 Completed [facility] [place] Pneumococcal Polysaccharide, PPSV23 (PNEUMOVAX) 2023-01-02 00:00:00 Completed [facility] [place] SARS-COV-2 COVID-19 MODERNA 12+ YRS VACCINE 2023-01-02 00:00:00 Completed [facility] [place] Influenza Virus Vaccine Quad IM, Preserv and ABX Free 6 MO-64 YRS (FLUCELVAX) 2023-01-02 00:00:00 Completed [facility] [place] Influenza Virus Vaccine 2022-12-01 00:00:00 Completed [facility] [place] TDAP 2022-12-01 00:00:00 Completed [facility] [place] Influenza Virus Vaccine Quad .5 mL IM 6+ MO (FLUZONE/FLULAVAL/FL UARIX) 2022-12-01 00:00:00 Completed [facility] [place] Pneumococcal Polysaccharide, PPSV23 (PNEUMOVAX) 2022-12-01 00:00:00 Completed [facility] [place] SARS-COV-2 COVID-19 MODERNA 12+ YRS VACCINE 2022-12-01 00:00:00 Completed [facility] [place] Influenza Virus Vaccine Quad IM, Preserv and ABX Free 6 MO-64 YRS (FLUCELVAX) 2022-12-01 00:00:00 Completed [facility] [place] Influenza, Injectable, Mdck, Preservative Free, Quadrivalent Influenza, Injectable, Mdck, Preservative Free, Quadrivalent 2021-12-27 00:00:00 Completed Molly Palacio [facility] Influenza Virus Vaccine Quad IM, Preserv and ABX Free 6 MO-64 YRS 2021-12-27 00:00:00 Completed [facility] [place] Influenza Virus Vaccine Quad IM, Preserv and ABX Free 6 MO-64 YRS 2021-12-27 00:00:00 Completed [facility] [place] Influenza Virus Vaccine Quad IM, Preserv and ABX Free 6 MO-64 YRS 2021-12-27 00:00:00 Completed [facility] [place] Influenza Virus Vaccine Quad IM, Preserv and ABX Free 6 MO-64 YRS 2021-12-27 00:00:00 Completed [facility] [place] Influenza Virus Vaccine Quad IM, Preserv and ABX Free 6 MO-64 YRS 2021-12-27 00:00:00 Completed [facility] [place] Influenza Virus Vaccine Quad IM, Preserv and ABX Free 6 MO-64 YRS 2021-12-27 00:00:00 Completed [facility] [place] Tdap- (Boostrix, Adacel) Tdap- (Boostrix, Adacel) 2021-06-09 00:00:00 Completed Molly Bond TDAP 2021-06-09 00:00:00 Completed [facility] [place] TDAP 2021-06-09 00:00:00 Completed [facility] [place] TDAP 2021-06-09 00:00:00 Completed [facility] [place] TDAP 2021-06-09 00:00:00 Completed [facility] [place] TDAP 2021-06-09 00:00:00 Completed [facility] [place] TDAP 2021-06-09 00:00:00 Completed [facility] [place] TDAP 2021-06-09 00:00:00 Completed [facility] [place] TDAP 2021-06-09 00:00:00 Completed [facility] [place] TDAP 2021-06-09 00:00:00 Completed [facility] [place] TDAP 2021-06-09 00:00:00 Completed [facility] [place] TDAP 2021-06-09 00:00:00 Completed [facility] [place] TDAP 2021-06-09 00:00:00 Completed [facility] [place] TDAP 2021-06-09 00:00:00 Completed [facility] [place] TDAP 2021-06-09 00:00:00 Completed [facility] [place] TDAP 2021-06-09 00:00:00 Completed TDAP 2021-06-09 00:00:00 Completed [facility] [place] Influenza Virus Vaccine 2021-05-10 00:00:00 Completed [facility] [place] TDAP 2021-05-10 00:00:00 Completed [facility] [place] Influenza Virus Vaccine Quad .5 mL IM 6+ MO (FLUZONE/FLULAVAL/FL UARIX) 2021-05-10 00:00:00 Completed [facility] [place] Pneumococcal Polysaccharide, PPSV23 (PNEUMOVAX) 2021-05-10 00:00:00 Completed [facility] [place] SARS-COV-2 COVID-19 MODERNA 12+ YRS VACCINE 2021-05-10 00:00:00 Completed [facility] [place] Influenza Virus Vaccine, Unspecified Formulation Influenza Virus Vaccine, Unspecified Formulation 2020-12-09 00:00:00 Completed Molly Palacio [place] Influenza Virus Vaccine 2020-12-09 00:00:00 Completed [facility] [place] Influenza Virus Vaccine 2020-12-09 00:00:00 Completed [facility] [place] Influenza Virus Vaccine 2020-12-09 00:00:00 Completed [facility] [place] Influenza Virus Vaccine 2020-12-09 00:00:00 Completed [facility] [place] Influenza Virus Vaccine 2020-12-09 00:00:00 Completed [facility] [place] Influenza Virus Vaccine 2020-12-09 00:00:00 Completed [facility] [place] Influenza Virus Vaccine 2020-12-09 00:00:00 Completed [facility] [place] Influenza Virus Vaccine 2020-12-09 00:00:00 Completed [facility] [place] Influenza Virus Vaccine 2020-12-09 00:00:00 Completed [facility] [place] Influenza Virus Vaccine 2020-12-09 00:00:00 Completed [facility] [place] Influenza Virus Vaccine 2020-12-09 00:00:00 Completed [facility] [place] Influenza Virus Vaccine 2020-12-09 00:00:00 Completed [facility] [place] Influenza Virus Vaccine 2020-12-09 00:00:00 Completed [facility] [place] Influenza Virus Vaccine 2020-12-09 00:00:00 Completed [facility] [place] Influenza Virus Vaccine 2020-12-09 00:00:00 Completed [facility] [place] Influenza Virus Vaccine 2020-12-09 00:00:00 Completed [facility] [place] Influenza Virus Vaccine 2020-06-25 00:00:00 Completed [facility] [place] TDAP 2020-06-25 00:00:00 Completed [facility] [place] Influenza Virus Vaccine Quad .5 mL IM 6+ MO (FLUZONE/FLULAVAL/FL UARIX) 2020-06-25 00:00:00 Completed [facility] [place] Pneumococcal Polysaccharide, PPSV23 (PNEUMOVAX) 2020-06-25 00:00:00 Completed [facility] [place] SARS-COV-2 COVID-19 MODERNA 12+ YRS VACCINE 2020-06-25 00:00:00 Completed [facility] [place] Covid-19 Vaccine Moderna (Spikevax), Mrna-lnp, Dami Protein, Pf Covid-19 Vaccine Moderna (Spikevax), Mrna-lnp, Dami Protein, Pf 2020-05-22 00:00:00 Completed Molly Bond SARS-COV-2 COVID-19 MODERNA VACCINE 2020-05-22 00:00:00 Completed [facility] [place] SARS-COV-2 COVID-19 MODERNA VACCINE 2020-05-22 00:00:00 Completed [facility] [place] SARS-COV-2 COVID-19 MODERNA VACCINE 2020-05-22 00:00:00 Completed [facility] [place] SARS-COV-2 COVID-19 MODERNA VACCINE 2020-05-22 00:00:00 Completed [facility] [place] SARS-COV-2 COVID-19 MODERNA VACCINE 2020-05-22 00:00:00 Completed [facility] [place] SARS-COV-2 COVID-19 MODERNA 12+ YRS VACCINE 2020-05-22 00:00:00 Completed [facility] [place] SARS-COV-2 COVID-19 MODERNA 12+ YRS VACCINE 2020-05-22 00:00:00 Completed [facility] [place] SARS-COV-2 COVID-19 MODERNA 12+ YRS VACCINE 2020-05-22 00:00:00 Completed [facility] [place] SARS-COV-2 COVID-19 MODERNA 12+ YRS VACCINE 2020-05-22 00:00:00 Completed [facility] [place] SARS-COV-2 COVID-19 MODERNA 12+ YRS VACCINE 2020-05-22 00:00:00 Completed [facility] [place] SARS-COV-2 COVID-19 MODERNA 12+ YRS VACCINE 2020-05-22 00:00:00 Completed [facility] [place] SARS-COV-2 COVID-19 MODERNA 12+ YRS VACCINE 2020-05-22 00:00:00 Completed [facility] [place] SARS-COV-2 COVID-19 MODERNA 12+ YRS VACCINE 2020-05-22 00:00:00 Completed [facility] [place] SARS-COV-2 COVID-19 MODERNA 12+ YRS VACCINE 2020-05-22 00:00:00 Completed [facility] [place] SARS-COV-2 COVID-19 MODERNA 12+ YRS VACCINE 2020-05-22 00:00:00 Completed SARS-COV-2 COVID-19 MODERNA VACCINE 2020-05-22 00:00:00 Completed [facility] [place] Covid-19 Vaccine Moderna (Spikevax), Mrna-lnp, Dami Protein, Pf Covid-19 Vaccine Moderna (Spikevax), Mrna-lnp, Dami Protein, Pf 2020-04-10 00:00:00 Completed Molly Bond SARS-COV-2 COVID-19 MODERNA VACCINE 2020-04-10 00:00:00 Completed [facility] [place] SARS-COV-2 COVID-19 MODERNA VACCINE 2020-04-10 00:00:00 Completed [facility] [place] SARS-COV-2 COVID-19 MODERNA VACCINE 2020-04-10 00:00:00 Completed [facility] [place] SARS-COV-2 COVID-19 MODERNA VACCINE 2020-04-10 00:00:00 Completed [facility] [place] SARS-COV-2 COVID-19 MODERNA VACCINE 2020-04-10 00:00:00 Completed [facility] [place] SARS-COV-2 COVID-19 MODERNA 12+ YRS VACCINE 2020-04-10 00:00:00 Completed [facility] [place] SARS-COV-2 COVID-19 MODERNA 12+ YRS VACCINE 2020-04-10 00:00:00 Completed [facility] [place] SARS-COV-2 COVID-19 MODERNA 12+ YRS VACCINE 2020-04-10 00:00:00 Completed [facility] [place] SARS-COV-2 COVID-19 MODERNA 12+ YRS VACCINE 2020-04-10 00:00:00 Completed [facility] [place] SARS-COV-2 COVID-19 MODERNA 12+ YRS VACCINE 2020-04-10 00:00:00 Completed [facility] [place] SARS-COV-2 COVID-19 MODERNA 12+ YRS VACCINE 2020-04-10 00:00:00 Completed [facility] [place] SARS-COV-2 COVID-19 MODERNA 12+ YRS VACCINE 2020-04-10 00:00:00 Completed [facility] [place] SARS-COV-2 COVID-19 MODERNA 12+ YRS VACCINE 2020-04-10 00:00:00 Completed [facility] [place] SARS-COV-2 COVID-19 MODERNA 12+ YRS VACCINE 2020-04-10 00:00:00 Completed [facility] [place] SARS-COV-2 COVID-19 MODERNA VACCINE 2020-04-10 00:00:00 Completed [facility] [place] Influenza Virus Vaccine Quad .5 mL IM 6+ MO 2019-11-27 00:00:00 Completed [facility] [place] Influenza Virus Vaccine Quad .5 mL IM 6+ MO 2019-11-27 00:00:00 Completed [facility] [place] Influenza Virus Vaccine Quad .5 mL IM 6+ MO 2019-11-27 00:00:00 Completed [facility] [place] Influenza Virus Vaccine Quad .5 mL IM 6+ MO (FLUZONE/FLULAVAL/FL UARIX) 2019-11-27 00:00:00 Completed [facility] [place] Influenza Virus Vaccine Quad .5 mL IM 6+ MO 2019-11-27 00:00:00 Completed [facility] [place] Influenza Virus Vaccine, No Preserv, age 6 months and up Influenza Virus Vaccine, No Preserv, age 6 months and up 2019-11-27 00:00:00 Completed Molly Palacio [facility] Influenza Virus Vaccine Quad .5 mL IM 6+ MO 2019-11-27 00:00:00 Completed [facility] [place] Influenza Virus Vaccine Quad .5 mL IM 6+ MO 2019-11-27 00:00:00 Completed [facility] [place] Influenza Virus Vaccine Quad .5 mL IM 6+ MO 2019-11-27 00:00:00 Completed [facility] [place] Influenza Virus Vaccine Quad .5 mL IM 6+ MO 2019-11-27 00:00:00 Completed [facility] [place] Influenza Virus Vaccine Quad .5 mL IM 6+ MO 2019-11-27 00:00:00 Completed [facility] [place] Influenza Virus Vaccine Quad .5 mL IM 6+ MO 2019-11-27 00:00:00 Completed [facility] [place] Influenza Virus Vaccine Quad .5 mL IM 6+ MO 2019-11-27 00:00:00 Completed [facility] [place] Influenza Virus Vaccine Quad .5 mL IM 6+ MO 2019-11-27 00:00:00 Completed [facility] [place] Influenza Virus Vaccine Quad .5 mL IM 6+ MO 2019-11-27 00:00:00 Completed [facility] [place] Influenza Virus Vaccine Quad .5 mL IM 6+ MO 2019-11-27 00:00:00 Completed [facility] [place] Influenza Virus Vaccine Quad .5 mL IM 6+ MO 2019-11-27 00:00:00 Completed [facility] [place] Influenza Virus Vaccine Quad .5 mL IM 6+ MO 2019-01-07 00:00:00 Completed [facility] [place] Pneumococcal Polysaccharide, PPSV23 (PNEUMOVAX) 2019-01-07 00:00:00 Completed [facility] [place] Influenza Virus Vaccine Quad .5 mL IM 6+ MO 2019-01-07 00:00:00 Completed [facility] [place] Pneumococcal Polysaccharide, PPSV23 (PNEUMOVAX) 2019-01-07 00:00:00 Completed [facility] [place] Influenza Virus Vaccine Quad .5 mL IM 6+ MO 2019-01-07 00:00:00 Completed [facility] [place] Pneumococcal Polysaccharide, PPSV23 (PNEUMOVAX) 2019-01-07 00:00:00 Completed [facility] [place] Influenza Virus Vaccine Quad .5 mL IM 6+ MO 2019-01-07 00:00:00 Completed [facility] [place] Pneumococcal Polysaccharide, PPSV23 (PNEUMOVAX) 2019-01-07 00:00:00 Completed [facility] [place] Influenza Virus Vaccine Quad .5 mL IM 6+ MO 2019-01-07 00:00:00 Completed [facility] [place] Pneumococcal Polysaccharide, PPSV23 (PNEUMOVAX) 2019-01-07 00:00:00 Completed [facility] [place] Influenza Virus Vaccine Quad .5 mL IM 6+ MO 2019-01-07 00:00:00 Completed [facility] [place] Pneumococcal Polysaccharide, PPSV23 (PNEUMOVAX) 2019-01-07 00:00:00 Completed [facility] [place] Influenza Virus Vaccine Quad .5 mL IM 6+ MO 2019-01-07 00:00:00 Completed [facility] [place] Pneumococcal Polysaccharide, PPSV23 (PNEUMOVAX) 2019-01-07 00:00:00 Completed [facility] [place] Influenza Virus Vaccine Quad .5 mL IM 6+ MO 2019-01-07 00:00:00 Completed [facility] [place] Pneumococcal Polysaccharide, PPSV23 (PNEUMOVAX) 2019-01-07 00:00:00 Completed [facility] [place] Influenza Virus Vaccine Quad .5 mL IM 6+ MO 2019-01-07 00:00:00 Completed [facility] [place] Pneumococcal Polysaccharide, PPSV23 (PNEUMOVAX) 2019-01-07 00:00:00 Completed [facility] [place] Influenza Virus Vaccine Quad .5 mL IM 6+ MO 2019-01-07 00:00:00 Completed [facility] [place] Pneumococcal Polysaccharide, PPSV23 (PNEUMOVAX) 2019-01-07 00:00:00 Completed [facility] [place] Influenza Virus Vaccine Quad .5 mL IM 6+ MO 2019-01-07 00:00:00 Completed [facility] [place] Pneumococcal Polysaccharide, PPSV23 (PNEUMOVAX) 2019-01-07 00:00:00 Completed [facility] [place] Influenza Virus Vaccine Quad .5 mL IM 6+ MO 2019-01-07 00:00:00 Completed [facility] [place] Pneumococcal Polysaccharide, PPSV23 (PNEUMOVAX) 2019-01-07 00:00:00 Completed [facility] [place] Influenza Virus Vaccine Quad .5 mL IM 6+ MO 2019-01-07 00:00:00 Completed [facility] [place] Pneumococcal Polysaccharide, PPSV23 (PNEUMOVAX) 2019-01-07 00:00:00 Completed [facility] [place] Influenza Virus Vaccine Quad .5 mL IM 6+ MO 2019-01-07 00:00:00 Completed [facility] [place] Pneumococcal Polysaccharide, PPSV23 (PNEUMOVAX) 2019-01-07 00:00:00 Completed [facility] [place] Influenza Virus Vaccine Quad .5 mL IM 6+ MO 2019-01-07 00:00:00 Completed [facility] [place] Pneumococcal Polysaccharide, PPSV23 (PNEUMOVAX) 2019-01-07 00:00:00 Completed [facility] [place] Influenza Virus Vaccine, No Preserv, age 6 months and up Influenza Virus Vaccine, No Preserv, age 6 months and up 2019-01-07 00:00:00 Completed Molly Palacio - External Pneumococcal Vaccine, Polysaccharide Pneumococcal Vaccine, Polysaccharide 2019-01-07 00:00:00 Completed Molly Palacio - External Influenza Virus Vaccine 2017-11-21 00:00:00 Completed [facility] [place] Influenza Virus Vaccine 2017-11-21 00:00:00 Completed [facility] [place] Influenza Virus Vaccine 2017-11-21 00:00:00 Completed [facility] [place] Influenza Virus Vaccine 2017-11-21 00:00:00 Completed [facility] [place] Influenza Virus Vaccine 2017-11-21 00:00:00 Completed [facility] [place] Influenza Virus Vaccine 2017-11-21 00:00:00 Completed [facility] [place] Influenza Virus Vaccine 2017-11-21 00:00:00 Completed [facility] [place] Influenza Virus Vaccine 2017-11-21 00:00:00 Completed [facility] [place] Influenza Virus Vaccine 2017-11-21 00:00:00 Completed [facility] [place] Influenza Virus Vaccine 2017-11-21 00:00:00 Completed [facility] [place] Influenza Virus Vaccine 2017-11-21 00:00:00 Completed [facility] [place] Influenza Virus Vaccine 2017-11-21 00:00:00 Completed [facility] [place] Influenza Virus Vaccine 2017-11-21 00:00:00 Completed [facility] [place] Influenza Virus Vaccine 2017-11-21 00:00:00 Completed [facility] [place] Influenza Virus Vaccine 2017-11-21 00:00:00 Completed [facility] [place] Influenza Virus Vaccine, Unspecified Formulation Influenza Virus Vaccine, Unspecified Formulation 2017-11-21 00:00:00 Completed Molly Guallpa External TDAP 2011-01-02 00:00:00 Completed [facility] [place] TDAP 2011-01-02 00:00:00 Completed [facility] [place] TDAP 2011-01-02 00:00:00 Completed [facility] [place] TDAP 2011-01-02 00:00:00 Completed [facility] [place] TDAP 2011-01-02 00:00:00 Completed [facility] [place] TDAP 2011-01-02 00:00:00 Completed [facility] [place] TDAP 2011-01-02 00:00:00 Completed [facility] [place] TDAP 2011-01-02 00:00:00 Completed [facility] [place] TDAP 2011-01-02 00:00:00 Completed [facility] [place] TDAP 2011-01-02 00:00:00 Completed [facility] [place] TDAP 2011-01-02 00:00:00 Completed [facility] [place] TDAP 2011-01-02 00:00:00 Completed [facility] [place] TDAP 2011-01-02 00:00:00 Completed [facility] [place] TDAP 2011-01-02 00:00:00 Completed [facility] [place] TDAP 2011-01-02 00:00:00 Completed [facility] [place] Tdap- (Boostrix, Adacel) Tdap- (Boostrix, Adacel) 2011-01-02 00:00:00 Completed Molly Palacio - External Influenza Virus Vaccine, Unspecified Formulation Unknown Completed Molly Guallpa External Influenza Virus Vaccine, No Preserv, age 6 months and up Unknown Completed Molly reilly - External Influenza, Injectable, Mdck, Preservative Free, Quadrivalent Unknown Completed Molly Guallpa External FLUCELVAX TRIVALENT PF Unknown Completed Molly Guallpa External Pneumococcal Vaccine, Polysaccharide Unknown Completed Molly corbin - External Covid-19 Vaccine Moderna (Spikevax), Mrna-lnp, Dami Protein, Pf Unknown Completed Molly Guallpa External Tdap- (Boostrix, Adacel) Unknown Completed Molly Palacio - External Vital Signs Vital Name Observation Time Observation Value Comments S ource Systolic blood pressure 2024-10-16 16:25:00 110 mm[Hg] Molly Goncalves ld - External Diastolic blood pressure 2024-10-16 16:25:00 70 mm[Hg] Molly pérez - External Heart rate 2024-10-16 16:25:00 84 /min Chao Palacio - External Body temperature 2024-10-16 16:25:00 36.89 Lakshmi Molly Guallpa External Respiratory rate 2024-10-16 16:25:00 16 /min Molly Palacio - External Body height 2024-10-16 16:25:00 170.2 cm Caroline ey Seybold - External Body weight 2024-10-16 16:25:00 112.038 kg Caroline ey Seybold - External BMI 2024-10-16 16:25:00 38.69 kg/m2 Caroline ey Seybold - External Oxygen saturation in Arterial blood by Pulse oximetry 2024-10-16 16:25:00 97 /min Molly Contrerasybo ld - External Systolic blood pressure 2024-09-18 18:33:00 152 mm[Hg] Molly Seybo ld - External Diastolic blood pressure 2024-09-18 18:33:00 86 mm[Hg] Molly Seybo ld - External Heart rate 2024-09-18 18:24:00 85 /min Chao bartlett Seybold - External Body temperature 2024-09-18 18:24:00 36.83 Lakshmi Molly Contrerasybold - External Respiratory rate 2024-09-18 18:24:00 15 /min Molly Contrerasybold - External Body height 2024-09-18 18:24:00 170.2 cm Caroline ey Seybold - External Body weight 2024-09-18 18:24:00 111.131 kg Caroline ey Seybold - External BMI 2024-09-18 18:24:00 38.37 kg/m2 Caroline ey Seybold - External Oxygen saturation in Arterial blood by Pulse oximetry 2024-09-18 18:24:00 98 /min Molly Smitho ld - External Systolic blood pressure 2024-09-15 15:21:00 141 mm[Hg] [facility] Diastolic blood pressure 2024-09-15 15:21:00 93 mm[Hg] [facility] Heart rate 2024-09-15 15:20:00 84 /min [facility] Body temperature 2024-09-15 15:20:00 36.61 Lakshmi [facility] Respiratory rate 2024-09-15 15:20:00 18 /min [facility] Body height 2024-09-15 15:20:00 170.2 cm [facility] Body weight 2024-09-15 15:20:00 110.315 kg [facility] BMI 2024-09-15 15:20:00 38.09 kg/m2 [facility] Systolic blood pressure 2024-08-21 14:22:00 133 mm[Hg] [facility] Diastolic blood pressure 2024-08-21 14:22:00 89 mm[Hg] [facility] Heart rate 2024-08-21 14:22:00 80 /min [facility] Body temperature 2024-08-21 14:22:00 36.78 Lakshmi [facility] Respiratory rate 2024-08-21 14:22:00 18 /min [facility] Body height 2024-08-21 14:22:00 170.2 cm [facility] Body weight 2024-08-21 14:22:00 110.224 kg [facility] BMI 2024-08-21 14:22:00 38.06 kg/m2 [facility] Systolic blood pressure 2024-07-30 21:23:00 153 mm[Hg] [facility] Diastolic blood pressure 2024-07-30 21:23:00 90 mm[Hg] [facility] Heart rate 2024-07-30 21:21:00 77 /min [facility] Body temperature 2024-07-30 21:21:00 37 Lakshmi [facility] Respiratory rate 2024-07-30 21:21:00 15 /min [facility] Body height 2024-07-30 21:21:00 170.2 cm [facility] Body weight 2024-07-30 21:21:00 109.317 kg [facility] BMI 2024-07-30 21:21:00 37.75 kg/m2 [facility] Oxygen saturation in Arterial blood by Pulse oximetry 2024-07-30 21:21:00 98 /min [facility] Systolic blood pressure 2024-03-26 22:15:00 132 mm[Hg] [facility] Diastolic blood pressure 2024-03-26 22:15:00 75 mm[Hg] [facility] Heart rate 2024-03-26 22:09:00 68 /min [facility] Body height 2024-03-26 22:09:00 170.2 cm [facility] Body weight 2024-03-26 22:09:00 110.859 kg [facility] BMI 2024-03-26 22:09:00 38.28 kg/m2 [facility] Oxygen saturation in Arterial blood by Pulse oximetry 2024-03-26 22:09:00 99 /min [facility] Systolic blood pressure 2024-03-20 22:20:00 157 mm[Hg] [facility] Diastolic blood pressure 2024-03-20 22:20:00 76 mm[Hg] [facility] Heart rate 2024-03-20 22:20:00 83 /[facility] Body height 2024-03-20 22:20:00 170.2 cm [facility] Body weight 2024-03-20 22:20:00 110.224 kg [facility] BMI 2024-03-20 22:20:00 38.06 kg/m2 [facility] Systolic blood pressure 2024-02-06 20:08:00 134 mm[Hg] [facility] Diastolic blood pressure 2024-02-06 20:08:00 82 mm[Hg] [facility] Heart rate 2024-02-06 20:08:00 90 /min [facility] Body temperature 2024-02-06 20:08:00 36.83 Lakshmi [facility] Respiratory rate 2024-02-06 20:08:00 15 /min [facility] Body height 2024-02-06 20:08:00 170.2 cm [facility] Body weight 2024-02-06 20:08:00 108.909 kg [facility] BMI 2024-02-06 20:08:00 37.60 kg/m2 [facility] Oxygen saturation in Arterial blood by Pulse oximetry 2024-02-06 20:08:00 96 /min [facility] Systolic blood pressure 2023-10-29 23:36:00 152 mm[Hg] [facility] Diastolic blood pressure 2023-10-29 23:36:00 99 mm[Hg] [facility] Heart rate 2023-10-29 23:35:00 98 /min [facility] Body temperature 2023-10-29 23:35:00 36.89 Lakshmi [facility] Respiratory rate 2023-10-29 23:35:00 22 /min [facility] Body weight 2023-10-29 23:35:00 110.678 kg [facility] BMI 2023-10-29 23:35:00 38.22 kg/m2 [facility] Oxygen saturation in Arterial blood by Pulse oximetry 2023-10-29 23:35:00 99 /min [facility] Systolic blood pressure 2023-08-09 19:22:00 132 mm[Hg] [facility] Diastolic blood pressure 2023-08-09 19:22:00 85 mm[Hg] [facility] Heart rate 2023-08-09 19:22:00 98 /min [facility] Respiratory rate 2023-08-09 19:22:00 18 /min [facility] Body height 2023-08-09 19:22:00 170.2 cm [facility] Body weight 2023-08-09 19:22:00 108.863 kg [facility] BMI 2023-08-09 19:22:00 37.59 kg/m2 [facility] Systolic blood pressure 2023-03-29 00:51:00 148 mm[Hg] [facility] Diastolic blood pressure 2023-03-29 00:51:00 84 mm[Hg] [facility] Heart rate 2023-03-29 00:51:00 96 /min [facility] Respiratory rate 2023-03-29 00:51:00 18 /min [facility] Body height 2023-03-29 00:51:00 170.2 cm [facility] Body weight 2023-03-29 00:51:00 108.682 kg [facility] BMI 2023-03-29 00:51:00 37.53 kg/m2 [facility] Oxygen saturation in Arterial blood by Pulse oximetry 2023-03-29 00:51:00 96 /min [facility] Systolic blood pressure 2023-01-03 17:37:00 138 mm[Hg] [facility] Diastolic blood pressure 2023-01-03 17:37:00 82 mm[Hg] [facility] Heart rate 2023-01-03 17:37:00 89 /[facility] 2023-01-03 17:37:00 170.2 cm [facility] Body weight 2023-01-03 17:37:00 108.138 kg [facility] BMI 2023-01-03 17:37:00 37.34 [facility] O[facility] saturation in Arterial blood by Pulse oximetry 2023-01-03 17:37:00 97 /min [facility] Systolic blood pressure 2022-07-23 01:52:00 147 mm[Hg] [facility] Diastolic blood pressure 2022-07-23 01:52:00 94 mm[Hg] [facility] Heart rate 2022-07-23 01:52:00 74 /min [facility] Body temperature 2022-07-23 01:52:00 36.72 Lakshmi [facility] Respiratory rate 2022-07-23 01:52:00 20 /min [facility] Body height 2022-07-23 01:52:00 170.2 cm [facility] Body weight 2022-07-23 01:52:00 104.327 kg [facility] BMI 2022-07-23 01:52:00 36.02 kg/m2 [facility] Oxygen saturation in Arterial blood by Pulse oximetry 2022-07-23 01:52:00 96 /min [facility] Systolic blood pressure 2022-06-16 15:22:00 118 mm[Hg] [facility] Diastolic blood pressure 2022-06-16 15:22:00 73 mm[Hg] [facility] Heart rate 2022-06-16 15:22:00 97 /min [facility] Respiratory rate 2022-06-16 15:22:00 16 /min [facility] Body height 2022-06-16 15:22:00 170.2 cm [facility] Body weight 2022-06-16 15:22:00 103.375 kg [facility] BMI 2022-06-16 15:22:00 35.69 kg/m2 [facility] Oxygen saturation in Arterial blood by Pulse oximetry 2022-06-16 15:22:00 97 /min [facility] Systolic blood pressure 2022-01-30 16:35:00 135 mm[Hg] [facility] Diastolic blood pressure 2022-01-30 16:35:00 82 mm[Hg] [facility] Heart rate 2022-01-30 16:34:00 80 /min [facility] Body temperature 2022-01-30 16:34:00 37.28 Lakshmi [facility] Body height 2022-01-30 16:34:00 170.2 cm [facility] Body weight 2022-01-30 16:34:00 103.42 kg [facility] BMI 2022-01-30 16:34:00 35.71 kg/m2 [facility] Oxygen saturation in Arterial blood by Pulse oximetry 2022-01-30 16:34:00 98 /min [facility] Systolic blood pressure 2022-01-04 22:43:00 136 mm[Hg] [facility] Diastolic blood pressure 2022-01-04 22:43:00 89 mm[Hg] [facility] Heart rate 2022-01-04 22:43:00 73 /min [facility] Body temperature 2022-01-04 22:43:00 36.56 Lakshmi [facility] Respiratory rate 2022-01-04 22:43:00 16 /min [facility] Body height 2022-01-04 22:43:00 170.2 cm [facility] Body weight 2022-01-04 22:43:00 102.513 kg [facility] BMI 2022-01-04 22:43:00 35.40 kg/m2 [facility] Oxygen saturation in Arterial blood by Pulse oximetry 2022-01-04 22:43:00 98 /min [facility] Systolic blood pressure 2021-12-03 21:10:00 128 mm[Hg] [facility] Diastolic blood pressure 2021-12-03 21:10:00 77 mm[Hg] [facility] Heart rate 2021-12-03 21:00:00 84 /min [facility] Body temperature 2021-12-03 21:00:00 36.78 Lakshmi [facility] Respiratory rate 2021-12-03 21:00:00 18 /min [facility] Body height 2021-12-03 21:00:00 170.2 cm [facility] Body weight 2021-12-03 21:00:00 102.967 kg [facility] BMI 2021-12-03 21:00:00 35.55 kg/m2 [facility] Oxygen saturation in Arterial blood by Pulse oximetry 2021-12-03 21:00:00 97 /min [facility] Systolic blood pressure 2021-07-10 22:27:00 137 mm[Hg] [facility] Diastolic blood pressure 2021-07-10 22:27:00 82 mm[Hg] [facility] Heart rate 2021-07-10 22:25:00 91 /min [facility] Body temperature 2021-07-10 22:25:00 36.89 Lakshmi [facility] Respiratory rate 2021-07-10 22:25:00 16 /min [facility] Body height 2021-07-10 22:25:00 170.2 cm [facility] Body weight 2021-07-10 22:25:00 106.323 kg [facility] BMI 2021-07-10 22:25:00 36.71 kg/m2 [facility] Oxygen saturation in Arterial blood by Pulse oximetry 2021-07-10 22:25:00 98 /min [facility] Systolic blood pressure 2021-06-09 15:34:00 133 mm[Hg] [facility] Diastolic blood pressure 2021-06-09 15:34:00 82 mm[Hg] [facility] Heart rate 2021-06-09 15:34:00 84 /min [facility] Body temperature 2021-06-09 15:34:00 37 Lakshmi [facility] Respiratory rate 2021-06-09 15:34:00 20 /min [facility] Body height 2021-06-09 15:34:00 170.2 cm [facility] Body weight 2021-06-09 15:34:00 106.777 kg [facility] BMI 2021-06-09 15:34:00 36.87 kg/m2 [facility] Oxygen saturation in Arterial blood by Pulse oximetry 2021-06-09 15:34:00 96 /min [facility] Procedures Procedure Date / Time Performed Performing Clinician Source HEMOGLOBIN (HB) A1C 2024-10-16 00:00:00 Len Palacio - External COMP. METABOLIC PANEL (14) 2024-10-16 00:00:00 Molly Palacio - External CBC WITH DIFFERENTIAL 2024-10-16 00:00:00 Molly Palacio - External LIPID PANEL 2024-10-16 00:00:00 Molly reilly - External POCT TEST 2024-09-15 00:00:00 Klarissa Whitt [facility] XR CHEST 2 VW 2024-07-30 21:38:00 Anjum Mireles [facility] FLU VACC ([id number]), 6 MO-64 YRS, .5ML, IM, TIV (FLUCELVAX) 2024-03-20 22:49:27 Tamara Sheldon [facility] POCT SARS-COV-2 ANTIGEN (BINAX NOW) 2023-10-30 00:38:00 Melly Crawford [facility] BI SCREENING TOMOSYNTHESIS BILATERAL 2023-08-20 19:53:27 Klarissa Whitt [facility] EXTERNAL PROVIDER RECORDS 2022-10-09 05:01:00 Doctor Unassigned, [place] [facility] ASSIGNMENT OF BENEFITS 2022-06-16 14:55:50 Docto r Unassigned, [place] [facility] EXTERNAL PROVIDER RECORDS 2021-08-15 05:01:00 Doctor Unassigned, [place] [facility] TDAP VACCINE, >11 YRS, IM 2021-06-09 15:56:45 Anjum Mireles [facility] CONSENT FOR CONTRACEPTION 2021-06-09 05:01:00 Doctor Unassigned, [place] [facility] EXTERNAL PROVIDER RECORDS 2021-03-30 06:01:00 Doctor Unassigned, [place] [facility] Plan of Care Planned Activity Planned Date Details Comments Source Encounters Start Date/Time End Date/Time Encounter Type Admission Type Attending Clinicians Care Facility Care Department Encounter ID Source 2025-08-25 10:30:00 2025-08-25 10:30:00 Outpatient R COBIAN-ADAMS S, KLRAISSA COBIAN-ADAMS S, KLARISSA [facility] [id number] [facility] 2024-10-21 11:35:00 2024-10-21 11:35:00 Outpatient [id number] MOLLY DIANA [id number] [facility] 2024-09-17 00:00:00 2024-10-18 18:20:52 Patient Secure Msg Cobian-Adams s, Klarissa [facility] 1.2.840.114 350.1.13.10 4.2.7.2.686 [id number] [facility] 2024-10-17 11:55:00 2024-10-17 11:55:00 Outpatient [id number] MOLLY DIANA [id number] [facility] 2024-10-17 00:00:00 2024-10-17 00:00:00 Outpatient MALIKA ROBERTS [id number] [facility] 2024-10-16 16:30:00 2024-10-16 16:30:00 Outpatient MIGUEL OSPINA [id number] [facility] 2024-10-03 10:15:00 2024-10-03 10:15:00 Outpatient ALFREDO REDDYSEY [id number] Molly Palacio 2024-08-23 00:00:00 2024-09-27 18:32:33 [facility] 1.114 350.1.13.10 4.2.7.2.686 [id number] [facility] 2024-08-27 00:00:00 2024-09-27 18:22:49 [facility] 1.114 350.1.13.10 4.2.7.2.686 [id number] [facility] 2024-08-27 00:00:00 2024-09-27 18:21:22 Patient Secure Msg Doctor Unassigned, [place] Doctor Unassigned, [place] [facility] 1.114 350.1.13.10 4.2.7.2.686 [id number] [facility] 2024-09-26 14:00:00 2024-09-26 14:00:00 Outpatient BARRYALFREDOSEY [id number] [facility] 2024-09-24 00:00:00 2024-09-25 14:52:58 Marv Lucas [facility] JOHN?[facility] 1.84114 350.1.13.10 4.2.7.2.686 [id number] [facility] 2024-09-25 14:00:00 2024-09-25 14:00:00 Outpatient BARRYALFREDO MOLLY [id number] Molly Contreraspaula 2024-09-24 00:00:00 2024-09-24 19:45:01 Letter (Out) [facility] ([facility] 1.114 350.1.13.10 4.2.7.2.686 [id number] [facility] 2024-09-18 13:30:00 2024-09-18 13:30:00 Outpatient CONNIE LEDBETTER [id number] Molly Palacio 2024-09-15 10:00:00 2024-09-15 10:31:36 Office Visit R COBIAN-ADAMS S, KLARISSA COBIAN-ADAMS S, KLARISSA [facility] 1.2.840.114 350.1.13.10 4.2.7.2.686 [id number] [facility] 2024-09-15 10:00:00 2024-09-15 10:00:00 Outpatient R COBIAN-ADAMS S, KLARISSA COBIAN-ADAMS S, KLARISSA [facility] [id number] [facility] 2024-06-21 00:00:00 2024-09-09 07:40:16 Refill Scotty Campos [facility] 1.2.840.114 350.1.13.10 4.2.7.2.686 [id number] [facility] 2024-09-07 00:00:00 2024-09-08 09:03:35 Refill Cobian-Adams s, Klarissa [facility] 1.2840.114 350.1.13.10 4.2.7.2.686 [id number] [facility] 2024-07-31 00:00:00 2024-09-06 18:33:38 Patient Secure Msg ContrerasJorge Luis [facility] 1.2.840.114 350.1.13.10 4.2.7.2.686 [id number] [facility] 2024-09-01 00:00:00 2024-09-01 14:36:15 Telephone Tamara Sheldon [facility] 1.2840.114 350.1.13.10 4.2.7.2.686 [id number] [facility] 2024-08-27 00:00:00 2024-08-27 13:55:00 Patient Secure Msg Cobian-Adams s, Klarissa [facility] 1.2.840.114 350.1.13.10 4.2.7.2.686 [id number] [facility] 2024-08-25 14:37:10 2024-08-25 23:59:00 Hospital Encounter R COBIAN-ADAMS S, KLARISSA COBIAN-ADAMS S, KLARISSA [facility] 1.2840.114 350.1.13.10 4.2.7.2.686 [id number] [facility] 2024-08-25 00:00:00 2024-08-25 15:21:41 Refill Marv Cota [facility] 1.2840.114 350.1.13.10 4.2.7.2.686 [id number] [facility] 2024-08-21 09:30:00 2024-08-21 09:37:08 Office Visit R COBIAN-ADAMS S, KLARISSA COBIAN-ADAMS S, KLARISSA [facility] 1.2.840.114 350.1.13.10 4.2.7.2.686 [id number] [facility] 2024-07-30 16:33:22 2024-07-30 23:59:00 Hospital Encounter R ALINE ANJUM [facility]?R[facility]PH [facility] 1.2840.114 350.1.13.10 4.2.7.2.686 [id number] [facility] 2024-07-30 16:20:00 2024-07-30 16:52:31 [facility] 1.84.114 350.1.13.10 4.2.7.2.686 [id number] [facility] 2024-07-12 00:00:00 2024-07-14 13:33:58 [facility] 1.84.114 350.1.13.10 4.2.7.2.686 [id number] [facility] 2024-06-15 00:00:00 2024-06-16 09:09:50 [facility]day [facility] 1..114 350.1.13.10 4.2.7.2.686 [id number] [facility] 2024-05-28 18:40:00 2024-05-28 18:40:00 Outpatient Evaristo MIRELES [facility] [id number] [facility] 2021-03-24 00:00:00 2024-04-26 02:50:59 Orders Only Kimber, Shilpi Quiroga, Shilpi NORRIS 1.84.114 350.1.13.10 4.2.7.2.686 [id number] [facility] 2024-04-21 00:00:00 2024-04-22 11:43:51 Refday Cota [facility] JOHN?[facility] 1.84.114 350.1.13.10 4.2.7.2.686 [id number] [facility] 2024-04-15 00:00:00 2024-04-16 14:52:10 Telephone Scotty Campos [facility] JOHN?RALPH [facility] 1.2.840.114 350.1.13.10 4.2.7.2.686 [id number] [facility] 2024-04-15 00:00:00 2024-04-16 09:07:59 [facility]phone [facility] 1.2.840.114 350.1.13.10 4.2.7.2.686 [id number] [facility] 2024-04-08 00:00:00 2024-04-09 16:35:15 Telephone [facility] 1.2.840.114 350.1.13.10 4.2.7.2.686 [id number] [facility] 2024-03-26 00:00:00 2024-03-27 07:38:50 Telephone Marv Cota [facility] JOHN?[facility] 1.2.840.114 350.1.13.10 4.2.7.2.686 [id number] [facility] 2024-03-26 16:20:00 2024-03-26 16:34:27 Outpatient R SCOTTY CAMPOS [facility] [id number] [facility] 2024-03-26 16:20:00 2024-03-26 16:34:27 [facility] 1.2.840.114 350.1.13.10 4.2.7.2.686 [id number] [facility] 2024-03-21 09:00:00 2024-03-21 09:15:00 Block Hacker Visit Lab, Wyatt Buttsmilena Tamara Marmolejohal Lab, Ang - Db [facility]PH [facility] 1.84.114 350.1.13.10 4.2.7.2.686 [id number] [facility] 2024-03-21 09:00:00 2024-03-21 09:00:00 Outpatient TAMARA NEWELL [facility] [id number] [facility] 2024-03-21 00:00:00 2024-03-21 07:32:01 Refday Cipriano [facility] JOHN?[facility] 1.114 350.1.13.10 4.2.7.2.686 [id number] [facility] 2024-03-20 16:00:00 2024-03-20 16:35:42 Outpatient TAMARA NEWELL [facility] [id number] [facility] 2024-03-20 16:00:00 2024-03-20 16:35:42 Office Visit Tamara Sheldon [facility] 1.2114 350.1.13.10 4.2.7.2.686 [id number] [facility] 2024-03-14 00:00:00 2024-03-14 15:42:05 Luciano Cota [facility] 1.2114 350.1.13.10 4.2.7.2.686 [id number] [facility] 2024-03-04 00:00:00 2024-03-06 16:35:50 Luciano Cipriano [facility] 1..114 350.1.13.10 4.2.7.2.686 [id number] [facility] 2024-02-18 00:00:00 2024-02-19 14:33:06 Refill Marv C[facility] 1..840.114 350.1.13.10 4.2.7.2.686 [id number] [facility] 2024-02-06 13:40:00 2024-02-06 15:06:44 Outpatient R CHEY SNYDER SHAHNAZ [facility] [id number] [facility] 2024-02-06 13:40:00 2024-02-06 15:06:44 Urgent Care Chey Snyder Unknown, Attending [facility] 1..840.114 350.1.13.10 4.2.7.2.686 [id number] [facility] 2023-12-12 00:00:00 2023-12-12 08:15:47 Refill Marv Cota [facility] BUILDING 1..840.114 350.1.13.10 4.2.7.2.686 [id number] [facility] 2023-10-29 18:20:00 2023-10-29 18:40:00 Urgent Care Melly Crawford Unknown, Attending [facility] MEDICAL OFFICE BUILDING 1..840.114 350.1.13.10 4.2.7.2.686 [id number] [facility] 2023-10-29 18:20:00 2023-10-29 18:20:00 Outpatient R MELLY CRAWFORD [facility] [id number] [facility] 2023-08-29 00:00:00 2023-09-29 18:17:18 Patient Secure Msg Doctor Unassigned, [place] [facility] NAL BUILDING 1.2.840.114 350.1.13.10 4.2.7.2.686 [id number] [facility] 2023-08-28 00:00:00 2023-08-30 09:37:01 Telephone Cedricki Klarissa nolan [facility] 1.2.840.114 350.1.13.10 4.2.7.2.686 [id number] [facility] 2023-08-29 00:00:00 2023-08-30 09:09:25 Refill Cobian-Adams sNessaKlarissa [facility] BUILDING 1.2.840.114 350.1.13.10 4.2.7.2.686 [id number] [facility] 2023-08-27 11:17:18 2023-08-27 23:59:00 Outpatient R COBIAN-ADAMS S, KLARISSA COBIAN-ADAMS S, KLARISSA [facility] [id number] [facility] 2023-08-27 11:00:00 2023-08-27 23:59:00 Hospital Encounter Pam Leonardl [facility] 1.2.840.114 350.1.13.10 4.2.7.2.686 [id number] [facility] 2023-07-25 00:00:00 2023-08-25 18:17:25 Patient Secure Msg Doctor Unassigned, [place] [facility] 1.2840.114 350.1.13.10 4.2.7.2.686 [id number] [facility] 2023-08-20 14:20:24 2023-08-20 23:59:00 Outpatient R COBIAN-ADAMS S, KLARISSA COBIAN-ADAMS S, KLARISSA [facility] [id number] [facility] 2023-08-20 14:20:00 2023-08-20 23:59:00 Hospital Encounter Klarissa Leonard [facility] 1.0.114 350.1.13.10 4.2.7.2.686 [id number] [facility] 2023-08-10 09:30:00 2023-08-10 09:30:00 Outpatient R ARANZA-ADAMS S, KLARISSA COBIAN-ADAMS S, KLARISSA [facility] [id number] [facility] 2023-08-09 14:30:00 2023-08-09 14:47:28 Outpatient R ARANZA-ADAMS S, KLARISSA COBIAN-ADAMS S, KLARISSA [facility] [id number] [facility] 2023-08-09 14:30:00 2023-08-09 14:47:28 Office Visit Aziza nolna [facility] 1.0.114 350.1.13.10 4.2.7.2.686 [id number] [facility] 2023-07-25 00:00:00 2023-07-25 08:54:21 Refill Aziza nolan [facility] 1.0.114 350.1.13.10 4.2.7.2.686 [id number] [facility] 2023-06-20 00:00:00 2023-06-20 00:00:00 Refill Aziza nolan [facility] 1.2840.114 350.1.13.10 4.2.7.2.686 [id number] [facility] 2023-04-08 00:00:00 2023-04-08 00:00:00 Refill Marv Cota [facility] JOHN?[facility] BUILDING 1.2840.114 350.1.13.10 4.2.7.2.686 [id number] [id number] [facility] 2023-03-28 19:00:00 2023-03-28 19:07:29 Outpatient R ANJUM MIRELES [facility] [id number] [facility] 2023-03-28 19:00:00 2023-03-28 19:07:29 Urgent Care Anjum Mireles Unknown, Attending [facility] MED[facility] OFF[facility] BUILDING 1..840.114 350.1.13.10 4.2.7.2.686 [id number] [facility] 2023-01-03 12:45:00 2023-01-03 12:51:19 Outpatient R CIPRIANO MARV [facility] [id number] [facility] 2023-01-03 12:45:00 2023-01-03 12:51:19 [facility]PH [facility] MEDICAL OFFICE BUILDING 1..840.114 350.1.13.10 4.2.7.2.686 [id number] [id number] [facility] 2023-01-02 00:00:00 2023-01-02 00:00:00 Refill Cipriano [facility] JOHN?[facility] MEDICAL OFFICE BUILDING 1..840.114 350.1.13.10 4.2.7.2.686 [id number] [facility] 2022-12-01 00:00:00 2022-12-01 00:00:00 Refill Cipriano [facility] JOHN?[facility] MEDICAL OFFICE BUILDING 1..840.114 350.1.13.10 4.2.7.2.686 [id number] [id number] [facility] 2022-10-17 00:00:00 2022-10-17 00:00:00 Outpatient NESSA LAISOL AZIZA S, KLARISSA [facility] [id number] [facility] 2022-10-09 00:00:00 2022-10-09 00:00:00 Orders Only Doctor Unassigned, [place] [facility] 1.2840.114 350.1.13.10 4.2.7.2.686 [id number] [facility] 2022-09-25 00:00:00 2022-09-25 00:00:00 Telephone Marv Cota [facility] MEDICAL OFFICE BUILDING 1.84.114 350.1.13.10 4.2.7.2.686 [id number] [facility] 2022-07-22 20:40:00 2022-07-22 21:00:00 Urgent Care Malika Uriostegui, Attending [facility] MEDICAL OFFICE BUILDING 1.84.114 350.1.13.10 4.2.7.2.686 [id number] [facility] 2022-07-22 20:40:00 2022-07-22 20:40:00 Outpatient R MALIKA URIOSTEGUI [facility] [id number] [facility] 2022-06-16 10:00:00 2022-06-16 10:47:00 Outpatient R KLARISSA LEONARD, KLARISSA [facility] [id number] [facility] 2022-06-16 10:00:00 2022-06-16 10:47:00 Office Visit Klarissa Leonard [facility] 1.84.114 350.1.13.10 4.2.7.2.686 [id number] [facility] 2022-06-16 00:00:00 2022-06-16 00:00:00 Orders Only Doctor Unassigned, [place] [facility] 1.84.114 350.1.13.10 4.2.7.2.686 [id number] [facility] 2022-06-12 08:30:00 2022-06-12 08:30:00 [id number] [facility] 2022-06-12 08:30:00 2022-06-12 08:30:00 Outpatient R JAYDENURIEL [facility] [id number] [facility] 2022-01-30 10:30:00 2022-01-30 11:00:00 Office Visit Dominique Castillo [facility] MEDICAL OFFICE BUILDING 1.840.114 350.1.13.10 4.2.7.2.686 [id number] [facility] 2022-01-30 10:30:00 2022-01-30 10:30:00 Outpatient R NEDYenny DOMINIQUE [facility] [id number] [facility] 2022-01-04 17:40:00 2022-01-04 18:09:43 Outpatient R JUAN DE LEON [facility] [id number] [facility] 2022-01-04 17:40:00 2022-01-04 18:09:43 Urgent Care Juan De Leon Unknown, Attending [facility] MEDICAL OFFICE BUILDING 1.840.114 350.1.13.10 4.2.7.2.686 [id number] [facility] 2021-12-03 16:20:00 2021-12-03 16:40:00 Urgent Care Richard Ya Unknown, Attending [facility] MEDICAL OFFICE BUILDING 1.840.114 350.1.13.10 4.2.7.2.686 [id number] [facility] 2021-12-03 16:20:00 2021-12-03 16:20:00 Outpatient R RICHARD YA [facility] [id number] [facility] 2021-11-17 00:00:00 2021-11-17 00:00:00 Refill Cipriano [facility] JOHN?[facility] BUILDING 1.2840.114 350.1.13.10 4.2.7.2.686 [id number] [id number] [facility] 2021-11-04 00:00:00 2021-11-04 00:00:00 Refill Cipriano [facility] JOHN?RALPH [facility] MEDICAL OFFICE BUILDING 1.2840.114 350.1.13.10 4.2.7.2.686 [id number] [id number] [facility] 2021-08-15 00:00:00 2021-08-15 00:00:00 Orders Only Doctor Unassigned, [place] [facility] 1.2840.114 350.1.13.10 4.2.7.2.686 [id number] [facility] 2021-08-02 00:00:00 2021-08-02 00:00:00 Telephone Marv Cota [facility] JOHN?[facility] MED[facility] OFFICE BUILDING 1.2840.114 350.1.13.10 4.2.7.2.686 [id number] 044 [id number] [facility] 2021-07-10 17:20:00 2021-07-10 17:40:00 Urgent Care Malika Uriostegui [facility] MEDICAL OFFICE BUILDING 1.284.114 350.1.13.10 4.2.7.2.686 [id number] [facility] 2021-07-10 17:20:00 2021-07-10 17:20:00 Outpatient R MALIKA URIOSTEGUI [facility] [id number] [facility] 2021-06-09 10:00:00 2021-06-09 11:00:06 Office Visit JaydenurielAnjum [facility] GRIFFIN [facility] 1..840.114 350.1.13.10 4.2.7.2.686 [id number] [facility] 2021-06-09 10:00:00 2021-06-09 11:00:06 Outpatient R ANJUM MIRELES [facility] [id number] [facility] 2021-06-09 10:00:00 2021-06-09 10:00:00 Outpatient R ALINE [facility] [id number] [facility] 2021-06-09 00:00:00 2021-06-09 00:00:00 Orders Only Doctor Unassigned, [place] [facility] 1..840.114 350.1.13.10 4.2.7.2.686 [id number] [facility] 2021-05-19 11:00:00 2021-05-19 11:38:14 Outpatient R TAMARA YIN III [facility] [id number] [facility] 2021-05-19 00:00:00 2021-05-19 00:00:00 Orders Only Doctor Unassigned, [place] [facility] 1..840.114 350.1.13.10 4.2.7.2.686 [id number] [facility] 2021-05-17 14:00:00 2021-05-17 14:00:00 Outpatient R ROSE MARY PICKERING [facility] [id number] [facility] 2021-05-17 14:00:00 2021-05-17 14:00:00 Outpatient R ROSE MARY PICKERING [facility] [id number] [facility] 2021-05-17 10:00:00 2021-05-17 10:00:00 Outpatient R RAJNI RIOS CHERYAL [facility] [id number] [facility] 2021-05-10 00:00:00 2021-05-10 00:00:00 Patient Secure Msg Doctor Unassigned, [place] [facility] 1..114 350.1.13.10 4.2.7.2.686 [id number] [facility] 2021-04-22 00:00:00 2021-04-22 00:00:00 Rose Mary Garcia [facility] 1..114 350.1.13.10 4.2.7.2.686 [id number] [facility] 2021-04-02 00:00:00 2021-04-02 00:00:00 Telephone Merissa Reich [facility] 1..114 350.1.13.10 4.2.7.2.686 [id number] [facility] 2021-04-01 12:15:00 2021-04-01 12:37:51 Outpatient R JENNIFER BRICENO [facility] [id number] [facility] 2021-04-01 12:15:00 2021-04-01 12:30:00 Laboratory Only Only, Ang Db Test Gerald [facility] MEDICAL OFFICE BUILDING 1.84114 350.1.13.10 4.2.7.2.686 [id number] [facility] 2021-02-08 00:00:00 2021-02-08 00:00:00 Orders Only Doctor Unassigned, [place] [facility] 1.114 350.1.13.10 4.2.7.2.686 [id number] [facility] 2021-01-31 14:24:05 2021-01-31 15:00:34 Office Visit Joo Paulino [facility] OFFICE BUILDING 1.840.114 350.1.13.10 4.2.7.2.686 [id number] [facility] 2021-01-31 14:00:00 2021-01-31 15:00:34 Outpatient R JOO PAULINO [facility] [id number] [facility] 2021-01-31 12:45:00 2021-01-31 12:45:00 Outpatient R MARV COTA [facility] [id number] [facility] 2021-01-31 00:00:00 2021-01-31 00:00:00 [facility] OFFICE BUILDING 1.84.114 350.1.13.10 4.2.7.2.686 [id number] [facility] 2021-01-20 00:00:00 2021-01-20 00:00:00 Telephone Cipriano Marv [facility] JOHN?[facility] OFFICE BUILDING 1.84.114 350.1.13.10 4.2.7.2.686 [id number] [facility] 2020-11-03 00:00:00 2020-11-03 00:00:00 Refill Cipriano Marv [facility], [facility] John?[facility] Office Building 1.84.114 350.1.13.10 4.2.7.2.686 [id number] [id number] [facility] 2020-10-30 00:00:00 2020-10-30 00:00:00 Refill Doctor Unassigned, [place] [facility], [facility] Office Building One 1.84.114 350.1.13.10 4.2.7.2.686 [id number] [facility] 2020-08-11 13:53:21 2020-08-11 15:26:35 Block Hacker Visit Lab, Adc Fam Pob I Cipriano Marv [facility] Office Building One 1.2840.114 350.1.13.10 4.2.7.2.686 [id number] [facility] 2020-08-11 13:30:30 2020-08-11 13:52:02 Office Visit Marv Cota [facility] Office Building One 1.20.114 350.1.13.10 4.2.7.2.686 [id number] [facility] 2020-08-11 13:30:00 2020-08-11 13:30:00 Outpatient R CIPRIANOMARV [facility] [id number] [facility] 2020-07-27 08:00:00 2020-07-27 23:59:00 Hospital Encounter Rose Mary Pickering [facility] 1.2840.114 350.1.13.10 4.2.7.2.686 [id number] [facility] 2020-07-27 09:23:09 2020-07-27 09:43:09 Block H[facility] One 1.20.114 350.1.13.10 4.2.7.2.686 [id number] [facility] 2020-07-27 08:38:32 2020-07-27 08:53:32 Office Visit Marv Cota [facility] Office Building One 1.2840.114 350.1.13.10 4.2.7.2.686 [id number] [facility] 2020-07-27 00:00:00 2020-07-27 00:00:00 Outpatient Evaristo PICKERINGROSE MARY [facility] [id number] [facility] 2020-07-17 00:00:00 2020-07-17 00:00:00 Refill Cipriano [facility] Office Building One 1.114 350.1.13.10 4.2.7.2.686 [id number] [facility] 2020-07-04 00:00:00 2020-07-04 00:00:00 Refill Cipriano [facility] Office Building One 1.114 350.1.13.10 4.2.7.2.686 [id number] 044 [id number] [facility] 2020-07-02 16:05:59 2020-07-02 16:25:59 Urgent Care Malika Uriostegui Cynthia [facility] Office Building One 1.114 350.1.13.10 4.2.7.2.686 [id number] [facility] 2020-07-02 16:00:00 2020-07-02 16:00:00 Outpatient R [facility] [id number] [facility] 2020-06-25 00:00:00 2020-06-25 00:00:00 Patient Secure Msg Doctor Unassigned, [place] [facility] 1.114 350.1.13.10 4.2.7.2.686 [id number] [facility] 2020-06-25 00:00:00 2020-06-25 00:00:00 Telephone Cipriano [facility] Office [facility] One .114 350.1.13.10 4.2.7.2.686 [id number] [facility] 2020-06-25 00:00:00 2020-06-25 00:00:00 Nurse Myah Burnett [facility] 1.114 350.1.13.10 4.2.7.2.686 [id number] [facility] 2020-06-25 00:00:00 2020-06-25 00:00:00 Refill Cipriano Marv [facility] Office Building One 1.840.114 350.1.13.10 4.2.7.2.686 [id number] [id number] [facility] 2020-06-25 00:00:00 2020-06-25 00:00:00 Telephone Marv Cota [facility] Office Building One 1..114 350.1.13.10 4.2.7.2.686 [id number] [id number] [facility] 2020-06-25 00:00:00 2020-06-25 00:00:00 Refill Doctor Unassigned, [place] [facility] Office Building One 1..114 350.1.13.10 4.2.7.2.686 [id number] [facility] 2020-05-27 00:00:00 2020-05-27 00:00:00 Patient Outreach Miguel Gallagher [facility] 1.840.114 350.1.13.10 4.2.7.2.686 [id number] [facility] 2020-05-17 14:30:00 2020-05-17 14:30:00 Outpatient ROSE MARY NOVA [facility] [id number] [facility] 00:00:00 2020-05-05 00:00:00 Refill Marv Cota [facility] Building 1..114 350.1.13.10 4.2.7.2.686 [id number] [facility] 2020-04-12 00:00:00 2020-04-12 00:00:00 Refill Marv Cota [facility] nal Building 1..114 350.1.13.10 4.2.7.2.686 [id number] [id number] [facility] 2020-04-02 00:00:00 2020-04-02 00:00:00 Refill Marv Cota [facility] Office Building One 1.0.114 350.1.13.10 4.2.7.2.686 [id number] [facility] 2020-01-16 16:34:55 2020-01-16 16:49:55 Office Visit TamekaTamara [facility] Office Building One 1..114 350.1.13.10 4.2.7.2.686 [id number] [facility] 2020-01-16 16:30:00 2020-01-16 16:30:00 Outpatient R TAMARA SHELDON [facility] [id number] [facility] 2020-01-07 00:00:00 2020-01-07 00:00:00 Refill Cipriano [facility] Office Building One 1..114 350.1.13.10 4.2.7.2.686 [id number] [facility] 2020-01-07 00:00:00 2020-01-07 00:00:00 Telephone Cipriano [facility] Office Building One 1..114 350.1.13.10 4.2.7.2.686 [id number] [id number] [facility] 2019-12-04 17:06:19 2019-12-04 17:26:19 Laboratory Only Lab, Adc Fam Pob Pee Cota [facility] Office Building One 1..114 350.1.13.10 4.2.7.2.686 [id number] [facility] 2019-12-04 17:00:00 2019-12-04 17:00:00 Outpatient R MARV COTA [facility] [id number] [facility] 2019-12-04 10:45:00 2019-12-04 10:45:00 Outpatient R LOCOANUJA [facility] [id number] [facility] 2019-11-26 00:00:00 2019-11-26 00:00:00 Refill Cipriano Marv [facility] Building 1.840.114 350.1.13.10 4.2.7.2.686 [id number] [facility] 2019-10-20 00:00:00 2019-10-20 00:00:00 Patient Secure Msg Cipriano [facility] Building 1.84.114 350.1.13.10 4.2.7.2.686 [id number] [facility] 2019-10-17 08:55:43 2019-10-17 09:15:43 Urgent Care Pob1, Acute Care Clinic Joo Paulino [facility] Office Building One 1.84.114 350.1.13.10 4.2.7.2.686 [id number] [facility] 2019-10-17 09:00:00 2019-10-17 09:00:00 Outpatient R [facility] [id number] [facility] 2019-07-04 00:00:00 2019-07-04 00:00:00 [facility] One 1.84.114 350.1.13.10 4.2.7.2.686 [id number] [facility] 2019-05-22 00:00:00 2019-05-22 00:00:00 Refill Cipriano [facility] Office Building One 1.2840.114 350.1.13.10 4.2.7.2.686 [id number] [facility] 2019-04-30 08:21:44 2019-04-30 08:36:44 Office Visit Marv Cota [facility] Office Building One 1.2.840.114 350.1.13.10 4.2.7.2.686 [id number] [facility] 2019-04-21 00:00:00 2019-04-21 00:00:00 Telephone Marv Cota [facility] Office Building One 1.2840.114 350.1.13.10 4.2.7.2.686 [id number] [facility] 2019-04-18 09:28:47 2019-04-18 23:59:00 Outpatient R JOO PAULINO [facility] [id number] [facility] 2019-04-18 09:28:00 2019-04-18 23:59:00 Hospital Encounter Joo Paulino [facility] 1.2.840.114 350.1.13.10 4.2.7.2.686 [id number] [facility] 2019-04-18 08:17:07 2019-04-18 12:02:19 [facility] 1.2840.114 350.1.13.10 4.2.7.2.686 [id number] [facility] 2019-04-18 00:00:00 2019-04-18 00:00:00 [facility] One 1.2840.114 350.1.13.10 4.2.7.2.686 [id number] 044 [id number] [facility] 2019-04-18 00:00:00 2019-04-18 00:00:00 Orders Only Doctor Unassigned, [place] [facility] 1.2.840.114 350.1.13.10 4.2.7.2.686 [id number] [facility] 2018-10-28 00:00:00 2018-10-28 00:00:00 Orders Only Doctor Unassigned, [place] [facility] 1.2.840.114 350.1.13.10 4.2.7.2.686 [id number] [facility] Results Test Description Test Time Test Comments Results Result Co [facility]ments [facility]BINAX NOW)2023-10-30 00:38:00* Test Item Value Reference Range Interpretation Comme nts POCT SARS-COV-2 ANTIGEN (test code = 46004-9) Not Detected Not Detected, See Comment On board controls acceptable with C Line (test code = 3574) Yes Lab Interpretation (test code = 13689-3) Normal [facility] Notes Physical ExamBP 110/70 (Side: Left Arm, Position: SITTING, Cuff Size: Large Adult) | PulsePhysical ExamAnnual physical examPrimary hypertensionPrediabetesBMI 38.0-38.9,adultRachel JOSE ALBERTO Ospina[1] Date/Time Note Provider Source 2024[facility]10-16 [facility]10[facility]16 21:10:55 Miguel Ospina PA-C - 10/16/2024 4:35 PM CDT HPI Erica Martinez is a 43 year old female is here for her annual Physical Examination. Hypertension: Patient is currently taking Lisinopril 10mg Home BP measurements are well controlled BP Readings from Last 2 Encounters: 10/16/24 110/70 10/03/24 110/76 Asthma: Taking Advair daily and Albuterol prn Taking Montelukast nightly. Not needing the albuterol. Obesity/unable to lose weight: Patient is wanting to try medication for weight loss. She is not approved by insurance but wanting to go ahead with Zepbound through [employer] direct self pay option. Lifestyle modifications tried include diet and exercise History of pancreatitis/Medullary thyroid cancer: none Wt Readings from Last 2 Encounters: 10/16/24 247 lb (112 kg) 10/03/24 245 lb 6.4 oz (111.3 kg) Care Gaps/Prevention: Sexually-transmitted infection screening: declines PAP: HPV positive, colposcopy negative - recheck in one year with [facility] OBGYN Mammogram: UTD at [facility] Colonoscopy: referral already placed. Lung Cancer: non smoker Vaccines: declines today Allergies: Lansoprazole, Sumatriptan, and Sumatriptan succinate Medications: Current Medications[1] ASCVD Risk: The ASCVD Risk score (Aly SLATER, et al., 2019) failed to calculate for the following reasons: Cannot find a previous HDL lab Cannot find a previous total cholesterol lab Pertinent Hx Past Medical History[2] Past Surgical History: Procedure Laterality Date DELIVERY ONLY 2007 2010 CHOLECYSTECTOMY 2013 Family History[3] Social History[4] Social History Substance and Sexual Activity Sexual Activity Not on file Review of Systems Review of Systems Constitutional: Negative for activity change, fatigue, fever and unexpected weight change. HENT: Negative for congestion, hearing loss, postnasal drip and rhinorrhea. Eyes: Negative for visual disturbance. Respiratory: Negative for cough, chest tightness and shortness of breath. Cardiovascular: Negative for chest pain, palpitations and leg swelling. Gastrointestinal: Negative for abdominal pain, constipation, diarrhea and nausea. Genitourinary: Negative for difficulty urinating. Musculoskeletal: Negative for gait problem. Skin: Negative for rash. Neurological: Negative for dizziness and headaches. 84 | Temp 98.4 ?F (36.9 ?C) (Tympanic) | Resp 16 | Ht 5' 7" (1.702 m) | Wt 247 lb (112 kg) | LMP 08/21/2024 (Exact Date) | SpO2 97% | BMI 38.69 kg/m? Constitutional: General: She is not in acute distress. Appearance: Normal appearance. HENT: Head: Normocephalic and atraumatic. Right Ear: External ear normal. Left Ear: External ear normal. Nose: Nose normal. Eyes: Conjunctiva/sclera: Conjunctivae normal. Cardiovascular: Rate and Rhythm: Normal rate. Pulses: Normal pulses. Heart sounds: No murmur heard. Pulmonary: Effort: Pulmonary effort is normal. No respiratory distress. Breath sounds: No stridor. Wheezing (faint expiratory wheezing) present. No rhonchi or rales. Neurological: General: No focal deficit present. Mental Status: She is alert. Psychiatric: Mood and Affect: Mood normal. Behavior: Behavior normal. Thought Content: Thought content normal. Judgment: Judgment normal. Assessment & Plan Erica was seen today for physical. Diagnoses and all orders for this visit: - COMP. METABOLIC PANEL (14); Future - CBC WITH DIFFERENTIAL; Future - LIPID PANEL; Future - Lisinopril 10 MG oral Tablet; Take 1 tablet (10 mg total) by mouth daily. Mild intermittent asthma without complication ([facility]) - HEMOGLOBIN (HB) A1C; Future - Tirzepatide-Weight Management (Zepbound) 2.5 MG/0.5ML subcutaneous Solution; Inject 0.5 mL into the skin once a week. Recommend to check blood pressure daily as needed. Recommend to maintain blood pressure less than 130/80. If blood pressure remains above 140/90 consistently, additional medication and/or further adjustment in medication may be required. Hold blood pressure medication if blood pressure systolic less than 110. Advised of side effects of medication. Will reasess in one month. Recommended to continue with diet and lifestyle modifications, including decreasing processed food/fried foods, eating more foods at home. Recommended to get at least 30 minutes of exercise per day. directed. She was formerly only using in the morning. Continue Albuterol as needed. Return in about 4 weeks (around 11/13/2024) for follow up for weight. 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 Please interpret any aspect of the note that is nonsensical in light of this fact. SP: Dr. Rajeev Castaneda, DO [facility] Current Outpatient Medications Medication Sig Dispense Refill Fluticasone-Salmeterol 250-50 MCG/ACT inhalation AEROSOL POWDER, BREATH ACTIVATED INHALE 1 PUFF IN THE MORNING AND IN THE EVENING Levocetirizine Dihydrochloride 5 MG oral Tablet Take by mouth. Lisinopril 10 MG oral Tablet Take 1 tablet (10 mg total) by mouth daily. 90 tablet 3 Low-Ogestrel 0.3-30 MG-MCG oral Tablet TAKE 1 TABLET BY MOUTH IN THE MORNING. PATIENT TAKES ACTIVE PILLS CONTINUOUSLY Montelukast (SINGULAIR) 10 MG oral Tablet tablet Take 1 tablet (10 mg total) by mouth daily. 90 tablet 3 Tirzepatide-Weight Management (Zepbound) 2.5 MG/0.5ML subcutaneous Solution Inject 0.5 mL into the skin once a week. 8 mL 0 Albuterol (PROVENTIL) (2.5 MG/3ML) 0.083% inhalation Inhalant Solution INHALE ONE VIAL VIA NEBULIZER EVERY 8 HOURS NEEDED (Patient not taking: Reported on 10/16/2024.) [2] Past Medical History: Diagnosis Date Asthma ([facility]) Hypertension Migraine menstrual migraines [3] Family History Problem Relation Name Age of Onset Heart attack Mother Stroke Mother Hypertension Mother Diabetes Mellitus Mother Heart attack Father Stroke Father Hypertension Father Diabetes Mellitus Father No Known Problems Maternal Grandmother No Known Problems Maternal Grandfather Congestive Heart Failure Paternal Grandmother Diabetes Mellitus Paternal Grandmother Emphysema Paternal Grandfather Cancer Paternal Grandfather [4] Social History Tobacco Use Smoking status: Never Passive exposure: Never Substance Use Topics Alcohol use: Yes Comment: socially Drug use: Never [facility] Health Maintenance Due Date Last Done Comments COLONOSCOPY 1978 CT Colonography 1978 Cologuard 1978 Colorectal Cancer Screening 1978 FIT Tests 1978 Sigmoidoscopy 1978 Creatinine Level (Kidney Fun ction Test) 1996 Lipid Panel 1998 PAP SMEAR WITH HPV 2008 Pneumococcal Vaccine: Pediat rics (0 to 5 Years) and At-Risk Patients (6 to 64 Years) (2 of 2 - PCV) 01/08/2020 01/07/2019 COVID-19 Vaccine (3 - 2023-2 5 season) 2023 05/22/2020, 04/10/2020 Influenza Vaccines (#1) 2024 03/20/19 25, 12/27/2021, 12/09/2020, Additional history exists Physical Exam 10/16/2025 10/16/2024 Mammogram 08/25/2026 08/25/2024, 08/10, 07/27/2020 Tdap Vaccines 06/10/2031 06/09/2021, 01/02/2011 RSV Vaccines (1 - 1-dose 75+ series) 2053 [facility]2025-08-07 21:10:55 Diagnosis Annual physical exam - Primary Routine general medical examination at a health care facility Primary hypertension Unspecified essential hypertension Mild intermittent asthma without complication ([facility]) Unspecified asthma Prediabetes Other abnormal glucose BMI 38.0-38.9,adult Body Mass Index 38.0-38.9, adult [facility]2025-08-07 21:10:55 [place] [address]-08-07 16:28:27 Chief Complaint Patient presents with Physical Non fasting Demetri Jiménez MA [facility]2025-07-17 14:51:34 Last Refilled: MONTELUKAST 10 mg tablet 30 tablet 0 08/25/2024 -- No Sig: TAKE 1 TABLET BY MOUTH EVERY DAY Sent to pharmacy as: montelukast 10 mg tablet (SINGULAIR) Class: eRX Route: Oral Order: [id number] Date/Time Signed: 08/25/2024 15:21 E-Prescribing Status: Receipt confirmed by pharmacy (08/25/2024 3:21 PM CDT) Recent Visits Date Type Provider Dept 03/20/24 Office Visit Tamara Sheldon MD [facility] Showing recent visits within past 540 days with a meds authorizing provider and meeting all other requirements Future Appointments No visits were found meeting these conditions. Showing future appointments within next 150 days with a meds authorizing provider and meeting all other requirements Cathi [facility]aceBrec[facility] HospitalFjjgam1792-75-37 13:31:33 Chief Complaint Patient presents with Establish Care Previous PCP was Dr. Cota. She is changing due to his residential. Blood Pressure Marlyn Mayo MA [facility]2025-07-01 07:39:15 Sent patient message via [employer] to schedule appt. Karyn Wilson [facility]2025-06-30 10:41:46 Is medication still current? Encounter from 06/21. Tonie Fernandez [facility]28 08:59:02 Images from the original note were not included. Notes: Refill has been denies, last filled on 08/21 for 1 year supply. MCM has been sent. Last Refilled: 08/21/2024 Recent Visits Date Type Provider Dept 08/21/24 Office Visit Klarissa Whitt MD [facility] 08/09/23 Office Visit Klarissa Whitt MD [facility] Showing recent visits within past 540 days with a meds authorizing provider and meeting all other requirements Future Appointments Date Type Provider Dept 09/15/24 Appointment Klarissa Whitt MD [facility] Showing future appointments within next 150 days with a meds authorizing provider and meeting all other requirements Name from pharmacy: [id number] TABLET Will file in chart as: LOW-OGESTREL 0.3-30 mg-mcg per tablet Possible duplicate: Hover to review recent actions on this medication Sig: TAKE 1 TABLET BY MOUTH EVERY MORNING Disp: 84 tablet Refills: 1 Start: 09/07/2024 Class: eRX Non-formulary For: Encounter for surveillance of contraceptive pills Last ordered: 2 weeks ago (08/21/2024) by Klarissa Whitt MD Last refill: 06/16/2024 Rx #: [id number] [employer]OCIATE: Contraceptives Dfaueq2809/07/2024 07:12 AM Protocol Details Valid encounter within last 12 months To be filled at: [facility] [id number] [place] [address] Laury Lawson RNBrecksville [facility] / Crille HospitalThmaxl5232-17-30 14:36:00 Changed to generic Wixela [facility] HospitalCqhdfx2794-67-73 12:30:22 Erica Martinez is a 43 year old female would like to speak with nurse in regards to having prescription for Advair Diskus 250 mcg-50 mcg/dose powder for inhalation be changed from brand name only to Generic due to the desai of the brand name medication Please advise [phone] (home) [phone] (work) [facility] [id number] [place] [address] [address] Toni GarciaBrecksville VA / Crille HospitalTbqtdi0755-35-37 13:54:34 Pt scheduled on 09/15/24 for colposcopy Maday Cha MA 08/27/2024 1:54 PM Maday Cha MABrecksville VA / Crille HospitalPfplsy9331-41-31 15:20:45 Last Refilled: MONTELUKAST 10 mg tablet 30 tablet 0 07/14/2024 -- No Sig: TAKE ONE (1) TABLET(S) BY MOUTH ONCE A DAY. Sent to pharmacy as: montelukast 10 mg tablet (SINGULAIR) Class: eRX Route: Oral Order: [id number] Date/Time Signed: 07/14/2024 13:33 E-Prescribing Status: Receipt confirmed by pharmacy (07/14/2024 1:33 PM CDT) Recent Visits Date Type Provider Dept 03/20/24 Office Visit Tamara Sheldon MD [facility] Showing recent visits within past 540 days with a meds authorizing provider and meeting all other requirements Future Appointments No visits were found meeting these conditions. Showing future appointments within next 150 days with a meds authorizing provider and meeting all other requirements Cathi PaceBrecksville [facility] HospitalQdicsd4222-46-26 17:04:21 Erica Martinez is a 43 year old female, Ozempic 0.25 or 0.5 mg dose 2 mg /3 ml pen injectors [facility] HospitalEainni4794-36-02 09:09:06 Last Refilled: MONTELUKAST 10 mg tablet 30 tablet 0 04/22/2024 -- No Sig: TAKE ONE (1) TABLET(S) BY MOUTH ONCE A DAY. 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 Please advaida T CASHIER Vanessa Timmons [facility]Zmbejq1471-81-49 11:43:29 Images from the original note were [...] Cota MD Last refill: 03/21/2024 Rx #: [id number] Allergy Oydekb2104/21/2024 06:38 AM Protocol Details Valid encounter within last 12 months To be filled at: [facility] Pharmacy [address] & Matias Manjarrez Recent Visits Date [...] authorizing provider and meeting all other requirements [facility]2025-02-11 11:25:12 04/16/24 Your request was denied because we did not see what we need to approve the drug you asked for, (Ozempic). We may be able to approve this drug for this illness (type 2 diabetes mellitus). Patient notified via CoverMyMeds BA Saldana [place] 732945-02-05 09:05:51 PA for Ozempic initiated on 04/16/2024 (Lozano: [id number]) Rx #: [id number] Will provide updates as recd BA Saldana [place] 732945-02-04 19:24:51 PA Request for Ozempic 0.25 or 0.5 mg LOZANO [id number] Printed and placed in provider's box BA FrenchBrecksville VA [facility] Crille HospitalXnzjkk3763-88-87 15:05:24 Pt is following up on phone encounter on 04/08/24 in regards to semaglutide 0.25 mg or 0.5 mg (2 mg/3 mL) PnIj PA. HEB in [place] BA PatelwilbertBrecksville VA / Crille HospitalCogyig7020-05-11 16:38:22 Ozempic sent to pharmacy per Provider. Will wait for notification for PA if needed from pharmacy BA Saldana [facility]2025-01-29 10:40:29 Erica Martinez is a 43 year old female states her insurance is unable to provide covered medications. she is requesting provider prescribe a medication with prior auth and her insurance will determine if covered Pleas advise [phone] (home) [phone] (work) BA ArizmendiGenesis HospitalCzdzol9436-33-04 10:31:04 Please review and advise. RUTH 03/26/24 Obesity (BMI 30-39.9) (primary encounter diagnosis) Comment: Chronic, controlled Discussed lifestyle modification, DASH diet, low-salt intake, increase physical activity at least 150 minutes/week Patient is interested in trying GLP-1, she will reach out to her insurance to check if it is covered [facility] Radha Saldana [facility]2025-01-28 16:01:00 Erica Martinez is a 43 year old female would like to speak with nurse in regards to GLP-1 rx that was discussed during 03/26 office visit. She states that her insurance will require prior auth for any prescribed regimen Please advise [phone] (home) [phone] (work) [place] 432315-01-15 14:32:26 .Patient already Reviewed in My Chart Seen by patient Erica Martinez on 03/24/2024 7:37 AM [place] 432315-01-10 09:00:00 Images from the original note were not included. Venipuncture collection performed by clean technique on the left anticubitus. Total of 1 attempts were made. Slight pressure and a bandage/dressing were applied to the site(s). The patient experienced no complications. The following specimens were processed according to instructions and sent to [facility] laboratories per lab order on 03/21/2024 : LT BLUE SST 1 RED LAV 2 PPT DK GREEN (LiHep) DK GREEN (SodH) GAMEZ DK BLUE (K2) DK BLUE (S) ACD Blood Culture NIPT/NTD [facility]2025-01-10 07:31:20 Last Refilled: montelukast 10 mg tablet 30 tablet 0 02/19/2024 -- No Sig: TAKE ONE (1) TABLET(S) BY MOUTH ONCE A DAY. Sent to pharmacy as: montelukast 10 mg tablet (SINGULAIR) Class: eRX Notes to Pharmacy: Pt needs appt for further refills Route: Oral Order: [id number] Date/Time Signed: 02/19/2024 14:33 E-Prescribing Status: Receipt confirmed by pharmacy (02/19/2024 2:33 PM VALET CASHIER) Recent Visits Date Type Provider Dept 03/20/24 [...] authorizing provider and meeting all other requirements T CASHIER Cathi PaceBrecksville [facility] HospitalZnofap9891-37-83 16:00:00 Addended by: SHYAM SANDOVAL on: 03/20/2024 04:50 PM Modules accepted: Orders [facility]2024-12-10 14:31:44 Last Refilled: Disp Refills Start End TUNDE montelukast 10 mg tablet 30 tablet 1 12/12/2023 -- No Sig: TAKE ONE (1) TABLET(S) BY MOUTH ONCE A DAY. Sent to pharmacy as: montelukast 10 mg tablet (SINGULAIR) Class: eRX Route: Oral Order: [id number] Date/Time Signed: 12/12/2023 08:15 E-Prescribing Status: Receipt [...] authorizing provider and meeting all other requirements T CASHIER Cathi PaceBrecksville [facility] HospitalZgjbdv5785-92-31 08:14:46 Last Refilled: MONTELUKAST 10 mg tablet 30 tablet 2 07/27/2023 -- No Sig: TAKE ONE (1) TABLET(S) BY MOUTH DAILY. Sent to pharmacy as: montelukast 10 mg tablet (SINGULAIR) Class: eRX Order: [id number] Date/Time Signed: 07/27/2023 06:51 E-Prescribing Status: Receipt confirmed by pharmacy (07/27/2023 6:51 AM CDT Recent Visits Date Type Provider Dept 01/03/23 Office Visit Marv Cota MD [facility] Showing recent visits within past 540 days with a meds authorizing provider and meeting all other requirements Future Appointments No visits were found meeting these conditions. Showing future appointments within next 150 days with a meds authorizing provider and meeting all other requirements Cathi PaceBrecksville [facility] HospitalBraxav6723-65-74 09:36:52 Refill sent to pharm [facility]rystle Coates [facility] MountainCvbgcc6531-20-77 13:12:17 Ok to refill BC for the next year. T [place] 127454-06-18 12:47:57 Pt had mammo done recently and would like to get refills for ocp. Mammo results in pt's chart. Please advise. T [facility] HospitalEwvigp2619-99-54 11:30:04 Patient is requesting a refill on her control. She stated mammogram came back normal. Debra JuarezBrecksville VA / Crille HospitalDnsfpj2703-33-05 08:52:13 Pt is scheduled for a WWE with Dr. Whitt on 08/10/23. Will inform pt that only a 1 month supply will be sent in to get her by until appt. Krystle Coates MABrecksville VA / Crille HospitalBexbuj9441-98-40 08:07:14 WWE 08/10/23. Efren Dugan [facility]
[2024-12-12] MEDS ORDERED: METOCLOPRAMIDE 10 MG/2mL INJ ONE (17:30)
[2024-12-12] MEDS ORDERED: DICYCLOMINE HCL 20 MG/2 ML AMP IM ONE (17:30)
[2024-12-12] MEDS ORDERED: DIPHENHYDRAMINE 50 MG/ML VIAL ONE (17:31)
[2024-12-12] MEDS ORDERED: NA CHLORIDE 0.9% 1,000 ML ONE (17:31)
[2024-12-12] MEDS ORDERED: NA CHLORIDE 0.9% 50 ML ONE (17:31)
[2024-12-12 17:38] LABS: Absolute Lymphocytes (CBC) 2.3 K/uL (0.7-4.9); Hematocrit 39.2 % (36.0-45.0); Hemoglobin 13.2 g/dL (12.0-15.0); MCH 29.1 pg (27.0-35.0); MCHC 33.8 g/dL (32.0-36.0); MCV 86.1 fL (80-100); MPV 8.4 fL (7.6-11.3); Nucleated RBC Absolute Count 0.0 (0-0); Nucleated Red Blood Cells % 0.0 % (0-0); RBC Red Blood Cell Count 4.55 M/uL (3.86-4.86); White Blood Count 8.40 thou/uL (4.3-10.9)
[2024-12-12 17:53] LABS: ALT/SGPT 110.0 U/L (13-56); AST/SGOT 57.0 U/L (15-37); Albumin 3.8 g/dL (3.4-5.0); Albumin/Globulin Ratio 1.0 (1.1-1.8); Alkaline Phosphatase 89.0 U/L (45-117); Anion Gap 10.3 mEq/L (5.0-15.0); BUN Blood Urea Nitrogen 7.0 mg/dL (7-18); Globulin 3.8 g/dL (2.3-3.5); Glucose Level 90.0 mg/dL (74-106); Lipase 50.0 U/L (13-75); Magnesium 2.5 mg/dL (1.6-2.4); Potassium 4.3 mEq/L (3.5-5.1)
[2024-12-12 18:08] LABS: Sqamous Epithelial <5 /HPF (None Seen); Urine Culture Reflex Order NOT NEEDED; Urine Microscopic Reflex YN ORDER UMIC
[2024-12-12] MEDS ORDERED: MORPHINE 4 MG/ML SYR ONE (18:56)
--- NOTE | 2024-12-12 19:11 | RAD REPORT ---
EXAMINATION: Abdomen Pelvis W Contrast CLINICAL INDICATION: Female, 44 years old.ABD PAIN TECHNIQUE: CT abdomen and pelvis was performed, after the administration of IV contrast, as per [facility]. Axial, sagittal and coronal reconstructions were obtained. One or more of the following dose reduction techniques were used: Automated exposure control, adjustment of the mA and/o r kV according to patient size, and/or iterative reconstruction. Unless otherwise specified, incidental findings do not require dedicated imaging follow-up. [id number]. COMPARISON: No prior exams FINDINGS: LOWER CHEST: No acute process identified. No significant pericardial effusion. Moderate circumferenti al thickening of the distal esophagus which could reflect esophagitis. Endoscopy could better evaluate. UPPER GI: No significant abnormality. LIVER: Low-density lesion at the caudate is unchanged since at least 09/17/2022 though better seen toda y.. GALLBLADDER/BILE DUCTS: Cholecystectomy.? PANCREAS: No mass, ductal dilation, or jyoti-pancreatic fluid. SPLEEN: Unremarkable. ADRENALS: No adrenal masses. KIDNEYS AND URETERS: No hydronephrosis. No suspicious renal mass. ABDOMINAL AORTA AND OTHER VESSELS: Normal caliber aorta and IVC. PERITONEUM: Mild ascites. LYMPH NODES: No pathologic lymphadenopathy. ABDOMINAL WALL: Unremarkable SMALL BOWEL/COLON: Small bowel wall thickening and mesenteric edema in the central abdomen. No bowel obstruction identified. Normal appendix. URINARY BLADDER: Underdistended but grossly unremarkable. REPRODUCTIVE ORGANS: No pathologic process. MUSCULOSKELETAL: No acute or suspicious osseous abnormality. ADDITIONAL FINDINGS: None. IMPRESSION: Findings consistent with small bowel enteritis in the central abdomen. This is probably related to in fectious or inflammatory process. No bowel obstruction. Normal appendix.
[2024-12-12] MEDS ORDERED: FAMOTIDINE 20 MG/2 ML VIAL IV ONE (20:12)
--- NOTE | 2024-12-12 20:39 | EDPHYS ---
Physician Documentation [facility] Name: Elke Benton Age: 44 yrs Sex: Female : 1980 Arrival Date: 12/12/2024 Time: 16:54 Bed 15 Private MD: ED Physician Nabil Rae HPI: 12/12 17:20 This 44 yrs old Female presents to ER via Ambulatory with complaints of Abdominal Pain. cp 17:20 The patient presents with abdominal pain mid abdomen, bilateral. Onset: The cp symptoms/episode began/occurred this past Sunday, pain worse today. The symptoms do not radiate. Associated signs and symptoms: Pertinent positives: nausea, dizziness, Pertinent negatives: chest pain, constipation, diarrhea, fever, vomiting. The symptoms are described as crampy. Severity of pain: in the emergency department the pain is unchanged despite home interventions. 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 - Infectious Disease History:: Denies. - Social history:: Smoking status: Patient denies any tobacco usage or history of. ROS: 17:25 Constitutional: Negative for body aches, chills, fever, poor PO intake, cp 17:25 Eyes: Negative for injury, pain, redness, and discharge, cp 17:25 ENT: Negative for ear pain, sore throat, difficulty swallowing, difficulty handling secretions, 17:25 Cardiovascular: Negative for chest pain, palpitations, 17:25 Respiratory: Negative for cough, shortness of breath, wheezing, 17:25 Abdomen/GI: Positive for abdominal pain, nausea, Negative for diarrhea, constipation, 17:25 Back: Negative for pain at rest, pain with movement, 17:25 Neuro: Positive for dizziness, Negative for altered mental status, weakness, 17:25 All other systems are negative, Exam: 17:30 Constitutional: The patient appears in no acute distress, alert, awake, non-toxic, well cp developed, well nourished, uncomfortable, 17:30 Head/Face: Normocephalic, atraumatic. cp 17:30 Eyes: Periorbital structures: appear normal, Conjunctiva: normal, no exudate, no injection, Sclera: no appreciated abnormality, Lids and lashes: appear normal, bilaterally, 17:30 ENT: External ear(s): are unremarkable, Nose: is normal, Mouth: Lips: moist, Oral mucosa: moist, Posterior pharynx: Airway: no evidence of obstruction, patent, 17:30 Chest/axilla: Inspection: normal, 17:30 Cardiovascular: Rate: normal, Rhythm: regular, 17:30 Respiratory: the patient does not display signs of respiratory distress, Respirations: normal, no use of accessory muscles, no retractions, labored breathing, is not present, Breath sounds: are clear throughout, no decreased breath sounds, no stridor, no wheezing, 17:30 Abdomen/GI: Inspection: abdomen appears normal, Bowel sounds: active, all quadrants, Palpation: soft, in all quadrants, moderate abdominal tenderness, in the mid abdomen bilaterally, 17:30 Back: CVA tenderness, is absent, cp 17:30 Skin: cellulitis, is not appreciated, no rash present. 17:30 Neuro: Orientation: to person, place \T\ time. Mentation: is normal, Motor: moves all cp fours, strength is normal, Sensation: is normal, Vital Signs: 17:16 BP 175 / 79; Pulse 79; Resp 18; Temp 98.2; Pulse Ox 99% on R/A; Weight 99.79 kg; Height af3 5 ft. 7 in. ; Pain 6/10; 19:11 BP 150 / 85; Pulse 69; Resp 18; Pulse Ox 97% on R/A; af3 20:30 BP 149 / 87; Pulse 57; Resp 18 S; Pulse Ox 99% on R/A; ss12 17:16 Body Mass Index 34.46 (99.79 kg, 170.18 cm) af3 17:16 Pain Scale: Adult af3 [place] Coma Score: 20:30 Eye Response: spontaneous(4). Motor Response: obeys commands(6). Verbal Response: ss12 oriented(5). Total: 15. MDM: 17:12 Medical Screening Exam initiated cp 18:00 Differential diagnosis: appendicitis, bowel obstruction, gastritis, non-specific abd cp pain, pancreatitis, Peptic Ulcer Disease, Perf. Duodenal Ulcer, Perf. Gastric Ulcer, Pyelonephritis, Ureterolithiasis, urinary tract infection, choledocholithiasis. 20:38 Data reviewed: vital signs, nurses notes, lab test result(s), radiologic studies, CT cp scan, and as a result, I will discharge patient. 20:38 I considered the following discharge prescriptions or medication management in the cp emergency department Medications were administered in the Emergency Department. See MAR. 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 Response to treatment: the patient's symptoms have mildly improved after treatment, and as a result, I will discharge patient. Special discussion: Based on the patient's Hx, exam, and Dx evaluation, there is no indication for emergent surgery or inpatient Tx. It is understood by the patient/guardian that if the Sx's persist or worsen they need to return immediately for re-evaluation. 12/12 17:23 Order name: CBC with Diff; Complete Time: 18:21 cp 12/12 17:23 Order name: CMP; Complete Time: 18:21 cp 12/12 19:49 Interpretation: Normal except: CL 108; GFR 82; AST 57; ALT 110; GLOB 3.8; A/G 1.0; cp Reviewed. 12/12 17:23 Order name: Lipase; Complete Time: 18:21 cp 12/12 17:23 Order name: UA Rfx Crow Cult if indicated; Complete Time: 18:21 cp 12/12 19:56 Interpretation: Normal except: UCLA Turbid; UKET 1+; UBLD 1+. cp 12/12 17:23 Order name: Test, Urine; Complete Time: 18:21 cp 12/12 17:23 Order name: Magnesium; Complete Time: 18:21 cp 12/12 18:22 Order name: CT Abd/Pelvis - IV Contrast Only; Complete Time: 19:22 cp 12/12 17:23 Order name: IV Saline Lock; Complete Time: 17:27 cp 12/12 17:23 Order name: Labs collected and sent; Complete Time: 17:27 cp Administered Medications: 17:23 CANCELLED (Physician Discretion): morphineor iv 4 mg IVP once over 4 mins cp 17:50 Drug: NS 0.9% IV 1000 ml IV at 1 bolus Per protocol; to be given as a bolus over 60 af3 minutes Route: IV; Rate: 1 bolus; Site: left antecubital; 19:13 Follow up: Response: No adverse reaction; IV Status: Completed infusion; IV Intake: af3 1000ml 17:50 Drug: metoCLOPramide IVP 10 mg IVP once; over 1 to 2 minutes Route: IVP; Site: left af3 antecubital; 19:13 Follow up: Response: No adverse reaction af3 17:50 Drug: diphenhydrAMINE IVP 25 mg IVP once Route: IVP; Site: left antecubital; af3 19:13 Follow up: Response: No adverse reaction af3 17:50 Drug: Dicyclomine IM 20 mg IM once Route: IM; Site: left deltoid; af3 19:12 Follow up: Response: No adverse reaction af3 19:09 Drug: morphine IVP or IV 4 mg IVP once over 4 mins Route: IVP; Infused Over: 4 mins; af3 Site: left antecubital; 19:30 Follow up: Response: No adverse reaction; Pain is decreased ss12 20:25 Drug: Droperidol IVP 1.25 mg IVP once Route: IVP; Site: left antecubital; ss12 21:00 Follow up: Response: No adverse reaction ss12 20:25 Drug: Famotidine IVP 20 mg IVP once; dilute with 10 mL 0.9% NaCl; give over 2 minutes ss12 Route: IVP; Site: left antecubital; 21:00 Follow up: Response: No adverse reaction ss12 Disposition Summary: 12/12/24 20:38 Discharge Ordered Notes: Location: Home cp Problem: new cp Symptoms: have improved cp Condition: Stable cp Diagnosis - Abdominal pain, unspecified cp - Nausea cp Followup: cp - With: Alfredo Fraga MD - When: 1 week - Reason: pain, symptoms continue Discharge Instructions: - Discharge Summary Sheet cp - Abdominal Pain, Adult cp Forms: - Medication Reconciliation Form cp - Antibiotic Education cp - Prescription Opioid Use cp - Patient Portal Instructions cp - Leadership Thank You Letter cp Prescriptions: - Pepcid 20 mg Oral Tablet - take 1 tablet ORAL route every 12 hours for 10 days; 20 tablet; Refills: 0, cp Product Selection Permitted - dicyclomine 20 mg Oral tablet - take 1 tablet ORAL route 4 times per day; 30 tablet; Refills: 0, Product cp Selection Permitted - ondansetron 8 mg Oral Tablet,disintegrating - take 1 tablet ORAL route every 12 hours; 15 tablet; Refills: 0, Product cp Selection Permitted Signatures: Dispatcher [employer] EDMS Dez Varghese PA-C PARamuC cp Claribel Young, RN RN af3 Fam Otto RN RN ss12 Corrections: (The following items were deleted from the chart) 17:23 17:23 morphine IVP or IV 4 mg IVP once over 4 mins ordered. cp cp 17:24 17:24 CBC+H.LAB.BRZ ordered. EDMS EDMS 17:24 17:24 COMPREHENSIVE METABOLIC PANEL+C.LAB.BRZ ordered. EDMS EDMS 17:24 17:24 LIPASE+C.LAB.BRZ ordered. EDMS EDMS 17:24 17:24 UA Rfx Crow Cult if indicated+U.LAB.BRZ ordered. EDMS EDMS 17:24 17:24 Test, Urine+UC.LAB.BRZ ordered. EDMS EDMS 17:24 17:24 MAGNESIUM+C.LAB.BRZ ordered. EDMS EDMS 18:22 18:22 Abdomen Pelvis W Con+CT.RAD.BRZ ordered. EDMS EDMS 19:49 19:23 Reviewed. cp cp
--- NOTE | 2024-12-12 20:39 | ER ---
Nurse's Notes [facility] Name: Elke Benton Age: 44 yrs Sex: Female : 1980 Arrival Date: 12/12/2024 Time: 16:54 Bed 15 Private MD: Diagnosis: Abdominal pain, unspecified;Nausea Presentation: 12/12 17:16 Chief complaint: Patient states: abdominal cramping started on Sunday, got worse today af3 around 1530, also c/o nausea and dizziness. Coronavirus screen: At this time, the client does not indicate any symptoms associated with coronavirus-19. Ebola Screen: No symptoms or risks identified at this time. Initial Sepsis Screen: Does the patient meet any 2 criteria? No. Patient's initial sepsis screen is negative. Does the patient have a suspected source of infection? No. Patient's initial sepsis screen is negative. Risk Assessment: Do you want to hurt yourself or someone else? Patient reports no desire to harm self or others. Onset of symptoms was December 12, 2024. 17:16 Method Of Arrival: Ambulatory af3 17:16 Acuity: MARK 3 af3 Triage Assessment: 17:18 General: Appears in no apparent distress. uncomfortable, well groomed, well developed, af3 Behavior is calm, cooperative, appropriate for age. Pain: Complains of pain in right upper quadrant and left upper quadrant Pain currently is 6 out of 10 on a pain scale. Quality of pain is described as crampy, Pain began 2 hours ago. Neuro: Level of Consciousness is awake, alert, obeys commands, Oriented to person, place, time, situation, Appropriate for age. Cardiovascular: Patient's skin is warm and dry. Respiratory: Airway is patent Respiratory effort is even, unlabored, Respiratory pattern is regular, symmetrical. GI: Reports upper abdominal pain, nausea. 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 - Infectious Disease History:: Denies. - Social history:: Smoking status: Patient denies any tobacco usage or history of. Screenin:18 [facility] ED Fall Risk Assessment (Adult) History of falling in the last 3 months, af3 including since admission No falls in past 3 months (0 pts) Confusion or Disorientation No (0 pts) Intoxicated or Sedated No (0 pts) Impaired Gait No (0 pts) Mobility Assist Device Used No (0 pt) Altered Elimination No (0 pt) Score/Fall Risk Level 0 - 2 = Low Risk Oriented to surroundings, Maintained a safe environment, Educated pt \T\ family on fall prevention, incl call for assistance when getting out of bed. Abuse screen: Denies threats or abuse. Denies injuries from another. Nutritional screening: No deficits noted. Tuberculosis screening: No symptoms or risk factors identified. Assessment: 17:18 General: see triage assessment . af3 18:18 Reassessment: Patient appears in no apparent distress at this time. No changes from af3 previously documented assessment. Patient and/or family updated on plan of care and expected duration. Pain level reassessed. 19:00 General: Appears in no apparent distress. Behavior is calm, cooperative, quiet. Pain: ss12 Complains of pain in abdomen, left upper quadrant, right upper quadrant Pain currently is 4 out of 10 on a pain scale. Quality of pain is described as aching, throbbing. Neuro: No deficits noted. Level of Consciousness is awake, alert, obeys commands, Oriented to person, place, time, situation. Cardiovascular: No deficits noted. Capillary refill < 3 seconds Patient's skin is warm and dry. Respiratory: No deficits noted. Airway is patent Respiratory effort is even, unlabored, Respiratory pattern is regular, symmetrical. GI: No deficits noted. No signs and/or symptoms were reported involving the gastrointestinal system. Bowel sounds present X 4 quads. : No deficits noted. No signs and/or symptoms were reported regarding the genitourinary system. EENT: No deficits noted. No signs and/or symptoms were reported regarding the EENT system. Derm: No deficits noted. Skin is intact, Skin is dry, Skin is pink, warm \T\ dry. normal. Musculoskeletal: No deficits noted. No signs and/or symptoms reported regarding the musculoskeletal system. 19:00 GI: Abd is soft and non tender X 4 quads. ss12 20:59 Reassessment: Patient appears in no apparent distress at this time. Patient and/or ss12 family updated on plan of care and expected duration. Pain level reassessed. Patient is alert, oriented x 3, equal unlabored respirations, skin warm/dry/pink. Vital Signs: 17:16 BP 175 / 79; Pulse 79; Resp 18; Temp 98.2; Pulse Ox 99% on R/A; Weight 99.79 kg; Height af3 5 ft. 7 in. ; Pain 6/10; 19:11 BP 150 / 85; Pulse 69; Resp 18; Pulse Ox 97% on R/A; af3 20:30 BP 149 / 87; Pulse 57; Resp 18 S; Pulse Ox 99% on R/A; ss12 17:16 Body Mass Index 34.46 (99.79 kg, 170.18 cm) af3 17:16 Pain Scale: Adult af3 [place] Coma Score: 20:30 Eye Response: spontaneous(4). Motor Response: obeys commands(6). Verbal Response: ss12 oriented(5). Total: 15. ED Course: 16:57 Patient arrived in ED. mr 16:58 Dez Varghese PA-C [facility]. cp 16:58 Nabil Rae MD is Attending Physician. cp 17:16 Claribel Young, DANYEL is Primary Nurse. af3 17:18 Triage completed. af3 17:18 Arm band placed on. af3 17:18 Patient has correct armband on for positive identification. Bed in low position. Call af3 light in reach. Provided Education on: call light use . 17:18 No provider procedures requiring assistance completed. Initial lab(s) drawn, by md, af3 sent to lab. Inserted saline lock: 20 gauge in left antecubital area, using aseptic technique. Blood collected. Flushed with 10 mL NS. 18:56 CT Abd/Pelvis - IV Contrast Only In Process Unspecified. EDMS 20:38 Alfredo Fraga MD is Referral Physician. cp 21:16 IV discontinued, intact, bleeding controlled, No redness/swelling at site. Pressure ss12 dressing applied. Administered Medications: 17:23 CANCELLED (Physician Discretion): morphineor iv 4 mg IVP once over 4 mins cp 17:50 Drug: NS 0.9% IV 1000 ml IV at 1 bolus Per protocol; to be given as a bolus over 60 af3 minutes Route: IV; Rate: 1 bolus; Site: left antecubital; 19:13 Follow up: Response: No adverse reaction; IV Status: Completed infusion; IV Intake: af3 1000ml 17:50 Drug: metoCLOPramide IVP 10 mg IVP once; over 1 to 2 minutes Route: IVP; Site: left af3 antecubital; 19:13 Follow up: Response: No adverse reaction af3 17:50 Drug: diphenhydrAMINE IVP 25 mg IVP once Route: IVP; Site: left antecubital; af3 19:13 Follow up: Response: No adverse reaction af3 17:50 Drug: Dicyclomine IM 20 mg IM once Route: IM; Site: left deltoid; af3 19:12 Follow up: Response: No adverse reaction af3 19:09 Drug: morphine IVP or IV 4 mg IVP once over 4 mins Route: IVP; Infused Over: 4 mins; af3 Site: left antecubital; 19:30 Follow up: Response: No adverse reaction; Pain is decreased ss12 20:25 Drug: Droperidol IVP 1.25 mg IVP once Route: IVP; Site: left antecubital; ss12 21:00 Follow up: Response: No adverse reaction ss12 20:25 Drug: Famotidine IVP 20 mg IVP once; dilute with 10 mL 0.9% NaCl; give over 2 minutes ss12 Route: IVP; Site: left antecubital; 21:00 Follow up: Response: No adverse reaction ss12 Medication: 17:18 VIS not applicable for this client. af3 Intake: 19:13 IV: 1000ml; Total: 1000ml. af3 Outcome: 20:38 Discharge ordered by . cp 21:16 Discharged to home ambulatory, ss12 21:16 Condition: stable 21:16 Discharge instructions given to patient, Instructed on discharge instructions, follow up and referral plans. Demonstrated understanding of instructions, follow-up care, medications, Prescriptions given X 3, 21:17 Patient left the ED. ss12 Signatures: Dispatcher [employer] EDMA Kelly Combs, Reg Reg mr Halima Dez, PARamuC PAClaribel Peña cp, RN RN af3 Shamaila, Shamaila, RN RN ss12 Corrections: (The following items were deleted from the chart) 21:16 19:10 Reassessment: Patient appears in no apparent distress at this time. Patient ss12 and/or family updated on plan of care and expected duration. Pain level reassessed. Patient is alert, oriented x 3, equal unlabored respirations, skin warm/dry/pink. ss12
[2024-12-12 21:36] VITALS: TEMP 98.2
[2024-12-12 21:39] VITALS: BP 149/87; O2SAT 99
== END 2024-12-12 21:17 | disposition home or self-care (01) ==
LOC: ER 16:54
DX: R10.84 Generalized abdominal pain (principal); R11.0 Nausea
CPT/HCPCS: 96361; 85025; 81001; 36415; 83735; 81025; 83690; 80053; 74177; 96375; 96372; 96374; 99284; Q9967; J2765; J0500; J1200; J1790; J7030